=== PATIENT | female | born 1970 | race Caucasian/White ===

== ENCOUNTER 2018-04-19 16:03 | Emergency (ER) | payer BC ==
[2018-04-19 20:14] VITALS: RESP 16; TEMP 98
--- NOTE | 2018-04-19 20:52 | XR ---
EXAMINATION TYPE: XR chest 2V DATE OF EXAM: 04/19/2018 COMPARISON: None HISTORY: 48-year-old female with pain TECHNIQUE: PA and lateral views FINDINGS: The cardiomediastinal silhouette, aorta, and pulmonary vasculature are within normal limits. Lungs an d pleural spaces are clear. IMPRESSION: No acute cardiopulmonary process.
--- NOTE | 2018-04-19 21:41 | US ---
EXAMINATION TYPE: US gallbladder DATE OF EXAM: 04/19/2018 COMPARISON: NONE CLINICAL HISTORY: 48-year-old female Pain. RUQ pain . TECHNIQUE: Multiple sonographic images of the right upper quadrant are obtained. FINDINGS: Contracting Analyst notes: Patient eating chinese fries when I walked into the room. EXAM MEASUREMENTS: Liver Length: 12.3 cm Gallbladder Wall: 0.1 cm CBD: 7.1 mm Right Kidney: 9.1 x 3.7 x 4.1 cm Pancreas: Tail obscured by overlying bowel gas, visualized portions wnl Liver: Normal size but with slight parenchymal heterogeneity which may be on a technical basis. No fo cassandra lesion seen. Gallbladder: wnl Evidence for sonographic Petty's sign: No CBD: Mildly dilated. Right Kidney: No hydronephrosis. IMPRESSION: 1. Slight heterogeneity of the liver parenchyma may be on a technical basis or could represent nonspe cific hepatocellular disease. 2. No evidence for cholelithiasis or acute cholecystitis. 3. However, the bile duct is mildly dilated at 7.1 mm. Correlate with alkaline phosphatase and biliru bin levels to exclude biliary obstruction.
--- NOTE | 2018-04-19 21:42 | US ---
EXAMINATION TYPE: US venous doppler duplex LE RT DATE OF EXAM: 04/19/2018 9:26 PM COMPARISON: NONE CLINICAL HISTORY: 48-year-old female Pain. Right knee pain SIDE PERFORMED: Right TECHNIQUE: The lower extremity deep venous system is examined utilizing real time linear array sonog erika with graded compression, doppler sonography and color-flow sonography. FINDINGS: VESSELS IMAGED: External Iliac Vein (EIV) Common Femoral Vein Deep Femoral Vein Greater Saphenous Vein * Femoral Vein Popliteal Vein Small Saphenous Vein * Proximal Calf Veins (* superficial vessels) Right Leg: Negative for DVT IMPRESSION: No evidence for DVT within the right lower extremity imaged from the groin to the upper calf.
--- NOTE | 2018-04-19 21:45 | USB ---
EXAMINATION TYPE: US breast complete RT DATE OF EXAM: 04/19/2018 COMPARISON: NONE CLINICAL HISTORY: 48-year-old female Pain. Right breast pain TECHNIQUE: Whole right breast ultrasound was performed including scanning of the subareolar region an d axilla. FINDINGS: No solid or cystic lesion is seen. Very dense breast tissue noted by the shell sieve operator. No axillary lym phadenopathy. IMPRESSION: BI-RADS 1 - negative RECOMMENDATION: 1. Clinical management of right breast pain. 2. Patient should proceed with routine annual screening mammograms. Please ensure that the patient is receiving regular mammograms. 3. Patient should continue monthly self breast exam. 4. Negative imaging exam should not preclude additional follow-up of suspicious palpable abnormalitie s.
[2018-04-19] MEDS ORDERED: KETOROLAC 30 MG/ML 1 ML VIAL IVP STA (22:06)
--- NOTE | 2018-04-19 22:08 | ED ---
General Adult HPI - General Chief complaint: Recheck/Abnormal Lab/Rx Stated complaint: R swollen breast, arm numbness Time Seen by Provider: 04/19/18 20:01 Source: patient, RN notes reviewed Mode of arrival: ambulatory Limitations: no limitations - History of Present Illness Initial comments: 48-year-old female presents emergency Department with multiple complaints. Primary complaint is right breast pain, swelling, right arm pain. Patient states it feels numb and pain radiates down to her right antecubital region. Patient states his has been progressively worsening a while. She states she had a mammogram which showed high density and was concerned that she may have some underlying breast mass. She states that she supposed to have an MRI but her PCP here has not or today. She states she moved from [place] and July. Patient does have family history of breast cancer. Patient also complains that she has right upper quadrant abdominal pain, right leg pain and swelling. She states she just feels off does not feel her usual self. Patient states he takes Neurontin currently no other medications. Patient denies any vomiting diarrhea constipation. - Related Data Allergies Allergy/AdvReac Type Severity Reaction Status Date / Time Penicillins Allergy Unknown Verified 04/19/18 16:10 Review of Systems ROS Statement: Those systems with pertinent positive or pertinent negative responses have been documented in the HPI. ROS Other: All systems not noted in ROS Statement are negative. 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 laparascopy Past Psychological History: No Psychological Hx Reported Smoking Status: Never smoker Past Alcohol Use History: None Reported Past Drug Use History: None Reported General Exam Limitations: no limitations General appearance: alert, in no apparent distress Head exam: Present: atraumatic, normocephalic, normal inspection Eye exam: Present: normal appearance, PERRL, EOMI. Absent: scleral icterus, conjunctival injection, periorbital swelling Neck exam: Present: normal inspection, full ROM. Absent: tenderness, meningismus, lymphadenopathy Respiratory exam: Present: normal lung sounds bilaterally, chest wall tenderness. Absent: respiratory distress, wheezes, rales, rhonchi, stridor Cardiovascular Exam: Present: regular rate, normal rhythm, normal heart sounds. Absent: systolic murmur, diastolic murmur, rubs, gallop, clicks GI/Abdominal exam: Present: soft, tenderness (Mild right upper quadrant tenderness), normal bowel sounds. Absent: distended, guarding, rebound, rigid Extremities exam: Present: other (There is no evident swelling on the right, tenderness the right thigh, right popliteal region patient reports pain with palpation to the right axilla and the right bicep region pulses equal bilaterally of all extremities) Back exam: Absent: CVA tenderness (R), CVA tenderness (L) Neurological exam: Present: alert, oriented X3, CN II-XII intact Skin exam: Present: warm, dry, intact, normal color, other (Breast exam performed with Amanda MCNALLY multiple cystic region no nipple retraction no orange peeling no erythema). Absent: rash Course Vital Signs 04/19/18 04/19/18 04/19/18 16:06 20:12 22:07 Temperature 98.2 F 98.0 F 98.0 F Pulse Rate 84 75 73 Respiratory 20 16 16 Rate Blood Pressure 143/96 136/92 129/96 O2 Sat by Pulse 100 96 100 Oximetry Medical Decision Making - Medical Decision Making 48-year-old female presented for right breast pain, right arm pain and right leg pain. Patient had workup including labs, ultrasound chest x-ray. Patient has no acute findings other than mild hypoglycemia. She did eat emergency department no difficulty. Patient will be discharged and follow-up with Dr. Noam Gary breast surgeon for further evaluation and MRI as needed. - Lab Data Result diagrams: 04/19/18 22:00 04/19/18 22:00 Lab Results 04/19/18 04/19/18 04/19/18 Range/Units 22:00 22:00 22:00 WBC 7.5 (3.8-10.6) k/uL RBC 4.87 (3.80-5.40) m/uL Hgb 15.7 (11.4-16.0) gm/dL Hct 46.1 H (34.0-46.0) % MCV 94.7 (80.0-100.0) fL MCH 32.3 (25.0-35.0) pg MCHC 34.1 (31.0-37.0) g/dL RDW 12.3 (11.5-15.5) % Plt Count 227 (150-450) k/uL Neutrophils % 62 % Lymphocytes % 29 % Monocytes % 6 % Eosinophils % 1 % Basophils % 1 % Neutrophils # 4.6 (1.3-7.7) k/uL Lymphocytes # 2.2 (1.0-4.8) k/uL Monocytes # 0.4 (0-1.0) k/uL Eosinophils # 0.1 (0-0.7) k/uL Basophils # 0.1 (0-0.2) k/uL PT 10.4 (9.0-12.0) sec INR 1.0 (<1.2) APTT 26.6 (22.0-30.0) sec Sodium 143 (137-145) mmol/L Potassium 3.8 (3.5-5.1) mmol/L Chloride 104 (98-107) mmol/L Carbon Dioxide 31 H (22-30) mmol/L Anion Gap 8 mmol/L BUN 22 H (7-17) mg/dL Creatinine 0.71 (0.52-1.04) mg/dL Est GFR (CKD-EPI)AfAm >90 (>60 ml/min/1.73 sqM) Est GFR (CKD-EPI)NonAf >90 (>60 ml/min/1.73 sqM) Glucose 60 L (74-99) mg/dL Calcium 9.7 (8.4-10.2) mg/dL Total Bilirubin 0.4 (0.2-1.3) mg/dL AST 26 (14-36) U/L ALT 30 (9-52) U/L Alkaline Phosphatase 48 (38-126) U/L Total Protein 7.0 (6.3-8.2) g/dL Albumin 4.3 (3.5-5.0) g/dL Lipase 92 (23-300) U/L Urine Color Urine Appearance (Clear) Urine pH (5.0-8.0) Ur Specific [place] (1.001-1.035) Urine Protein (Negative) Urine Glucose (UA) (Negative) Urine Ketones (Negative) Urine Blood (Negative) Urine Nitrite (Negative) Urine Bilirubin (Negative) Urine Urobilinogen (<2.0) mg/dL Ur Leukocyte Esterase (Negative) Urine RBC (0-5) /hpf Urine WBC (0-5) /hpf Ur Squamous Epith Cells (0-4) /hpf Urine Mucus (None) /hpf 04/19/18 Range/Units 22:00 WBC (3.8-10.6) k/uL RBC (3.80-5.40) m/uL Hgb (11.4-16.0) gm/dL Hct (34.0-46.0) % MCV (80.0-100.0) fL MCH (25.0-35.0) pg MCHC (31.0-37.0) g/dL RDW (11.5-15.5) % Plt Count (150-450) k/uL Neutrophils % % Lymphocytes % % Monocytes % % Eosinophils % % Basophils % % Neutrophils # (1.3-7.7) k/uL Lymphocytes # (1.0-4.8) k/uL Monocytes # (0-1.0) k/uL Eosinophils # (0-0.7) k/uL Basophils # (0-0.2) k/uL PT (9.0-12.0) sec INR (<1.2) APTT (22.0-30.0) sec Sodium (137-145) mmol/L Potassium (3.5-5.1) mmol/L Chloride (98-107) mmol/L Carbon Dioxide (22-30) mmol/L Anion Gap mmol/L BUN (7-17) mg/dL Creatinine (0.52-1.04) mg/dL Est GFR (CKD-EPI)AfAm (>60 ml/min/1.73 sqM) Est GFR (CKD-EPI)NonAf (>60 ml/min/1.73 sqM) Glucose (74-99) mg/dL Calcium (8.4-10.2) mg/dL Total Bilirubin (0.2-1.3) mg/dL AST (14-36) U/L ALT (9-52) U/L Alkaline Phosphatase (38-126) U/L Total Protein (6.3-8.2) g/dL Albumin (3.5-5.0) g/dL Lipase (23-300) U/L Urine Color Light Yellow Urine Appearance Clear (Clear) Urine pH 6.0 (5.0-8.0) Ur Specific [place] 1.011 (1.001-1.035) Urine Protein Negative (Negative) Urine Glucose (UA) Negative (Negative) Urine Ketones Negative (Negative) Urine Blood Negative (Negative) Urine Nitrite Negative (Negative) Urine Bilirubin Negative (Negative) Urine Urobilinogen <2.0 (<2.0) mg/dL Ur Leukocyte Esterase Trace H (Negative) Urine RBC 1 (0-5) /hpf Urine WBC 2 (0-5) /hpf Ur Squamous Epith Cells 3 (0-4) /hpf Urine Mucus Rare H (None) /hpf Disposition Clinical Impression: Breast pain, right, Right arm pain Disposition: HOME SELF-CARE Condition: Stable Instructions: Breast Mass (ED) Additional Instructions: Follow-up with Dr. Noam Gary as directed.Please return to the Emergency Department if symptoms worsen or any other concerns. Is patient prescribed a controlled substance at d/c from ED?: No Referrals: Cortez Paulino DO [Primary Care Provider] - 1-2 days Valeria Abrams MD [STAFF PHYSICIAN] - 1-2 days Time of Disposition: 22:51
[2018-04-19 22:18] LABS: Basophils # (A) 0.1 k/uL (0-0.2); Basophils % (A) 1 %; Eosinophils # (A) 0.1 k/uL (0-0.7); Eosinophils % (A) 1 %; HCT 46.1 % (34.0-46.0); HGB 15.7 gm/dL (11.4-16.0); Lymphocytes # (A) 2.2 k/uL (1.0-4.8); Lymphocytes % (A) 29 %; MCH 32.3 pg (25.0-35.0); MCHC 34.1 g/dL (31.0-37.0); MCV 94.7 fL (80.0-100.0); Mean Platelet Volume 7.7; Monocytes # (A) 0.4 k/uL (0-1.0); Monocytes % (A) 6 %; Neutrophils # (A) 4.6 k/uL (1.3-7.7); Neutrophils % (A) 62 %; Platelet Count 227 k/uL (150-450); RBC 4.87 m/uL (3.80-5.40); RDW 12.3 % (11.5-15.5); WBC 7.5 k/uL (3.8-10.6)
[2018-04-19 22:31] LABS: Appearance,Urine Clear (Clear); Bilirubin,Urine Negative (Negative); Blood,Urine Negative (Negative); Color,Urine Light Yellow; Glucose,Urine (UA) Negative (Negative); Ketones,Urine Negative (Negative); Leukocyte Esterase,Urine Trace (Negative); Mucus,Urine Rare /hpf; Nitrite,Urine Negative (Negative); Protein,Urine Negative (Negative); RBC,Urine 1 /hpf (0-5); Specific Gravity,Urine 1.011 (1.001-1.035); Squamous Epithelial Cell,Urine 3 /hpf (0-4); Urobilinogen,Urine <2.0 mg/dL (<2.0); WBC,Urine 2 /hpf (0-5)
[2018-04-19 22:32] LABS: Partial Thromboplastin Time 26.6 sec (22.0-30.0); Prothrombin Time 10.4 sec (9.0-12.0)
[2018-04-19 22:34] LABS: ALT 30 U/L (9-52); AST 26 U/L (14-36); Albumin 4.3 g/dL (3.5-5.0); Alkaline Phosphatase 48 U/L (38-126); Anion Gap 8 mmol/L; Blood Urea Nitrogen 22 mg/dL (7-17); Calcium 9.7 mg/dL (8.4-10.2); Carbon Dioxide 31 mmol/L (22-30); Chloride 104 mmol/L (98-107); Glucose 60 mg/dL (74-99); Lipase 92 U/L (23-300); Potassium 3.8 mmol/L (3.5-5.1); Sodium 143 mmol/L (137-145); Total Bilirubin 0.4 mg/dL (0.2-1.3)
[2018-04-19 23:28] VITALS: BP 130/78; PULSE 71
== END 2018-04-19 23:20 | disposition home or self-care (01) ==
LOC: EC 16:03
DX: N64.4 Mastodynia (principal); M79.601 Pain in right arm; N63.10 Unspecified lump in the right breast, unspecified quadrant; M79.604 Pain in right leg; M79.89 Other specified soft tissue disorders; R10.11 Right upper quadrant pain; E16.2 Hypoglycemia, unspecified; R20.0 Anesthesia of skin; Z79.899 Other long term (current) drug therapy; Z88.0 Allergy status to penicillin; Z80.3 Family history of malignant neoplasm of breast
CPT/HCPCS: 99284; 96374; 36415; 80053; 83690; 85025; 85610; 85730; 81001; 71046; 93971; 76641; 76705; J1885

== ENCOUNTER → 2018-05-20 | Outpatient (CLI) | payer BC ==
[2018-05-20 15:30] VITALS: BP 142/82; PULSE 89; RESP 18; BMI 22.3
--- NOTE | 2018-05-20 17:41 | P.GSHP ---
History of Present Illness H&P Date: 05/20/18 Chief Complaint: breast swelling and pain Alison is a 48-year-old white female who presents with a complaint of right breast swelling and pain in the upper outer quadrant region. The pain has been present for approximately 2 months. The pain is not cyclical and is constant. The patient has very dense breast and the breast feel nodular bilaterally. She has no nipple discharge or changes. She has no skin changes. She has no history of any trauma or infection in the breast. Last bilateral mammogram 2017 and dense breast but no evidence of cancer. An ultrasound was done 6 month left bresat ultrasound recommended. This was done on 04-19-18. This was a BIRADS 1, negative. She does not smoke but is exposed to secondhand smoke. She eats chocolate twice a month. She has minimal exposure to caffeine. The area of fullness was noted when she was walking and was swinging her arm she noted a fullness in the upper outer quadrant of the right breast. Family History: maternal grandmother: breast cancer Hormonal History: menarche: 11 : 1, 1 child, age 17, breastfed: no menopause: last period May of 2017, + hotflashes BCP: none hormones: premarin cream last used about 1 year ago Past Surgical History: 1. Cardiac ablation 2. Laparoscopic evaluation for endometriosis 3. tubes in her hear 4. wisdom teeth 5. cyst in her groin Past Medical History: 1. Michael Parkinson White Syndrome Social Hsitory: smoke: none alcohol: none drugs: none - Constitutional Constitutional: Reports sweats - EENT Comment: wears reading glasses cervical disc disease Eyes: denies pain Ears: deny: decreased hearing, tinnitus - Breasts Breasts: bilateral: as per HPI - Cardiovascular Comment: Michael Parkinson White Syndrome Cardiovascular: Denies chest pain, Denies shortness of breath - Respiratory Comment: bronchitis - Gastrointestinal Comment: IBS, GERD - Genitourinary (Female) Comment: perimenopausal Genitourinary: Denies dysuria, Denies hematuria - Menstruation Comment: perimenopausal - Musculoskeletal Comment: cervical disc disease - Integumentary Integumentary: Denies pruritus, Denies rash - Neurological Neurological: Reports numbness - Psychiatric Psychiatric: Denies anxiety, Denies depression - Endocrine Endocrine: Denies fatigue, Denies weight change - Allergic/Immunologic Allergic/Immunologic: Reports seasonal allergies Past Medical History 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 laparascopy Past Psychological History: No Psychological Hx Reported Smoking Status: Never smoker Past Alcohol Use History: None Reported Past Drug Use History: None Reported Medications and Allergies Home Medications Medication Instructions Recorded Confirmed Type Ascorbic Acid [Vitamin C] 05/20/18 History Cholecalciferol [Vitamin D3] 1,000 unit PO DAILY 05/20/18 05/20/18 History Gabapentin [Neurontin] 100 mg PO TID 05/20/18 05/20/18 History Zinc 05/20/18 History Allergies Allergy/AdvReac Type Severity Reaction Status Date / Time Penicillins Allergy Unknown Verified 05/20/18 15:37 adhesive tape AdvReac Rash/Hives Unverified 05/20/18 15:36 codeine AdvReac Vomiting Unverified 05/20/18 15:36 Surgical - Exam Vital Signs Pulse Resp BP Pulse Ox 89 18 142/82 100 05/20/18 15:19 05/20/18 15:19 05/20/18 15:19 05/20/18 15:19 - General well developed, well nourished, no distress - Eyes normal ocular movement, no icteric - ENT no hearing loss, no congestion - Neck right cervical adenopathy no masses, trachea midline - Respiratory normal respiratory effort, clear to auscultation - Cardiovascular Rhythm: regular Heart Sounds: normal: S1, S2 - Abdomen Abdomen: soft, non tender, no guarding, no rigid, no rebound - Integumentary normal turgor - Neurologic no disoriented, no combative - Musculoskeletal normal gait, normal posture - Psychiatric oriented to time, oriented to person, oriented to place, speech is normal, memory intact Breast Exam: right breast: multipositional exam, very dense breast , increased tissue in UOQ , very difficult to examine, fibrocystic changes right axilla: no adenopathy of concern left breast: multipositional exam, dense fibrocystic breast tissue, smaller than the right breast. Results ultrasound report from 04-19-18 reviewed mammogram report from 05-22-17 reviewed Assessment and Plan Assessment: Impression: 1. dense fibrocystic breasst 2. mystodynia 3. asymetric breast 4. cervical disc disease 5. perimenopausal Plan: 1. bilateral mammogram 2. appt. with Dr. Butler to evaluate for hormonal fluctuations 3. Tamms oil 4. will consider breast MRI depending on results of mammogram 5. follow up here in 6 weeks Discussed causes of breast pain with the patient. She was give a book on breast pain. CC: Dr. Paulino
== END ==
LOC: WWCWWP 15:14
PROVIDERS: ATTEND Surgery
DX: Z53.9 Procedure and treatment not carried out, unspecified reason (principal)

== ENCOUNTER → 2018-05-25 | Outpatient (CLI) | payer BC ==
--- NOTE | 2018-05-26 08:34 | MR ---
EXAMINATION TYPE: MR cervical spine wo/w con DATE OF EXAM: 05/25/2018 COMPARISON: HISTORY: Neck pain, Julio César arm tingling TECHNIQUE: Multiplanar, multisequence images of the cervical spine were acquired utilizing 7 mL intravenous Gada vist gadolinium contrast. Diffusion weighted imaging was performed. C2-C3: No evidence for degenerative disc disease. No disc bulge/herniation or protrusion. No Canal stenosis. Foramina are patent bilaterally. C3-C4: Posterior extension of endplate disc complex causes anterior mass effect on the thecal sac. No significant central canal stenosis. Uncovertebral joint hypertrophy, facet arthropathy change result s in bilateral foraminal encroachment. C4-C5: Hypertrophic changes cause foraminal encroachment bilaterally. Left paracentral extension of e ndplate disc complex causes anterolateral mass effect in the fecal sac greater than right. Mild anter ior mass effect on the thecal sac. No significant central stenosis. C5-C6: Posterior extension of endplate disc complex is noted causing anterior mass effect on the thec al sac, mild to moderate central canal stenosis. Bilateral foraminal encroachment is present left gre ater than right. C6-C7: Posterior extension of endplate disc complex causes anterior mass effect on the thecal sac, mi ld central stenosis. Foraminal encroachment is present right greater than left. There is some facet a rthropathy changes causing some posterior lateral mass effect on the thecal sac. C7-T1: No evidence for degenerative disc disease. No disc bulge/herniation or protrusion. No Canal stenosis. Foramina are patent bilaterally. Cervical segments are intact. There is near anatomic alignment, minimal anterolisthesis grade 1 C3-4 , retrolisthesis grade 1 C5-6. Cervical spinal cord is of normal signal. Craniovertebral junction r elationships are within normal limits. There is multilevel spondylosis present. Multilevel loss of di sc height signal is present especially at C4-5, C5-6 and C6-7, there is endplate discogenic marrow si gnal change compatible with degenerative disc disease. No abnormal enhancement following contrast adm inistration. IMPRESSION: Degenerative disc disease, multilevel foraminal encroachment, central canal stenosis as described.
== END | disposition home or self-care (01) ==
LOC: RADMRIMAIN 20:44
PROVIDERS: ATTEND Physician Assistant Surgical
DX: M48.02 Spinal stenosis, cervical region (principal); M50.321 Other cervical disc degeneration at C4-C5 level
CPT/HCPCS: 72156; A9585

== ENCOUNTER → 2018-06-09 | Outpatient (CLI) | payer BC ==
[2018-06-09 10:30] VITALS: BP 113/81; PULSE 87; RESP 18; TEMP 98; BMI 22.3
--- NOTE | 2018-06-09 14:03 | P.HPOB ---
History of Present Illness H&P Date: 06/09/18 Chief Complaint: That hot flashes worsening over the last year. This is a 48-year-old with an LMP of 05/21/2017 who was sent by Dr. Noam Gary regarding menopausal symptoms. The patient was seen in the emergency room because of severe breast pain. She saw Dr. Noam Gary because of this pain and was felt to have significant fibrocystic changes. The patient states that she started having hot flashes after her menstrual periods stopped one year ago. In July 2017 symptoms became quite severe and briefly used Premarin vaginal cream for 2 weeks. She states the hot flashes did improve for about 4 months. She does not want to use estrogen replacement therapy because of her family history of breast cancer and because of her breast symptoms. She states her hot flashes are quite severe and occur both during the day and at night. She has had sleep problems associated with these hot flashes. Her last Pap smear was 2 years ago. Review of Systems The patient states she has gained about 5 pounds over the last year. She denies respiratory or cardiac problems. G.I.: occasional gastric reflux. Past Medical History Past Medical History: GERD/Reflux Additional Past Medical History / Comment(s): WPW syndrome improved following cardiac ablation. Cervical spine stenosis. 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 History of Any Multi-Drug Resistant Organisms: None Reported Past Surgical History: Cardiac Ablation, Ear Surgery (Tubes as a child) Additional Past Surgical History / Comment(s): exp. laparoscopy. Groin cyst removed. [place] teeth removed. Past Psychological History: Depression Additional Psychological History / Comment(s): Brief depression around 2007 treated with Prozac. Smoking Status: Never smoker Past Alcohol Use History: Rare (One per year) Past Drug Use History: None Reported Additional History: She is single and is not seeing anybody at this time. 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 - Past Family History Mother Family Medical History: COPD Additional Family Medical History / Comment(s): Maternal grandmother and her maternal great grandmother had breast cancer. Her maternal grandmother and maternal cousin had colon cancer. Father Family Medical History: Cancer Additional Family Medical History / Comment(s): Melanoma skin cancer. Medications and Allergies Home Medications Medication Instructions Recorded Confirmed Type Ascorbic Acid [Vitamin C] 1,000 mg PO DAILY 05/20/18 06/09/18 History Cholecalciferol [Vitamin D3] 1,000 unit PO DAILY 05/20/18 06/09/18 History Gabapentin [Neurontin] 100 mg PO TID 05/20/18 06/09/18 History Zinc 05/20/18 History Cyclobenzaprine [Flexeril] 10 mg PO HS PRN 06/09/18 06/09/18 History Allergies Allergy/AdvReac Type Severity Reaction Status Date / Time Penicillins Allergy Unknown Verified 06/09/18 10:17 adhesive tape AdvReac Rash/Hives Unverified 06/09/18 10:17 codeine AdvReac Vomiting Unverified 06/09/18 10:17 Exam Vital Signs Temp Pulse Resp BP Pulse Ox 06/09/18 10:25 98.0 F 87 18 113/81 99 Intake and Output 06/08/18 06/09/18 06/09/18 22:59 06:59 14:59 Other: Weight 58.967 kg Height 5'4", weight 130 pounds, BMI 22.3. This is a well-developed well-nourished white female who is alert and oriented times 3 in no acute distress. HEENT: Within normal limits. NECK: Supple without mass or thyromegaly. CHEST AND LUNGS: Clear to auscultation. HEART: Regular rate and rhythm. BREASTS: Are without mass or discharge. There is moderate bilateral breast tenderness in the upper outer quadrants of the breasts. The upper outer quadrants are somewhat firm without a discrete mass. AXILLARY EXAM: Negative for adenopathy. BACK: Negative for CVA tenderness. ABDOMEN: Soft, nontender, without palpable masses. PELVIC EXAM: Normal external genitalia with mild atrophy. Cervix and vagina appear normal with mild atrophy. There is no unusual discharge. There is no evidence of prolapse. The uterus is midposition, nongravid size and nontender. There is a palpable right pelvic mass adjacent to the uterus that measures approximately 3.5 cm and is firm and slightly irregular. This mass is mildly to moderately tender. There are no other palpable pelvic masses. RECTAL EXAM: rectovaginal exam negative for rectal mass or tenderness and is negative for occult blood. The right pelvic mass is palpable with rectovaginal exam. EXTREMITIES: Nontender. IMPRESSION: 1. 48 year old menopausal female with moderate to severe vasomotor symptoms that are bothersome both day and night. 2. Right pelvic mass which is tender. Differential diagnosis will include palpable benign right ovary, pedunculated uterine fibroid, and ovarian neoplasm. With the fairly sudden onset of bilateral breast pain, we will also consider a hormone producing ovarian neoplasm. 3. Family history of breast cancer in her maternal grandmother and great- grandmother. 4. Bilateral mastodynia. 5. Fibrocystic changes of the breast. PLAN: 1. Pap smear was performed. 2. Self breast awareness was discussed with the patient. 3. The patient is scheduled for a bilateral diagnostic mammogram today. 4. Pelvic ultrasound will be scheduled. 5. We have had long discussion regarding menopausal symptoms and vasomotor symptoms. We have discussed various options including hormone replacement therapy, nonhormonal prescription treatment such as SSRI and clonidine treatments. We also discuss other options such as herbal supplements. At this time I do not believe hormone replacement therapy would be a good option because of her family history of breast cancer and breast symptoms. She does think that an SSRI medication may be a good choice to try because she does have some emotional changes that she thinks may be related to the menopausal change. We will have a trial of paroxetine 10 mg daily. She was instructed to call if she is having problems with his medications including suicidal thoughts. She currently denies any suicidal thoughts. The electronic prescription will be sent to [facility] pharmacy on . She will return in approximately 2 months for recheck on her treatment for vasomotor symptoms. She will also return annually for her well woman exam.
--- NOTE | 2018-06-09 14:10 | MM ---
Reason for exam: additional evaluation requested from prior study. History: Family history of breast cancer in grandmother. Physical Findings: Dr. Butler did breast exam. MG 3D Diag Mammo W/Cad BERNARDO Bilateral CC and MLO view(s) were taken. Prior study comparison: April 19, 2018, right breast US breast RT. May 22, 2017, ultrasound. The breast tissue is extremely dense which could obscure a lesion on mammography. No suspicious abnormality. Breast within a breast appearance suggests central inferior middle depth hamartoma. These results were verbally communicated with the patient and result sheet given to the patient on 06/09/18. ASSESSMENT: Incomplete: need additional imaging evaluation, BI-RAD 0 RECOMMENDATION: Ultrasound of the left breast. (6 o'clock lower outer quadrant follow up from recommendation on 05/22/17)
--- NOTE | 2018-06-09 14:13 | USB ---
Reason for exam: additional evaluation requested from abnormal screening. History: Family history of breast cancer in grandmother. US Breast Limited LT Left limited breast ultrasound including focal area of concern, retroareolar and axilla demonstrates a 3 x 3 x 4mm oval, cystic lesion at 6 o'clock previously 4 x 4 x 3mm on 05/22/17. These results were verbally communicated with the patient and result sheet given to the patient on 06/09/18. ASSESSMENT: Benign, BI-RAD 2 RECOMMENDATION: Routine screening mammogram of both breasts in 1 year.
--- NOTE | 2018-06-16 10:18 | P.PN ---
Progress Note - Text Progress Note Date: 06/16/18 The patient called stating that she woke up in the middle of the night 2 days ago with various symptoms. This was after taking paroxetine daily for 3 days. She states her hot flashes did improve. She woke that night with dizziness, feeling shaky, ringing in the ears and palpitations. These symptoms lasted several hours but all resolved. She discontinued the paroxetine. We discussed various options including lowering the dose of the proximity to see if she tolerates this. She would like to try a different medication. We have discussed using a different medication in the same class such as fluoxetine and starting with a low dose that she can gradually increase to see if she has side effects. A prescription for fluoxetine 10 mg will be sent electronically to [facility] pharmacy on . She will take a half tablet every other day for 3 days, then half tablet daily for 3 days, then one tablet daily. She was instructed to discontinue the medication she has bad side effects also was instructed to call if she has any problems with this medication.
--- NOTE | 2018-06-16 10:29 | P.PN ---
Progress Note - Text Progress Note Date: 06/16/18 OUTPATIENT FOLLOW-UP NOTE TEST(S)/RESULTS: Pap smear from 06/09/2018 was negative. METHOD OF NOTIFICATION: a message was left on the patient's voicemail with this result. PATIENT COMMENTS: DIAGNOSIS: negative Pap smear DISCUSSION: PLAN: pelvic ultrasound is scheduled for 06/18/2018.
== END ==
LOC: WWCWWP 09:50
PROVIDERS: ATTEND Obstetrics & Gynecology
DX: N64.4 Mastodynia (principal)
CPT/HCPCS: 77062; 77066

== ENCOUNTER → 2018-06-18 | Outpatient (CLI) | payer BC ==
--- NOTE | 2018-06-18 17:49 | US ---
EXAMINATION TYPE: US pelvis complete transvag DATE OF EXAM: 06/18/2018 COMPARISON: NONE CLINICAL HISTORY: R19.09 Pelvic mass Right. pelvic mass on the right felt by physician TECHNIQUE: TA/TV. Date of LMP: May 2017 EXAM MEASUREMENTS: Uterus: 4.7 x 3.8 x 5.3 cm Endometrial Stripe: could not discern Right Ovary: 1.5 x 1.3 x 1.1 cm Left Ovary: 1.9 x 2.2 x 1.1 cm *tried to fill bladder for over an hour but bladder would not fully distend. Did TV to supplement 1. Uterus: Anteverted 4.7cm right sided fundal fibroid that was best seen transabdominally 2. Endometrium: unable to discern for accurate measurement 3. Right Ovary: wnl 4. Left Ovary: wnl 5. Bilateral Adnexa: wnl 6. Posterior cul-de-sac: wnl IMPRESSION: 1. Uterine fibroid
== END | disposition home or self-care (01) ==
LOC: RADUSWWP 12:57
PROVIDERS: ATTEND Obstetrics & Gynecology
DX: D25.9 Leiomyoma of uterus, unspecified (principal)
CPT/HCPCS: 76830; 76856

== ENCOUNTER 2018-10-13 00:49 | Emergency (ER) | payer BC ==
[2018-10-13 07:15] LABS: ALT 17 U/L (9-52); AST 32 U/L (14-36); African American GFR (CKD) >90 (>60 ml/min/1.73 sqM); Albumin 3.9 g/dL (3.5-5.0); Alkaline Phosphatase 50 U/L (38-126); Anion Gap 8 mmol/L; Basophils # (A) 0.1 k/uL (0-0.2); Basophils % (A) 1 %; Blood Urea Nitrogen 15 mg/dL (7-17); Calcium 9.4 mg/dL (8.4-10.2); Carbon Dioxide 26 mmol/L (22-30); Chloride 108 mmol/L (98-107); Eosinophils # (A) 0.3 k/uL (0-0.7); Eosinophils % (A) 4 %; Glucose 100 mg/dL (74-99); HCT 45.1 % (34.0-46.0); HGB 14.5 gm/dL (11.4-16.0); Lymphocytes % (A) 25 %; MCH 30.9 pg (25.0-35.0); MCHC 32.2 g/dL (31.0-37.0); MCV 95.8 fL (80.0-100.0); Mean Platelet Volume 7.9; Monocytes # (A) 0.5 k/uL (0-1.0); Monocytes % (A) 6 %; Neutrophils % (A) 62 %; Platelet Count 218 k/uL (150-450); Potassium 4.1 mmol/L (3.5-5.1); RDW 12.4 % (11.5-15.5); Sodium 142 mmol/L (137-145); Total Bilirubin 0.2 mg/dL (0.2-1.3); Total Protein 6.3 g/dL (6.3-8.2); WBC 8.1 k/uL (3.8-10.6)
--- NOTE | 2018-10-13 10:22 | CT ---
EXAM: CT Neck With Intravenous Contrast CLINICAL HISTORY: Difficulty swallowing, Rt lump on neck, Xrl065/100ml, DLP: 157.20 TECHNIQUE: Axial computed tomography images of the neck with intravenous contrast. CTDI is 7.18 mGy and DLP is 157.20 mGy-cm. This CT exam was performed using one or more of the following dose reduction techniques: automated exposure control, adjustment of the mA and/or kV according to patient size, and/or use of iterative reconstruction technique. COMPARISON: No relevant prior studies available. FINDINGS: Oropharynx: Unremarkable. No significant tonsillar enlargement. No peritonsillar abscess. Hypopharynx: Unremarkable. Larynx: Unremarkable. Normal epiglottis. Trachea: Unremarkable. Retropharyngeal space: Unremarkable. Submandibular/parotid glands: Unremarkable. Glands are normal in size. Thyroid: Unremarkable. No enlarged or calcified nodules. Bones/joints: No acute fracture. Soft tissues: Unremarkable. Vasculature: No acute findings. Lymph nodes: Unremarkable. No lymphadenopathy. Lung apices: Unremarkable as visualized. IMPRESSION: No findings to explain difficulty swallowing. No mass in the area of clinical concern. No adenopathy.
== END 2018-10-13 05:07 | disposition home or self-care (01) ==
LOC: EC 00:49
DX: R09.89 Other specified symptoms and signs involving the circulatory and respiratory systems (principal); Z96.22 Myringotomy tube(s) status; Z98.890 Other specified postprocedural states; Z87.891 Personal history of nicotine dependence; Z88.0 Allergy status to penicillin; Z88.5 Allergy status to narcotic agent; Z91.048 Other nonmedicinal substance allergy status
CPT/HCPCS: 36415; 70491; 80053; 85025; 99284

== ENCOUNTER → 2019-02-16 | Outpatient (CLI) | payer BC ==
--- NOTE | 2019-02-17 04:14 | US ---
EXAMINATION TYPE: US venous doppler duplex LE LT DATE OF EXAM: 02/16/2019 5:35 PM COMPARISON: NONE CLINICAL HISTORY: 49-year-old female with left leg pain M79.662. Intermittent left leg pain and swell ing x 3 to 4 months SIDE PERFORMED: Left TECHNIQUE: The lower extremity deep venous system is examined utilizing real time linear array sonog erika with graded compression, doppler sonography and color-flow sonography. FINDINGS: VESSELS IMAGED: External Iliac Vein (EIV) Common Femoral Vein Deep Femoral Vein Greater Saphenous Vein * Femoral Vein Popliteal Vein Small Saphenous Vein * Proximal Calf Veins (* superficial vessels) Left Leg: Appears negative for DVT IMPRESSION: No evidence for DVT within the left lower extremity imaged from the groin to the upper calf.
== END | disposition home or self-care (01) ==
LOC: RADUSMAIN 16:47
PROVIDERS: ATTEND Family Medicine
DX: M79.662 Pain in left lower leg (principal)

== ENCOUNTER → 2019-03-04 | Outpatient (CLI) | payer BC ==
--- NOTE | 2019-03-04 11:42 | FL ---
Modified barium swallow. HISTORY: Dysphagia. Modified barium swallow was performed with the department of speech pathology. The patient was prese nted with various consistencies of barium. There is no evidence for aspiration or penetration. Full report is to follow from the department of speech pathology. Impression: Normal study.
[2019-03-04 16:04] LABS: Thyroid Peroxidase Antibodies <28.0 U/mL (0.0-60.0)
== END | disposition home or self-care (01) ==
LOC: RADFLMAIN 11:01
PROVIDERS: ATTEND Otolaryngology
DX: R13.10 Dysphagia, unspecified (principal); E01.0 Iodine-deficiency related diffuse (endemic) goiter
CPT/HCPCS: 36415; 74230; 84443; 86376; 86800

== ENCOUNTER → 2019-06-21 | Outpatient (CLI) | payer BC ==
[2019-06-21 14:24] VITALS: BP 119/87; PULSE 95; RESP 18; TEMP 97.7
--- NOTE | 2019-06-21 15:22 | P.HPOB ---
History of Present Illness H&P Date: 06/21/19 Chief Complaint: The patient is here for her routine gynecologic exam. This is a 57-year-old with an LMP of May 2017. Patient states she has been having low abdominal, back and pelvic pains for about 6 months. The abdominal pain is occasionally sharp but seems more like a tenderness when she pushes on her low abdomen. Her abdomen sometimes feels swollen. She has had fairly constant nausea without emesis. She also notices a few episodes of small spotting over the past 6 months as well. She describes the pain had a 1 out of 10 at this time. She denies fever. She states she has normal bowel movements. She denies any urinary symptoms. Review of Systems She is getting about 4 pounds over the past year. She denies respiratory problems. Cardiac: Occasional slight palpitations. GI: Fairly constant nausea without emesis. Please see the HPI for additional details. Past Medical History Past Medical History: GERD/Reflux Additional Past Medical History / Comment(s): WPW syndrome improved following cardiac ablation. Cervical spine stenosis. 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 History of Any Multi-Drug Resistant Organisms: None Reported Past Surgical History: Cardiac Ablation, Ear Surgery Additional Past Surgical History / Comment(s): exp. laparoscopy. Groin cyst r emoved. [place] teeth removed. Past Psychological History: Anxiety, Depression Additional Psychological History / Comment(s): Brief depression around 2007 treated with Prozac. Smoking Status: Never smoker Past Alcohol Use History: Rare (3/Year) Past Drug Use History: None Reported Additional History: She is single and is not seeing anybody at this time. She has not been sexually active for several years. 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 - Past Family History Mother Family Medical History: COPD Additional Family Medical History / Comment(s): Maternal grandmother and her maternal great grandmother had breast cancer. Her maternal grandmother and maternal cousin had colon cancer. Father Family Medical History: Cancer Additional Family Medical History / Comment(s): Metastatic Melanoma skin cancer. Medications and Allergies Home Medications Medication Instructions Recorded Confirmed Type Ascorbic Acid [Vitamin C] 1,000 mg PO DAILY 05/20/18 06/21/19 History Cholecalciferol [Vitamin D3] 1,000 unit PO DAILY 05/20/18 06/21/19 History Gabapentin [Neurontin] 100 mg PO TID 05/20/18 06/21/19 History Zinc 1 tab PO DAILY 05/20/18 06/21/19 History Cyclobenzaprine [Flexeril] 10 mg PO HS PRN 06/09/18 06/21/19 History Sucralfate [Carafate] 1 gm PO ACHS #90 tablet 05/29/19 06/21/19 Rx Biotin 5,000 mcg PO DAILY 06/21/19 06/21/19 History Allergies Allergy/AdvReac Type Severity Reaction Status Date / Time Penicillins Allergy Unknown Verified 06/21/19 14:25 adhesive tape AdvReac Rash/Hives Verified 06/21/19 14:25 azithromycin AdvReac Nausea & Unverified 06/21/19 14:25 [From Zithromax Z-[place]] Vomiting codeine AdvReac Vomiting Verified 06/21/19 14:25 Exam Vital Signs Temp Pulse Resp BP Pulse Ox 06/21/19 14:04 97.7 F 95 18 119/87 99 Intake and Output 06/21/19 06/21/19 06/21/19 06:59 14:59 22:59 Other: Weight 60.781 kg Height 5 feet 5 inches, weight 134 pounds, BMI 22.3. This is a well-developed well-nourished white female who is alert and oriented times 3 in no acute distress. HEENT: Within normal limits. NECK: Supple without mass or thyromegaly. CHEST AND LUNGS: Clear to auscultation. HEART: Regular rate and rhythm. BREASTS: Are without mass or discharge. There is mild bilateral generalized breast tenderness. AXILLARY EXAM: Negative for adenopathy. BACK: Negative for CVA tenderness. ABDOMEN: Soft, with mild to moderate lower abdominal tenderness without rebound tenderness. The abdomen appears nondistended. There are 1+ bowel sounds. The abdomen is without palpable masses. PELVIC EXAM: Normal external genitalia with mild atrophy. Cervix and vagina appear normal with mild atrophy. There is no unusual discharge. There is no evidence of prolapse. The uterus is midposition, nongravid size and is mildly tender. There is bilateral generalized mild adnexal tenderness without palpable masses. RECTAL EXAM: Rectovaginal exam is negative for mass or tenderness and is negative for occult blood. EXTREMITIES: Nontender. IMPRESSION: 1. 49-year-old and a partial female with six-month history of low abdominal and pelvic pain and tenderness with low abdominal and pelvic tenderness on examination today. Differential diagnosis will include ovarian cysts, ruptured ovarian cyst, other ovarian neoplasm, uterine fibroid, degenerating uterine fi broid and nontender gynecologic pain such as GI discomfort. 2. Slight intermittent postmenopausal spotting over the past 6 months. The patient states this has been very infrequent. 3. History of 4.7 cm uterine fibroid by ultrasound on 06/18/2018. PLAN: 1. Pap smear was deferred since she had a normal one on 06/09/2018. 2. Self breast awareness was discussed with the patient. 3. Mammogram is scheduled for 07/08/2019 and she has an order slip from her PCP for this. 4. Osteoporosis prevention was discussed. I have stressed the importance of adequate calcium, vitamin D and regular exercise. Recommended amounts of calcium and vitamin D were also discussed. 5. She is scheduled for a colonoscopy and EGD in the near future. 6. Pelvic ultrasound will be scheduled. The order slip was given to the patient for this. If no discrete findings explaining her pain, we can discuss other options such as CT scan of the abdomen through her PCP. 7. She was advised to return in one year for her annual well woman exam and as needed.
== END ==
LOC: WWCWWP 13:59
PROVIDERS: ATTEND Obstetrics & Gynecology
DX: Z53.9 Procedure and treatment not carried out, unspecified reason (principal)

== ENCOUNTER 2019-06-27 | Emergency (ER) | payer BC | END 2019-06-27 17:31 | disposition home or self-care (01) | CPT/HCPCS: 99284; 96365; 96375 ×4; 96361; 36415; 93005; 80053; 82150; 83605; 83690; 85025; 85610; 85730; 81001; 87086; 74177; J2270; J2405; J0696; J1885; C9113; Q9967 ==

== ENCOUNTER → 2019-06-29 | Day surgery (SDC) | payer BC ==
[2019-06-27 12:43] VITALS: BMI 21.9
[~2019-06-29] MED LIST: GLUCAGON 1 MG/ML VIAL ONE; LACTATED RINGERS 1,000 ML IV SCH; LIDOCAINE 1% (10MG/ML) FOR IV START INTRADERMA PRN; LIDOCAINE 1% INJ 10MG/ML (20 ML MDV) ONE; ONDANSETRON 4 MG/2 ML VIAL IVP ONE; PROPOFOL 10 MG/ML 20 ML VIAL IV ONE
[2019-06-29 07:41] VITALS: RESP 16; TEMP 98.4
--- NOTE | 2019-06-29 08:52 | P.GSHP ---
History of Present Illness H&P Date: 06/29/19 Chief Complaint: GERD, screening colonoscopy This a 49-year-old female safer EGD and colonoscopy. Patient history of GERD. She's never had a colonoscopy before. Past Medical History Past Medical History: GERD/Reflux Additional Past Medical History / Comment(s): WPW syndrome improved following cardiac ablation. Cervical spine stenosis. 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 History of Any Multi-Drug Resistant Organisms: None Reported Past Surgical History: Cardiac Ablation, Ear Surgery Additional Past Surgical History / Comment(s): exp. laparoscopy. Groin cyst removed. [place] teeth removed. Past Anesthesia/Blood Transfusion Reactions: No Reported Reaction, Family History of Problems w/ Anesthesia Additional Past Anesthesia/Blood Transfusion Reaction / Comment(s): mom slow to wake from anesthesia Past Psychological History: Anxiety, Depression Smoking Status: Never smoker Past Alcohol Use History: None Reported Past Drug Use History: None Reported - Past Family History Mother Family Medical History: COPD Additional Family Medical History / Comment(s): Maternal grandmother and her maternal great grandmother had breast cancer. Her maternal grandmother and maternal cousin had colon cancer. Father Family Medical History: Cancer Additional Family Medical History / Comment(s): Melanoma skin cancer. Medications and Allergies Home Medications Medication Instructions Recorded Confirmed Type Ascorbic Acid [Vitamin C] 1,000 mg PO DAILY 05/20/18 06/29/19 History Cholecalciferol [Vitamin D3] 1,000 unit PO DAILY 05/20/18 06/29/19 History Gabapentin [Neurontin] 100 mg PO TID 05/20/18 06/29/19 History Cyclobenzaprine [Flexeril] 10 mg PO HS PRN 06/09/18 06/29/19 History Sucralfate [Carafate] 1 gm PO ACHS #90 tablet 05/29/19 06/29/19 Rx Biotin 5,000 mcg PO DAILY 06/21/19 06/29/19 History Aspirin 325 mg PO DAILY 06/27/19 06/29/19 History Butalb/Acetaminophen/Caffeine 1 - 2 cap PO Q4HR PRN 06/27/19 06/29/19 History [Fioricet 50-300-40 mg Capsule] Ciprofloxacin HCl [Cipro] 500 mg PO Q12HR #20 tablet 06/27/19 06/29/19 Rx Ondansetron Odt [Zofran ODT] 8 mg PO Q8HR PRN #15 tab 06/27/19 06/29/19 Rx Allergies Allergy/AdvReac Type Severity Reaction Status Date / Time azithromycin Allergy Abdominal Verified 06/27/19 14:12 [From Zithromax Z-[place]] Pain Penicillins Allergy Unknown Verified 06/27/19 14:12 adhesive tape AdvReac Rash/Hives Verified 06/27/19 14:12 codeine AdvReac Nausea & Verified 06/27/19 14:12 Vomiting Surgical - Exam Vital Signs Temp Pulse Resp BP Pulse Ox 98.4 F 96 16 130/72 99 06/29/19 07:39 06/29/19 07:39 06/29/19 07:39 06/29/19 07:39 06/29/19 07:39 - General well developed, well nourished, no distress - Eyes PERRL - ENT normal pinna - Neck no masses - Respiratory normal expansion - Cardiovascular Rhythm: regular - Abdomen Abdomen: soft, non tender Assessment and Plan Assessment: GERD. We'll perform EGD. Lost for screening colonoscopy.
--- NOTE | 2019-06-29 09:10 | P.OP ---
Date of Procedure: 06/29/19 Preoperative Diagnosis: GERD Screening colonoscopy Postoperative Diagnosis: Antral gastritis Moderate size hiatal hernia Mild esophagitis Diverticulosis Procedure(s) Performed: EGD Colonoscopy Anesthesia: MAC Surgeon: Fritz Kurtz Pathology: other (Antrum, esophagus) Condition: stable Disposition: PACU Description of Procedure: The patient's placed on the endoscopy table in the lateral position. She received IV sedation. The gastroscope placed oropharynx passed in the esophagus and stomach. Scope was then placed through the pylorus. The first and second portion of the duodenum appeared normal. Scope was then brought back the antrum this was mildly inflamed. A biopsies performed. The scope was unretroflexed and remainder stomach appeared normal. There was a moderate size hiatal hernia. The GE junction was at 38 cm. The distal esophagus appeared mildly inflamed a biopsies performed. The proximal esophagus appeared normal. Scope was withdrawn for patient. Next digital rectal exam was performed which revealed no abnormalities. Possible clot scope was then placed patient anus and passed throughout the entire colon. The ileocecal valve was visualized. The cecum, ascending and transverse colonAppeared normal. In the descending; there was mild diverticulosis. Scope was then brought back the rectum this appeared normal. Scope was withdrawn for patient.
[2019-06-29 09:32] VITALS: BP 111/79; PULSE 84
== END ==
LOC: ORWHC2ENDO 07:19
PROVIDERS: ATTEND Surgery
DX: K29.50 Unspecified chronic gastritis without bleeding (principal); Z12.11 Encounter for screening for malignant neoplasm of colon; K21.9 Gastro-esophageal reflux disease without esophagitis; K44.9 Diaphragmatic hernia without obstruction or gangrene; I45.6 Pre-excitation syndrome; F41.9 Anxiety disorder, unspecified; F32.9 Major depressive disorder, single episode, unspecified; M48.02 Spinal stenosis, cervical region; Z98.890 Other specified postprocedural states; Z79.82 Long term (current) use of aspirin; Z79.899 Other long term (current) drug therapy; Z88.1 Allergy status to other antibiotic agents; Z88.5 Allergy status to narcotic agent; Z88.0 Allergy status to penicillin; Z91.09 Other allergy status, other than to drugs and biological substances; Z82.5 Family history of asthma and other chronic lower respiratory diseases; Z80.3 Family history of malignant neoplasm of breast; Z80.0 Family history of malignant neoplasm of digestive organs; Z80.8 Family history of malignant neoplasm of other organs or systems
CPT/HCPCS: 88305; 43239; J1610; J2405; J2001; J2704; G0121

== ENCOUNTER 2019-07-03 | Emergency (ER) | payer BC | END 2019-07-03 04:52 | disposition home or self-care (01) | CPT/HCPCS: 36415; 80053; 82150; 83605; 83690; 85025; 81003; 74177; 99284; 96374; 96375 ×2; 96376; 96361 ×2; J1100; J2405; J1170; Q9967 ==

== ENCOUNTER 2019-07-05 03:14 | Emergency (ER) | payer BC ==
[2019-07-05 03:25] VITALS: RESP 18; TEMP 97.4
--- NOTE | 2019-07-05 04:02 | XR ---
EXAMINATION TYPE: XR abdomen 1V DATE OF EXAM: 07/05/2019 COMPARISON: NONE HISTORY: Weakness. Dizziness TECHNIQUE: FINDINGS: Supine and upright views were obtained. Bowel gas pattern is normal. There is no sign of in testinal obstruction or pneumoperitoneum. Fecal pattern is normal. Lung bases are clear. There are no pathologic calcifications over the kidneys. IMPRESSION: Nonacute abdomen.
--- NOTE | 2019-07-05 04:03 | ED ---
General Adult HPI - General Chief complaint: Abdominal Pain Stated complaint: Chest Pain Time Seen by Provider: 07/05/19 03:21 Source: patient, EMS Mode of arrival: EMS Limitations: no limitations - History of Present Illness Initial comments: Dictation was produced using [employer] dictation software. please excuse any grammatical, word or spelling errors. Chief Complaint: 49-year-old female presents with chest pain, anxiety and left-sided facial tingling History of Present Illness: 49-year-old female she has past medical history of W PW, GERD. She presents today with symptoms of chest pain and anxiety and left- sided facial tingling. Patient lives at home by herself. She called EMS today because her so. She was cleaning the house when she began having upper abdominal, substernal chest pressure. Patient denies any radiation to the shoulders or jaw. No diaphoresis. Patient denies any history of acute coronary syndrome or coronary artery disease. She recently had an EGD. She is told she has a hiatal hernia. Denies any nausea or vomiting. The ROS documented in this emergency department record has been reviewed and c onfirmed by me. Those systems with pertinent positive or negative responses have been documented in the HPI. All other systems are other negative and/or noncontributory. PHYSICAL EXAM: General Impression: Alert and oriented x3, not in acute distress, crying HEENT: Normocephalic atraumatic, extra-ocular movements intact, pupils equal and reactive to light bilaterally, mucous membranes moist. Cardiovascular: Heart regular rate and rhythm, S1&S2 audible, no murmurs, rubs or gallops Chest: Lungs clear to auscultation bilaterally, no rhonchi, no wheeze, no rales Abdomen: Bowel sounds present, abdomen soft, non-tender, non-distended, no organomegaly Musculoskeletal: Pulses present and equal in all extremities, no peripheral edema Motor: no focal deficits noted Neurological: CN II-XII grossly intact, no focal motor or sensory deficits noted, no facial droop, periorbital muscles intact Skin: Intact with no visualized rashes Psych: Normal affect and mood ED course: 49-year-old female is with atypical chest pain with typical features, she does have subjective sensory differences of her left lower face. Have any risk factors for cerebrovascular accident. No other neuro deficits noted. Chart review shows that patient was here 2 days ago evaluated for abdominal pain she had a computed tomography scan ordered showing no acute processes. She was told she had urinary tract infection possible pyelonephritis patient is given a prescription for ciprofloxacin.Laboratory evaluation obtai ewa. CBC, metabolic panel is unremarkable. Cardiac enzymes negative. Lipase negative. Urinalysis is negative. Chest x-ray and abdominal x-ray shows no acute processes. Discussed with patient and recommend keeping her in observation for serial troponins and cardiology consult given that she has chest pain. Patient states she would rather be discharged to home. She is told that it is recommended that serial troponins be ordered to evaluate for the possibility of acute coronary syndrome. She understands the risks that she has not had a complete workup. Patient would rather be discharge. She is pain-free at this time. She had received aspirin prior to arrival. She is strongly advised to follow-up with her primary care physician for outpatient follow-up. Return parameters discussed. She is told to seek medical attention with any recurrence of chest pain or chest pressure especially if associated with diaphoresis or fever radiates to the extremities. - Related Data Home Medications Medication Instructions Recorded Confirmed Ascorbic Acid [Vitamin C] 1,000 mg PO DAILY 05/20/18 06/29/19 Cholecalciferol [Vitamin D3] 1,000 unit PO DAILY 05/20/18 06/29/19 Gabapentin [Neurontin] 100 mg PO TID 05/20/18 06/29/19 Cyclobenzaprine [Flexeril] 10 mg PO HS PRN 06/09/18 06/29/19 Biotin 5,000 mcg PO DAILY 06/21/19 06/29/19 Aspirin 325 mg PO DAILY 06/27/19 06/29/19 Butalb/Acetaminophen/Caffeine 1 - 2 cap PO Q4HR PRN 06/27/19 06/29/19 [Fioricet 50-300-40 mg Capsule] Previous Rx's Medication Instructions Recorded Sucralfate [Carafate] 1 gm PO ACHS #90 tablet 05/29/19 Ciprofloxacin HCl [Cipro] 500 mg PO Q12HR #20 tablet 06/27/19 Ondansetron Odt [Zofran ODT] 8 mg PO Q8HR PRN #15 tab 06/27/19 Allergies Allergy/AdvReac Type Severity Reaction Status Date / Time azithromycin Allergy Abdominal Verified 07/03/19 02:10 [From Zithromax Z-[place]] Pain Penicillins Allergy Unknown Verified 07/03/19 02:10 adhesive tape AdvReac Rash/Hives Verified 07/03/19 02:10 codeine AdvReac Nausea & Verified 07/03/19 02:10 Vomiting Review of Systems ROS Statement: Those systems with pertinent positive or pertinent negative responses have been documented in the HPI. ROS Other: All systems not noted in ROS Statement are negative. Past Medical History Past Medical History: GERD/Reflux Additional Past Medical History / Comment(s): WPW syndrome improved following cardiac ablation. Cervical spine stenosis. 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 History of Any Multi-Drug Resistant Organisms: None Reported Past Surgical History: Cardiac Ablation, Ear Surgery Additional Past Surgical History / Comment(s): exp. laparoscopy. Groin cyst removed. [place] teeth removed. Past Psychological History: Anxiety, Depression Smoking Status: Never smoker Past Alcohol Use History: None Reported Past Drug Use History: None Reported - Past Family History Mother Family Medical History: COPD Additional Family Medical History / Comment(s): Maternal grandmother and her maternal great grandmother had breast cancer. Her maternal grandmother and maternal cousin had colon cancer. Father Family Medical History: Cancer Additional Family Medical History / Comment(s): Melanoma skin cancer. General Exam Limitations: no limitations Course Vital Signs 07/05/19 03:17 Temperature 97.4 F L Pulse Rate 83 Respiratory 18 Rate Blood Pressure 117/79 O2 Sat by Pulse 100 Oximetry Medical Decision Making - Lab Data Result diagrams: 07/05/19 03:57 07/05/19 03:57 Lab Results 07/05/19 07/05/19 07/05/19 Range/Units 03:57 03:57 03:57 WBC 9.1 (3.8-10.6) k/uL RBC 4.50 (3.80-5.40) m/uL Hgb 14.6 (11.4-16.0) gm/dL Hct 42.4 (34.0-46.0) % MCV 94.3 (80.0-100.0) fL MCH 32.4 (25.0-35.0) pg MCHC 34.4 (31.0-37.0) g/dL RDW 11.9 (11.5-15.5) % Plt Count 252 (150-450) k/uL Neutrophils % 46 % Lymphocytes % 43 % Monocytes % 7 % Eosinophils % 1 % Basophils % 1 % Neutrophils # 4.2 (1.3-7.7) k/uL Lymphocytes # 4.0 (1.0-4.8) k/uL Monocytes # 0.6 (0-1.0) k/uL Eosinophils # 0.1 (0-0.7) k/uL Basophils # 0.1 (0-0.2) k/uL Sodium 140 (137-145) mmol/L Potassium 3.9 (3.5-5.1) mmol/L Chloride 105 (98-107) mmol/L Carbon Dioxide 28 (22-30) mmol/L Anion Gap 7 mmol/L BUN 23 H (7-17) mg/dL Creatinine 0.82 (0.52-1.04) mg/dL Est GFR (CKD-EPI)AfAm >90 (>60 ml/min/1.73 sqM) Est GFR (CKD-EPI)NonAf 84 (>60 ml/min/1.73 sqM) Glucose 107 H (74-99) mg/dL Calcium 9.5 (8.4-10.2) mg/dL Total Bilirubin 0.2 (0.2-1.3) mg/dL AST 43 H (14-36) U/L ALT 31 (4-34) U/L Alkaline Phosphatase 67 (38-126) U/L Troponin I (0.000-0.034) ng/mL Total Protein 6.9 (6.3-8.2) g/dL Albumin 4.4 (3.5-5.0) g/dL Lipase 129 (23-300) U/L Urine Color Light Yellow Urine Appearance Clear (Clear) Urine pH 7.5 (5.0-8.0) Ur Specific [place] 1.007 (1.001-1.035) Urine Protein Negative (Negative) Urine Glucose (UA) Negative (Negative) Urine Ketones Negative (Negative) Urine Blood Negative (Negative) Urine Nitrite Negative (Negative) Urine Bilirubin Negative (Negative) Urine Urobilinogen <2.0 (<2.0) mg/dL Ur Leukocyte Esterase Negative (Negative) 07/05/19 Range/Units 03:57 WBC (3.8-10.6) k/uL RBC (3.80-5.40) m/uL Hgb (11.4-16.0) gm/dL Hct (34.0-46.0) % MCV (80.0-100.0) fL MCH (25.0-35.0) pg MCHC (31.0-37.0) g/dL RDW (11.5-15.5) % Plt Count (150-450) k/uL Neutrophils % % Lymphocytes % % Monocytes % % Eosinophils % % Basophils % % Neutrophils # (1.3-7.7) k/uL Lymphocytes # (1.0-4.8) k/uL Monocytes # (0-1.0) k/uL Eosinophils # (0-0.7) k/uL Basophils # (0-0.2) k/uL Sodium (137-145) mmol/L Potassium (3.5-5.1) mmol/L Chloride (98-107) mmol/L Carbon Dioxide (22-30) mmol/L Anion Gap mmol/L BUN (7-17) mg/dL Creatinine (0.52-1.04) mg/dL Est GFR (CKD-EPI)AfAm (>60 ml/min/1.73 sqM) Est GFR (CKD-EPI)NonAf (>60 ml/min/1.73 sqM) Glucose (74-99) mg/dL Calcium (8.4-10.2) mg/dL Total Bilirubin (0.2-1.3) mg/dL AST (14-36) U/L ALT (4-34) U/L Alkaline Phosphatase (38-126) U/L Troponin I <0.012 (0.000-0.034) ng/mL Total Protein (6.3-8.2) g/dL Albumin (3.5-5.0) g/dL Lipase (23-300) U/L Urine Color Urine Appearance (Clear) Urine pH (5.0-8.0) Ur Specific [place] (1.001-1.035) Urine Protein (Negative) Urine Glucose (UA) (Negative) Urine Ketones (Negative) Urine Blood (Negative) Urine Nitrite (Negative) Urine Bilirubin (Negative) Urine Urobilinogen (<2.0) mg/dL Ur Leukocyte Esterase (Negative) Disposition Clinical Impression: Chest pain Disposition: HOME SELF-CARE Condition: Good Instructions (If sedation given, give patient instructions): Chest Pain (ED) Is patient prescribed a controlled substance at d/c from ED?: No Referrals: Cortez Paulino DO [Primary Care Provider] - 1-2 days Time of Disposition: 05:12
--- NOTE | 2019-07-05 04:12 | XR ---
EXAMINATION TYPE: XR chest 2V DATE OF EXAM: 07/05/2019 COMPARISON: 05/29/2019 HISTORY: Chest pain TECHNIQUE: FINDINGS: Heart and mediastinum are normal. Lungs are clear. Diaphragm is normal. Bony thorax appears normal. IMPRESSION: Normal chest. No change.
[2019-07-05 04:28] LABS: Appearance,Urine Clear (Clear); Bilirubin,Urine Negative (Negative); Blood,Urine Negative (Negative); Color,Urine Light Yellow; Glucose,Urine (UA) Negative (Negative); Ketones,Urine Negative (Negative); Leukocyte Esterase,Urine Negative (Negative); Nitrite,Urine Negative (Negative); PH, Urine 7.5 (5.0-8.0); Protein,Urine Negative (Negative); Specific Gravity,Urine 1.007 (1.001-1.035); Urobilinogen,Urine <2.0 mg/dL (<2.0)
[2019-07-05 04:30] LABS: Basophils # (A) 0.1 k/uL (0-0.2); Basophils % (A) 1 %; Eosinophils # (A) 0.1 k/uL (0-0.7); Eosinophils % (A) 1 %; HCT 42.4 % (34.0-46.0); HGB 14.6 gm/dL (11.4-16.0); Lymphocytes % (A) 43 %; MCH 32.4 pg (25.0-35.0); MCHC 34.4 g/dL (31.0-37.0); MCV 94.3 fL (80.0-100.0); Mean Platelet Volume 8.5; Monocytes # (A) 0.6 k/uL (0-1.0); Monocytes % (A) 7 %; Neutrophils # (A) 4.2 k/uL (1.3-7.7); Neutrophils % (A) 46 %; Platelet Count 252 k/uL (150-450); RDW 11.9 % (11.5-15.5); WBC 9.1 k/uL (3.8-10.6)
[2019-07-05 04:41] LABS: ALT 31 U/L (4-34); AST 43 U/L (14-36); African American GFR (CKD) >90 (>60 ml/min/1.73 sqM); Albumin 4.4 g/dL (3.5-5.0); Alkaline Phosphatase 67 U/L (38-126); Anion Gap 7 mmol/L; Blood Urea Nitrogen 23 mg/dL (7-17); Calcium 9.5 mg/dL (8.4-10.2); Carbon Dioxide 28 mmol/L (22-30); Chloride 105 mmol/L (98-107); Glucose 107 mg/dL (74-99); Non-African American GFR(CKD) 84 (>60 ml/min/1.73 sqM); Potassium 3.9 mmol/L (3.5-5.1); Sodium 140 mmol/L (137-145); Total Bilirubin 0.2 mg/dL (0.2-1.3); Total Protein 6.9 g/dL (6.3-8.2)
[2019-07-05 05:31] VITALS: BP 116/76; PULSE 74
== END 2019-07-05 05:30 | disposition home or self-care (01) ==
LOC: EC 03:14
DX: R07.89 Other chest pain (principal); F41.9 Anxiety disorder, unspecified; R20.2 Paresthesia of skin; I45.6 Pre-excitation syndrome; Z88.0 Allergy status to penicillin; Z88.1 Allergy status to other antibiotic agents; Z88.5 Allergy status to narcotic agent; Z91.048 Other nonmedicinal substance allergy status; Z79.82 Long term (current) use of aspirin; Z79.899 Other long term (current) drug therapy; Z87.39 Personal history of other diseases of the musculoskeletal system and connective tissue; Z98.890 Other specified postprocedural states; Z87.440 Personal history of urinary (tract) infections
CPT/HCPCS: 36415; 71046; 74018; 80053; 81003; 83690; 84484; 85025; 99284

== ENCOUNTER 2019-07-13 11:17 | Emergency (ER) | payer BC ==
[2019-07-13 11:29] VITALS: RESP 18
[2019-07-13 11:33] VITALS: TEMP 98.2
[2019-07-13] MEDS ORDERED: SODIUM CHLORIDE 0.9% 500 ML 500 ML IV STA (11:40)
[2019-07-13] MEDS ORDERED: SODIUM CHLORIDE 0.9% 1,000 ML IV STA (11:40)
[2019-07-13] MEDS ORDERED: ONDANSETRON 4 MG/2 ML VIAL IVP STA (11:41)
--- NOTE | 2019-07-13 11:47 | ED ---
General Adult HPI - General Chief complaint: Arrhythmia/Palpitations Stated complaint: heart palpitations/dizziness Time Seen by Provider: 07/13/19 11:20 Source: patient, EMS, RN notes reviewed, old records reviewed Mode of arrival: EMS Limitations: no limitations - History of Present Illness Initial comments: This is a 49-year-old female who has a past history of WPW as a child and had 2 ablations and has had no problems since. Patient has been complaining of quite a bit of abdominal pain on and off for the last 2 months she's had a colonoscopy and followed up with GI doctor. Patient states he has not found any cause for the pain. Patient states she's been to the ER 5 previous times and has not followed up with her primary medical care doctor. Patient comes in today stating that she will not let her dogs out she became lightheaded and thought she was given a passout came in and sat on the couch toward of breath and when she stopped being lightheaded or shortness of breath also went away. Patient denied any chest pain. Patient states she thought her heart might be racing at that time she didn't take her pulse. Patient states she became very nauseated but didn't vomit she states she has no significant abdominal pain now. Patient denies any fever chills or cough per patient denies a headache patient denies numbness weakness. She states she has a history of anxiety but she doesn't believe this to be anxiety pill snf through the interview she was tearful because she was so upset. - Related Data Home Medications Medication Instructions Recorded Confirmed Ascorbic Acid [Vitamin C] 1,000 mg PO DAILY 05/20/18 07/13/19 Gabapentin [Neurontin] 100 mg PO TID PRN 05/20/18 07/13/19 Cyclobenzaprine [Flexeril] 10 mg PO HS PRN 06/09/18 07/13/19 Aspirin 325 mg PO DAILY 06/27/19 07/13/19 Mv-Mn/C/Glutamin/Lysin/[id number] 1 tab PO DAILY 07/13/19 07/13/19 [Airborne Gummies] Vitamin C/Biotin [Hair, Skin and 1 tab PO DAILY 07/13/19 07/13/19 Nails] Allergies Allergy/AdvReac Type Severity Reaction Status Date / Time azithromycin Allergy Abdominal Verified 07/13/19 12:21 [From Zithromax Z-[place]] Pain Penicillins Allergy Unknown Verified 07/13/19 12:21 adhesive tape AdvReac Rash/Hives Verified 07/13/19 12:21 codeine AdvReac Nausea & Verified 07/13/19 12:21 Vomiting Review of Systems ROS Statement: Those systems with pertinent positive or pertinent negative responses have been documented in the HPI. ROS Other: All systems not noted in ROS Statement are negative. Past Medical History Past Medical History: GERD/Reflux Additional Past Medical History / Comment(s): WPW syndrome improved following cardiac ablation. Cervical spine stenosis. 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 History of Any Multi-Drug Resistant Organisms: None Reported Past Surgical History: Cardiac Ablation, Ear Surgery Additional Past Surgical History / Comment(s): exp. laparoscopy. Groin cyst removed. [place] teeth removed. Past Psychological History: Anxiety, Depression Smoking Status: Never smoker Past Alcohol Use History: None Reported Past Drug Use History: None Reported - Past Family History Mother Family Medical History: COPD Additional Family Medical History / Comment(s): Maternal grandmother and her maternal great grandmother had breast cancer. Her maternal grandmother and maternal cousin had colon cancer. Father Family Medical History: Cancer Additional Family Medical History / Comment(s): Melanoma skin cancer. General Exam - General Exam Comments Initial Comments: GENERAL: Patient is well-developed and well-nourished. Patient is nontoxic and well- hydrated and is in no acute distress. ENT: Neck is soft and supple. No significant lymphadenopathy is noted. Oropharynx is clear. Moist mucous membranes. Neck has full range of motion without eliciting any pain. EYES: The sclera were anicteric and conjunctiva were pink and moist. Extraocular movements were intact and pupils were equal round and reactive to light. Eyelids were unremarkable. PULMONARY: Unlabored respirations. Good breath sounds bilaterally. No audible rales rhonchi or wheezing was noted. CARDIOVASCULAR: There is a regular rate and rhythm without any murmurs gallops or rubs. ABDOMEN: Soft and nontender with normal bowel sounds. SKIN: Skin is clear with no lesions or rashes and otherwise unremarkable. NEUROLOGIC: Patient is alert and oriented x3. Cranial nerves II through XII are grossly intact. Motor and sensory are also intact. Normal speech, volume and content. Symmetrical smile. MUSCULOSKELETAL: Normal extremities with adequate strength and full range of motion. LYMPHATICS: No significant lymphadenopathy is noted PSYCHIATRIC: Patient is tearful towards the end of the interview she seems very anxious though she denies feeling anxious Limitations: no limitations Course Vital Signs 07/13/19 07/13/19 07/13/19 11:20 11:29 11:33 Temperature 98.2 F Pulse Rate 81 Pulse Rate [ 91 [employer] Helper ] Respiratory 18 Rate Blood Pressure 99/71 O2 Sat by Pulse 100 Oximetry Medical Decision Making - Medical Decision Making EKG shows normal sinus rhythm at 70 bpm MS interval 214 QRS is 90 QT interval 412 QTC is 469. She is EKG shows no ST segment elevation or depression. Chest x-ray shows no acute abnormalities I will back into reexamine the patient and she was much improved. Patient has no longer anxious. Patient agreed that part of this could've been due to anxiety. Patient's orthostatics were negative and the emergency department. Patient is asymptomatic at this time she'll follow-up with her primary medical c are doctor. - Lab Data Result diagrams: 07/13/19 11:50 07/13/19 11:50 Lab Results 07/13/19 07/13/19 07/13/19 Range/Units 11:50 11:50 11:50 WBC 5.9 (3.8-10.6) k/uL RBC 4.69 (3.80-5.40) m/uL Hgb 15.2 (11.4-16.0) gm/dL Hct 44.4 (34.0-46.0) % MCV 94.8 (80.0-100.0) fL MCH 32.4 (25.0-35.0) pg MCHC 34.2 (31.0-37.0) g/dL RDW 11.9 (11.5-15.5) % Plt Count 245 (150-450) k/uL Neutrophils % 48 % Lymphocytes % 39 % Monocytes % 6 % Eosinophils % 2 % Basophils % 1 % Neutrophils # 2.8 (1.3-7.7) k/uL Lymphocytes # 2.3 (1.0-4.8) k/uL Monocytes # 0.4 (0-1.0) k/uL Eosinophils # 0.1 (0-0.7) k/uL Basophils # 0.1 (0-0.2) k/uL PT 10.6 (9.0-12.0) sec INR 1.0 (<1.2) APTT 24.3 (22.0-30.0) sec Sodium 139 (137-145) mmol/L Potassium 4.9 (3.5-5.1) mmol/L Chloride 107 (98-107) mmol/L Carbon Dioxide 28 (22-30) mmol/L Anion Gap 4 mmol/L BUN 22 H (7-17) mg/dL Creatinine 0.78 (0.52-1.04) mg/dL Est GFR (CKD-EPI)AfAm >90 (>60 ml/min/1.73 sqM) Est GFR (CKD-EPI)NonAf 89 (>60 ml/min/1.73 sqM) Glucose 117 H (74-99) mg/dL Calcium 9.4 (8.4-10.2) mg/dL Magnesium 2.0 (1.6-2.3) mg/dL Total Bilirubin 0.3 (0.2-1.3) mg/dL AST 33 (14-36) U/L ALT 22 (4-34) U/L Alkaline Phosphatase 58 (38-126) U/L Troponin I (0.000-0.034) ng/mL Total Protein 6.3 (6.3-8.2) g/dL Albumin 3.9 (3.5-5.0) g/dL 07/13/19 Range/Units 11:50 WBC (3.8-10.6) k/uL RBC (3.80-5.40) m/uL Hgb (11.4-16.0) gm/dL Hct (34.0-46.0) % MCV (80.0-100.0) fL MCH (25.0-35.0) pg MCHC (31.0-37.0) g/dL RDW (11.5-15.5) % Plt Count (150-450) k/uL Neutrophils % % Lymphocytes % % Monocytes % % Eosinophils % % Basophils % % Neutrophils # (1.3-7.7) k/uL Lymphocytes # (1.0-4.8) k/uL Monocytes # (0-1.0) k/uL Eosinophils # (0-0.7) k/uL Basophils # (0-0.2) k/uL PT (9.0-12.0) sec INR (<1.2) APTT (22.0-30.0) sec Sodium (137-145) mmol/L Potassium (3.5-5.1) mmol/L Chloride (98-107) mmol/L Carbon Dioxide (22-30) mmol/L Anion Gap mmol/L BUN (7-17) mg/dL Creatinine (0.52-1.04) mg/dL Est GFR (CKD-EPI)AfAm (>60 ml/min/1.73 sqM) Est GFR (CKD-EPI)NonAf (>60 ml/min/1.73 sqM) Glucose (74-99) mg/dL Calcium (8.4-10.2) mg/dL Magnesium (1.6-2.3) mg/dL Total Bilirubin (0.2-1.3) mg/dL AST (14-36) U/L ALT (4-34) U/L Alkaline Phosphatase (38-126) U/L Troponin I <0.012 (0.000-0.034) ng/mL Total Protein (6.3-8.2) g/dL Albumin (3.5-5.0) g/dL Disposition Clinical Impression: Lightheaded Disposition: HOME SELF-CARE Condition: Good Instructions (If sedation given, give patient instructions): Lightheadedness (ED) Is patient prescribed a controlled substance at d/c from ED?: No Referrals: Cortez Paulino DO [Primary Care Provider] - 1-2 days Time of Disposition: 13:06
[2019-07-13 12:04] LABS: Basophils # (A) 0.1 k/uL (0-0.2); Basophils % (A) 1 %; Eosinophils # (A) 0.1 k/uL (0-0.7); Eosinophils % (A) 2 %; HCT 44.4 % (34.0-46.0); HGB 15.2 gm/dL (11.4-16.0); Lymphocytes # (A) 2.3 k/uL (1.0-4.8); Lymphocytes % (A) 39 %; MCH 32.4 pg (25.0-35.0); MCHC 34.2 g/dL (31.0-37.0); MCV 94.8 fL (80.0-100.0); Mean Platelet Volume 8.3; Monocytes # (A) 0.4 k/uL (0-1.0); Monocytes % (A) 6 %; Neutrophils # (A) 2.8 k/uL (1.3-7.7); Neutrophils % (A) 48 %; Platelet Count 245 k/uL (150-450); RBC 4.69 m/uL (3.80-5.40); RDW 11.9 % (11.5-15.5); WBC 5.9 k/uL (3.8-10.6)
--- NOTE | 2019-07-13 12:08 | XR ---
EXAMINATION TYPE: XR chest 2V DATE OF EXAM: 07/13/2019 COMPARISON: 07/05/2019 HISTORY: 49-year-old female dysrhythmia TECHNIQUE: PA and lateral views FINDINGS: The cardiomediastinal silhouette, aorta, and pulmonary vasculature are within normal limits. Lungs an d pleural spaces are clear. IMPRESSION: No acute cardiopulmonary process.
[2019-07-13 12:09] LABS: ALT 22 U/L (4-34); AST 33 U/L (14-36); African American GFR (CKD) >90 (>60 ml/min/1.73 sqM); Albumin 3.9 g/dL (3.5-5.0); Alkaline Phosphatase 58 U/L (38-126); Anion Gap 4 mmol/L; Blood Urea Nitrogen 22 mg/dL (7-17); Calcium 9.4 mg/dL (8.4-10.2); Carbon Dioxide 28 mmol/L (22-30); Chloride 107 mmol/L (98-107); Glucose 117 mg/dL (74-99); Non-African American GFR(CKD) 89 (>60 ml/min/1.73 sqM); Potassium 4.9 mmol/L (3.5-5.1); Sodium 139 mmol/L (137-145); Total Bilirubin 0.3 mg/dL (0.2-1.3); Total Protein 6.3 g/dL (6.3-8.2)
[2019-07-13 12:10] LABS: Prothrombin Time 10.6 sec (9.0-12.0)
[2019-07-13 12:11] LABS: Partial Thromboplastin Time 24.3 sec (22.0-30.0)
[2019-07-13 13:09] VITALS: BP 110/78; PULSE 78
== END 2019-07-13 13:19 | disposition home or self-care (01) ==
LOC: EC 11:17
DX: R42 Dizziness and giddiness (principal); R00.2 Palpitations; Z79.82 Long term (current) use of aspirin; Z88.0 Allergy status to penicillin; Z88.1 Allergy status to other antibiotic agents; Z88.5 Allergy status to narcotic agent; Z91.048 Other nonmedicinal substance allergy status
CPT/HCPCS: 36415; 93005; 80053; 83735; 84484; 85025; 85610; 85730; 71046; 99285; 96374; 96361; J2405

== ENCOUNTER 2019-08-19 02:22 | Emergency (ER) | payer BC ==
[2019-08-19 02:35] VITALS: RESP 18; TEMP 97.6
[2019-08-19] MEDS ORDERED: SODIUM CHLORIDE 0.9% 1,000 ML IV STA (02:43)
[2019-08-19 03:27] LABS: Basophils # (A) 0.1 k/uL (0-0.2); Basophils % (A) 1 %; Eosinophils # (A) 0.1 k/uL (0-0.7); Eosinophils % (A) 2 %; HCT 45.8 % (34.0-46.0); HGB 15.3 gm/dL (11.4-16.0); Lymphocytes # (A) 2.7 k/uL (1.0-4.8); Lymphocytes % (A) 37 %; MCHC 33.4 g/dL (31.0-37.0); MCV 95.9 fL (80.0-100.0); Mean Platelet Volume 8.1; Monocytes # (A) 0.6 k/uL (0-1.0); Monocytes % (A) 8 %; Neutrophils # (A) 3.7 k/uL (1.3-7.7); Neutrophils % (A) 51 %; Platelet Count 237 k/uL (150-450); RBC 4.77 m/uL (3.80-5.40); RDW 11.7 % (11.5-15.5); WBC 7.3 k/uL (3.8-10.6)
--- NOTE | 2019-08-19 03:34 | XR ---
EXAMINATION TYPE: XR KUB DATE OF EXAM: 08/19/2019 COMPARISON: 07/05/2019 HISTORY: Abdominal pain TECHNIQUE: FINDINGS: 2 views upright were obtained and show a normal bowel gas pattern. There is no sign of inte stinal obstruction or pneumoperitoneum. Fecal pattern is normal. There are no pathologic calcificatio ns. IMPRESSION: Nonacute abdomen. No change.
[2019-08-19] MEDS ORDERED: ONDANSETRON 4 MG/2 ML VIAL IVP STA ×2 (03:46→04:37)
[2019-08-19] MEDS ORDERED: MORPHINE SULFATE 2 MG/ML SYRINGE IVP STA ×2 (03:46→04:38)
[2019-08-19 04:19] LABS: ALT 22 U/L (4-34); AST 27 U/L (14-36); African American GFR (CKD) >90 (>60 ml/min/1.73 sqM); Albumin 4.2 g/dL (3.5-5.0); Alkaline Phosphatase 65 U/L (38-126); Amylase 50 U/L (30-110); Anion Gap 6 mmol/L; Blood Urea Nitrogen 21 mg/dL (7-17); Calcium 9.6 mg/dL (8.4-10.2); Carbon Dioxide 28 mmol/L (22-30); Chloride 105 mmol/L (98-107); Glucose 85 mg/dL (74-99); Non-African American GFR(CKD) >90 (>60 ml/min/1.73 sqM); Potassium 3.8 mmol/L (3.5-5.1); Sodium 139 mmol/L (137-145); Total Bilirubin 0.2 mg/dL (0.2-1.3); Total Protein 6.6 g/dL (6.3-8.2)
[2019-08-19] MEDS ORDERED: HYDROmorphone 0.5 MG/0.5 ML SYRINGE IVP STA ×2 (04:30→04:35)
[2019-08-19 06:09] LABS: Appearance,Urine Clear (Clear); Bilirubin,Urine Negative (Negative); Blood,Urine Negative (Negative); Calcium Oxalate Crystals,Urine Few /hpf; Color,Urine Yellow; Glucose,Urine (UA) Negative (Negative); Ketones,Urine Negative (Negative); Leukocyte Esterase,Urine Small (Negative); Mucus,Urine Moderate /hpf; Nitrite,Urine Negative (Negative); PH, Urine 5.5 (5.0-8.0); Protein,Urine Negative (Negative); Squamous Epithelial Cell,Urine 1 /hpf (0-4); Urobilinogen,Urine <2.0 mg/dL (<2.0); WBC,Urine 5 /hpf (0-5)
--- NOTE | 2019-08-19 06:17 | ED ---
Abdominal Pain HPI <RigosegundoBryce - Last Filed: 08/19/19 06:22> - General Source: patient Mode of arrival: ambulatory Limitations: no limitations <Bre Mulligan - Last Filed: 08/23/19 02:02> - General Chief Complaint: Abdominal Pain Stated Complaint: abdominal pain Time Seen by Provider: 08/19/19 02:36 - History of Present Illness Initial Comments: 49-year-old female patient presented to the emergency department today for evaluation of generalized abdominal pain radiating through to her back and into her shoulders. Patient states that she has been having issues with constipation and abdominal pain since having a colonoscopy and EGD with Dr. Kurtz in June. Patient states that since having the procedure she now has to take stool softeners and laxative which is unusual for her. Patient states her last bowel movement was on Thursday. Patient denies any bloody stools. States that she does feel quite nauseated and did vomit once today. States it was bile containing but denies any hematemesis. She denies any fever or chills. States that the fullness in her abdomen is pressing up into her chest causing discomfort and shortness of breath. Patient denies any recent rash, cough, numbness, tingling, dizziness, weakness, hematuria, dysuria, urinary urgency, urinary frequency, hea dache, visual changes, or any other complaints. (Bre Mulligan) - Related Data Home Medications Medication Instructions Recorded Confirmed Ascorbic Acid [Vitamin C] 1,000 mg PO DAILY 05/20/18 07/13/19 Gabapentin [Neurontin] 100 mg PO TID PRN 05/20/18 07/13/19 Cyclobenzaprine [Flexeril] 10 mg PO HS PRN 06/09/18 07/13/19 Aspirin 325 mg PO DAILY 06/27/19 07/13/19 Mv-Mn/C/Glutamin/Lysin/Vyrw793 1 tab PO DAILY 07/13/19 07/13/19 [Airborne Gummies] Vitamin C/Biotin [Hair, Skin and 1 tab PO DAILY 07/13/19 07/13/19 Nails] Allergies Allergy/AdvReac Type Severity Reaction Status Date / Time azithromycin Allergy Abdominal Verified 08/19/19 02:35 [From Zithromax Z-[place]] Pain Penicillins Allergy Unknown Verified 08/19/19 02:35 adhesive tape AdvReac Rash/Hives Verified 08/19/19 02:35 codeine AdvReac Nausea & Verified 08/19/19 02:35 Vomiting Review of Systems ROS Other: All systems not noted in ROS Statement are negative. <Bryce Verdin - Last Filed: 08/19/19 06:22> ROS Other: All systems not noted in ROS Statement are negative. <IsaakBre Cowan - Last Filed: 08/23/19 02:02> ROS Statement: Those systems with pertinent positive or pertinent negative responses have been documented in the HPI. Past Medical History Past Medical History: GERD/Reflux Additional Past Medical History / Comment(s): WPW syndrome improved following cardiac ablation. Cervical spine stenosis. 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 hiatal hernia History of Any Multi-Drug Resistant Organisms: None Reported Past Surgical History: Cardiac Ablation, Ear Surgery Additional Past Surgical History / Comment(s): exp. laparoscopy. Groin cyst removed. Mccool teeth removed. Past Psychological History: Anxiety, Depression Smoking Status: Never smoker Past Alcohol Use History: None Reported Past Drug Use History: None Reported - Past Family History Mother Family Medical History: COPD Additional Family Medical History / Comment(s): Maternal grandmother and her maternal great grandmother had breast cancer. Her maternal grandmother and maternal cousin had colon cancer. Father Family Medical History: Cancer Additional Family Medical History / Comment(s): Melanoma skin cancer. <IsaakBre Camryn - Last Filed: 08/23/19 02:02> General Exam Limitations: no limitations General appearance: alert, in no apparent distress, other (This is a well- developed, well-nourished adult female patient in mild distress related to pain. Vital signs upon presentation are temperature 97.6F, pulse 87, respirations 18, blood pressure 129/93, pulse ox 99% on room air.) ENT exam: Present: normal exam, normal oropharynx, mucous membranes moist Respiratory exam: Present: normal lung sounds bilaterally. Absent: respiratory distress, wheezes, rales, rhonchi, stridor Cardiovascular Exam: Present: regular rate, normal rhythm, normal heart sounds. Absent: systolic murmur, diastolic murmur, rubs, gallop, clicks GI/Abdominal exam: Present: soft, tenderness (Generalized), normal bowel sounds. Absent: distended, guarding, rebound, rigid Neurological exam: Present: alert, oriented X3, CN II-XII intact Psychiatric exam: Present: normal affect, normal mood Skin exam: Present: warm, dry, intact, normal color. Absent: rash <Bre Mulligan - Last Filed: 08/23/19 02:02> Course Vital Signs 08/19/19 08/19/19 08/19/19 02:32 04:41 06:30 Temperature 97.6 F Pulse Rate 87 81 69 Respiratory 18 18 18 Rate Blood Pressure 129/93 113/76 118/69 O2 Sat by Pulse 99 96 96 Oximetry Medical Decision Making - Lab Data Result diagrams: 08/19/19 03:13 08/19/19 03:13 <Bryce Verdin - Last Filed: 08/19/19 06:22> - Lab Data Result diagrams: 08/19/19 03:13 08/19/19 03:13 - EKG Data -: EKG Interpreted by Me <Bre Mulligan - Last Filed: 08/23/19 02:02> - Medical Decision Making I saw this patient in conjunction with the physician life enrichment assistant. I performed independent history and physical exam. Agree with case management. (Bryce Verdin) Care was handed over to my attending Dr. Verdin @ 0400. (Bre Mulligan) - Lab Data Lab Results 08/19/19 08/19/19 08/19/19 Range/Units 03:13 03:13 03:13 WBC 7.3 (3.8-10.6) k/uL RBC 4.77 (3.80-5.40) m/uL Hgb 15.3 (11.4-16.0) gm/dL Hct 45.8 (34.0-46.0) % MCV 95.9 (80.0-100.0) fL MCH 32.0 (25.0-35.0) pg MCHC 33.4 (31.0-37.0) g/dL RDW 11.7 (11.5-15.5) % Plt Count 237 (150-450) k/uL Neutrophils % 51 % Lymphocytes % 37 % Monocytes % 8 % Eosinophils % 2 % Basophils % 1 % Neutrophils # 3.7 (1.3-7.7) k/uL Lymphocytes # 2.7 (1.0-4.8) k/uL Monocytes # 0.6 (0-1.0) k/uL Eosinophils # 0.1 (0-0.7) k/uL Basophils # 0.1 (0-0.2) k/uL Sodium 139 (137-145) mmol/L Potassium 3.8 (3.5-5.1) mmol/L Chloride 105 (98-107) mmol/L Carbon Dioxide 28 (22-30) mmol/L Anion Gap 6 mmol/L BUN 21 H (7-17) mg/dL Creatinine 0.65 (0.52-1.04) mg/dL Est GFR (CKD-EPI)AfAm >90 (>60 ml/min/1.73 sqM) Est GFR (CKD-EPI)NonAf >90 (>60 ml/min/1.73 sqM) Glucose 85 (74-99) mg/dL Calcium 9.6 (8.4-10.2) mg/dL Total Bilirubin 0.2 (0.2-1.3) mg/dL AST 27 (14-36) U/L ALT 22 (4-34) U/L Alkaline Phosphatase 65 (38-126) U/L Troponin I <0.012 (0.000-0.034) ng/mL Total Protein 6.6 (6.3-8.2) g/dL Albumin 4.2 (3.5-5.0) g/dL Amylase 50 (30-110) U/L Lipase 85 (23-300) U/L Urine Color Urine Appearance (Clear) Urine pH (5.0-8.0) Ur Specific Ruby (1.001-1.035) Urine Protein (Negative) Urine Glucose (UA) (Negative) Urine Ketones (Negative) Urine Blood (Negative) Urine Nitrite (Negative) Urine Bilirubin (Negative) Urine Urobilinogen (<2.0) mg/dL Ur Leukocyte Esterase (Negative) Urine WBC (0-5) /hpf Ur Squamous Epith Cells (0-4) /hpf Calcium Oxalate Crystal (None) /hpf Urine Mucus (None) /hpf 08/19/19 Range/Units 04:18 WBC (3.8-10.6) k/uL RBC (3.80-5.40) m/uL Hgb (11.4-16.0) gm/dL Hct (34.0-46.0) % MCV (80.0-100.0) fL MCH (25.0-35.0) pg MCHC (31.0-37.0) g/dL RDW (11.5-15.5) % Plt Count (150-450) k/uL Neutrophils % % Lymphocytes % % Monocytes % % Eosinophils % % Basophils % % Neutrophils # (1.3-7.7) k/uL Lymphocytes # (1.0-4.8) k/uL Monocytes # (0-1.0) k/uL Eosinophils # (0-0.7) k/uL Basophils # (0-0.2) k/uL Sodium (137-145) mmol/L Potassium (3.5-5.1) mmol/L Chloride (98-107) mmol/L Carbon Dioxide (22-30) mmol/L Anion Gap mmol/L BUN (7-17) mg/dL Creatinine (0.52-1.04) mg/dL Est GFR (CKD-EPI)AfAm (>60 ml/min/1.73 sqM) Est GFR (CKD-EPI)NonAf (>60 ml/min/1.73 sqM) Glucose (74-99) mg/dL Calcium (8.4-10.2) mg/dL Total Bilirubin (0.2-1.3) mg/dL AST (14-36) U/L ALT (4-34) U/L Alkaline Phosphatase (38-126) U/L Troponin I (0.000-0.034) ng/mL Total Protein (6.3-8.2) g/dL Albumin (3.5-5.0) g/dL Amylase (30-110) U/L Lipase (23-300) U/L Urine Color Yellow Urine Appearance Clear (Clear) Urine pH 5.5 (5.0-8.0) Ur Specific Ruby 1.020 (1.001-1.035) Urine Protein Negative (Negative) Urine Glucose (UA) Negative (Negative) Urine Ketones Negative (Negative) Urine Blood Negative (Negative) Urine Nitrite Negative (Negative) Urine Bilirubin Negative (Negative) Urine Urobilinogen <2.0 (<2.0) mg/dL Ur Leukocyte Esterase Small H (Negative) Urine WBC 5 (0-5) /hpf Ur Squamous Epith Cells 1 (0-4) /hpf Calcium Oxalate Crystal Few H (None) /hpf Urine Mucus Moderate H (None) /hpf - EKG Data EKG Comments: EKG obtained at 0302 shows normal sinus rhythm with a ventricular rate of 76, MI interval 122, QRS duration 92, QT 408, QTC 459. No evidence of ST elevation or depression. (Bre Mulligan) Disposition Is patient prescribed a controlled substance at d/c from ED?: No <Bryce Verdin - Last Filed: 08/19/19 06:22> <Bre Mulligan - Last Filed: 08/23/19 02:02> Clinical Impression: Abdominal pain Disposition: HOME SELF-CARE Condition: Good Instructions (If sedation given, give patient instructions): Abdominal Pain (ED) Referrals: Cortez Paulino DO [Primary Care Provider] - 1-2 days
[2019-08-19] MEDS ORDERED: MAGNESIUM CITRATE 296 ML BOTTLE PO ONE (06:26)
[2019-08-19 06:49] VITALS: BP 118/69; PULSE 69
== END 2019-08-19 06:46 | disposition home or self-care (01) ==
LOC: EC 02:22
DX: R10.84 Generalized abdominal pain (principal); R11.2 Nausea with vomiting, unspecified; Z79.82 Long term (current) use of aspirin; Z88.0 Allergy status to penicillin; Z88.1 Allergy status to other antibiotic agents; Z88.5 Allergy status to narcotic agent; Z91.048 Other nonmedicinal substance allergy status
CPT/HCPCS: 36415; 93005; 80053; 82150; 83690; 84484; 85025; 81001; 74018; 99284; 96374; 96375; 96361; J2405; J1170

== ENCOUNTER → 2019-08-31 | Outpatient (CLI) | payer BC ==
--- NOTE | 2019-09-02 08:08 | MM ---
Reason for exam: additional evaluation requested from prior study. Last mammogram was performed 1 year and 3 months ago. History: Patient is postmenopausal. Family history of breast cancer in maternal grandmother at age 60. Physical Findings: Nurse Summary: 1cm nodule in the left breast at 2 o'clock (nurse mj). MG 3D Diag Mammo W/Cad BERNARDO Bilateral CC and MLO view(s) were taken. Prior study comparison: June 09, 2018, bilateral MG 3d diag mammo w/cad BERNARDO. The breast tissue is heterogeneously dense. This may lower the sensitivity of mammography. Benign appearing bilateral calcifications. These results were verbally communicated with the patient and result sheet given to the patient on 08/31/19. ASSESSMENT: Incomplete: need additional imaging evaluation, BI-RAD 0 RECOMMENDATION: Ultrasound of the left breast.
--- NOTE | 2019-09-02 08:10 | USB ---
Reason for exam: additional evaluation requested from abnormal screening. History: Patient is postmenopausal. Family history of breast cancer in maternal grandmother at age 60. US Breast Limited LT Technologist: Amanda Elizabeth Left limited breast ultrasound including focal area of concern, retroareolar and axilla demonstrates a 2.0 x 1.4 x 0.8cm hyperechoic lesion at 2 o'clock. These results were verbally communicated with the patient and result sheet given to the patient on 08/31/19. ASSESSMENT: Suspicious, BI-RAD 4 RECOMMENDATION: Ultrasound core biopsy of the left breast. Called office with mammographic findings and has scheduled an appointment for the patient for 09/08/19 at 3:[address] Abrams. Biopsy scheduled for 09/13/19 at 12:20. PRELIMINARY REPORT CALLED AND FAXED TO DR. ABRAMS ON 08/31/19.
== END | disposition home or self-care (01) ==
LOC: RADMAMWWP 13:06
PROVIDERS: ATTEND Surgery
DX: N64.4 Mastodynia (principal); R92.8 Other abnormal and inconclusive findings on diagnostic imaging of breast
CPT/HCPCS: 77062; 77066

== ENCOUNTER → 2019-09-07 | Outpatient (CLI) | payer BC ==
--- NOTE | 2019-09-07 14:34 | US ---
EXAMINATION TYPE: US transvaginal DATE OF EXAM: 09/07/2019 COMPARISON: None CLINICAL HISTORY: R10, D25.9, N95.0 PMB, spotting. TECHNIQUE: Transvaginal (TV). Patient unable to fill bladder Date of LMP: EXAM MEASUREMENTS: Uterus: 6.6 x 3.7 x 04.0cm Endometrial Stripe: 0.3 cm Right Ovary: Obscured by overlying bowel gas Left Ovary: 1.4 x 1.0 x 1.1cm 1. Uterus: Hypoechoic lesion measuring 1.6 x 1.7 x 1.7cm, possible leiomyoma. 2. Endometrium: wnl 3. Right Ovary: Obscured by overlying bowel gas 4. Left Ovary: wnl 5. Bilateral Adnexa: wnl 6. Posterior cul-de-sac: wnl IMPRESSION: 1. No abnormal endometrial thickening for a postmenopausal female. Solitary probable intramural leiom yoma measuring 1.7 cm. 2. Right ovary is nonvisualized, obscured by bowel gas.
== END | disposition home or self-care (01) ==
LOC: RADUSWWP 13:42
PROVIDERS: ATTEND Obstetrics & Gynecology
DX: R10.31 Right lower quadrant pain (principal); R10.32 Left lower quadrant pain; N95.0 Postmenopausal bleeding; D25.9 Leiomyoma of uterus, unspecified
CPT/HCPCS: 76830

== ENCOUNTER → 2019-09-08 | Outpatient (CLI) | payer BC ==
[2019-09-08 15:28] VITALS: BP 128/81; PULSE 82; RESP 18; TEMP 98
--- NOTE | 2019-09-08 15:59 | P.PN ---
Subjective Progress Note Date: 09/08/19 Principal diagnosis: abnormal left breast ultrasound Alison is a 49-year-old white female was seen initially in April 2018 with a complaint of breast swelling and pain. The pain at that time had been noncyclical and had been ongoing for approximately 2 months. It was noted in both breasts. The patient states since that time the pain has been persistent. He states it is worse at this time. She only has pain with pressure. She states she is in pain everywhere, all of her muscles and joints. She was given an antibiotic and prednisone. She complains of tight muscles. This came on over a two months period, she is unable to sleep and she is also complaining of headaches. She continues to experience some fullness in the left lateral breast. She had a bilateral mammogram performed on . This was felt to be incomplete and ultrasound of the left breast was recommended. An ultrasound of the left breast she was noted to have a 2 x 1.4 cm hyperechoic lesion at 2:00. This was felt to be suspicious BIRADS 4 and ultrasound core biopsy of the left breast was recommended. She states she has a feeling of a pebble at the site, she can only feel this in certain positions. She has minimal caffeine exposure. She eats chocolate twice a month. She has minimal secondhand exposure to smoke from her parents. She does not smoke or self and does not live with a smoker. Family History: maternal grandmother: breast cancer, colon cancer paternal aunt: ovarian cancer maternal cousin: colon cancer Hormonal History: menarche: 11 : 1, 1 child, age 17, breastfed: no menopause: last period May of 2017, + hotflashes BCP: none hormones: premarin cream last used about 1 year ago Past Surgical History: 1. Cardiac ablation 2. Laparoscopic evaluation for endometriosis 3. tubes in her hear 4. wisdom teeth 5. cyst in her groin 6. colonoscopy and EGD/ hiatal hernia and reflux Past Medical History: 1. Michael Parkinson White Syndrome Social Hsitory: smoke: none alcohol: none drugs: none - Constitutional Constitutional: Reports sweats - EENT Comment: wears reading glasses cervical disc disease Eyes: denies pain Ears: deny: decreased hearing, tinnitus - Breasts Breasts: bilateral: as per HPI - Cardiovascular Comment: Michael Parkinson White Syndrome Cardiovascular: Denies chest pain, Denies shortness of breath - Respiratory Comment: bronchitis - Gastrointestinal Comment: IBS, GERD - Genitourinary (Female) Comment: perimenopausal Genitourinary: Denies dysuria, Denies hematuria - Menstruation Comment: perimenopausal - Musculoskeletal Comment: cervical disc disease, muscles aching diffusely - Integumentary Integumentary: Denies pruritus, Denies rash - Neurological Neurological: Reports numbness - Psychiatric Psychiatric: Denies anxiety, Denies depression - Endocrine Endocrine: Denies fatigue, Denies weight change - Allergic/Immunologic Allergic/Immunologic: Reports seasonal allergies Past Medical History 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 laparascopy Past Psychological History: No Psychological Hx Reported Smoking Status: Never smoker Past Alcohol Use History: None Reported Past Drug Use History: None Reported Medications and Allergies Home Medications Medication Instructions Recorded Confirmed Type Ascorbic Acid [Vitamin C] 05/20/18 History Cholecalciferol [Vitamin D3] 1,000 unit PO DAILY 05/20/18 05/20/18 History Gabapentin [Neurontin] 100 mg PO TID 05/20/18 05/20/18 History Zinc 05/20/18 History Objective - Vital Signs Vital signs: Vital Signs Temp 98.0 F 09/08/19 15:18 Pulse 82 09/08/19 15:18 Resp 18 09/08/19 15:18 BP 128/81 09/08/19 15:18 Pulse Ox 99 09/08/19 15:18 Intake & Output 09/07/19 09/08/19 09/08/19 18:59 06:59 18:59 Weight 58.967 kg - Exam BMi 22.3 - Constitutional General appearance: Present: average body habitus - EENT Eyes: Present: EOMI ENT: Present: hearing grossly normal - Neck Neck: Present: normal ROM - Respiratory Respiratory: bilateral: CTA - Cardiovascular Rhythm: regular Heart sounds: normal: S1, S2 - Gastrointestinal General gastrointestinal: Present: normal bowel sounds, soft - Psychiatric Psychiatric: Present: A&O x's 3, appropriate affect, intact judgment & insight - Additional findings Additional findings: breast exam: bra: 34 B/C inspection:grade 2 ptosis palpation: right breast: Positional exam marked fibrocystic changes with fibroglandular tissue no discrete dominant mass or nodule of concern Right axilla: No adenopathy of concern Left breast: Multi-positional exam no discrete dominant masses or nodules of concern Left axilla: No adenopathy of concern Assessment and Plan Assessment: Impression: 1. Radiographic abnormality left breast 2. Dense fibroglandular breast tissue bilaterally/fibrocystic changes 3. Mastodynia 4. Patient has attempted trial of Premarin is low without any resolution 5. Diffuse muscle aches and pains Plan: 1. Ultrasound core biopsy left breast 2. Consider inflammatory disease process to discuss with primary care physician 3. Follow-up after ultrasound core biopsy left breast Cc: Dr. Cortez Paulino encounter 20 minutes, > 50% of time in planning and counselling Time with Patient: Less than 30
== END | disposition home or self-care (01) ==
LOC: WWCWWP 14:59
PROVIDERS: ATTEND Surgery
DX: Z11.59 Encounter for screening for other viral diseases (principal)
CPT/HCPCS: 87635

== ENCOUNTER → 2019-09-13 | Day surgery (SDC) | payer BC ==
[2019-09-13 11:59] VITALS: RESP 16; TEMP 98.2
[2019-09-13 13:34] VITALS: BP 115/80; PULSE 79
--- NOTE | 2019-09-13 14:04 | USB ---
EXAMINATION TYPE: US biopsy breast VAD LT DATE OF EXAM: 09/13/2019 CLINICAL HISTORY: R92.8 Abnormal mammogram. Palpable mass 2:00 left breast TECHNIQUE: Ultrasound guided core biopsy of left breast. COMPARISON: NONE FINDINGS: The procedure of ultrasound guided core biopsy was explained to the patient. Benefits, alternatives, and risks were discussed. An informed consent was then obtained. The patient was placed in supine positioning for imaging and for the procedure. The overlying skin was prepped and draped in usual sterile fashion. Lidocaine was used as anesthetic into the skin and subcutaneous tissue up to area of concern in the left breast. Under ultrasound guidance, a 12-gauge vacuum assisted biopsy gun device was used to obtain single core sample. The patient tolerated the procedure well without any immediate complication. The patient was kept in the radiology department for short stay after the procedure and then discharged home in stable condition. IMPRESSION: Successful, uncomplicated ultrasound guided core biopsy of area of concern in the left breast, full pathology results to follow. Pathology Results: Benign LEFT BREAST LESION AT 2:00 POSITION, NEEDLE CORE BIOPSY: Predominantly fibrofatty breast parenchyma with occasional benign ductal structures. Intraductal mineralizations are not identified. Recommendation Follow up ultrasound of the left breast in 6 months. MTDD
== END ==
LOC: RADUSWWP 11:24
PROVIDERS: ATTEND Surgery
DX: N63.20 Unspecified lump in the left breast, unspecified quadrant (principal)
CPT/HCPCS: 88305; 19083; J2001

== ENCOUNTER → 2019-09-23 | Outpatient (CLI) | payer BC ==
[2019-09-23 12:09] VITALS: BP 118/79; PULSE 75; RESP 16; TEMP 97.9
--- NOTE | 2019-09-23 12:20 | P.PN ---
Subjective Progress Note Date: 09/23/19 Principal diagnosis: Fibrofatty breast tissue Alison is a 49-year-old white female who is status post ultrasound guided core biopsy of the left breast on . Pathology revealed predominantly fibrofatty breast tissue with occasional benign but ductal structures. The kathryn ent postprocedure developed swelling in the area. She has not had any fever or chills. The ultrasound was reviewed with radiology and the finding is felt to be concordant. Objective - Vital Signs Vital signs: Vital Signs Temp 97.9 F 09/23/19 12:06 Pulse 75 09/23/19 12:06 Resp 16 09/23/19 12:06 BP 118/79 09/23/19 12:06 Pulse Ox 97 09/23/19 12:06 Intake & Output 09/22/19 09/23/19 09/23/19 18:59 06:59 18:59 Weight 60.781 kg - Constitutional General appearance: Present: average body habitus - EENT Eyes: Present: EOMI ENT: Present: hearing grossly normal - Neck Neck: Present: normal ROM - Integumentary Integumentary Comment(s): echymosis UOQ left breast, hematoma UOQ 6cm by 5cm - Musculoskeletal Musculoskeletal: Present: gait normal - Psychiatric Psychiatric: Present: A&O x's 3, appropriate affect, intact judgment & insight Assessment and Plan Assessment: Impression: 1. Benign ultrasound-guided left breast core biopsy 2. Ecchymosis/hematoma at biopsy site with discomfort Plan: 1. Cold compresses to area 2. Follow up in 2 months 2. Left breast mammogram in 6 months with position exam at that time Cc: Dr. Paulino encounter 10 minutes, > 50% of time in planning and counselling
== END | disposition home or self-care (01) ==
LOC: WWCWWP 11:52
PROVIDERS: ATTEND Surgery
DX: Z53.9 Procedure and treatment not carried out, unspecified reason (principal)

== ENCOUNTER 2019-10-02 21:26 | Emergency (ER) | payer BC ==
--- NOTE | 2019-10-02 22:10 | ED ---
Extremity Problem HPI - General Chief complaint: Extremity Problem,Nontraumatic Stated complaint: Hip Pain/Swelling Time Seen by Provider: 10/02/19 21:42 Source: patient Mode of arrival: ambulatory Limitations: no limitations - History of Present Illness Initial comments: Patient is 49-year-old female presenting to emergency Department with a chief complaint of left hip pain. Patient reports the pain started slightly yesterday but when she woke up this morning it history of increasing severity. Patient reports the pain starts in the lateral aspect of the left hip and moves distally along the iliotibial band to the foot. Patient reports she is fairly active otherwise. Patient denies any cellulitic changes or ecchymosis to the region. Denies any trauma to the region as well. Denies any night sweats fevers or chills. Does report taking ibuprofen for pain with some improvement in symptoms. Reports the pain is exacerbated with ambulation. Also reports she has noted some swelling on the left ankle. Denies chest pain shortness of breath. - Related Data Home Medications Medication Instructions Recorded Confirmed Ascorbic Acid [Vitamin C] 1,000 mg PO DAILY 05/20/18 09/23/19 Gabapentin [Neurontin] 200 mg PO TID 05/20/18 09/23/19 Cyclobenzaprine [Flexeril] 10 mg PO HS PRN 06/09/18 09/23/19 Aspirin 325 mg PO DAILY 06/27/19 09/23/19 Mv-Mn/C/Glutamin/Lysin/[id number] 1 tab PO TID 07/13/19 09/23/19 [Airborne Gummies] Vitamin C/Biotin [Hair, Skin and 1 tab PO DAILY 07/13/19 09/23/19 Nails] Cholecalciferol [Vitamin D3 (25 2,000 unit PO DAILY 09/02/19 09/23/19 Mcg = 1000 Iu)] Meloxicam [Mobic] 15 mg PO DAILY 09/02/19 09/23/19 Vitamin A/Vit C/Zinc/Propolis 15 mg MUCOUS MEM DAILY 09/02/19 09/23/19 [Zinc 15 mg Lozenges] Bc Powder 1 packet PO DAILY PRN 09/08/19 09/23/19 Cefuroxime Axetil [Ceftin] 500 mg PO BID 09/23/19 09/23/19 Allergies Allergy/AdvReac Type Severity Reaction Status Date / Time Penicillins Allergy Unknown Verified 10/02/19 21:34 adhesive tape AdvReac Rash/Hives Verified 10/02/19 21:34 azithromycin AdvReac Abdominal Verified 10/02/19 21:34 [From Zithromax Z-[place]] Pain codeine AdvReac Nausea & Verified 10/02/19 21:34 Vomiting Review of Systems ROS Statement: Those systems with pertinent positive or pertinent negative responses have been documented in the HPI. ROS Other: All systems not noted in ROS Statement are negative. Past Medical History Past Medical History: GERD/Reflux Additional Past Medical History / Comment(s): WPW syndrome improved following cardiac ablation, SVT, Cervical spine stenosis. 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 laparoscopy. Groin cyst removed. [place] teeth removed. Past Anesthesia/Blood Transfusion Reactions: Family History of Problems w/ Anesthesia Additional Past Anesthesia/Blood Transfusion Reaction / Comment(s): mother has a hard time waking up from anesthesia Past Psychological History: Anxiety, Depression Smoking Status: Former smoker Past Alcohol Use History: None Reported Past Drug Use History: None Reported - Past Family History Mother Family Medical History: COPD Additional Family Medical History / Comment(s): Maternal grandmother and her maternal great grandmother had breast cancer. Her maternal grandmother and maternal cousin had colon cancer. Father Family Medical History: Cancer Additional Family Medical History / Comment(s): Melanoma skin cancer. General Exam Limitations: no limitations General appearance: alert, in no apparent distress Head exam: Present: atraumatic, normocephalic, normal inspection Eye exam: Present: normal appearance, PERRL, EOMI Pupils: Present: normal accommodation ENT exam: Present: normal exam, normal oropharynx, mucous membranes moist Neck exam: Present: normal inspection, full ROM Respiratory exam: Present: normal lung sounds bilaterally. Absent: respiratory distress, wheezes Cardiovascular Exam: Present: regular rate, normal rhythm, normal heart sounds Extremities exam: Present: normal inspection (No cellulitic skin changes noted on the left lower prescribed. No changes in temperature between extremities. No ischemic changes or hair distribution changes.), full ROM, tenderness (Tenderness along the lateral aspect of the left hip.), normal capillary refill, calf tenderness (Positive Homans left lower stomach.), other (+2 dorsalis pedis and posterior tibialis.) Course Vital Signs 10/02/19 10/02/19 21:31 23:40 Temperature 98.2 F 97.5 F L Pulse Rate 85 71 Respiratory 16 19 Rate Blood Pressure 145/83 137/90 O2 Sat by Pulse 100 97 Oximetry Medical Decision Making - Medical Decision Making Patient is a 49-year-old female presenting to the emergency department with a chief complaint of left hip pain. On exam no overlying cellulitic skin changes noted. low suspicion for limb ischemia. Patient has good pulses with no ischemic skin changes. X-ray reveals no acute processes. Doppler ultrasound of the left lower extremity is negative for DVT. Patient was given Toradol in the ED. Reevaluation patient reports improvement in symptoms. Patient appears to be exacerbated with any relation. I suspect trochanteric bursitis of the left hip. Patient advised to continue with antibiotics for the next 4-5 days. Strict return parameters were thoroughly discussed the patient was understanding and agreeable. Advised to follow with primary care. Case discussed with physician. Disposition Clinical Impression: Left hip pain Disposition: HOME SELF-CARE Condition: Stable Instructions (If sedation given, give patient instructions): Hip Bursitis (ED) Additional Instructions: Take ibuprofen for pain for next 4-5 days. Follow with her primary care. Return to emergency department if symptoms worsen. Is patient prescribed a controlled substance at d/c from ED?: No Referrals: Cortez Paulino DO [Primary Care Provider] - 1-2 days Time of Disposition: 00:20
--- NOTE | 2019-10-02 22:35 | XR ---
EXAMINATION TYPE: XR Hip Complete LT DATE OF EXAM: 10/02/2019 COMPARISON: 07/05/2019 HISTORY: Pain TECHNIQUE: 2 views FINDINGS: The left hip joint space is normal. Acetabulum is intact. Proximal femur is intact. The sac roiliac joint appears normal. There is no evidence of a fracture. IMPRESSION: Normal left hip exam. No change.
--- NOTE | 2019-10-02 22:46 | US ---
EXAMINATION TYPE: US venous doppler duplex LE LT DATE OF EXAM: 10/02/2019 10:33 PM COMPARISON: 02/16/2019 CLINICAL HISTORY: r/o dvt. Pain and edema SIDE PERFORMED: Left TECHNIQUE: The lower extremity deep venous system is examined utilizing real time linear array sonog erika with graded compression, doppler sonography and color-flow sonography. VESSELS IMAGED: External Iliac Vein (EIV) Common Femoral Vein Deep Femoral Vein Greater Saphenous Vein * Femoral Vein Popliteal Vein Small Saphenous Vein * Proximal Calf Veins (* superficial vessels) Left Leg: Negative for DVT IMPRESSION: Negative exam. No evidence of left leg deep vein thrombosis.
[2019-10-02] MEDS ORDERED: KETOROLAC 30 MG/ML 1 ML VIAL IM STA (23:35)
[2019-10-02 23:43] VITALS: BP 137/90; PULSE 71; RESP 19; TEMP 97.5
== END 2019-10-03 00:26 | disposition home or self-care (01) ==
LOC: EC 21:26
DX: M25.552 Pain in left hip (principal); M25.452 Effusion, left hip; M25.472 Effusion, left ankle; M19.90 Unspecified osteoarthritis, unspecified site; I47.1 Supraventricular tachycardia; Z98.890 Other specified postprocedural states; Z87.891 Personal history of nicotine dependence; Z79.1 Long term (current) use of non-steroidal anti-inflammatories (NSAID); Z79.82 Long term (current) use of aspirin; Z79.899 Other long term (current) drug therapy; Z88.0 Allergy status to penicillin; Z91.048 Other nonmedicinal substance allergy status; Z88.1 Allergy status to other antibiotic agents; Z88.5 Allergy status to narcotic agent; I45.6 Pre-excitation syndrome
CPT/HCPCS: 73502; 93971; 99284; 96372; J1885

== ENCOUNTER → 2019-10-24 | Outpatient (CLI) | payer BC ==
--- NOTE | 2019-10-25 13:16 | NM ---
EXAMINATION TYPE: NM hepatobiliary w CCK DATE OF EXAM: 10/24/2019 COMPARISON: NONE INDICATION: Right upper quadrant pain TECHNIQUE: After the intravenous administration of 4.5 mCi Tc 99m Mebrofenin hepatobiliary scintigrap hy is performed. Images were obtained immediately post injection. FINDINGS: There is prompt uptake and excretion of radiotracer by the liver. Extrahepatic ducts are identified at 5 minutes. The gallbladder is visualized within 15 minutes. Small bowel activity is noted within 60 minutes. At one hour CCK was administered, patient was injected with 1.2 mcg of Kinevac, and gallbladder eject ion fraction is calculated at 45 %, which is in the normal range.. (Normal >35% and <80%.). IMPRESSION: 1. Normal hepatobiliary scan.
== END | disposition home or self-care (01) ==
LOC: RADNMMAIN 15:20
PROVIDERS: ATTEND Surgery
DX: R10.11 Right upper quadrant pain (principal)
CPT/HCPCS: 78227; A9537; J2805

== ENCOUNTER 2019-11-25 23:14 | Emergency (ER) | payer BC ==
[2019-11-25] MEDS ORDERED: MORPHINE SULFATE 4 MG/ML SYRINGE IV STA (23:54)
[2019-11-25] MEDS ORDERED: SODIUM CHLORIDE 0.9% 1,000 ML IV STA (23:54)
--- NOTE | 2019-11-26 00:09 | ED ---
General Adult HPI - General Chief complaint: Abdominal Pain Stated complaint: Abdominal/Back Pain Time Seen by Provider: 11/25/19 23:33 Source: patient, RN notes reviewed, old records reviewed Mode of arrival: ambulatory Limitations: no limitations - History of Present Illness Initial comments: 49-year-old female patient presents to ED with chief complaint of 2 days of dysuria or urinary frequency bilateral flank pain. Reports that she did feel some chills, denies any fever. Patient was that she is having some pain in her back as well. Denies any other acute complaints. Denies any concern for STI. Systemic: Pt denies fatigue, fever/chills, rash. Pt denies weakness, night sweats, weight loss. Neuro: Pt denies headache, visual disturbances, syncope or pre-syncope. HEENT: Pt denies ocular discharge or irritation, otalgia, rhinorrhea, pharyngit is or notable lymphadenopathy. Cardiopulmonary: Pt denies chest pain, SOB, heart palpitations, dyspnea on exertion. Abdominal/GI: Pt denies n/v/d. : Pt denies denies new onset urinary or bowel incontinence. MSK: Pt denies myalgia, loss of strength or function in extremities. Neuro: Pt denies new onset weakness, paresthesias. - Related Data Home Medications Medication Instructions Recorded Confirmed Ascorbic Acid [Vitamin C] 1,000 mg PO DAILY 05/20/18 09/23/19 Gabapentin [Neurontin] 200 mg PO TID 05/20/18 09/23/19 Cyclobenzaprine [Flexeril] 10 mg PO HS PRN 06/09/18 09/23/19 Aspirin 325 mg PO DAILY 06/27/19 09/23/19 Mv-Mn/C/Glutamin/Lysin/[id number] 1 tab PO TID 07/13/19 09/23/19 [Airborne Gummies] Vitamin C/Biotin [Hair, Skin and 1 tab PO DAILY 07/13/19 09/23/19 Nails] Cholecalciferol [Vitamin D3 (25 2,000 unit PO DAILY 09/02/19 09/23/19 Mcg = 1000 Iu)] Meloxicam [Mobic] 15 mg PO DAILY 09/02/19 09/23/19 Vitamin A/Vit C/Zinc/Propolis 15 mg MUCOUS MEM DAILY 09/02/19 09/23/19 [Zinc 15 mg Lozenges] Bc Powder 1 packet PO DAILY PRN 09/08/19 09/23/19 Cefuroxime Axetil [Ceftin] 500 mg PO BID 09/23/19 09/23/19 Allergies Allergy/AdvReac Type Severity Reaction Status Date / Time Penicillins Allergy Unknown Verified 11/25/19 23:23 adhesive tape AdvReac Rash/Hives Verified 11/25/19 23:23 azithromycin AdvReac Abdominal Verified 11/25/19 23:23 [From Zithromax Z-[place]] Pain codeine AdvReac Nausea & Verified 11/25/19 23:23 Vomiting Review of Systems ROS Statement: Those systems with pertinent positive or pertinent negative responses have been documented in the HPI. ROS Other: All systems not noted in ROS Statement are negative. Past Medical History Past Medical History: GERD/Reflux Additional Past Medical History / Comment(s): WPW syndrome improved following cardiac ablation, SVT, Cervical spine stenosis. 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 laparoscopy. Groin cyst removed. [place] teeth removed. Past Anesthesia/Blood Transfusion Reactions: Family History of Problems w/ Anesthesia Additional Past Anesthesia/Blood Transfusion Reaction / Comment(s): mother has a hard time waking up from anesthesia Past Psychological History: Anxiety, Depression Smoking Status: Never smoker Past Alcohol Use History: None Reported Past Drug Use History: None Reported - Past Family History Mother Family Medical History: COPD Additional Family Medical History / Comment(s): Maternal grandmother and her maternal great grandmother had breast cancer. Her maternal grandmother and maternal cousin had colon cancer. Father Family Medical History: Cancer Additional Family Medical History / Comment(s): Melanoma skin cancer. General Exam - General Exam Comments Initial Comments: Constitutional: NAD, AOX3, Pt has pleasant affect. HEENT: NC/AT, trachea midline, neck supple, no lymphadenopathy. External ears appear normal, without discharge. Mucous membranes moist. Eyes PERRLA, EOM intact. There is no scleral icterus. No pallor noted. Cardiopulmonary: RRR, no murmurs, rubs or gallops, no JVD noted. Lungs CTAB in anterior and posterior mcgrath. No peripheral edema. Abdominal exam: Abdomen soft and non-distended. Abdomen mildly tender to palpation suprapubic region. Bowel sounds active in LLQ. No hepatosplenomegaly. No ecchymosis Neuro: CN II-XII grossly intact. No nuchal rigidity. No raccon eyes, no simpsno sign, no hemotympanum. No cervical spinal tenderness. MSK: Full active ROM in upper and lower extremities, 5/5 stregnth. Limitations: no limitations Course Vital Signs 11/25/19 11/26/19 11/26/19 23:20 00:10 00:30 Temperature 98 F Pulse Rate 102 H Respiratory 16 Rate Blood Pressure 121/86 114/83 O2 Sat by Pulse 100 97 Oximetry Medical Decision Making - Medical Decision Making 49-year-old female patient presents to ED for evaluation of dysuria flank pain for the last 2 days. Patient denying any concern for STI. Patient will signs are stable, afebrile. Physical exam. No superior tenderness. Laboratory investigations were obtained and are unremarkable. UA is negative. CT abdomen and pelvis was performed. Shared decision making patient is requesting that this advanced imaging studies obtained. She is concerned with etiology of this pain. CT abdomen and pelvis is negative for acute process. There is no renal stone or obstruction. Patient symptoms improved, will be discharged with urology follow-up and return precautions. Case discussed with Dr. Morris. - Lab Data Result diagrams: 11/26/19 00:18 11/26/19 00:18 Lab Results 11/26/19 11/26/19 11/26/19 Range/Units 00:18 00:18 00:18 WBC 9.0 (3.8-10.6) k/uL RBC 4.92 (3.80-5.40) m/uL Hgb 15.6 (11.4-16.0) gm/dL Hct 47.6 H (34.0-46.0) % MCV 96.9 (80.0-100.0) fL MCH 31.6 (25.0-35.0) pg MCHC 32.7 (31.0-37.0) g/dL RDW 12.3 (11.5-15.5) % Plt Count 259 (150-450) k/uL Neutrophils % 60 % Lymphocytes % 32 % Monocytes % 5 % Eosinophils % 1 % Basophils % 1 % Neutrophils # 5.4 (1.3-7.7) k/uL Lymphocytes # 2.8 (1.0-4.8) k/uL Monocytes # 0.5 (0-1.0) k/uL Eosinophils # 0.1 (0-0.7) k/uL Basophils # 0.1 (0-0.2) k/uL Sodium 141 (137-145) mmol/L Potassium 4.3 (3.5-5.1) mmol/L Chloride 107 (98-107) mmol/L Carbon Dioxide 28 (22-30) mmol/L Anion Gap 6 mmol/L BUN 25 H (7-17) mg/dL Creatinine 0.72 (0.52-1.04) mg/dL Est GFR (CKD-EPI)AfAm >90 (>60 ml/min/1.73 sqM) Est GFR (CKD-EPI)NonAf >90 (>60 ml/min/1.73 sqM) Glucose 82 (74-99) mg/dL Plasma Lactic Acid Edd (0.7-2.0) mmol/L Calcium 9.9 (8.4-10.2) mg/dL Total Bilirubin 0.3 (0.2-1.3) mg/dL AST 29 (14-36) U/L ALT 29 (4-34) U/L Alkaline Phosphatase 74 (38-126) U/L Total Protein 6.4 (6.3-8.2) g/dL Albumin 4.1 (3.5-5.0) g/dL Lipase 93 (23-300) U/L Urine Color Light Yellow Urine Appearance Clear (Clear) Urine pH 5.0 (5.0-8.0) Ur Specific Lena 1.006 (1.001-1.035) Urine Protein Negative (Negative) Urine Glucose (UA) Negative (Negative) Urine Ketones Negative (Negative) Urine Blood Negative (Negative) Urine Nitrite Negative (Negative) Urine Bilirubin Negative (Negative) Urine Urobilinogen <2.0 (<2.0) mg/dL Ur Leukocyte Esterase Negative (Negative) 11/26/19 Range/Units 00:18 WBC (3.8-10.6) k/uL RBC (3.80-5.40) m/uL Hgb (11.4-16.0) gm/dL Hct (34.0-46.0) % MCV (80.0-100.0) fL MCH (25.0-35.0) pg MCHC (31.0-37.0) g/dL RDW (11.5-15.5) % Plt Count (150-450) k/uL Neutrophils % % Lymphocytes % % Monocytes % % Eosinophils % % Basophils % % Neutrophils # (1.3-7.7) k/uL Lymphocytes # (1.0-4.8) k/uL Monocytes # (0-1.0) k/uL Eosinophils # (0-0.7) k/uL Basophils # (0-0.2) k/uL Sodium (137-145) mmol/L Potassium (3.5-5.1) mmol/L Chloride (98-107) mmol/L Carbon Dioxide (22-30) mmol/L Anion Gap mmol/L BUN (7-17) mg/dL Creatinine (0.52-1.04) mg/dL Est GFR (CKD-EPI)AfAm (>60 ml/min/1.73 sqM) Est GFR (CKD-EPI)NonAf (>60 ml/min/1.73 sqM) Glucose (74-99) mg/dL Plasma Lactic Acid Edd 1.4 (0.7-2.0) mmol/L Calcium (8.4-10.2) mg/dL Total Bilirubin (0.2-1.3) mg/dL AST (14-36) U/L ALT (4-34) U/L Alkaline Phosphatase (38-126) U/L Total Protein (6.3-8.2) g/dL Albumin (3.5-5.0) g/dL Lipase (23-300) U/L Urine Color Urine Appearance (Clear) Urine pH (5.0-8.0) Ur Specific Lena (1.001-1.035) Urine Protein (Negative) Urine Glucose (UA) (Negative) Urine Ketones (Negative) Urine Blood (Negative) Urine Nitrite (Negative) Urine Bilirubin (Negative) Urine Urobilinogen (<2.0) mg/dL Ur Leukocyte Esterase (Negative) Disposition Clinical Impression: Dysuria, Abdominal pain Disposition: HOME SELF-CARE Condition: Stable Instructions (If sedation given, give patient instructions): Abdominal Pain (ED) Additional Instructions: Follow-up with primary care provider tomorrow. Return to ER if any worsening symptoms. Follow-up with urologist tomorrow. Is patient prescribed a controlled substance at d/c from ED?: No Referrals: Cortez Paulino DO [Primary Care Provider] - 1-2 days Jaspal Le MD [STAFF PHYSICIAN] - 1-2 days
[2019-11-26] MEDS ORDERED: ONDANSETRON 4 MG/2 ML VIAL IVP STA (00:13)
[2019-11-26 00:26] LABS: Appearance,Urine Clear (Clear); Basophils # (A) 0.1 k/uL (0-0.2); Basophils % (A) 1 %; Bilirubin,Urine Negative (Negative); Blood,Urine Negative (Negative); Color,Urine Light Yellow; Eosinophils # (A) 0.1 k/uL (0-0.7); Eosinophils % (A) 1 %; Glucose,Urine (UA) Negative (Negative); HCT 47.6 % (34.0-46.0); HGB 15.6 gm/dL (11.4-16.0); Ketones,Urine Negative (Negative); Leukocyte Esterase,Urine Negative (Negative); Lymphocytes # (A) 2.8 k/uL (1.0-4.8); Lymphocytes % (A) 32 %; MCH 31.6 pg (25.0-35.0); MCHC 32.7 g/dL (31.0-37.0); MCV 96.9 fL (80.0-100.0); Mean Platelet Volume 7.8; Monocytes # (A) 0.5 k/uL (0-1.0); Monocytes % (A) 5 %; Neutrophils # (A) 5.4 k/uL (1.3-7.7); Neutrophils % (A) 60 %; Nitrite,Urine Negative (Negative); Platelet Count 259 k/uL (150-450); Protein,Urine Negative (Negative); RBC 4.92 m/uL (3.80-5.40); RDW 12.3 % (11.5-15.5); Specific Gravity,Urine 1.006 (1.001-1.035); Urobilinogen,Urine <2.0 mg/dL (<2.0)
[2019-11-26 00:39] LABS: ALT 29 U/L (4-34); AST 29 U/L (14-36); African American GFR (CKD) >90 (>60 ml/min/1.73 sqM); Albumin 4.1 g/dL (3.5-5.0); Alkaline Phosphatase 74 U/L (38-126); Anion Gap 6 mmol/L; Blood Urea Nitrogen 25 mg/dL (7-17); Calcium 9.9 mg/dL (8.4-10.2); Carbon Dioxide 28 mmol/L (22-30); Chloride 107 mmol/L (98-107); Glucose 82 mg/dL (74-99); Non-African American GFR(CKD) >90 (>60 ml/min/1.73 sqM); Potassium 4.3 mmol/L (3.5-5.1); Sodium 141 mmol/L (137-145); Total Bilirubin 0.3 mg/dL (0.2-1.3); Total Protein 6.4 g/dL (6.3-8.2)
--- NOTE | 2019-11-26 01:27 | CT ---
EXAMINATION TYPE: CT abdomen pelvis w con DATE OF EXAM: 11/26/2019 COMPARISON: 07/03/2019 HISTORY: Abdominal pain, Bilateral Flank Pain CT DLP: 700.50 mGycm Automated exposure control for dose reduction was used. CONTRAST: Performed with IV Contrast, patient injected with 100 mL of Isovue 300. Multiple axial sections were obtained from the diaphragm to the floor the pelvis with IV contrast Iso constance 100 mL. Lung bases are clear. There is no pleural effusion. Heart size is normal. There is no pericardial eff usion. Liver spleen stomach pancreas gallbladder appear normal. Bile ducts are not dilated. There is no adrenal mass. Kidneys show satisfactory contrast opacification. There is no hydronephrosi s. Ureters are not dilated. There is no inguinal hernia. Bladder distends smoothly. Uterus is anteverted. There is no free fluid in the pelvis. There is no mesenteric edema. There is no ascites or free air. There is no bowel obstruction. There a re multiple diverticula in the sigmoid colon. Delayed images show normal renal excretion. Small bowel pattern is normal. Lumbar vertebra have normal alignment. There is vacuum disc at L5-S1. There is no compression fractur e. There is no spinal stenosis. Bony pelvis is intact. Appendix is lateral and appears normal. IMPRESSION: There is sigmoid diverticulosis without diverticulitis. Unchanged. No sign of acute abdomen and pelvi s. Normal appendix. No renal stone or obstruction.
[2019-11-26 02:08] VITALS: BP 106/77; PULSE 76; RESP 17; TEMP 97.9
== END 2019-11-26 02:08 | disposition home or self-care (01) ==
LOC: EC 23:14
DX: R30.0 Dysuria (principal); R10.9 Unspecified abdominal pain; M19.90 Unspecified osteoarthritis, unspecified site; F41.9 Anxiety disorder, unspecified; Z79.899 Other long term (current) drug therapy; Z79.1 Long term (current) use of non-steroidal anti-inflammatories (NSAID); Z79.82 Long term (current) use of aspirin; Z88.1 Allergy status to other antibiotic agents; Z88.0 Allergy status to penicillin; Z91.048 Other nonmedicinal substance allergy status; Z88.5 Allergy status to narcotic agent
CPT/HCPCS: 36415; 74177; 80053; 81003; 83605; 83690; 85025; 96361; 96374; 96375; 99284

== ENCOUNTER → 2020-01-05 | Outpatient (CLI) | payer BC ==
[2020-01-05 13:38] VITALS: PULSE 72; RESP 16; TEMP 98
--- NOTE | 2020-01-05 14:29 | P.PN ---
Subjective Progress Note Date: 01/05/20 Principal diagnosis: hematoma left breast after core biopsy Alison is a 49 year old white female status post an ultrasound core biopsy of the left breast on . Pathology revealed predominantly fibrofatty breast tissue with occasional benign but ductal structures. She postprocedure developed swelling in the area, she has completely resolved. Ultrasound was reviewed with radiology and the finding was felt to be benign concordant. The patient today states that approximately 3 weeks ago she started having lower abdominal cramping associated wiht the type of pain when she would have a period. She has not had any vaginal discharge. She is postmenopausal since the age of 47. A transvaginal ultrasound was performed on . No abnormal endometrial thickening was noted. 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 Right ovary not visualized obscured by bowel gas. She had a bilateral mammogram performed on . This resulted in an ultrasound being done of the left breast this was performed on the same date which led to the ultrasound core biopsy. She is due for repeat left breast mammogram in February 2020. Family History: maternal grandmother: breast cancer, colon cancer paternal aunt: ovarian cancer paternal aunt: cervical cancer maternal cousin: colon cancer father: melanoma maternal aunt: bladder cancer Hormonal History: menarche: 11 : 1, 1 child, age 17, breastfed: no menopause: last period May of 2017, + hotflashes BCP: none hormones: premarin cream last used about 1 year ago Past Surgical History: 1. Cardiac ablation 2. Laparoscopic evaluation for endometriosis 3. tubes in her hear 4. wisdom teeth 5. cyst in her groin Past Medical History: 1. Michael Parkinson White Syndrome Social Hsitory: smoke: none alcohol: none drugs: none - Constitutional Constitutional: Reports sweats - EENT Comment: wears reading glasses cervical disc disease Eyes: denies pain Ears: deny: decreased hearing, tinnitus - Breasts Breasts: bilateral: as per HPI - Cardiovascular Comment: Michael Parkinson White Syndrome Cardiovascular: Denies chest pain, Denies shortness of breath - Respiratory Comment: bronchitis - Gastrointestinal Comment: IBS, GERD - Genitourinary (Female) Comment: perimenopausal Genitourinary: Denies dysuria, Denies hematuria - Menstruation Comment: perimenopausal - Musculoskeletal Comment: cervical disc disease - Integumentary Integumentary: Denies pruritus, Denies rash - Neurological Neurological: Reports numbness - Psychiatric Psychiatric: Denies anxiety, Denies depression - Endocrine Endocrine: Denies fatigue, Denies weight change - Allergic/Immunologic Allergic/Immunologic: Reports seasonal allergies Objective - Vital Signs Vital signs: Vital Signs Temp 98.0 F 01/05/20 13:32 Pulse 72 01/05/20 13:32 Resp 16 01/05/20 13:32 BP Pulse Ox 97 01/05/20 13:32 Intake & Output 01/04/20 01/05/20 01/05/20 18:59 06:59 18:59 Weight 58.513 kg - Exam BMI 21.8 - Constitutional General appearance: Present: average body habitus - EENT Eyes: Present: EOMI ENT: Present: hearing grossly normal - Neck Neck: Present: normal ROM - Respiratory Respiratory: bilateral: CTA - Cardiovascular Rhythm: regular Heart sounds: normal: S1, S2 - Gastrointestinal Gastrointestinal Comment(s): Tender to palpation lower mid abdomen and right lower quadrant, no guarding or rebound General gastrointestinal: Present: normal bowel sounds, soft - Integumentary Integumentary: Present: normal turgor - Musculoskeletal Musculoskeletal: Present: gait normal - Psychiatric Psychiatric: Present: A&O x's 3, appropriate affect, intact judgment & insight - Additional findings Additional findings: breast exam: BRA: 34B inspection: bilateral grade 2 ptosis palpation: Right breast: dense breast tissue no dominant masses or nodules of concern fibrocystic changes Right axilla: No adenopathy of concern Left breast: Dense breast tissue, no evidence of hematoma, no dominant masses or nodules of concern, fibrocystic changes Left axilla: No adenopathy of concern Assessment and Plan Assessment: Impression: 1. Liplg-Byhvknshv-Tdcmz syndrome 2. Fibrocystic breast changes 3. Dense breast tissue 4. Abdominal pain 5. Family history of ovarian cancer Plan: 1. Repeat left breast mammogram in February 2020 with physician exam at that time 2. Follow-up with Dr. Cecilia Paulino regarding abdominal pain/probable HYPERBARIC TECH consult 3. Dermatology follow-up/father of melanoma Cc: Dr. Paulino encounter 30 minutes, > 50% of time in planning and counselling
== END | disposition home or self-care (01) ==
LOC: WWCWWP 13:18
PROVIDERS: ATTEND Surgery
DX: Z53.9 Procedure and treatment not carried out, unspecified reason (principal)

== ENCOUNTER 2020-01-09 18:57 | Emergency (ER) | payer BC ==
[2020-01-09 19:01] VITALS: PULSE 95; RESP 18
[2020-01-09] MEDS ORDERED: HYDROmorphone 0.5 MG/0.5 ML SYRINGE IVP STA (19:43)
[2020-01-09] MEDS ORDERED: SODIUM CHLORIDE 0.9% 1,000 ML IV STA (19:43)
[2020-01-09 20:03] LABS: Basophils # (A) 0.1 k/uL (0-0.2); Basophils % (A) 1 %; Eosinophils # (A) 0.1 k/uL (0-0.7); Eosinophils % (A) 1 %; HCT 48.7 % (34.0-46.0); HGB 16.2 gm/dL (11.4-16.0); Lymphocytes # (A) 2.8 k/uL (1.0-4.8); Lymphocytes % (A) 31 %; MCH 31.8 pg (25.0-35.0); MCHC 33.3 g/dL (31.0-37.0); MCV 95.4 fL (80.0-100.0); Mean Platelet Volume 8.2; Monocytes # (A) 0.6 k/uL (0-1.0); Monocytes % (A) 6 %; Neutrophils # (A) 5.4 k/uL (1.3-7.7); Neutrophils % (A) 60 %; Platelet Count 232 k/uL (150-450); RDW 12.5 % (11.5-15.5); WBC 9.1 k/uL (3.8-10.6)
[2020-01-09 20:16] LABS: Albumin 4.5 g/dL (3.5-5.0); Calcium 10.2 mg/dL (8.4-10.2); Potassium 3.7 mmol/L (3.5-5.1); Total Bilirubin 0.5 mg/dL (0.2-1.3); Total Protein 6.9 g/dL (6.3-8.2)
[2020-01-09 20:21] LABS: Appearance,Urine Clear (Clear); Bilirubin,Urine Negative (Negative); Blood,Urine Negative (Negative); Color,Urine Light Yellow; Glucose,Urine (UA) Negative (Negative); Ketones,Urine Negative (Negative); Leukocyte Esterase,Urine Negative (Negative); Nitrite,Urine Negative (Negative); PH, Urine 7.5 (5.0-8.0); Protein,Urine Negative (Negative); Specific Gravity,Urine 1.008 (1.001-1.035); Urobilinogen,Urine <2.0 mg/dL (<2.0)
--- NOTE | 2020-01-09 20:26 | XR ---
EXAMINATION TYPE: XR abdomen 2V DATE OF EXAM: 01/09/2020 COMPARISON: 08/19/2019 HISTORY: Abdominal pain TECHNIQUE: Supine and upright views FINDINGS: There is some barium in the ascending colon and transverse colon. There is no sign of intes tinal obstruction or pneumoperitoneum. Fecal pattern is normal. Lung bases are clear. There are no pa thologic calcifications. IMPRESSION: Nonacute abdomen.
[2020-01-09] MEDS ORDERED: HYDROmorphone 1 MG/ML 1 ML SYRINGE IVP STA (21:06)
[2020-01-09] MEDS ORDERED: ONDANSETRON 4 MG/2 ML VIAL IVP STA (21:19)
--- NOTE | 2020-01-09 22:16 | US ---
EXAMINATION TYPE: US abdomen APPY DATE OF EXAM: 01/09/2020 COMPARISON: CT CLINICAL HISTORY: RLQ pain . RLQ pain x 3 hours. APPENDIX Appendix not seen at this time by ultrasound. Is the appendix seen in its entirety from the proximal cecum to distal end: No Is there inflammatory changes or free fluid present: Hypoechoic area with hyperechoic center and missy e vascularity seen within the RLQ measurin.9 x 0.9 x 0.5 cm. IMPRESSION: Appendix not seen. No sign of appendicitis. No free fluid.
--- NOTE | 2020-01-09 22:22 | US ---
EXAMINATION TYPE: US transvaginal DATE OF EXAM: 01/09/2020 COMPARISON: US, CT CLINICAL HISTORY: RLQ pain . RLQ pain x 3 hours. Hx ectopic in fallopian tube. Hx ovarian c yst. . TECHNIQUE: Transvaginal (TV). Date of LMP: 2 years ago. EXAM MEASUREMENTS: Uterus: 6.8 x 4.0 x 3.6 cm Endometrial Stripe: 0.48 cm Right Ovary: 2.7 x 1.4 x 0.9 cm Left Ovary: Obscured 1. Uterus: Anteverted. Appears heterogeneous. Hypoechoic area seen fundally/anteriorly measurin. 9 x 0.7 x 0.9 cm. Multiple hypoechoic and anechoic areas seen in the cervix. Largest hypoechoic area measures: 1.3 x 1. 0 x 1.0 cm. Largest anechoic area measures: 0.8 x 1.0 x 0.6 cm. 2. Endometrium: Limited visibility, measured at 0.48 cm. 3. Right Ovary: No abnormalities seen at this time. 4. Left Ovary: Obscured. Spectral, color and waveform doppler imaging shows arterial and venous flow within the right ovary. Left ovary was not visualized at this time. 5. Bilateral Adnexa: Appear wnl 6. Posterior cul-de-sac: Appears wnl IMPRESSION: No adnexal mass. Multiple cervical cysts. No evidence of endometrial mass. No evidence of ovarian tor saige.
[2020-01-09] MEDS ORDERED: METOCLOPRAMIDE 5 MG/ML 2 ML VIAL IVP STA (22:40)
[2020-01-09] MEDS ORDERED: diphenhydrAMINE 50 MG/ML 1 ML VIAL IVP STA (23:17)
--- NOTE | 2020-01-10 00:21 | ED ---
General Adult HPI - General Chief complaint: Abdominal Pain Stated complaint: rt sided pain Time Seen by Provider: 01/09/20 19:18 Source: patient, RN notes reviewed, old records reviewed Mode of arrival: ambulatory Limitations: no limitations - History of Present Illness Initial comments: 50-year-old female patient presents to ED for evaluation of abdominal pain. Patient reports about having abdominal pain for a few months however it was mild however she developed a sharp stabbing right lower quadrant abdominal pain about an hour and a half before coming to hospital. Reports nausea and vomiting. Patient did have an upper and lower GI barium study earlier today to rule out a small bowel obstruction which did do so she's been following up with surgeon . Denies any chest pain shortness breath or any other acute complaints. Systemic: Pt denies fatigue, fever/chills, rash. Pt denies weakness, night sweats, weight loss. Neuro: Pt denies headache, visual disturbances, syncope or pre-syncope. HEENT: Pt denies ocular discharge or irritation, otalgia, rhinorrhea, pharyngitis or notable lymphadenopathy. Cardiopulmonary: Pt denies chest pain, SOB, heart palpitations, dyspnea on exertion. Abdominal/GI: Pt denies diarrhea. : Pt denies dysuria, burning w/ urination, frequency/urgency. Denies new onset urinary or bowel incontinence. MSK: Pt denies myalgia, loss of strength or function in extremities. Neuro: Pt denies new onset weakness, paresthesias. - Related Data Home Medications Medication Instructions Recorded Confirmed Ascorbic Acid [Vitamin C] 1,000 mg PO QAM 05/20/18 01/05/20 Gabapentin [Neurontin] 100 mg PO TID 05/20/18 01/05/20 Cyclobenzaprine [Flexeril] 10 mg PO HS PRN 06/09/18 01/05/20 Aspirin 325 mg PO HS 06/27/19 01/05/20 Mv-Mn/C/Glutamin/Lysin/Etfu562 1 tab PO TID 07/13/19 01/05/20 [Airborne Gummies] Vitamin C/Biotin [Hair, Skin and 1 tab PO QAM 07/13/19 01/05/20 Nails] Cholecalciferol [Vitamin D3 (25 2,000 unit PO QAM 09/02/19 01/05/20 Mcg = 1000 Iu)] Vitamin A/Vit C/Zinc/Propolis 15 mg MUCOUS MEM DAILY 09/02/19 01/05/20 [Zinc 15 mg Lozenges] Bc Powder 1 packet PO DAILY PRN 09/08/19 01/05/20 DULoxetine HCL [Cymbalta] 30 mg PO DAILY 01/05/20 01/05/20 hydrOXYzine HCL 25 mg PO HS PRN 01/05/20 01/05/20 Allergies Allergy/AdvReac Type Severity Reaction Status Date / Time Penicillins Allergy Unknown Verified 01/09/20 19:01 adhesive tape AdvReac Rash/Hives Verified 01/09/20 19:01 azithromycin AdvReac Abdominal Verified 01/09/20 19:01 [From Zithromax Z-Salinas] Pain codeine AdvReac Nausea & Verified 01/09/20 19:01 Vomiting Review of Systems ROS Statement: Those systems with pertinent positive or pertinent negative responses have been documented in the HPI. ROS Other: All systems not noted in ROS Statement are negative. Past Medical History Past Medical History: GERD/Reflux Additional Past Medical History / Comment(s): WPW syndrome improved following cardiac ablation, SVT, Cervical spine stenosis. 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 hiatal hernia, arthritis, palpitations; History of Any Multi-Drug Resistant Organisms: None Reported Past Surgical History: Cardiac Ablation, Ear Surgery Additional Past Surgical History / Comment(s): exp. laparoscopy; groin cyst removed, wisdom teeth removed; Past Anesthesia/Blood Transfusion Reactions: Family History of Problems w/ Anesthesia Additional Past Anesthesia/Blood Transfusion Reaction / Comment(s): mother has a hard time waking up from anesthesia Past Psychological History: Anxiety, Depression Smoking Status: Former smoker Past Alcohol Use History: None Reported Past Drug Use History: None Reported - Past Family History Mother Family Medical History: COPD Additional Family Medical History / Comment(s): Maternal grandmother and her maternal great grandmother had breast cancer. Her maternal grandmother and maternal cousin had colon cancer. Father Family Medical History: Cancer Additional Family Medical History / Comment(s): Melanoma skin cancer. General Exam - General Exam Comments Initial Comments: Constitutional: NAD, AOX3, Pt has pleasant affect. HEENT: NC/AT, trachea midline, neck supple, no lymphadenopathy. Posterior phary nx non erythematous, without exudates. External ears appear normal, without discharge. Mucous membranes moist. Eyes PERRLA, EOM intact. There is no scleral icterus. No pallor noted. Cardiopulmonary: RRR, no murmurs, rubs or gallops, no JVD noted. Lungs CTAB in anterior and posterior mcgrath. No peripheral edema. Abdominal exam: Abdomen soft and non-distended. Abdomen tender to palpation in RLQ region. Bowel sounds active in LLQ. No hepatosplenomegaly. No ecchymosis Neuro: CN II-XII grossly intact. No nuchal rigidity. No raccon eyes, no simpson sign, no hemotympanum. No cervical spinal tenderness. MSK: No posterior calf tenderness bilaterally, homans sign negative bilaterally. Posterior tibialis and radial pulse +2 bilaterally. Sensation intact in upper and lower extremities. Full active ROM in upper and lower extremities, 5/5 stregnth. Limitations: no limitations Course Vital Signs 01/09/20 01/09/20 01/10/20 18:58 21:00 00:00 Temperature 97.7 F Pulse Rate 95 Respiratory 18 18 18 Rate Blood Pressure 138/86 118/83 112/65 O2 Sat by Pulse 100 Oximetry Medical Decision Making - Medical Decision Making 50-year-old female patient is to ED for evaluation of severe right lower quadrant abdominal pain. Reports that the pain is very severe and she is crying in room. Physical exam displayed right lower quadrant tenderness. Significant workup was obtained. I first evaluated the prior imaging study throughout the day there is no evidence of small bowel obstruction. I proceeded with a KUB which displayed a nonacute abdomen with no free air. SOUNDS were then proceeded which displayed multiple cervical cysts however no significant acute process was identified. Patient's pain was still not well controlled despite multiple doses of narcotic pain medications. This time I discussed with patient a CT of the abdomen and pelvis. Risks and benefits were discussed including radiation and she verbalizes understanding and wishes to have this study obtained. CT abdomen and pelvis was negative for any acute process. This time I recommended patient be admitted to hospital and seen by surgery due to this persistent pain which she is having patient is refusing this. Patient states that she'll go home and follow up with her surgeon outpatient basis. I discussed return precautions the patient verbalized understanding. Case discussed with Dr. Everett. - Lab Data Result diagrams: 01/09/20 19:46 01/09/20 19:46 Lab Results 01/09/20 01/09/20 01/09/20 Range/Units 19:46 19:46 19:46 WBC 9.1 (3.8-10.6) k/uL RBC 5.10 (3.80-5.40) m/uL Hgb 16.2 H (11.4-16.0) gm/dL Hct 48.7 H (34.0-46.0) % MCV 95.4 (80.0-100.0) fL MCH 31.8 (25.0-35.0) pg MCHC 33.3 (31.0-37.0) g/dL RDW 12.5 (11.5-15.5) % Plt Count 232 (150-450) k/uL Neutrophils % 60 % Lymphocytes % 31 % Monocytes % 6 % Eosinophils % 1 % Basophils % 1 % Neutrophils # 5.4 (1.3-7.7) k/uL Lymphocytes # 2.8 (1.0-4.8) k/uL Monocytes # 0.6 (0-1.0) k/uL Eosinophils # 0.1 (0-0.7) k/uL Basophils # 0.1 (0-0.2) k/uL Sodium 141 (137-145) mmol/L Potassium 3.7 (3.5-5.1) mmol/L Chloride 103 (98-107) mmol/L Carbon Dioxide 32 H (22-30) mmol/L Anion Gap 6 mmol/L BUN 20 H (7-17) mg/dL Creatinine 0.92 (0.52-1.04) mg/dL Est GFR (CKD-EPI)AfAm 84 (>60 ml/min/1.73 sqM) Est GFR (CKD-EPI)NonAf 73 (>60 ml/min/1.73 sqM) Glucose 95 (74-99) mg/dL Plasma Lactic Acid Edd (0.7-2.0) mmol/L Calcium 10.2 (8.4-10.2) mg/dL Total Bilirubin 0.5 (0.2-1.3) mg/dL AST 28 (14-36) U/L ALT 25 (4-34) U/L Alkaline Phosphatase 69 (38-126) U/L Total Protein 6.9 (6.3-8.2) g/dL Albumin 4.5 (3.5-5.0) g/dL Lipase 92 (23-300) U/L Urine Color Light Yellow Urine Appearance Clear (Clear) Urine pH 7.5 (5.0-8.0) Ur Specific [place] 1.008 (1.001-1.035) Urine Protein Negative (Negative) Urine Glucose (UA) Negative (Negative) Urine Ketones Negative (Negative) Urine Blood Negative (Negative) Urine Nitrite Negative (Negative) Urine Bilirubin Negative (Negative) Urine Urobilinogen <2.0 (<2.0) mg/dL Ur Leukocyte Esterase Negative (Negative) 01/09/20 Range/Units 19:46 WBC (3.8-10.6) k/uL RBC (3.80-5.40) m/uL Hgb (11.4-16.0) gm/dL Hct (34.0-46.0) % MCV (80.0-100.0) fL MCH (25.0-35.0) pg MCHC (31.0-37.0) g/dL RDW (11.5-15.5) % Plt Count (150-450) k/uL Neutrophils % % Lymphocytes % % Monocytes % % Eosinophils % % Basophils % % Neutrophils # (1.3-7.7) k/uL Lymphocytes # (1.0-4.8) k/uL Monocytes # (0-1.0) k/uL Eosinophils # (0-0.7) k/uL Basophils # (0-0.2) k/uL Sodium (137-145) mmol/L Potassium (3.5-5.1) mmol/L Chloride (98-107) mmol/L Carbon Dioxide (22-30) mmol/L Anion Gap mmol/L BUN (7-17) mg/dL Creatinine (0.52-1.04) mg/dL Est GFR (CKD-EPI)AfAm (>60 ml/min/1.73 sqM) Est GFR (CKD-EPI)NonAf (>60 ml/min/1.73 sqM) Glucose (74-99) mg/dL Plasma Lactic Acid Edd 1.4 (0.7-2.0) mmol/L Calcium (8.4-10.2) mg/dL Total Bilirubin (0.2-1.3) mg/dL AST (14-36) U/L ALT (4-34) U/L Alkaline Phosphatase (38-126) U/L Total Protein (6.3-8.2) g/dL Albumin (3.5-5.0) g/dL Lipase (23-300) U/L Urine Color Urine Appearance (Clear) Urine pH (5.0-8.0) Ur Specific [place] (1.001-1.035) Urine Protein (Negative) Urine Glucose (UA) (Negative) Urine Ketones (Negative) Urine Blood (Negative) Urine Nitrite (Negative) Urine Bilirubin (Negative) Urine Urobilinogen (<2.0) mg/dL Ur Leukocyte Esterase (Negative) - EKG Data -: EKG Interpreted by Me (and Dr. Everett ) EKG Comments: Ventricular rate, when necessary for 108, QRS 86, QT/QTC 370/452. Sinus rhythm with short MO. Otherwise normal EKG. No concern for acute ischemia at this time. Disposition Clinical Impression: Abdominal pain Disposition: HOME SELF-CARE Condition: Stable Instructions (If sedation given, give patient instructions): Abdominal Pain (ED) Additional Instructions: Follow up with PCP tomorrow. Follow up with surgeon tomorrow. Return to ED with any worsening symptoms. Is patient prescribed a controlled substance at d/c from ED?: No Referrals: Cortez Paulino DO [Primary Care Provider] - 1-2 days Fritz Kurtz MD [STAFF PHYSICIAN] - 1-2 days
--- NOTE | 2020-01-10 00:33 | CT ---
EXAMINATION TYPE: CT abdomen pelvis w con DATE OF EXAM: 01/09/2020 COMPARISON: 11/26/2019 HISTORY: RLQ /flank pain with N&V CT DLP: 1216.3 mGycm Automated exposure control for dose reduction was used. CONTRAST: Performed with IV Contrast, patient injected with 100 mL of Isovue 300. Images were obtained from the diaphragm to the floor the pelvis with IV contrast. There is barium con trast in the large bowel which produces significant artifact. Lung bases are clear. There is no pleural effusion. Heart size is normal. Liver spleen stomach pancreas gallbladder appear normal. Bile ducts are not dilated. There is no adrenal mass. Kidneys show satisfactory contrast opacification. There is no hydronephrosi s. Gallbladder has normal size and contour. There is no retroperitoneal adenopathy. Bladder distends smoothly. Uterus is anteverted. There is no evidence of a pelvic mass. There is no free fluid in the pelvis. There is no inguinal hernia. Lumbar vertebra have normal spacing and alignment. Posterior melo ments are intact. There is no compression fracture. Bony pelvis appears intact. Hip joints are intact . Appendix is not seen. Appendix region is obscured by artifact. I see no evidence of a bowel obstruc tion. There is no sign of mesenteric edema. There is no ascites. There is no sign of free air. IMPRESSION: Negative CT scan abdomen and pelvis. Limited exam. No adverse change compared to old exam.
[2020-01-10 01:16] VITALS: BP 113/74; TEMP 97
== END 2020-01-10 01:15 | disposition home or self-care (01) ==
LOC: EC 18:57
DX: R10.31 Right lower quadrant pain (principal); R10.813 Right lower quadrant abdominal tenderness; N88.8 Other specified noninflammatory disorders of cervix uteri; F41.9 Anxiety disorder, unspecified; M19.90 Unspecified osteoarthritis, unspecified site; F32.9 Major depressive disorder, single episode, unspecified; Z79.82 Long term (current) use of aspirin; Z79.899 Other long term (current) drug therapy; Z88.0 Allergy status to penicillin; Z91.048 Other nonmedicinal substance allergy status; Z88.1 Allergy status to other antibiotic agents; Z88.5 Allergy status to narcotic agent; Z87.891 Personal history of nicotine dependence
CPT/HCPCS: 36415; 93005; 80053; 83605; 83690; 85025; 81003; 74019; 93976; 76705; 76830; 74177; 99285; 96374; 96375 ×3; 96376; 96361; J1200; J2765; J2405; J1170 ×2; Q9967; 74240; 74248

== ENCOUNTER → 2020-01-09 | Outpatient (CLI) | payer BC ==
--- NOTE | 2020-01-09 11:03 | FL ---
EXAMINATION TYPE: FL UGI air w small bowel DATE OF EXAM: 01/09/2020 COMPARISON: CT 11/26/2019 HISTORY: Pain TECHNIQUE: A double contrast UGI study is performed with small bowel follow through. FINDINGS: [employer] image of the abdomen shows no gross abnormality. The esophagus shows normal motility and emptying into the stomach. No evidence of stricture noted. S ome minimal tertiary esophageal contractions were noted. Small sliding hiatal hernia is present. The stomach shows normal distensibility, peristalsis, and mucosal folds. No evidence of any mass or ulcer disease. No significant esophageal reflux was seen during real time performance of this study. The duodenal bulb and sweep are unremarkable. The small bowel study shows normal transit to the colon in less than 60 minutes. There is normal muc osal fold pattern throughout the small bowel. There is no evidence of any stricture or filling defec t noted. The terminal ileum is obscured. 3 minutes 8 seconds fluoroscopy time, 23 intraoperative images document the procedure IMPRESSION: No evident bowel obstruction. Small sliding hiatal hernia..
== END | disposition home or self-care (01) ==
LOC: RADFLMAIN 08:57
PROVIDERS: ATTEND Surgery
DX: K44.9 Diaphragmatic hernia without obstruction or gangrene (principal); Z88.0 Allergy status to penicillin
CPT/HCPCS: 74240; 74248

== ENCOUNTER → 2020-01-24 | Outpatient (CLI) | payer BC ==
[2020-01-24 16:17] VITALS: BP 135/82; PULSE 88; RESP 12; TEMP 98.1
--- NOTE | 2020-01-24 18:13 | P.HPOB ---
History of Present Illness H&P Date: 01/24/20 Chief Complaint: Low abdominal and pelvic pain for 6 months This is a 50-year-old with an LMP of 2018. The patient has been having low abdominal and pelvic pains since she was seen by me in June 2019. At that time she had been experiencing pains for several months as well. Pelvic ultrasound was ordered at that time but there was no discrete findings on that explained her pain. She does have a history of a fundal uterine fibroid which measured 4.7 cm in 2019. She states the pain had not improved and had gotten much worse about 2 weeks ago when she went to the emergency room. At that time she was experiencing lower abdominal pain greatest on the right side which was also associated with nausea and vomiting. She had a transvaginal ultrasound on 01/09/2020 which did not show any discrete findings that would explain her pain. She also underwent a CT scan of the abdomen and pelvis on that day which was negative. She continues to have back pain, bloating, nausea, low abdominal and pelvic pain. It is no longer greater on one side but seems to be throughout the lower abdomen and pelvis. She rates the pain at a 2 out of 10 at this time and describes it as a crampy type pain with tenderness. She denies fever or urinary symptoms. She states she has not been sexually active for many years. Review of Systems She has lost about 5 pounds over the past 6 months. She denies respiratory, cardiac, or GI problems. : She denies dysuria or urinary frequency. Past Medical History Past Medical History: GERD/Reflux Additional Past Medical History / Comment(s): WPW syndrome improved following cardiac ablation, SVT, hiatal hernia, palpitations; Cervical spinal stenosis. 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 History of Any Multi-Drug Resistant Organisms: None Reported Past Surgical History: Cardiac Ablation, Ear Surgery Additional Past Surgical History / Comment(s): exp. laparoscopy; groin cyst removed, wisdom teeth removed; colonoscopy June 2019. Past Anesthesia/Blood Transfusion Reactions: Family History of Problems w/ Anesthesia Additional Past Anesthesia/Blood Transfusion Reaction / Comment(s): mother has a hard time waking up from anesthesia Past Psychological History: Anxiety, Depression Additional Psychological History / Comment(s): Brief depression around 2007 treated with Prozac. Smoking Status: Former smoker Past Alcohol Use History: None Reported Additional Past Alcohol Use History / Comment(s): started smoking around the age of 17 on and off until the age of 45 Past Drug Use History: None Reported Additional History: She is single and is not seeing anybody at this time and has not been sexually active for several years. 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 - Past Family History Mother Family Medical History: COPD Additional Family Medical History / Comment(s): Maternal grandmother and her maternal great grandmother had breast cancer. Her maternal grandmother and maternal cousin had colon cancer. Father Family Medical History: Cancer Additional Family Medical History / Comment(s): Melanoma skin cancer. Aunts Family Medical History: Cancer Additional Family Medical History / Comment(s): A paternal aunt had ovarian cancer, a maternal aunt had uterine cancer and another maternal aunt had bladder cancer. Medications and Allergies Home Medications Medication Instructions Recorded Confirmed Type Ascorbic Acid [Vitamin C] 1,000 mg PO QAM 05/20/18 01/24/20 History Gabapentin [Neurontin] 100 mg PO TID 05/20/18 01/24/20 History Cyclobenzaprine [Flexeril] 10 mg PO HS PRN 06/09/18 01/24/20 History Aspirin 325 mg PO HS 06/27/19 01/24/20 History Mv-Mn/C/Glutamin/Lysin/[id number] 1 tab PO TID 07/13/19 01/24/20 History [Airborne Gummies] Vitamin C/Biotin [Hair, Skin and 1 tab PO QAM 07/13/19 01/05/20 History Nails] Cholecalciferol [Vitamin D3 (25 2,000 unit PO QAM 09/02/19 01/24/20 History Mcg = 1000 Iu)] Vitamin A/Vit C/Zinc/Propolis 15 mg MUCOUS MEM DAILY 09/02/19 01/24/20 History [Zinc 15 mg Lozenges] Bc Powder 1 packet PO DAILY PRN 09/08/19 01/05/20 History hydrOXYzine HCL 25 mg PO HS PRN 01/05/20 01/24/20 History Allergies Allergy/AdvReac Type Severity Reaction Status Date / Time Penicillins Allergy Unknown Verified 01/24/20 16:18 adhesive tape AdvReac Rash/Hives Verified 01/24/20 16:18 azithromycin AdvReac Abdominal Verified 01/24/20 16:18 [From Zithromax Z-[place]] Pain codeine AdvReac Nausea & Verified 01/24/20 16:18 Vomiting Exam Vital Signs Temp Pulse Resp BP 01/24/20 16:11 98.1 F 88 12 135/82 Intake and Output 01/24/20 01/24/20 01/24/20 06:59 14:59 22:59 Other: Weight 58.513 kg Height 5 feet 4 inches, weight 129 pounds, BMI 22.1. This is a well-developed well-nourished white female who is alert and oriented times 3 in no acute distress. CHEST AND LUNGS: Clear to auscultation. HEART: Regular rate and rhythm. BACK: Negative for CVA tenderness. ABDOMEN: Soft, mild low abdominal tenderness without rebound tenderness and without palpable masses. The abdomen is nondistended. PELVIC EXAM: Normal external genitalia with mild atrophy. Cervix and vagina appear normal with minimal atrophy. There is no unusual discharge. There is mild cervical motion tenderness. There is no evidence of prolapse. The uterus is midposition, nongravid size and is mildly tender.. There are no palpable adnexal masses and there is generalized bilateral mild adnexal tenderness. EXTREMITIES: Nontender. IMPRESSION: 1. 50-year-old menopausal female with a greater than six-month history of low abdominal and pelvic discomfort with generalized pelvic tenderness without palpable mass. 2. History of a 4.7 cm fundal fibroid which is not palpable at this time. 3. Differential diagnosis for her low abdominal and pelvic pain include pelvic adhesions, uterine fibroid pain, urinary tract infection, and non-gynecologic pain. I doubt pelvic inflammatory disease, ovarian mass, endometriosis or ruptured ovarian cyst. PLAN: 1. Clean-catch urine was obtained for UA and C&S. 2. We have had a long discussion regarding the findings as well as her multiple pelvic and abdominal imaging studies. At this time it is not obvious with the etiology for her pain is. I will refer the patient for possible laparoscopy for further evaluation and second opinion. She has also expressed that she wishes she would have had a hysterectomy years ago when it was recommended for her abnormal menstrual bleeding. She also seems to have concern regarding her family history for ovarian, uterine and bladder cancer. She can discuss possible options with the periodontist to whom she is referred. Total time spent with the patient 30 minutes.
[2020-01-24 19:08] LABS: Appearance,Urine Clear (Clear); Bilirubin,Urine Negative (Negative); Blood,Urine Negative (Negative); Color,Urine Yellow; Glucose,Urine (UA) Negative (Negative); Ketones,Urine Negative (Negative); Leukocyte Esterase,Urine Negative (Negative); Nitrite,Urine Negative (Negative); PH, Urine 5.5 (5.0-8.0); Protein,Urine Negative (Negative); Specific Gravity,Urine 1.027 (1.001-1.035); Urobilinogen,Urine <2.0 mg/dL (<2.0)
== END | disposition home or self-care (01) ==
LOC: WWCWWP 15:51
PROVIDERS: ATTEND Obstetrics & Gynecology
DX: R10.2 Pelvic and perineal pain (principal)
CPT/HCPCS: 81003; 87086

== ENCOUNTER → 2020-03-14 | Outpatient (CLI) | payer BC ==
--- NOTE | 2020-03-14 13:49 | MM ---
Reason for exam: follow-up at short interval from prior study. Last mammogram was performed 6 months ago. History: Patient is postmenopausal. Family history of breast cancer in maternal grandmother at age 60. Benign US biopsy breast VAD LT of the left breast, September 13, 2019. Physical Findings: Nurse did not find any significant physical abnormalities on exam. MG 3D Diag Mammo W/Cad LT CC and MLO view(s) were taken of the left breast. Prior study comparison: August 31, 2019, bilateral MG 3d diag mammo w/cad BERNARDO. June 09, 2018, bilateral MG 3d diag mammo w/cad BERNARDO. The breast tissue is heterogeneously dense. This may lower the sensitivity of mammography. There is chronic nodularity in the right breast. There is no dominant lesion. These results were verbally communicated with the patient and result sheet given to the patient on 03/14/20. ASSESSMENT: Benign, BI-RAD 2 RECOMMENDATION: Routine screening mammogram of both breasts in 6 months. Back on schedule.
== END | disposition home or self-care (01) ==
LOC: RADMAMWWP 13:04
PROVIDERS: ATTEND Surgery
DX: R92.8 Other abnormal and inconclusive findings on diagnostic imaging of breast (principal)
CPT/HCPCS: 77061; 77065

== ENCOUNTER → 2020-03-27 | Outpatient (CLI) | payer BC ==
--- NOTE | 2020-03-27 21:17 | CT ---
EXAMINATION TYPE: CT abdomen pelvis w con DATE OF EXAM: 03/27/2020 COMPARISON: 01/09/2020. HISTORY: abdominal pain, flank pain, nausea CT DLP: 415.1 mGycm Automated exposure control for dose reduction was used. TECHNIQUE: Helical acquisition of images was performed from the lung bases through the pelvis. CONTRAST: Performed with Oral Contrast and with IV Contrast, patient injected with 100 mL of Isovue 300. FINDINGS: LUNG BASES: No significant abnormality is appreciated. LIVER/GB: No significant abnormality is appreciated. PANCREAS: No significant abnormality is seen. SPLEEN: No significant abnormality is seen. ADRENALS: No significant abnormality is seen. KIDNEYS: No significant abnormality is seen. FREE AIR: No free air is visualized. RETROPERITONEAL ADENOPATHY: None visualized REPRODUCTIVE ORGANS: No significant abnormality is seen URINARY BLADDER: No significant abnormality is seen. PELVIC ADENOPATHY: Incidental increased uterine vascularity. OSSEOUS STRUCTURES: No acute abnormality is seen. Moderate L5-S1 spondylosis. BOWEL: No significant abnormality is seen. OTHER: None. IMPRESSION: NO ACUTE ABNORMALITY OF THE ABDOMEN/PELVIS. Incidental increased uterine vascularity. Findings are nonspecific, however can be seen with pelvic c ongestion syndrome in the appropriate clinical setting. Recommend clinical correlation.
== END | disposition home or self-care (01) ==
LOC: RADCTMAIN 15:02
PROVIDERS: ATTEND Surgery
DX: R10.84 Generalized abdominal pain (principal); Z88.0 Allergy status to penicillin
CPT/HCPCS: 74177; Q9967

== ENCOUNTER 2020-04-19 01:17 | Emergency (ER) | payer BC ==
[2020-04-19 01:26] VITALS: TEMP 98
[2020-04-19] MEDS ORDERED: SODIUM CHLORIDE 0.9% 1,000 ML IV STA (01:43)
[2020-04-19] MEDS ORDERED: HYDROmorphone 1 MG/ML 1 ML SYRINGE IVP STA (01:47)
--- NOTE | 2020-04-19 01:48 | ED ---
Recheck HPI - General Chief Complaint: Abdominal Pain Stated Complaint: Abd/back pain Time Seen by Provider: 04/19/20 01:28 Source: patient, RN notes reviewed, old records reviewed Mode of arrival: ambulatory Limitations: no limitations - History of Present Illness Initial Comments: This is a 50-year-old female she presents today for evaluation of left-sided rib pain left-sided abdominal pain right around her abdomen into her back. Patient has no specific abdominal pain here in the ER. Is complaining of some left- sided rib pain no shortness of breath. No age trees no fevers no cough or congestion. MD Complaint: other (History of abdominal pain for one year left-sided rib pain for 1 year pain is similar) -: year(s) Returns Today for: persistent/worsening pain related to initial visit Symptoms Since Prior Visit: worsening pain Context: ran out of medication Associated Symptoms: none Treatments Prior to Arrival: Given Pain Meds on - Related Data Home Medications Medication Instructions Recorded Confirmed Ascorbic Acid [Vitamin C] 1,000 mg PO QAM 05/20/18 04/03/20 Gabapentin [Neurontin] 100 mg PO TID 05/20/18 04/03/20 Cyclobenzaprine [Flexeril] 10 mg PO HS PRN 06/09/18 04/03/20 Aspirin 325 mg PO HS 06/27/19 04/03/20 Mv-Mn/C/Glutamin/Lysin/[id number] 1 tab PO TID 07/13/19 04/03/20 [Airborne Gummies] Vitamin C/Biotin [Hair, Skin and 1 tab PO QAM 07/13/19 04/03/20 Nails] Cholecalciferol [Vitamin D3 (25 2,000 unit PO QAM 09/02/19 04/03/20 Mcg = 1000 Iu)] Vitamin A/Vit C/Zinc/Propolis 15 mg MUCOUS MEM DAILY 09/02/19 04/03/20 [Zinc 15 mg Lozenges] Bc Powder 1 packet PO DAILY PRN 09/08/19 04/03/20 hydrOXYzine HCL 25 mg PO HS PRN 01/05/20 04/03/20 Omeprazole [PriLOSEC] 40 mg PO DAILY PRN 04/03/20 04/03/20 Turmeric Root Extract [Turmeric] 500 mg PO DAILY 04/03/20 04/03/20 Allergies Allergy/AdvReac Type Severity Reaction Status Date / Time Penicillins Allergy Unknown Verified 04/19/20 01:26 adhesive tape AdvReac Rash/Hives Verified 04/19/20 01:26 azithromycin AdvReac Abdominal Verified 04/19/20 01:26 [From Zithromax Z-Salinas] Pain codeine AdvReac Nausea & Verified 04/19/20 01:26 Vomiting Review of Systems ROS Statement: Those systems with pertinent positive or pertinent negative responses have been documented in the HPI. ROS Other: All systems not noted in ROS Statement are negative. Past Medical History Past Medical History: GERD/Reflux, Musculoskeletal Disorder, Supraventricular Tachycardia (SVT) Additional Past Medical History / Comment(s): WPW syndrome improved following cardiac ablation, SVT, hiatal hernia, palpitations; Cervical spinal stenosis. left sided upper abd. pain along rib cage thru to back, tender to the touch, sciatic nerve pain down left leg History of Any Multi-Drug Resistant Organisms: None Reported Past Surgical History: Cardiac Ablation, Ear Surgery Additional Past Surgical History / Comment(s): exp. laparoscopy; groin cyst removed, wisdom teeth removed; colonoscopy June 2019, myringotomy & tubes, pain procedures Past Anesthesia/Blood Transfusion Reactions: Family History of Problems w/ Anesthesia Additional Past Anesthesia/Blood Transfusion Reaction / Comment(s): mother has a hard time waking up from anesthesia Past Psychological History: Anxiety, Depression Smoking Status: Former smoker Past Alcohol Use History: None Reported Past Drug Use History: None Reported - Past Family History Mother Family Medical History: COPD Additional Family Medical History / Comment(s): Maternal grandmother and her maternal great grandmother had breast cancer. Her maternal grandmother and maternal cousin had colon cancer. Father Family Medical History: Cancer Additional Family Medical History / Comment(s): Melanoma skin cancer. Aunts Family Medical History: Cancer Additional Family Medical History / Comment(s): A paternal aunt had ovarian c ancer, a maternal aunt had uterine cancer and another maternal aunt had bladder cancer. General Exam Limitations: no limitations General appearance: alert, in no apparent distress Head exam: Present: atraumatic, normocephalic, normal inspection Eye exam: Present: normal appearance, PERRL, EOMI. Absent: scleral icterus, conjunctival injection, periorbital swelling ENT exam: Present: normal exam, mucous membranes moist Neck exam: Present: normal inspection. Absent: tenderness, meningismus, lymphadenopathy Respiratory exam: Present: normal lung sounds bilaterally. Absent: respiratory distress, wheezes, rales, rhonchi, stridor Cardiovascular Exam: Present: regular rate, normal rhythm, normal heart sounds. Absent: systolic murmur, diastolic murmur, rubs, gallop, clicks GI/Abdominal exam: Present: soft, normal bowel sounds. Absent: distended, tenderness, guarding, rebound, rigid Extremities exam: Present: normal inspection, full ROM, normal capillary refill. Absent: tenderness, pedal edema, joint swelling, calf tenderness Back exam: Present: normal inspection Neurological exam: Present: alert, oriented X3, CN II-XII intact Psychiatric exam: Present: normal affect, normal mood Skin exam: Present: warm, dry, intact, normal color. Absent: rash Course Vital Signs 04/19/20 01:22 Temperature 98 F Pulse Rate 83 Respiratory 20 Rate Blood Pressure 155/84 O2 Sat by Pulse 100 Oximetry - Reevaluation(s) Reevaluation #1: 04/19/20 03:03 Medical record is reviewed Reevaluation #2: 04/19/20 03:03 Multiple different evaluations for pain, no cause found Reevaluation #3: 04/19/20 03:03 Patient has adequate pain control Reevaluation #4: 04/19/20 03:03 Patient is informed results here in the ER and questions have been answered Medical Decision Making - Medical Decision Making 50 female DF for evaluation of left-sided rib pain radiating around left flank. No triadic injury noted. Patient is no acute pain here in the ER at that is resolved. X-rays labwork is normal patient can be discharged home - Lab Data Result diagrams: 04/19/20 02:05 04/19/20 02:05 Lab Results 04/19/20 04/19/20 04/19/20 Range/Units 02:05 02:05 02:05 WBC 6.5 (3.8-10.6) k/uL RBC 4.88 (3.80-5.40) m/uL Hgb 15.8 (11.4-16.0) gm/dL Hct 46.5 H (34.0-46.0) % MCV 95.3 (80.0-100.0) fL MCH 32.4 (25.0-35.0) pg MCHC 34.0 (31.0-37.0) g/dL RDW 11.9 (11.5-15.5) % Plt Count 237 (150-450) k/uL MPV 7.5 Neutrophils % 44 % Lymphocytes % 41 % Monocytes % 6 % Eosinophils % 3 % Basophils % 3 % Neutrophils # 2.8 (1.3-7.7) k/uL Lymphocytes # 2.7 (1.0-4.8) k/uL Monocytes # 0.4 (0-1.0) k/uL Eosinophils # 0.2 (0-0.7) k/uL Basophils # 0.2 (0-0.2) k/uL Sodium 140 (137-145) mmol/L Potassium 4.1 (3.5-5.1) mmol/L Chloride 107 (98-107) mmol/L Carbon Dioxide 30 (22-30) mmol/L Anion Gap 3 mmol/L BUN 20 H (7-17) mg/dL Creatinine 0.90 (0.52-1.04) mg/dL Est GFR (CKD-EPI)AfAm 86 (>60 ml/min/1.73 sqM) Est GFR (CKD-EPI)NonAf 75 (>60 ml/min/1.73 sqM) Glucose 82 (74-99) mg/dL Plasma Lactic Acid Edd (0.7-2.0) mmol/L Calcium 9.6 (8.4-10.2) mg/dL Total Bilirubin 0.3 (0.2-1.3) mg/dL AST 25 (14-36) U/L ALT 23 (4-34) U/L Alkaline Phosphatase 75 (38-126) U/L Creatine Kinase 51 (30-135) U/L Total Protein 6.9 (6.3-8.2) g/dL Albumin 4.2 (3.5-5.0) g/dL Amylase 66 (30-110) U/L Lipase 123 (23-300) U/L Urine Color Light Yellow Urine Appearance Clear (Clear) Urine pH 6.5 (5.0-8.0) Ur Specific [place] 1.018 (1.001-1.035) Urine Protein Negative (Negative) Urine Glucose (UA) Negative (Negative) Urine Ketones Negative (Negative) Urine Blood Negative (Negative) Urine Nitrite Negative (Negative) Urine Bilirubin Negative (Negative) Urine Urobilinogen <2.0 (<2.0) mg/dL Ur Leukocyte Esterase Negative (Negative) 04/19/20 Range/Units 02:05 WBC (3.8-10.6) k/uL RBC (3.80-5.40) m/uL Hgb (11.4-16.0) gm/dL Hct (34.0-46.0) % MCV (80.0-100.0) fL MCH (25.0-35.0) pg MCHC (31.0-37.0) g/dL RDW (11.5-15.5) % Plt Count (150-450) k/uL MPV Neutrophils % % Lymphocytes % % Monocytes % % Eosinophils % % Basophils % % Neutrophils # (1.3-7.7) k/uL Lymphocytes # (1.0-4.8) k/uL Monocytes # (0-1.0) k/uL Eosinophils # (0-0.7) k/uL Basophils # (0-0.2) k/uL Sodium (137-145) mmol/L Potassium (3.5-5.1) mmol/L Chloride (98-107) mmol/L Carbon Dioxide (22-30) mmol/L Anion Gap mmol/L BUN (7-17) mg/dL Creatinine (0.52-1.04) mg/dL Est GFR (CKD-EPI)AfAm (>60 ml/min/1.73 sqM) Est GFR (CKD-EPI)NonAf (>60 ml/min/1.73 sqM) Glucose (74-99) mg/dL Plasma Lactic Acid Edd 1.0 (0.7-2.0) mmol/L Calcium (8.4-10.2) mg/dL Total Bilirubin (0.2-1.3) mg/dL AST (14-36) U/L ALT (4-34) U/L Alkaline Phosphatase (38-126) U/L Creatine Kinase (30-135) U/L Total Protein (6.3-8.2) g/dL Albumin (3.5-5.0) g/dL Amylase (30-110) U/L Lipase (23-300) U/L Urine Color Urine Appearance (Clear) Urine pH (5.0-8.0) Ur Specific [place] (1.001-1.035) Urine Protein (Negative) Urine Glucose (UA) (Negative) Urine Ketones (Negative) Urine Blood (Negative) Urine Nitrite (Negative) Urine Bilirubin (Negative) Urine Urobilinogen (<2.0) mg/dL Ur Leukocyte Esterase (Negative) - Radiology Data Radiology results: report reviewed (X-ray abdominal series with chest is negative for acute disease), image reviewed Disposition Clinical Impression: Rib pain on left side, Chronic pain Disposition: HOME SELF-CARE Condition: Good Instructions (If sedation given, give patient instructions): Costochondritis (ED) Is patient prescribed a controlled substance at d/c from ED?: No Referrals: Cortez Paulino DO [Primary Care Provider] - 1-2 days
[2020-04-19] MEDS ORDERED: MORPHINE SULFATE 4 MG/ML SYRINGE IVP STA (02:05)
[2020-04-19] MEDS ORDERED: ONDANSETRON 4 MG/2 ML VIAL IVP STA (02:05)
[2020-04-19] MEDS ORDERED: KETOROLAC 15 MG/ML 1 ML VIAL IVP STA (02:05)
[2020-04-19 02:12] LABS: Appearance,Urine Clear (Clear); Basophils # (A) 0.2 k/uL (0-0.2); Basophils % (A) 3 %; Bilirubin,Urine Negative (Negative); Blood,Urine Negative (Negative); Color,Urine Light Yellow; Eosinophils # (A) 0.2 k/uL (0-0.7); Eosinophils % (A) 3 %; Glucose,Urine (UA) Negative (Negative); HCT 46.5 % (34.0-46.0); HGB 15.8 gm/dL (11.4-16.0); Ketones,Urine Negative (Negative); Leukocyte Esterase,Urine Negative (Negative); Lymphocytes # (A) 2.7 k/uL (1.0-4.8); Lymphocytes % (A) 41 %; MCH 32.4 pg (25.0-35.0); MCV 95.3 fL (80.0-100.0); Mean Platelet Volume 7.5; Monocytes # (A) 0.4 k/uL (0-1.0); Monocytes % (A) 6 %; Neutrophils # (A) 2.8 k/uL (1.3-7.7); Neutrophils % (A) 44 %; Nitrite,Urine Negative (Negative); PH, Urine 6.5 (5.0-8.0); Platelet Count 237 k/uL (150-450); Protein,Urine Negative (Negative); RBC 4.88 m/uL (3.80-5.40); RDW 11.9 % (11.5-15.5); Specific Gravity,Urine 1.018 (1.001-1.035); Urobilinogen,Urine <2.0 mg/dL (<2.0); WBC 6.5 k/uL (3.8-10.6)
[2020-04-19 02:23] LABS: Albumin 4.2 g/dL (3.5-5.0); Calcium 9.6 mg/dL (8.4-10.2); Potassium 4.1 mmol/L (3.5-5.1); Total Bilirubin 0.3 mg/dL (0.2-1.3); Total Protein 6.9 g/dL (6.3-8.2)
--- NOTE | 2020-04-19 02:25 | XR ---
EXAM: XR Abdomen, 2 Views and XR Chest, 1 View CLINICAL HISTORY: ITS.REASON XR Reason: pain TECHNIQUE: Frontal view of the chest, frontal view of the abdomen/pelvis and upright or decubitus view of the abdomen. COMPARISON: 01/09/2020 FINDINGS: Lungs: Unremarkable. No consolidation. Pleural space: Unremarkable. No pneumothorax. Heart: Unremarkable. No cardiomegaly. Mediastinum: Unremarkable. Intraperitoneal space: No free air. Gastrointestinal tract: Moderate amount of stool seen throughout the colon. No bowel obstruction. Bones/joints: Unremarkable. IMPRESSION: No acute findings in the chest, abdomen or pelvis.
[2020-04-19 03:23] VITALS: BP 138/87; PULSE 71; RESP 18
== END 2020-04-19 03:26 | disposition home or self-care (01) ==
LOC: EC 01:17
DX: G89.29 Other chronic pain (principal); R07.81 Pleurodynia; R10.9 Unspecified abdominal pain; K21.9 Gastro-esophageal reflux disease without esophagitis; F41.9 Anxiety disorder, unspecified; Z79.82 Long term (current) use of aspirin; Z79.899 Other long term (current) drug therapy; Z88.0 Allergy status to penicillin; Z88.1 Allergy status to other antibiotic agents; Z88.5 Allergy status to narcotic agent; Z91.048 Other nonmedicinal substance allergy status; Z86.79 Personal history of other diseases of the circulatory system; Z98.890 Other specified postprocedural states; Z87.891 Personal history of nicotine dependence
CPT/HCPCS: 36415; 80053; 82150; 82550; 83605; 83690; 85025; 81003; 74022; 99284; 96374; 96375 ×2; 96361; J2270; J2405; J1885

== ENCOUNTER 2020-05-31 09:53 | Day surgery (SDC) | payer BC ==
[2020-05-29 12:06] VITALS: BMI 22.1
[~2020-05-31 09:53] MED LIST changes: -GLUCAGON 1 MG/ML VIAL ONE; -LIDOCAINE 1% INJ 10MG/ML (20 ML MDV) ONE; -ONDANSETRON 4 MG/2 ML VIAL IVP ONE; -PROPOFOL 10 MG/ML 20 ML VIAL IV ONE
[2020-05-31 10:33] VITALS: RESP 16; TEMP 98
[2020-05-31] MEDS ORDERED: ONDANSETRON 4 MG/2 ML VIAL IVP ONE (10:44)
[2020-05-31 10:51] LABS: Glucose,Whole Blood 94 mg/dL (75-99)
[2020-05-31] MEDS ORDERED: ONDANSETRON 4 MG/2 ML VIAL ONE (10:52)
[2020-05-31] MEDS ORDERED: PROPOFOL 10 MG/ML 20 ML VIAL IV ONE (11:06)
[2020-05-31] MEDS ORDERED: LIDOCAINE 1% INJ 10MG/ML (20 ML MDV) ONE (11:06)
--- NOTE | 2020-05-31 11:09 | P.GSHP ---
History of Present Illness H&P Date: 05/31/20 Chief Complaint: Gastritis This 50-year-old female who's had complaints of some epigastric pain. Patient presents today for EGD. Past Medical History Past Medical History: GERD/Reflux, Musculoskeletal Disorder, Supraventricular Tachycardia (SVT) Additional Past Medical History / Comment(s): swelling above "belly button",WPW syndrome improved following cardiac ablation, SVT, hiatal hernia, palpitations; Cervical spinal stenosis. left sided upper abd. pain along rib cage thru to back, tender to the touch, sciatic nerve pain down left leg History of Any Multi-Drug Resistant Organisms: None Reported Past Surgical History: Cardiac Ablation, Ear Surgery Additional Past Surgical History / Comment(s): exp. laparoscopy; groin cyst r emoved, wisdom teeth removed; colonoscopy June 2019, myringotomy & tubes, pain procedures Past Anesthesia/Blood Transfusion Reactions: Family History of Problems w/ Anesthesia Additional Past Anesthesia/Blood Transfusion Reaction / Comment(s): mother has a hard time waking up from anesthesia,no hx blood transfusion Smoking Status: Former smoker - Past Family History Mother Family Medical History: COPD Additional Family Medical History / Comment(s): Maternal grandmother and her maternal great grandmother had breast cancer. Her maternal grandmother and maternal cousin had colon cancer. Father Family Medical History: Cancer Additional Family Medical History / Comment(s): Melanoma skin cancer. Aunts Family Medical History: Cancer Additional Family Medical History / Comment(s): A paternal aunt had ovarian cancer, a maternal aunt had uterine cancer and another maternal aunt had bladder cancer. Medications and Allergies Home Medications Medication Instructions Recorded Confirmed Type Ascorbic Acid [Vitamin C] 1,000 mg PO QAM 05/20/18 05/31/20 History Gabapentin [Neurontin] 100 mg PO TID 05/20/18 05/31/20 History Cyclobenzaprine [Flexeril] 10 mg PO HS PRN 06/09/18 05/31/20 History Aspirin 325 mg PO HS 06/27/19 05/31/20 History Mv-Mn/C/Glutamin/Lysin/[id number] 1 tab PO TID 07/13/19 05/31/20 History [Airborne Gummies] Vitamin C/Biotin [Hair, Skin and 1 tab PO QAM 07/13/19 05/31/20 History Nails] Cholecalciferol [Vitamin D3 (25 2,000 unit PO QAM 09/02/19 05/31/20 History Mcg = 1000 Iu)] Vitamin A/Vit C/Zinc/Propolis 15 mg MUCOUS MEM DAILY 09/02/19 05/31/20 History [Zinc 15 mg Lozenges] Bc Powder 1 packet PO DAILY PRN 09/08/19 05/31/20 History hydrOXYzine HCL 25 mg PO HS PRN 01/05/20 05/31/20 History Omeprazole [PriLOSEC] 40 mg PO DAILY PRN 04/03/20 05/31/20 History Turmeric Root Extract [Turmeric] 500 mg PO DAILY 04/03/20 05/31/20 History Ondansetron [Zofran ODT] 4 mg PO Q8HR PRN 05/31/20 05/31/20 History Allergies Allergy/AdvReac Type Severity Reaction Status Date / Time Penicillins Allergy Unknown Verified 05/31/20 10:15 adhesive tape AdvReac Rash/Hives Verified 05/31/20 10:15 azithromycin AdvReac Abdominal Verified 05/31/20 10:15 [From Zithromax Z-Salinas] Pain codeine AdvReac Nausea & Verified 05/31/20 10:15 Vomiting Surgical - Exam Vital Signs Temp Pulse Resp BP Pulse Ox 98.0 F 87 16 119/77 98 05/31/20 10:12 05/31/20 10:12 05/31/20 10:12 05/31/20 10:12 05/31/20 10:12 - General well developed, well nourished, no distress - Eyes PERRL - ENT normal pinna - Neck no masses - Respiratory normal expansion - Cardiovascular Rhythm: regular - Abdomen Abdomen: soft, non tender Assessment and Plan Assessment: Gastritis. We'll perform EGD.
--- NOTE | 2020-05-31 11:17 | P.OP ---
Date of Procedure: 05/31/20 Preoperative Diagnosis: Gastritis Postoperative Diagnosis: Mild antral gastritis Small sliding hiatal hernia Mild esophagitis Procedure(s) Performed: EGD Anesthesia: MAC Surgeon: Fritz Kurtz Pathology: other (Antrum, esophagus) Condition: stable Disposition: PACU Description of Procedure: The patient's placed on the endoscopy table in the lateral position. She received IV sedation. The gastroscope placed oropharynx passed in the esophagus and stomach. Scope was placed through the pylorus. The first and second portion of the duodenum appeared normal. The scope was then brought back the antrum this appeared inflamed. A biopsies performed. The scope was unretroflexed and remainder of the stomach appeared normal. The GE junction was at 39 7 is. There was a small sliding hiatal hernia. The distal esophagus was minimal inflamed a biopsies performed. The proximal esophagus appeared normal. The scope was withdrawn for patient.
[2020-05-31 11:48] VITALS: BP 125/71; PULSE 82
== END 2020-05-31 12:01 | disposition home or self-care (01) ==
LOC: ORWHC2ENDO 09:53
PROVIDERS: ATTEND Surgery
DX: K29.50 Unspecified chronic gastritis without bleeding (principal); K44.9 Diaphragmatic hernia without obstruction or gangrene; I47.1 Supraventricular tachycardia; I45.6 Pre-excitation syndrome; R00.2 Palpitations; M48.02 Spinal stenosis, cervical region; M54.30 Sciatica, unspecified side; Z98.890 Other specified postprocedural states; Z96.22 Myringotomy tube(s) status; Z87.891 Personal history of nicotine dependence; Z82.5 Family history of asthma and other chronic lower respiratory diseases; Z80.3 Family history of malignant neoplasm of breast; Z80.0 Family history of malignant neoplasm of digestive organs; Z80.8 Family history of malignant neoplasm of other organs or systems; Z80.41 Family history of malignant neoplasm of ovary; Z80.49 Family history of malignant neoplasm of other genital organs; Z80.52 Family history of malignant neoplasm of bladder; Z79.82 Long term (current) use of aspirin; Z79.899 Other long term (current) drug therapy; Z88.0 Allergy status to penicillin; Z88.1 Allergy status to other antibiotic agents; Z88.5 Allergy status to narcotic agent; Z91.09 Other allergy status, other than to drugs and biological substances
CPT/HCPCS: 88305; 43239; J2405; J2001; J2704

== ENCOUNTER → 2020-06-22 | Outpatient (CLI) | payer BC ==
--- NOTE | 2020-06-22 16:43 | NM ---
EXAMINATION TYPE: NM hepatobiliary w CCK DATE OF EXAM: 06/22/2020 COMPARISON: CT 03/27/2020 HISTORY: Right upper quadrant pain TECHNIQUE: After the intravenous administration of 4.2 mCi Tc 99m Mebrofenin hepatobiliary scintigrap hy is performed. Immediate images post injection. FINDINGS: There is satisfactory initial accumulation of tracer by the liver. The gallbladder is visualized wit hin 6 minutes. The small bowel activity is noted within 32 minutes. At one hour CCK was administere d, patient was injected with 1.2 mcg of Kinevac, and gallbladder ejection fraction is calculated at 8 0 %, in the normal range. Therefore there is no scintigraphic evidence of cystic or common bile duct obstruction to suggest acute cholecystitis or gallbladder dyskinesia. IMPRESSION: Exam is within normal limits.
== END ==
LOC: RADNMMAIN 12:59
PROVIDERS: ATTEND Surgery
DX: R10.11 Right upper quadrant pain (principal)
CPT/HCPCS: 78227; A9537; J2805

== ENCOUNTER → 2020-07-03 | Outpatient (CLI) | payer BC ==
[2020-07-03 16:19] VITALS: BP 105/73; PULSE 86; RESP 18; TEMP 97.3
--- NOTE | 2020-07-03 17:38 | P.HPOB ---
History of Present Illness H&P Date: 07/03/20 Chief Complaint: The patient is here for her routine gynecologic exam. This is a 50-year-old with an LMP of 2018. The patient continues to have pelvic cramping which has been going on since 2019. The cramping is fairly constant but can get worse at various times. The cramping resembles menstrual- like cramps. She denies any postmenopausal bleeding. She was seen by Dr. Lainez last fall who decided to follow this conservatively and treated her with some antibiotics which did not help. She was seen for abdominal and pelvic pains in March 2020. CT scan was performed on 03/27/2020 which showed no acute abnormality, but did show some evidence of pelvic and uterine congestion. She did have a pelvic ultrasound done in 2018 which showed a 4.7 cm uterine fibroid which was less prominent on later pelvic ultrasounds. Over the past 2 days she has been experiencing urinary symptoms including urinary urgency and dysuria and feels like she has to void even after emptying her bladder. She states she has not had urinary tract infections in the past. She has also been experiencing some periumbilical pains which feel sharp and achy. She has not been sexually active for several years. Review of Systems Weight has been stable. She denies respiratory or cardiac problems. GI: Occasional gastric reflux. She has also felt slightly constipated since her colonoscopy 1 year ago. She does have bowel movements about every 1-2 days but they tend to be small and hard. : See the HPI. Past Medical History Past Medical History: GERD/Reflux, Musculoskeletal Disorder, Supraventricular Tachycardia (SVT) Additional Past Medical History / Comment(s): WPW syndrome improved following cardiac ablation, SVT, hiatal hernia, gastritis, palpitations; Cervical spinal stenosis. Thyroid nodule. 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 History of Any Multi-Drug Resistant Organisms: None Reported Past Surgical History: Cardiac Ablation, Ear Surgery Additional Past Surgical History / Comment(s): exp. laparoscopy; groin cyst removed, wisdom teeth removed; colonoscopy June 2019, myringotomy & tubes, pain procedures. Upper GI endoscopy 2019. Past Anesthesia/Blood Transfusion Reactions: Family History of Problems w/ Anesthesia Additional Past Anesthesia/Blood Transfusion Reaction / Comment(s): mother has a hard time waking up from anesthesia Past Psychological History: Anxiety, Depression Additional Psychological History / Comment(s): Brief depression around 2007 treated with Prozac. Smoking Status: Never smoker Past Alcohol Use History: None Reported Additional Past Alcohol Use History / Comment(s): started smoking around the age of 17 on and off until the age of 45 Past Drug Use History: None Reported Additional History: She is single and is not seeing anybody at this time. She has not been sexually active for several years. 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 - Past Family History Mother Family Medical History: COPD Additional Family Medical History / Comment(s): Maternal grandmother and her maternal great grandmother had breast cancer. Her maternal grandmother and maternal cousin had colon cancer. Father Family Medical History: Cancer Additional Family Medical History / Comment(s): Melanoma skin cancer. Aunts Family Medical History: Cancer Additional Family Medical History / Comment(s): A paternal aunt had ovarian cancer, a maternal aunt had uterine cancer and another maternal aunt had bladder cancer. Medications and Allergies Home Medications Medication Instructions Recorded Confirmed Type Ascorbic Acid [Vitamin C] 1,000 mg PO QAM 05/20/18 07/03/20 History Gabapentin [Neurontin] 100 mg PO TID 05/20/18 07/03/20 History Cyclobenzaprine [Flexeril] 10 mg PO HS PRN 06/09/18 07/03/20 History Aspirin 325 mg PO HS 06/27/19 07/03/20 History Mv-Mn/C/Glutamin/Lysin/Cydu904 1 tab PO TID 07/13/19 07/03/20 History [Airborne Gummies] Vitamin C/Biotin [Hair, Skin and 1 tab PO QAM 07/13/19 07/03/20 History Nails] Cholecalciferol [Vitamin D3 (25 2,000 unit PO QAM 09/02/19 07/03/20 History Mcg = 1000 Iu)] Vitamin A/Vit C/Zinc/Propolis 15 mg MUCOUS MEM DAILY 09/02/19 07/03/20 History [Zinc 15 mg Lozenges] Bc Powder 1 packet PO DAILY PRN 09/08/19 07/03/20 History hydrOXYzine HCL 25 mg PO HS PRN 01/05/20 07/03/20 History Omeprazole [PriLOSEC] 40 mg PO DAILY PRN 04/03/20 07/03/20 History Turmeric Root Extract [Turmeric] 500 mg PO DAILY 04/03/20 07/03/20 History Ondansetron [Zofran ODT] 4 mg PO Q8HR PRN 05/31/20 07/03/20 History Doxycycline [Vibramycin] 100 mg PO BID 07/03/20 07/03/20 History Allergies Allergy/AdvReac Type Severity Reaction Status Date / Time Penicillins Allergy Unknown Verified 07/03/20 16:09 adhesive tape AdvReac Rash/Hives Verified 07/03/20 16:09 azithromycin AdvReac Abdominal Verified 07/03/20 16:09 [From Zithromax Z-[place]] Pain codeine AdvReac Nausea & Verified 07/03/20 16:09 Vomiting Exam Vital Signs Temp Pulse Resp BP Pulse Ox 07/03/20 16:13 97.3 F L 86 18 105/73 100 Intake and Output 07/03/20 07/03/20 07/03/20 06:59 14:59 22:59 Other: Weight 59.874 kg Height 5 feet 4 inches, weight 132 pounds, BMI 22.7. This is a well-developed well-nourished white female who is alert and oriented times 3 in no acute distress. HEENT: Within normal limits. NECK: Supple without mass or thyromegaly. CHEST AND LUNGS: Clear to auscultation. HEART: Regular rate and rhythm. BREASTS: Are without mass or discharge. AXILLARY EXAM: Negative for adenopathy. BACK: Negative for CVA tenderness. ABDOMEN: Soft, 1+ bowel sounds, mild periumbilical tenderness which she states makes her feel slightly nauseous when pressed. There are no palpable masses. There is no lower abdominal tenderness. PELVIC EXAM: Normal external genitalia with mild atrophy. Cervix and vagina appear normal with mild atrophy. There is no cervical motion tenderness, however the patient seems slightly uncomfortable when doing the Pap smear. There is no unusual discharge. There is no evidence of prolapse. The uterus is midposition, nongravid size and nontender with minimal generalized uterine tenderness. There are no palpable adnexal masses there is generalized minimal tenderness. RECTAL EXAM:rectovaginal exam is negative for mass or tenderness and is negative for occult blood. EXTREMITIES: Nontender. IMPRESSION: 1. 50-year-old menopausal female with chronic pelvic cramping and minimal generalized pelvic tenderness on exam today. Differential diagnosis will include pelvic congestion syndrome, symptomatic small uterine fibroid, non- gynecologic cramping such as GI discomfort. 2. Urinary urgency and dysuria 2 days. Probable acute cystitis UTI. PLAN: 1. Pap smear cotest was performed. 2. Self breast awareness was discussed with the patient. 3. Bilateral screening mammogram will be due in August 2020. The order slip was given to the patient for this. 4. Urine has been sent for urinalysis and urine culture. She will be treated empirically with Macrobid 1 by mouth twice a day 7 days. The electronic prescription will be sent to [facility] pharmacy on and . 5. The patient will be referred back to Dr. Lainez for further evaluation of her chronic pelvic cramping and I will send him the CT scan findings from 03/27/2020 which is suggestive of pelvic congestion syndrome. She can discuss possible options with him including laparoscopy and hysterectomy. 6.Osteoporosis prevention was discussed. I have stressed the importance of adequate calcium, vitamin D and regular exercise. Recommended amounts of calcium and vitamin D were also discussed. 7. She was advised to return in one year for her annual well woman exam and as needed.
[2020-07-03 17:49] LABS: Appearance,Urine Cloudy (Clear); Bilirubin,Urine Negative (Negative); Blood,Urine Trace (Negative); Calcium Oxalate Crystals,Urine Many /hpf; Color,Urine Yellow; Glucose,Urine (UA) Negative (Negative); Hyaline Casts,Urine 1 /lpf (0-2); Ketones,Urine Negative (Negative); Leukocyte Esterase,Urine Negative (Negative); Mucus,Urine Moderate /hpf; Nitrite,Urine Negative (Negative); PH, Urine 5.5 (5.0-8.0); Protein,Urine Trace (Negative); RBC,Urine 5 /hpf (0-5); Squamous Epithelial Cell,Urine 2 /hpf (0-4); Urobilinogen,Urine <2.0 mg/dL (<2.0); WBC,Urine 4 /hpf (0-5)
--- NOTE | 2020-07-04 13:29 | P.PN ---
Progress Note - Text Progress Note Date: 07/04/20 OUTPATIENT FOLLOW-UP NOTE TEST(S)/RESULTS: Urinalysis from 07/03/2020 shows trace blood and moderate calcium crystals with cloudy appearance. It was negative for leukocyte esterase and negative for nitrite METHOD OF NOTIFICATION: Patient was notified by phone. PATIENT COMMENTS: She states she has not picked up her prescription for the Macrodantin yet. DIAGNOSIS: Urinary urgency and dysuria. Suspected cystitis UTI. Differential diagnosis will also include possible kidney stone DISCUSSION: The patient was instructed to start the Macrobid as directed. She'll also drink lots of water. PLAN: As above. Await urine culture.
== END ==
LOC: WWCWWP 16:00
PROVIDERS: ATTEND Obstetrics & Gynecology
DX: R10.2 Pelvic and perineal pain (principal); R39.15 Urgency of urination; R30.0 Dysuria; K21.9 Gastro-esophageal reflux disease without esophagitis
CPT/HCPCS: 81001; 87086

== ENCOUNTER → 2020-07-04 | Outpatient (CLI) | payer BC ==
--- NOTE | 2020-07-05 07:56 | US ---
EXAMINATION TYPE: US thyroid st tissue head/neck DATE OF EXAM: 07/04/2020 COMPARISON: NONE CLINICAL HISTORY: R22.0 Swelling and mass. Patient states MRI from outside facility showed thyroid no dule. GLAND SIZE: Right Lobe: 4.8 x 1.4 x 1.3 cm Overall Parenchyma: homogenous Left Lobe: 4.1 x 1.5 x 1.1 cm Overall Parenchyma: homogeneous Isthmus Thickness: 0.2 cm NODULES RIGHT: # of nodules measured on right: 1 1. 0.7 X 0.6 x 0.5 cm, mid , solid or almost completely solid, hyperechoic nodule, which is wider t murdock tall, with smooth margins, with echogenic foci. Prior size: No prior LEFT: # of nodules measured on left: 2 1. 0.6 X 0.5 x 0.3 cm, mid medial, solid or almost completely solid, hypoechoic nodule, which is wi jonah than tall, with smooth margins, without echogenic foci. Prior size: No prior 2. 0.8 X 0.6 x 0.3 cm, upper medial, solid or almost completely solid, isoechoic nodule, which is wider than tall, with ill-defined margins, without echogenic foci. Prior size: No prior ISTHMUS: # of nodules measured in the isthmus: 0 Bilateral neck scanned, no evidence of lymphadenopathy. IMPRESSION: Bilateral subcentimeter nodules, follow-up ultrasound in one year. 2017 ACR TI-RADS LEVEL: TR-RADS 4 - Moderately Suspicious: Follow if > 1 cm, FNA if > 1.5 cm *Highest TI-RADS level nodule reported
== END ==
LOC: RADUSWWP 16:54
PROVIDERS: ATTEND Family Medicine
DX: E04.2 Nontoxic multinodular goiter (principal)
CPT/HCPCS: 76536

== ENCOUNTER 2020-07-26 22:13 | Emergency (ER) | payer BC ==
[2020-07-26 22:26] VITALS: RESP 18; TEMP 98.1
--- NOTE | 2020-07-26 23:04 | XR ---
EXAMINATION TYPE: XR KUB DATE OF EXAM: 07/26/2020 COMPARISON: NONE HISTORY: Abdominal pain TECHNIQUE: 2 views upright FINDINGS: There is no sign of intestinal obstruction or pneumoperitoneum. Fecal pattern is normal. Chayito ng bases are clear. There are no pathologic calcifications. There is no evidence of a mass. IMPRESSION: Nonacute abdomen. No change.
[2020-07-26 23:21] LABS: Basophils # (A) 0.1 k/uL (0-0.2); Basophils % (A) 1 %; Eosinophils # (A) 0.2 k/uL (0-0.7); Eosinophils % (A) 3 %; HCT 44.7 % (34.0-46.0); HGB 15.2 gm/dL (11.4-16.0); Lymphocytes # (A) 2.9 k/uL (1.0-4.8); Lymphocytes % (A) 35 %; MCH 32.1 pg (25.0-35.0); MCV 94.5 fL (80.0-100.0); Mean Platelet Volume 7.5; Monocytes # (A) 0.5 k/uL (0-1.0); Monocytes % (A) 6 %; Neutrophils # (A) 4.5 k/uL (1.3-7.7); Neutrophils % (A) 54 %; Platelet Count 234 k/uL (150-450); RBC 4.73 m/uL (3.80-5.40); RDW 12.2 % (11.5-15.5); WBC 8.3 k/uL (3.8-10.6)
[2020-07-26 23:28] LABS: Albumin 4.3 g/dL (3.5-5.0); Calcium 9.7 mg/dL (8.4-10.2); Potassium 4.2 mmol/L (3.5-5.1); Total Bilirubin 0.3 mg/dL (0.2-1.3); Total Protein 6.9 g/dL (6.3-8.2)
[2020-07-27] MEDS ORDERED: KETOROLAC 15 MG/ML 1 ML VIAL IVP STA (01:01)
[2020-07-27] MEDS ORDERED: SODIUM CHLORIDE 0.9% 1,000 ML IV ONE (01:01)
[2020-07-27] MEDS ORDERED: ONDANSETRON 4 MG/2 ML VIAL IVP STA (01:01)
[2020-07-27] MEDS ORDERED: HYDROmorphone 0.5 MG/0.5 ML SYRINGE IVP STA (01:01)
--- NOTE | 2020-07-27 02:43 | CT ---
EXAM: CT Abdomen and Pelvis Without Intravenous Contrast CLINICAL HISTORY: Left flank pain. TECHNIQUE: Axial computed tomography images of the abdomen and pelvis without intravenous contrast. CTDI is 8.37 mGy and DLP is 405.8 mGy-cm. This CT exam was performed using one or more of the following dose reduction techniques: automated exposure control, adjustment of the mA and/or kV according to patient size, and/or use of iterative reconstruction technique. COMPARISON: No relevant prior studies available. FINDINGS: Lung bases: Unremarkable. No mass. No consolidation. ABDOMEN: Liver: Unremarkable. Gallbladder and bile ducts: Unremarkable. No calcified stones. No ductal dilation. Pancreas: Unremarkable. No ductal dilation. Spleen: Unremarkable. No splenomegaly. Adrenals: Unremarkable. No mass. Kidneys and ureters: Unremarkable. No obstructing stones. No hydronephrosis. Stomach and bowel: Scattered diverticula in the colon without evidence of diverticulitis. No obstruction. PELVIS: Appendix: No findings to suggest acute appendicitis. Bladder: Unremarkable. No stones. Reproductive: Unremarkable as visualized. ABDOMEN and PELVIS: Intraperitoneal space: Unremarkable. No free air. No significant fluid collection. Bones/joints: No acute fracture. No dislocation. Soft tissues: Unremarkable. Vasculature: Unremarkable. No abdominal aortic aneurysm. Lymph nodes: Unremarkable. No enlarged lymph nodes. IMPRESSION: No acute findings in the abdomen or pelvis.
--- NOTE | 2020-07-27 03:10 | ED ---
Abdominal Pain HPI - General Chief Complaint: Abdominal Pain Stated Complaint: Shoulder pain,Abdominal pain Time Seen by Provider: 07/26/20 23:56 Source: patient Mode of arrival: ambulatory Limitations: no limitations - History of Present Illness Initial Comments: 50 year-old female patient comes in reporting left flank and left sided abdominal pain. Patient states symptoms started this morning. She reports nausea and vomiting with this. States she started have pain in her left upper back this evening. She denies any shortness of breath. Denies any constipation or diarrhea. Denies fever or chills. States she is generally healthy. 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 Has family history of coronary artery disease. Denies any hematuria, dysuria, urinary frequency, urinary urgency. States she has been diagnosed with kidney stones in the past but denies ever having a computed tomography scan for this. Patient denies any recent rash, cough, chest pain, numbness, tingling, dizziness, weakness, hematuria, dysuria, urinary urgency, urinary frequency, headache, visual changes, or any other complaints. - Related Data Home Medications Medication Instructions Recorded Confirmed Ascorbic Acid [Vitamin C] 1,000 mg PO QAM 05/20/18 07/03/20 Gabapentin [Neurontin] 100 mg PO TID 05/20/18 07/03/20 Cyclobenzaprine [Flexeril] 10 mg PO HS PRN 06/09/18 07/03/20 Aspirin 325 mg PO HS 06/27/19 07/03/20 Mv-Mn/C/Glutamin/Lysin/[id number] 1 tab PO TID 07/13/19 07/03/20 [Airborne Gummies] Vitamin C/Biotin [Hair, Skin and 1 tab PO QAM 07/13/19 07/03/20 Nails] Cholecalciferol [Vitamin D3 (25 2,000 unit PO QAM 09/02/19 07/03/20 Mcg = 1000 Iu)] Vitamin A/Vit C/Zinc/Propolis 15 mg MUCOUS MEM DAILY 09/02/19 07/03/20 [Zinc 15 mg Lozenges] Bc Powder 1 packet PO DAILY PRN 09/08/19 07/03/20 hydrOXYzine HCL 25 mg PO HS PRN 01/05/20 07/03/20 Omeprazole [PriLOSEC] 40 mg PO DAILY PRN 04/03/20 07/03/20 Turmeric Root Extract [Turmeric] 500 mg PO DAILY 04/03/20 07/03/20 Ondansetron [Zofran ODT] 4 mg PO Q8HR PRN 05/31/20 07/03/20 Doxycycline [Vibramycin] 100 mg PO BID 07/03/20 07/03/20 Previous Rx's Medication Instructions Recorded Nitrofurantoin Monohyd/M-Cryst 100 mg PO Q12HR 7 Days #14 cap 07/03/20 [Macrobid] Allergies Allergy/AdvReac Type Severity Reaction Status Date / Time Penicillins Allergy Unknown Verified 07/26/20 22:24 adhesive tape AdvReac Rash/Hives Verified 07/26/20 22:24 azithromycin AdvReac Abdominal Verified 07/26/20 22:24 [From Zithromax Z-[place]] Pain codeine AdvReac Nausea & Verified 07/26/20 22:24 Vomiting Review of Systems ROS Statement: Those systems with pertinent positive or pertinent negative responses have been documented in the HPI. ROS Other: All systems not noted in ROS Statement are negative. Past Medical History Past Medical History: GERD/Reflux, Musculoskeletal Disorder, Supraventricular Tachycardia (SVT) Additional Past Medical History / Comment(s): WPW syndrome improved following cardiac ablation, SVT, hiatal hernia, gastritis, palpitations; Cervical spinal stenosis. Thyroid nodule. History of Any Multi-Drug Resistant Organisms: None Reported Past Surgical History: Cardiac Ablation, Ear Surgery Additional Past Surgical History / Comment(s): exp. laparoscopy; groin cyst removed, wisdom teeth removed; colonoscopy June 2019, myringotomy & tubes, pain procedures. Upper GI endoscopy 2019. Past Anesthesia/Blood Transfusion Reactions: Family History of Problems w/ Anesthesia Additional Past Anesthesia/Blood Transfusion Reaction / Comment(s): mother has a hard time waking up from anesthesia Past Psychological History: Anxiety, Depression Smoking Status: Never smoker Past Alcohol Use History: None Reported Past Drug Use History: None Reported - Past Family History Mother Family Medical History: COPD Additional Family Medical History / Comment(s): Maternal grandmother and her maternal great grandmother had breast cancer. Her maternal grandmother and maternal cousin had colon cancer. Father Family Medical History: Cancer Additional Family Medical History / Comment(s): Melanoma skin cancer. Aunts Family Medical History: Cancer Additional Family Medical History / Comment(s): A paternal aunt had ovarian cancer, a maternal aunt had uterine cancer and another maternal aunt had bladder cancer. General Exam Limitations: no limitations General appearance: alert, in no apparent distress, other Eye exam: Present: normal appearance, PERRL, EOMI. Absent: scleral icterus, conjunctival injection, periorbital swelling ENT exam: Present: normal exam, normal oropharynx, mucous membranes moist Respiratory exam: Present: normal lung sounds bilaterally. Absent: respiratory distress, wheezes, rales, rhonchi, stridor Cardiovascular Exam: Present: regular rate, normal rhythm, normal heart sounds. Absent: systolic murmur, diastolic murmur, rubs, gallop, clicks GI/Abdominal exam: Present: soft, tenderness (left mid abdominal tenderness), normal bowel sounds. Absent: distended, guarding, rebound, rigid Neurological exam: Present: alert, oriented X3, CN II-XII intact Psychiatric exam: Present: normal affect, normal mood Skin exam: Present: warm, dry, intact, normal color. Absent: rash Course Vital Signs 07/26/20 07/27/20 22:23 03:53 Temperature 98.1 F Pulse Rate 88 87 Respiratory 18 18 Rate Blood Pressure 128/90 110/74 O2 Sat by Pulse 99 98 Oximetry Medical Decision Making - Medical Decision Making 50-year-old female patient presents to the emergency department today for evaluation of left-sided abdominal pain and flank pain. Also reported left shoulder pain. Physical examination did reveal left mid abdominal tenderness. No CVA tenderness. Labs reviewed and are unremarkable. Troponin is negative. Urinalysis is negative. CT abdomen and pelvis without contrast was negative. Upon reevaluation she is resting comfortably in bed. Does feel control being discharged home. She is instructed to follow-up with her primary care physician for recheck in 1-2 days. Return parameters were discussed in detail. She verbalizes understanding and agrees with this plan. Case discussed with my attending Dr. Verdin. - Lab Data Result diagrams: 07/26/20 23:01 07/26/20 23:01 Lab Results 07/26/20 07/26/20 07/26/20 Range/Units 02:14 23:01 23:01 WBC 8.3 (3.8-10.6) k/uL RBC 4.73 (3.80-5.40) m/uL Hgb 15.2 (11.4-16.0) gm/dL Hct 44.7 (34.0-46.0) % MCV 94.5 (80.0-100.0) fL MCH 32.1 (25.0-35.0) pg MCHC 34.0 (31.0-37.0) g/dL RDW 12.2 (11.5-15.5) % Plt Count 234 (150-450) k/uL MPV 7.5 Neutrophils % 54 % Lymphocytes % 35 % Monocytes % 6 % Eosinophils % 3 % Basophils % 1 % Neutrophils # 4.5 (1.3-7.7) k/uL Lymphocytes # 2.9 (1.0-4.8) k/uL Monocytes # 0.5 (0-1.0) k/uL Eosinophils # 0.2 (0-0.7) k/uL Basophils # 0.1 (0-0.2) k/uL Sodium 142 (137-145) mmol/L Potassium 4.2 (3.5-5.1) mmol/L Chloride 105 (98-107) mmol/L Carbon Dioxide 28 (22-30) mmol/L Anion Gap 9 mmol/L BUN 18 H (7-17) mg/dL Creatinine 0.94 (0.52-1.04) mg/dL Est GFR (CKD-EPI)AfAm 81 (>60 ml/min/1.73 sqM) Est GFR (CKD-EPI)NonAf 71 (>60 ml/min/1.73 sqM) Glucose 78 (74-99) mg/dL Calcium 9.7 (8.4-10.2) mg/dL Total Bilirubin 0.3 (0.2-1.3) mg/dL AST 33 (14-36) U/L ALT 21 (4-34) U/L Alkaline Phosphatase 78 (38-126) U/L Troponin I (0.000-0.034) ng/mL Total Protein 6.9 (6.3-8.2) g/dL Albumin 4.3 (3.5-5.0) g/dL Amylase 73 (30-110) U/L Lipase 115 (23-300) U/L Urine Color Light Yellow Urine Appearance Clear (Clear) Urine pH 5.5 (5.0-8.0) Ur Specific [place] 1.009 (1.001-1.035) Urine Protein Negative (Negative) Urine Glucose (UA) Negative (Negative) Urine Ketones Negative (Negative) Urine Blood Negative (Negative) Urine Nitrite Negative (Negative) Urine Bilirubin Negative (Negative) Urine Urobilinogen <2.0 (<2.0) mg/dL Ur Leukocyte Esterase Small H (Negative) Urine RBC 1 (0-5) /hpf Urine WBC 3 (0-5) /hpf Ur Squamous Epith Cells 1 (0-4) /hpf Calcium Oxalate Crystal Few H (None) /hpf Urine Mucus Rare H (None) /hpf 07/27/20 Range/Units 02:14 WBC (3.8-10.6) k/uL RBC (3.80-5.40) m/uL Hgb (11.4-16.0) gm/dL Hct (34.0-46.0) % MCV (80.0-100.0) fL MCH (25.0-35.0) pg MCHC (31.0-37.0) g/dL RDW (11.5-15.5) % Plt Count (150-450) k/uL MPV Neutrophils % % Lymphocytes % % Monocytes % % Eosinophils % % Basophils % % Neutrophils # (1.3-7.7) k/uL Lymphocytes # (1.0-4.8) k/uL Monocytes # (0-1.0) k/uL Eosinophils # (0-0.7) k/uL Basophils # (0-0.2) k/uL Sodium (137-145) mmol/L Potassium (3.5-5.1) mmol/L Chloride (98-107) mmol/L Carbon Dioxide (22-30) mmol/L Anion Gap mmol/L BUN (7-17) mg/dL Creatinine (0.52-1.04) mg/dL Est GFR (CKD-EPI)AfAm (>60 ml/min/1.73 sqM) Est GFR (CKD-EPI)NonAf (>60 ml/min/1.73 sqM) Glucose (74-99) mg/dL Calcium (8.4-10.2) mg/dL Total Bilirubin (0.2-1.3) mg/dL AST (14-36) U/L ALT (4-34) U/L Alkaline Phosphatase (38-126) U/L Troponin I <0.012 (0.000-0.034) ng/mL Total Protein (6.3-8.2) g/dL Albumin (3.5-5.0) g/dL Amylase (30-110) U/L Lipase (23-300) U/L Urine Color Urine Appearance (Clear) Urine pH (5.0-8.0) Ur Specific [place] (1.001-1.035) Urine Protein (Negative) Urine Glucose (UA) (Negative) Urine Ketones (Negative) Urine Blood (Negative) Urine Nitrite (Negative) Urine Bilirubin (Negative) Urine Urobilinogen (<2.0) mg/dL Ur Leukocyte Esterase (Negative) Urine RBC (0-5) /hpf Urine WBC (0-5) /hpf Ur Squamous Epith Cells (0-4) /hpf Calcium Oxalate Crystal (None) /hpf Urine Mucus (None) /hpf - EKG Data -: EKG Interpreted by Hi EKG Comments: EKG obtained at oh to 12 shows normal sinus rhythm with a ventricular rate of 75, MA interval 122, QRS duration 92, QT 418, QTC 466. No evidence of ST elevation or depression. - Radiology Data Radiology results: report reviewed, image reviewed KUB x-rays obtained. Report was reviewed in its entirety. Impression by Dr. Lara shows nonacute abdomen. No change. CT abdomen and pelvis without contrast was obtained. Report is reviewed in its entirety. Impression by Dr. Enriquez shows no acute findings in the abdomen or pelvis. Disposition Clinical Impression: Abdominal pain Disposition: HOME SELF-CARE Condition: Good Instructions (If sedation given, give patient instructions): Abdominal Pain (ED) Additional Instructions: Follow-up with your primary care physician for recheck in 1-2 days. Take medications as directed. Return to the emergency department for any new, worsening, or concerning symptoms. Is patient prescribed a controlled substance at d/c from ED?: No Referrals: Cortez Paulino DO [Primary Care Provider] - 1-2 days Time of Disposition: 03:30
[2020-07-27] MEDS ORDERED: ACET/COD 300 MG/30 MG STARTER PACK 6 TAB BTL PO STA (03:31)
[2020-07-27] MEDS ORDERED: ONDANSETRON 4 MG ODT STARTER PACK 2 TAB BTL PO STA (03:31)
[2020-07-27] MEDS ORDERED: traMADol 50 MG STARTER PACK 3 TAB BTL PO STA (03:32)
[2020-07-27 03:34] LABS: Appearance,Urine Clear (Clear); Bilirubin,Urine Negative (Negative); Blood,Urine Negative (Negative); Calcium Oxalate Crystals,Urine Few /hpf; Color,Urine Light Yellow; Glucose,Urine (UA) Negative (Negative); Ketones,Urine Negative (Negative); Leukocyte Esterase,Urine Small (Negative); Mucus,Urine Rare /hpf; Nitrite,Urine Negative (Negative); PH, Urine 5.5 (5.0-8.0); Protein,Urine Negative (Negative); RBC,Urine 1 /hpf (0-5); Specific Gravity,Urine 1.009 (1.001-1.035); Squamous Epithelial Cell,Urine 1 /hpf (0-4); Urobilinogen,Urine <2.0 mg/dL (<2.0); WBC,Urine 3 /hpf (0-5)
[2020-07-27 03:54] VITALS: BP 110/74; PULSE 87
== END 2020-07-27 03:53 | disposition home or self-care (01) ==
LOC: EC 22:13
DX: R10.9 Unspecified abdominal pain (principal); R11.2 Nausea with vomiting, unspecified; M54.9 Dorsalgia, unspecified; K21.9 Gastro-esophageal reflux disease without esophagitis; Z79.82 Long term (current) use of aspirin; Z79.899 Other long term (current) drug therapy; Z88.0 Allergy status to penicillin; Z88.1 Allergy status to other antibiotic agents; Z88.5 Allergy status to narcotic agent; Z91.048 Other nonmedicinal substance allergy status
CPT/HCPCS: 36415 ×2; 93005; 80053; 82150; 83690; 84484; 85025; 81001; 74018; 74176; 99285; 96374; 96375 ×2; 96361 ×2; J2405; J1885; S0119; J1170

== ENCOUNTER → 2020-08-20 | Outpatient (CLI) | payer BC ==
--- NOTE | 2020-08-21 08:54 | US ---
EXAMINATION TYPE: US carotid duplex BILAT DATE OF EXAM: 08/20/2020 COMPARISON: NONE CLINICAL HISTORY: R00.2 Palpitations R42 Dizziness. EXAM MEASUREMENTS: RIGHT: Peak Systolic Velocity (PSV) cm/sec ----- Right CCA: 93.8 ----- Right ICA: 110.0 ----- Right ECA: 64.1 ICA/CCA ratio: 1.18 RIGHT: End Diastole cm/sec ----- Right CCA: 37.4 ----- Right ICA: 41.4 ----- Right ECA: 24.2 LEFT: Peak Systolic Velocity (PSV) cm/sec ----- Left CCA: 106.0 ----- Left ICA: 108.0 ----- Left ECA: 97.2 ICA/CCA ratio: 1.01 LEFT: End Diastole cm/sec ----- Left CCA: 38.4 ----- Left ICA: 45.6 ----- Left ECA: 22.8 VERTEBRALS (direction of flow): Right Vertebral: Antegrade Left Vertebral: Antegrade Rhythm: Normal No evidence of atherosclerotic changes, no elevated velocities. IMPRESSION: 1. No significant flow limiting stenosis. Criteria for Assigning % of Stenosis / Diameter reduction (Estimation based on the indirect measurements of the internal carotid artery velocities (ICA PSV). 1. Normal (no stenosis)=ICA PSV < 125 cm/s: ratio < 2.0: ICA EDV<40 cm/s. 2. Less than 50% stenosis=ICA PSV < 125 cm/s: ratio < 2.0: ICA EDV<40 cm/s. 3. 50 to 69% stenosis=ICA PSV of 125 to 230 cm/s: ration 2.0 ? 4.0: ICA EDV 40-100 cm/s. 4. Greater than 70% stenosis to near occlusion= ICA PSV > 230 cm/s: ratio > 4.0: ICA EDV > 100 cm/s. 5. Near occlusion= ICA PSV velocities may be low or undetectable: variable ratio and ICA EDV. 6. Total occlusion=unable to detect flow.
== END | disposition home or self-care (01) ==
LOC: RADUSWWP 16:13
PROVIDERS: ATTEND Family Medicine
DX: R42 Dizziness and giddiness (principal)
CPT/HCPCS: 93880

== ENCOUNTER → 2020-08-23 | Outpatient (CLI) | payer BC ==
--- NOTE | 2020-08-28 11:25 | P.HOLTER ---
This is a report on the 24 hour Holter monitor. Pacing EKG showed sinus rhythm with normal NV, QRS duration. The average heart rate is 80 with a minimum of 53 and maximum 137. Occasional APCs noted with a couple of runs of nonsustained SVT consisting of 9 beats. Rare PVC noted. Patient's complaints of chest pain and palpitations did not correlate with any significant cardiac events. Final impression #1. Sinus rhythm with sinus arrhythmia #2 occasional APCs with brief episodes of SVT consisting of 9 beats #3. Rare PVC. #4. Patient's symptoms of chest pain and palpitation did not correlate with any cardiac events
--- NOTE | 2020-08-29 08:12 | HM ---
This is a report on the 24 hour Holter monitor. Pacing EKG showed sinus rhythm with normal IL, QRS duration. The average heart rate is 80 with a minimum of 53 and maximum 137. Occasional APCs noted with a couple of runs of nonsustained SVT consisting of 9 beats. Rare PVC noted. Patient's complaints of chest pain and palpitations did not correlate with any significant cardiac events. Final impression #1. Sinus rhythm with sinus arrhythmia #2 occasional APCs with brief episodes of SVT consisting of 9 beats #3. Rare PVC. #4. Patient's symptoms of chest pain and palpitation did not correlate with any cardiac events MTDD
== END | disposition home or self-care (01) ==
LOC: RADECHMAIN 12:30
PROVIDERS: ATTEND Family Medicine
DX: I49.1 Atrial premature depolarization (principal); I49.8 Other specified cardiac arrhythmias; I49.3 Ventricular premature depolarization
CPT/HCPCS: 93225; 93226

== ENCOUNTER → 2020-09-10 | Outpatient (CLI) | payer BC ==
--- NOTE | 2020-09-12 14:06 | MM ---
Reason for exam: screening (asymptomatic). Last mammogram was performed 6 months ago. History: Patient is postmenopausal. Family history of breast cancer in maternal grandmother at age 60. Benign US biopsy breast VAD LT of the left breast, September 13, 2019. Physical Findings: A clinical breast exam by your physician is recommended on an annual basis and results should be correlated with mammographic findings. MG 3D Screening Mammo W/Cad Bilateral CC and MLO view(s) were taken. Prior study comparison: March 14, 2020, left breast MG 3d diag mammo w/cad LT. August 31, 2019, bilateral MG 3d diag mammo w/cad BERNARDO. The breast tissue is heterogeneously dense. This may lower the sensitivity of mammography. ASSESSMENT: Benign, BI-RAD 2 RECOMMENDATION: Routine screening mammogram of both breasts in 1 year.
== END | disposition home or self-care (01) ==
LOC: RADMAMWWP 09-07 12:58
PROVIDERS: ATTEND Obstetrics & Gynecology
DX: Z12.31 Encounter for screening mammogram for malignant neoplasm of breast (principal); Z78.0 Asymptomatic menopausal state; Z80.3 Family history of malignant neoplasm of breast
CPT/HCPCS: 77063; 77067

== ENCOUNTER → 2020-10-08 | Outpatient (CLI) | payer BC ==
--- NOTE | 2020-10-08 13:56 | US ---
EXAMINATION TYPE: US thyroid st tissue head/neck DATE OF EXAM: 10/08/2020 COMPARISON: CLINICAL HISTORY: E04.1 thyroid nodule. follow up nodules GLAND SIZE: Right Lobe: 4.5 x 1.4 x 1.3 cm Overall Parenchyma: homogenous Left Lobe: 4.3 x 1.5 x 1.1 cm Overall Parenchyma: homogeneous Isthmus Thickness: 0.2 cm NODULES RIGHT: # of nodules measured on right: 1 1. 0.6 X 0.5 x 0.5 cm, mid , solid or almost completely solid, hyperechoic nodule, likely coarse ca lcification, which is wide as tall, with smooth margins, with echogenic foci. Prior size: 0.7 x 0.6 x 0.5 cm LEFT: # of nodules measured on left: 2 1. 0.6 X 0.4 x 0.3 cm, mid medial, solid or almost completely solid, hypoechoic nodule, which is wi jonah than tall, with smooth margins, without echogenic foci. Prior size: 0.6 x 0.5 x 0.3 cm 2. 0.8 X 0.5 x 0.4 cm, upper , solid or almost completely solid, hypoechoic nodule, which is wider than tall, with smooth margins, without echogenic foci. Prior size: 0.8 x 0.6 x 0.3 cm ISTHMUS: # of nodules measured in the isthmus: 0 Bilateral neck scanned, no evidence of lymphadenopathy. IMPRESSION: Bilateral thyroid nodules appear similar to the prior exam. 2017 ACR TI-RADS LEVEL: TR-RADS 4 - Moderately Suspicious: Follow if > 1 cm, FNA if > 1.5 cm *Highest TI-RADS level nodule reported
== END | disposition home or self-care (01) ==
LOC: RADUSWWP 12:57
PROVIDERS: ATTEND Otolaryngology
DX: E04.2 Nontoxic multinodular goiter (principal)
CPT/HCPCS: 76536

== ENCOUNTER 2020-11-13 13:16 | Emergency (ER) | payer BC ==
[2020-11-13 13:27] VITALS: TEMP 98
[2020-11-13] MEDS ORDERED: SODIUM CHLORIDE 0.9% 1,000 ML IV STA (13:38)
[2020-11-13] MEDS ORDERED: PANTOPRAZOLE 40 MG/10 ML VIAL IVP STA (13:38)
[2020-11-13] MEDS ORDERED: MORPHINE SULFATE 2 MG/ML SYRINGE IVP STA (13:50)
--- NOTE | 2020-11-13 14:11 | ED ---
General Adult HPI - General Chief complaint: GI Bleed Stated complaint: blood in stool Time Seen by Provider: 11/13/20 13:32 Source: patient, RN notes reviewed, old records reviewed Mode of arrival: ambulatory Limitations: no limitations - History of Present Illness Initial comments: Patient is a 50-year-old female with past medical history remarkable for GERD, acid reflux, SVT who presents emergency Department complaining of melena. Patient states that she had 2 episodes of melanotic stool stools this morning of maroon-colored stool with what appeared to be blood clots. She states she has also been having generalized abdominal cramping around her entire abdomen and lower back. She endorse intermittent nausea but denies any episodes of emesis. She is not currently nauseous. She denies any chest pain, shortness of breath. She denies any lightheadedness or blurry vision. She denies any headache. She denies any fatigue. She is concerned that she may be having a GI bleed and wanted to be evaluated. She is not on blood thinners. She states this has not occurred previously. She does have a history of constipation but denies any his tory of GI bleed previously. Denies any history of hemorrhoids. Patient states she has not had recurrent episodes of melanotic stool since this morning. She otherwise has no acute complaints at this time. - Related Data Home Medications Medication Instructions Recorded Confirmed Gabapentin [Neurontin] 200 mg PO TID 05/20/18 11/13/20 Cyclobenzaprine [Flexeril] 10 mg PO HS PRN 06/09/18 11/13/20 Aspirin 325 mg PO DAILY 06/27/19 11/13/20 Cholecalciferol [Vitamin D3 (25 2,000 unit PO DAILY 09/02/19 11/13/20 Mcg = 1000 Iu)] hydrOXYzine HCL 25 mg PO HS PRN 01/05/20 11/13/20 Omeprazole [PriLOSEC] 40 mg PO DAILY PRN 04/03/20 11/13/20 Turmeric Root Extract [Turmeric] 500 mg PO DAILY 04/03/20 11/13/20 Ondansetron [Zofran ODT] 4 mg PO Q4H PRN 05/31/20 11/13/20 Cider Vinegar [Apple Cider Vinegar] 300 mg PO DAILY 11/13/20 11/13/20 Cyanocobalamin (Vitamin B-12) 1,000 mcg PO DAILY 11/13/20 11/13/20 [Vitamin B-12] Dicyclomine [Bentyl] 10 mg PO TID PRN 11/13/20 11/13/20 Lactulose [Constulose] 10 gm PO DAILY 11/13/20 11/13/20 Allergies Allergy/AdvReac Type Severity Reaction Status Date / Time flecainide Allergy Unknown Verified 11/13/20 15:03 Penicillins Allergy Unknown Verified 11/13/20 15:03 adhesive tape AdvReac Rash/Hives Verified 11/13/20 15:03 azithromycin AdvReac Abdominal Verified 11/13/20 15:03 [From Zithromax Z-[place]] Pain codeine AdvReac Nausea & Verified 11/13/20 15:03 Vomiting Review of Systems ROS Statement: Those systems with pertinent positive or pertinent negative responses have been documented in the HPI. Review of Systems: CONST: Denies fever EYES: Denies blurry vision ENT: Denies nasal congestion C/V: Denies Chest pain RESP: Denies shortness of breath GI: Endorses abdominal pain, melanotic stool : Denies dysuria SKIN: Denies rash. MSK: Denies joint pain. NEURO: Denies headache ROS Other: All systems not noted in ROS Statement are negative. Past Medical History Past Medical History: GERD/Reflux, Musculoskeletal Disorder, Supraventricular Tachycardia (SVT) Additional Past Medical History / Comment(s): WPW syndrome improved following cardiac ablation, SVT, hiatal hernia, gastritis, palpitations; Cervical spinal stenosis. Thyroid nodule. History of Any Multi-Drug Resistant Organisms: None Reported Past Surgical History: Cardiac Ablation, Ear Surgery Additional Past Surgical History / Comment(s): exp. laparoscopy; groin cyst removed, wisdom teeth removed; colonoscopy June 2019, myringotomy & tubes, pain procedures. Upper GI endoscopy 2019. Past Anesthesia/Blood Transfusion Reactions: Family History of Problems w/ Anesthesia Additional Past Anesthesia/Blood Transfusion Reaction / Comment(s): mother has a hard time waking up from anesthesia Past Psychological History: Anxiety, Depression Smoking Status: Never smoker Past Alcohol Use History: None Reported Past Drug Use History: None Reported - Past Family History Mother Family Medical History: COPD Additional Family Medical History / Comment(s): Maternal grandmother and her maternal great grandmother had breast cancer. Her maternal grandmother and maternal cousin had colon cancer. Father Family Medical History: Cancer Additional Family Medical History / Comment(s): Melanoma skin cancer. Aunts Family Medical History: Cancer Additional Family Medical History / Comment(s): A paternal aunt had ovarian cancer, a maternal aunt had uterine cancer and another maternal aunt had bladder cancer. General Exam - General Exam Comments Initial Comments: General: Appears in no acute distress. HEAD: Normal with no signs of head trauma. EYES: PERRLA, EOMI, conjunctiva normal, no discharge. No conjunctival pallor. ENT: Hearing grossly intact, normal oropharynx. RESPIRATORY: Clear breath sounds bilaterally. No wheezes, rales, or rhonchi. C/V: 41 tachycardia with a regular rhythm. S1 and S2 auscultated. No periph eral edema. Peripheral pulses are 2+ and intact throughout. ABD: Abdomen soft, nondistended. Patient is tender to palpation generally, the bilateral upper quadrants and lower quadrants. She also has lower back generalized tenderness without any midline tenderness to palpation. There is no guarding. There is no peritoneal signs. EXT: Normal range of motion, no obvious deformity SKIN: No rashes or lesions observed on exposed skin. NEURO: Alert and oriented 4. RECTAL: Performed in the presence of a female staff member. No gross blood. Nonbleeding external hemorrhoids. Occult blood obtained and sent. Good rectal tone. Limitations: no limitations Course Vital Signs 11/13/20 11/13/20 11/13/20 13:24 14:15 15:00 Temperature 98.0 F Pulse Rate 103 H 79 73 Respiratory 20 18 18 Rate Blood Pressure 127/79 114/79 115/86 O2 Sat by Pulse 99 97 97 Oximetry 11/13/20 11/13/20 11/13/20 16:00 17:00 17:01 Temperature 98.0 F Pulse Rate 73 73 73 Respiratory 18 18 18 Rate Blood Pressure 117/80 117/80 O2 Sat by Pulse 97 97 97 Oximetry Medical Decision Making - Medical Decision Making Based on the patient's presentation and physical exam, I'm concerned for possible GI bleeding the patient initially appeared to have 2 isolated episodes of melanotic stools at home with generalized abdominal pain. We will obtain abd ominal laboratory studies including lactic acid and urine. Due to the nonspecific epigastric abdominal discomfort, we will obtain a troponin as well as EKG screening for ACS and an atypical setting in a 49-year-old female. She will be connected to continuous cardiac monitoring and administered IV Protonix, morphine, as well as 1 L fluid bolus for symptomatic treatment. We will obtain CT imaging to rule out the possibility of significant GI bleed. This is due to her nonspecific abdominal discomfort. She was in agreement with this plan. FOBT was positive. Hemoglobin is stable at 15.9. The ON is mildly elevated at 23, possibly suggestive of an upper GI bleed. Troponin is negative. Urinalysis is negative. Patient's CT imaging revealed diverticulosis without acute diverticulitis. There is no acute process within the abdomen or pelvis. No suspicious etiology identified for rectal bleeding. On Reevaluation, patient is feeling improved. She states that the crampy abdom inal pain has improved as well. She denies any lightheadedness. She is able to ambulate without difficulty. I did discuss with her the results of her laboratory studies and imaging. I did advise that she needs to be seen by GI, however this could be done on either an inpatient or outpatient basis. She requested that this be done on an outpatient basis and does not want to be admitted to the hospital. As the patient is currently asymptomatic without any persistent bleeding, relatively normal laboratory studies including hgb within normal limits, and stable vital signs, I do believe this is reasonable. Patiently given contact information for outpatient gastroenterology. I instructed the patient to follow up with their PCP in the next 3 days. I provided contact information for follow up with gastroenterology, Мария. I explained that the patient should return to the emergency department if they experience any worsening symptoms. Strict return precautions were discussed with the patient. The patient expressed understanding of these instructions. I answered all questions that the patient had. The patient was discharged home in fair condition with their prescriptions and follow up information. - Lab Data Result diagrams: 11/13/20 14:15 11/13/20 14:15 Lab Results 11/13/20 11/13/20 11/13/20 Range/Units 13:55 14:15 14:15 WBC 6.3 (3.8-10.6) k/uL RBC 4.90 (3.80-5.40) m/uL Hgb 15.9 (11.4-16.0) gm/dL Hct 46.7 H (34.0-46.0) % MCV 95.2 (80.0-100.0) fL MCH 32.4 (25.0-35.0) pg MCHC 34.1 (31.0-37.0) g/dL RDW 11.9 (11.5-15.5) % Plt Count 221 (150-450) k/uL MPV 9.0 Neutrophils % 65 % Lymphocytes % 25 % Monocytes % 7 % Eosinophils % 1 % Basophils % 1 % Neutrophils # 4.1 (1.3-7.7) k/uL Lymphocytes # 1.6 (1.0-4.8) k/uL Monocytes # 0.4 (0-1.0) k/uL Eosinophils # 0.1 (0-0.7) k/uL Basophils # 0.1 (0-0.2) k/uL PT 11.1 (9.0-12.0) sec INR 1.0 (<1.2) APTT 25.7 (22.0-30.0) sec Sodium (137-145) mmol/L Potassium (3.5-5.1) mmol/L Chloride (98-107) mmol/L Carbon Dioxide (22-30) mmol/L Anion Gap mmol/L BUN (7-17) mg/dL Creatinine (0.52-1.04) mg/dL Est GFR (CKD-EPI)AfAm (>60 ml/min/1.73 sqM) Est GFR (CKD-EPI)NonAf (>60 ml/min/1.73 sqM) Glucose (74-99) mg/dL Plasma Lactic Acid Edd (0.7-2.0) mmol/L Calcium (8.4-10.2) mg/dL Magnesium (1.6-2.3) mg/dL Total Bilirubin (0.2-1.3) mg/dL AST (14-36) U/L ALT (4-34) U/L Alkaline Phosphatase (38-126) U/L Troponin I (0.000-0.034) ng/mL Total Protein (6.3-8.2) g/dL Albumin (3.5-5.0) g/dL Lipase (23-300) U/L Urine Color Urine Appearance (Clear) Urine pH (5.0-8.0) Ur Specific [place] (1.001-1.035) Urine Protein (Negative) Urine Glucose (UA) (Negative) Urine Ketones (Negative) Urine Blood (Negative) Urine Nitrite (Negative) Urine Bilirubin (Negative) Urine Urobilinogen (<2.0) mg/dL Ur Leukocyte Esterase (Negative) Stool Occult Blood (Negative) Blood Type Blood Type Confirm A Positive Blood Type Recheck Bld Type Recheck Status Antibody Screen Spec Expiration Date 11/13/20 11/13/20 11/13/20 Range/Units 14:15 14:15 14:15 WBC (3.8-10.6) k/uL RBC (3.80-5.40) m/uL Hgb (11.4-16.0) gm/dL Hct (34.0-46.0) % MCV (80.0-100.0) fL MCH (25.0-35.0) pg MCHC (31.0-37.0) g/dL RDW (11.5-15.5) % Plt Count (150-450) k/uL MPV Neutrophils % % Lymphocytes % % Monocytes % % Eosinophils % % Basophils % % Neutrophils # (1.3-7.7) k/uL Lymphocytes # (1.0-4.8) k/uL Monocytes # (0-1.0) k/uL Eosinophils # (0-0.7) k/uL Basophils # (0-0.2) k/uL PT (9.0-12.0) sec INR (<1.2) APTT (22.0-30.0) sec Sodium 140 (137-145) mmol/L Potassium 5.1 (3.5-5.1) mmol/L Chloride 107 (98-107) mmol/L Carbon Dioxide 24 (22-30) mmol/L Anion Gap 9 mmol/L BUN 23 H (7-17) mg/dL Creatinine 0.61 (0.52-1.04) mg/dL Est GFR (CKD-EPI)AfAm >90 (>60 ml/min/1.73 sqM) Est GFR (CKD-EPI)NonAf >90 (>60 ml/min/1.73 sqM) Glucose 96 (74-99) mg/dL Plasma Lactic Acid Edd (0.7-2.0) mmol/L Calcium 9.8 (8.4-10.2) mg/dL Magnesium 2.1 (1.6-2.3) mg/dL Total Bilirubin 0.8 (0.2-1.3) mg/dL AST 44 H (14-36) U/L ALT 27 (4-34) U/L Alkaline Phosphatase 70 (38-126) U/L Troponin I (0.000-0.034) ng/mL Total Protein 7.1 (6.3-8.2) g/dL Albumin 4.5 (3.5-5.0) g/dL Lipase 53 (23-300) U/L Urine Color Urine Appearance (Clear) Urine pH (5.0-8.0) Ur Specific [place] (1.001-1.035) Urine Protein (Negative) Urine Glucose (UA) (Negative) Urine Ketones (Negative) Urine Blood (Negative) Urine Nitrite (Negative) Urine Bilirubin (Negative) Urine Urobilinogen (<2.0) mg/dL Ur Leukocyte Esterase (Negative) Stool Occult Blood Positive H (Negative) Blood Type A Positive Blood Type Confirm Blood Type Recheck No Previous Record Bld Type Recheck Status CABO Indicated Antibody Screen NEGATIVE Spec Expiration Date 11/16/2020 - 231411/13/20 11/13/20 11/13/20 Range/Units 14:15 14:22 15:32 WBC (3.8-10.6) k/uL RBC (3.80-5.40) m/uL Hgb (11.4-16.0) gm/dL Hct (34.0-46.0) % MCV (80.0-100.0) fL MCH (25.0-35.0) pg MCHC (31.0-37.0) g/dL RDW (11.5-15.5) % Plt Count (150-450) k/uL MPV Neutrophils % % Lymphocytes % % Monocytes % % Eosinophils % % Basophils % % Neutrophils # (1.3-7.7) k/uL Lymphocytes # (1.0-4.8) k/uL Monocytes # (0-1.0) k/uL Eosinophils # (0-0.7) k/uL Basophils # (0-0.2) k/uL PT (9.0-12.0) sec INR (<1.2) APTT (22.0-30.0) sec Sodium (137-145) mmol/L Potassium (3.5-5.1) mmol/L Chloride (98-107) mmol/L Carbon Dioxide (22-30) mmol/L Anion Gap mmol/L BUN (7-17) mg/dL Creatinine (0.52-1.04) mg/dL Est GFR (CKD-EPI)AfAm (>60 ml/min/1.73 sqM) Est GFR (CKD-EPI)NonAf (>60 ml/min/1.73 sqM) Glucose (74-99) mg/dL Plasma Lactic Acid Edd 1.9 (0.7-2.0) mmol/L Calcium (8.4-10.2) mg/dL Magnesium (1.6-2.3) mg/dL Total Bilirubin (0.2-1.3) mg/dL AST (14-36) U/L ALT (4-34) U/L Alkaline Phosphatase (38-126) U/L Troponin I <0.012 (0.000-0.034) ng/mL Total Protein (6.3-8.2) g/dL Albumin (3.5-5.0) g/dL Lipase (23-300) U/L Urine Color Light Yellow Urine Appearance Clear (Clear) Urine pH 7.0 (5.0-8.0) Ur Specific [place] >1.050 H (1.001-1.035) Urine Protein Negative (Negative) Urine Glucose (UA) Negative (Negative) Urine Ketones Negative (Negative) Urine Blood Negative (Negative) Urine Nitrite Negative (Negative) Urine Bilirubin Negative (Negative) Urine Urobilinogen <2.0 (<2.0) mg/dL Ur Leukocyte Esterase Negative (Negative) Stool Occult Blood (Negative) Blood Type Blood Type Confirm Blood Type Recheck Bld Type Recheck Status Antibody Screen Spec Expiration Date - EKG Data -: EKG Interpreted by Me EKG Comments: 12-lead Electrocardiogram Interpretation Note EKG was reviewed and interpreted by myself. 12-lead ECG performed at 1407 is interpreted by me as revealing normal sinus rhythm at a rate of 77 beats per minute. [place] is normal. MI interval 112 ms, QRS duration is 86 seconds, QTC is 443 ms.. There were no ST or T wave abnormalities to suggest myocardial isch emia or injury. R wave progression across the precordium was satisfactory. By my interpretation this EKG is non-diagnostic for acute ischemia. Disposition Clinical Impression: Abdominal pain of unknown etiology, Fecal occult blood test positive Disposition: HOME SELF-CARE Condition: Fair Instructions (If sedation given, give patient instructions): Gastrointestinal Bleeding (ED) Is patient prescribed a controlled substance at d/c from ED?: No Referrals: Cortez Paulino DO [Primary Care Provider] - 1-2 days Rut Hsieh MD [STAFF PHYSICIAN] - 1-2 days
[2020-11-13 14:16] VITALS: RESP 18
[2020-11-13 14:31] LABS: Basophils # (A) 0.1 k/uL (0-0.2); Basophils % (A) 1 %; Eosinophils # (A) 0.1 k/uL (0-0.7); Eosinophils % (A) 1 %; HCT 46.7 % (34.0-46.0); HGB 15.9 gm/dL (11.4-16.0); Lymphocytes # (A) 1.6 k/uL (1.0-4.8); Lymphocytes % (A) 25 %; MCH 32.4 pg (25.0-35.0); MCHC 34.1 g/dL (31.0-37.0); MCV 95.2 fL (80.0-100.0); Monocytes # (A) 0.4 k/uL (0-1.0); Monocytes % (A) 7 %; Neutrophils # (A) 4.1 k/uL (1.3-7.7); Neutrophils % (A) 65 %; Platelet Count 221 k/uL (150-450); RDW 11.9 % (11.5-15.5); WBC 6.3 k/uL (3.8-10.6)
[2020-11-13 14:45] LABS: ALT 27 U/L (4-34); AST 44 U/L (14-36); African American GFR (CKD) >90 (>60 ml/min/1.73 sqM); Albumin 4.5 g/dL (3.5-5.0); Alkaline Phosphatase 70 U/L (38-126); Anion Gap 9 mmol/L; Blood Urea Nitrogen 23 mg/dL (7-17); Calcium 9.8 mg/dL (8.4-10.2); Carbon Dioxide 24 mmol/L (22-30); Chloride 107 mmol/L (98-107); Glucose 96 mg/dL (74-99); Lipase 53 U/L (23-300); Magnesium 2.1 mg/dL (1.6-2.3); Non-African American GFR(CKD) >90 (>60 ml/min/1.73 sqM); Partial Thromboplastin Time 25.7 sec (22.0-30.0); Prothrombin Time 11.1 sec (9.0-12.0); Sodium 140 mmol/L (137-145); Total Bilirubin 0.8 mg/dL (0.2-1.3); Total Protein 7.1 g/dL (6.3-8.2)
[2020-11-13 14:48] LABS: Potassium 5.1 mmol/L (3.5-5.1)
--- NOTE | 2020-11-13 15:07 | CT ---
EXAMINATION TYPE: CT abdomen pelvis w con DATE OF EXAM: 11/13/2020 COMPARISON: 04/28/2020 INDICATION: Rectal bleeding DLP: 624.7 mGycm, Automated exposure control for dose reduction was used. CONTRAST: 100 mL of Isovue 300. Study performed without Oral Contrast TECHNIQUE: Axial images were obtained from above the diaphragm to the pubic rami in the axial plane a t 5 mm thick sections. Reconstructed images are reviewed on the computer in the coronal plane. FINDINGS: Limited CT sections are obtained the lung bases. The lung bases are clear. CT ABDOMEN: Liver: Normal Spleen: Normal Pancreas: Normal Adrenal glands: The adrenal glands are normal. Gallbladder: Normal Kidneys: No masses are evident. No hydronephrosis is present. No cysts are present. Delayed images were obtained through the kidneys, which remain unremarkable. Aorta: Vascular calcification is within the aorta. Inferior vena cava: Normal. CT PELVIS: Loops of bowel within the abdomen and pelvis are normal. This study is performed without oral con trast limiting bowel evaluation. Few scattered diverticuli within the sigmoid colon. Appendix: Normal as visualized. Urinary bladder: Normal. Genitourinary structures: Uterus is normal. Adnexal regions are clear. Osseous structures: No suspicious lytic or sclerotic lesions. IMPRESSIONS: 1. Diverticulosis without acute diverticulitis. 2. No acute process radiographically evident within the abdomen or pelvis. 3. No suspicious etiology identified for rectal bleeding
[2020-11-13 15:32] VITALS: PULSE 73
[2020-11-13 16:45] LABS: Appearance,Urine Clear (Clear); Bilirubin,Urine Negative (Negative); Blood,Urine Negative (Negative); Color,Urine Light Yellow; Glucose,Urine (UA) Negative (Negative); Ketones,Urine Negative (Negative); Leukocyte Esterase,Urine Negative (Negative); Nitrite,Urine Negative (Negative); Protein,Urine Negative (Negative); Urobilinogen,Urine <2.0 mg/dL (<2.0)
[2020-11-13 16:51] LABS: Specific Gravity,Urine >1.050 (1.001-1.035)
[2020-11-13 17:21] VITALS: BP 117/80
== END 2020-11-13 17:05 | disposition home or self-care (01) ==
LOC: EC 13:16
DX: R19.5 Other fecal abnormalities (principal); R10.84 Generalized abdominal pain; K21.9 Gastro-esophageal reflux disease without esophagitis; F32.9 Major depressive disorder, single episode, unspecified; F41.9 Anxiety disorder, unspecified; Z79.82 Long term (current) use of aspirin; Z79.899 Other long term (current) drug therapy; Z80.3 Family history of malignant neoplasm of breast; Z87.19 Personal history of other diseases of the digestive system; Z88.0 Allergy status to penicillin; Z88.1 Allergy status to other antibiotic agents; Z88.5 Allergy status to narcotic agent
CPT/HCPCS: 36415; 93005; 86900; 86901; 80053; 83605; 83690; 83735; 84484; 85025; 85610; 85730; 86850; 82272; 81003; 74177; 96374; 96375; 96361; 99285; J2270; C9113; Q9967

== ENCOUNTER 2020-11-16 12:48 | Day surgery (SDC) | payer BC ==
[2020-11-15 11:03] VITALS: BMI 22.1
[~2020-11-16 12:48] MED LIST changes: -LIDOCAINE 1% (10MG/ML) FOR IV START INTRADERMA PRN
[2020-11-16 13:22] VITALS: TEMP 98.6
[2020-11-16] MEDS ORDERED: ONDANSETRON 4 MG/2 ML VIAL ONE (13:25)
[2020-11-16] MEDS ORDERED: ONDANSETRON 4 MG/2 ML VIAL IVP ONE (13:30)
[2020-11-16] MEDS ORDERED: PROPOFOL 10 MG/ML 20 ML VIAL IV ONE (13:32)
--- NOTE | 2020-11-16 13:48 | P.PCN ---
Date of Procedure: 11/16/20 Procedure(s) Performed: BRIEF HISTORY: Patient is a 50-year-old pleasant white female scheduled for an elective colonoscopy as a part of evaluation of intermittent rectal pain for the last few weeks duration. PROCEDURE PERFORMED: Colonoscopy. PREOPERATIVE DIAGNOSIS: Intermittent rectal bleeding. IV sedation per Anesthesia. PROCEDURE: After informed consent was obtained, the patient, was brought into the endoscopy unit. IV sedation was administered by Anesthesia under continuous monitoring. Digital rectal examination was normal. Initially the Olympus CF-160 flexible video colonoscope was then inserted in the rectum, gradually advanced into the cecum without any difficulty. Careful examination was performed as the scope was gradually being withdrawn. Ileocecal valve and the appendiceal orifice were visualized and appeared normal. Prep was excellent. Mucosa of the cecum, ascending colon, transverse colon, descending colon, sigmoid colon, and rectum appeared normal. Scattered sigmoid diverticulosis seen. Retroflexion was performed in the rectum and small internal hemorrhoids were seen. The patient tolerated the procedure well. IMPRESSION: Normal-appearing colon from rectum to cecum with no evidence of colorectal neoplasia Scattered sigmoid diverticulosis Small internal hemorrhoids . RECOMMENDATIONS: Findings of this examination were discussed with the patient as well as a family. She was advised to be on a high-fiber diet and take fiber supplements a regular basis. She can have a repeat colonoscopy in 10 years.
[2020-11-16 14:05] VITALS: BP 99/63; PULSE 73; RESP 16
== END 2020-11-16 14:30 ==
LOC: ORWHC2ENDO 12:48
PROVIDERS: ATTEND Internal Medicine Gastroenterology
DX: K57.30 Diverticulosis of large intestine without perforation or abscess without bleeding (principal); K64.8 Other hemorrhoids; I47.1 Supraventricular tachycardia; F41.8 Other specified anxiety disorders
CPT/HCPCS: 45378; J2405; J2704

== ENCOUNTER 2020-11-23 16:34 | Emergency (ER) | payer BC ==
[2020-11-23 16:43] VITALS: RESP 18
[2020-11-23] MEDS ORDERED: MORPHINE SULFATE 4 MG/ML SYRINGE IV STA (17:26)
[2020-11-23] MEDS ORDERED: ASPIRIN 81 MG PO STA (17:26)
[2020-11-23 17:53] LABS: Basophils # (A) 0.1 k/uL (0-0.2); Basophils % (A) 3 %; Eosinophils % (A) 1 %; HCT 43.6 % (34.0-46.0); Lymphocytes # (A) 0.9 k/uL (1.0-4.8); Lymphocytes % (A) 32 %; MCH 32.9 pg (25.0-35.0); MCHC 34.5 g/dL (31.0-37.0); MCV 95.2 fL (80.0-100.0); Mean Platelet Volume 8.9; Monocytes # (A) 0.4 k/uL (0-1.0); Monocytes % (A) 13 %; Neutrophils # (A) 1.4 k/uL (1.3-7.7); Neutrophils % (A) 50 %; Platelet Count 153 k/uL (150-450); RBC 4.58 m/uL (3.80-5.40); RDW 11.9 % (11.5-15.5); WBC 2.9 k/uL (3.8-10.6)
[2020-11-23 18:06] LABS: ALT 18 U/L (4-34); AST 32 U/L (14-36); African American GFR (CKD) >90 (>60 ml/min/1.73 sqM); Albumin 4.1 g/dL (3.5-5.0); Alkaline Phosphatase 72 U/L (38-126); Anion Gap 9 mmol/L; Blood Urea Nitrogen 14 mg/dL (7-17); Calcium 9.3 mg/dL (8.4-10.2); Carbon Dioxide 26 mmol/L (22-30); Chloride 105 mmol/L (98-107); Glucose 79 mg/dL (74-99); Magnesium 2.1 mg/dL (1.6-2.3); Non-African American GFR(CKD) >90 (>60 ml/min/1.73 sqM); Sodium 140 mmol/L (137-145); Total Bilirubin 0.1 mg/dL (0.2-1.3); Total Protein 6.4 g/dL (6.3-8.2)
[2020-11-23 18:08] LABS: Partial Thromboplastin Time 28.5 sec (22.0-30.0); Prothrombin Time 10.7 sec (9.0-12.0)
--- NOTE | 2020-11-23 18:21 | XR ---
EXAMINATION TYPE: XR chest 1V portable DATE OF EXAM: 11/23/2020 COMPARISON: 04/19/2020 HISTORY: Pain TECHNIQUE: 4 views FINDINGS: Heart and mediastinum are normal. Lungs are clear. Diaphragm is normal. Bony thorax is inta ct. IMPRESSION: Normal chest. No change.
[2020-11-23] MEDS ORDERED: CASIRIVIMAB (REGN10933) (EUA) 600 MG, IMDEVIMAB (REGN10987) (EUA) 600 MG in SODIUM CHLO... IVPB ONE (19:00)
[2020-11-23] MEDS ORDERED: SODIUM CHLORIDE 0.9% 50 ML IVPB ONE (19:00)
--- NOTE | 2020-11-23 21:02 | ED ---
General Adult HPI - General Chief complaint: Chest Pain Stated complaint: possible blood clot in lung, sent by Time Seen by Provider: 11/23/20 17:09 Source: patient Mode of arrival: ambulatory Limitations: no limitations - History of Present Illness Initial comments: Patient is a 50-year-old female with past medical history remarkable for chronic neck pain on gabapentin presents emergency Department complaining of lung pain as well as a cough. She states she presented to an outpatient urgent care who instructed her to present to the emergency department for evaluation. She tested positive for COVID-19 at the outpatient urgent care but does not consider was negative as per and she is requesting retesting. She also noticed that she is having streaks of blood in some of her sputum that she is coughing up but is otherwise white. She endorses bilateral thoracic pain in the midaxillary line as well as posterior axillary line that is worse with coughing. She denies any anterior wall chest pain. Denies any mid back pain. Denies abdominal pain, nausea, vomiting. There are unknown sick contacts. She states she does not believe she has been exposed to anyone COVID-19. She has no history of blood clots in herself or family members. She is not on blood thinners. She is not vaccinated for COVID-19 currently. She denies any shortness breath at this time. She otherwise has no acute complaints at this time. - Related Data Home Medications Medication Instructions Recorded Confirmed Gabapentin [Neurontin] 200 mg PO TID 05/20/18 11/16/20 Cyclobenzaprine [Flexeril] 10 mg PO HS PRN 06/09/18 11/16/20 Aspirin 325 mg PO DAILY 06/27/19 11/16/20 Cholecalciferol [Vitamin D3 (25 2,000 unit PO DAILY 09/02/19 11/16/20 Mcg = 1000 Iu)] hydrOXYzine HCL 25 mg PO HS PRN 01/05/20 11/16/20 Turmeric Root Extract [Turmeric] 500 mg PO DAILY 04/03/20 11/16/20 Ondansetron [Zofran ODT] 4 mg PO Q4H PRN 05/31/20 11/16/20 Cider Vinegar [Apple Cider Vinegar] 300 mg PO DAILY 11/13/20 11/16/20 Cyanocobalamin (Vitamin B-12) 1,000 mcg PO DAILY 11/13/20 11/16/20 [Vitamin B-12] Dicyclomine [Bentyl] 10 mg PO TID PRN 11/13/20 11/16/20 Lactulose [Constulose] 10 gm PO DAILY 11/13/20 11/16/20 Allergies Allergy/AdvReac Type Severity Reaction Status Date / Time flecainide Allergy SEVERE Verified 11/23/20 16:43 HEADACHE Penicillins Allergy Anaphylaxis Verified 11/23/20 16:43 adhesive tape AdvReac Rash/Hives Verified 11/23/20 16:43 azithromycin AdvReac Abdominal Verified 11/23/20 16:43 [From Zithromax Z-[place]] Pain codeine AdvReac Nausea & Verified 11/23/20 16:43 Vomiting Review of Systems ROS Statement: Those systems with pertinent positive or pertinent negative responses have been documented in the HPI. Review of Systems: CONST: Denies fever EYES: Denies blurry vision ENT: Denies nasal congestion C/V: Endorses thoracic pain. RESP: Denies shortness of breath GI: Denies abdominal pain : Denies dysuria SKIN: Denies rash. MSK: Denies joint pain. NEURO: Denies headache ROS Other: All systems not noted in ROS Statement are negative. Past Medical History Past Medical History: GERD/Reflux, Osteoarthritis (OA), Supraventricular Tachycardia (SVT) Additional Past Medical History / Comment(s): WPW syndrome improved following cardiac ablation, SVT, hiatal hernia, gastritis, palpitations; Cervical spinal stenosis. Thyroid nodule. MIGRAINE HEACHES, CHRONIC BACK PAIN History of Any Multi-Drug Resistant Organisms: None Reported Past Surgical History: Breast Surgery, Cardiac Ablation, Ear Surgery Additional Past Surgical History / Comment(s): exp. laparoscopy; groin cyst removed, wisdom teeth removed; colonoscopy March , myringotomy & tubes, pain procedures. Upper GI endoscopy,LEFT BREAST BIOPSY Past Anesthesia/Blood Transfusion Reactions: Family History of Problems w/ Anesthesia Additional Past Anesthesia/Blood Transfusion Reaction / Comment(s): mother has a hard time waking up from anesthesia Past Psychological History: Anxiety, Depression Smoking Status: Former smoker Past Alcohol Use History: None Reported Past Drug Use History: None Reported - Past Family History Mother Family Medical History: COPD Father Family Medical History: Cancer Additional Family Medical History / Comment(s): Melanoma skin cancer. Aunts Family Medical History: Cancer Additional Family Medical History / Comment(s): A paternal aunt had ovarian cancer, a maternal aunt had uterine cancer and another maternal aunt had bladder cancer. General Exam - General Exam Comments Initial Comments: General: Appears in no acute distress. HEAD: Normal with no signs of head trauma. EYES: PERRLA, EOMI, conjunctiva normal, no discharge. ENT: Hearing grossly intact, normal oropharynx. RESPIRATORY: Clear breath sounds bilaterally. No wheezes, rales, or rhonchi. C/V: Regular rate and rhythm. S1 and S2 auscultated, no edema, peripheral pulses 2+ and intact throughout ABD: Abd is soft, nontender, nondistended EXT: Normal range of motion, no obvious deformity SKIN: No rashes or lesions observed on exposed skin. NEURO: Alert and oriented 4. Limitations: no limitations Course Vital Signs 11/23/20 11/23/20 16:39 21:25 Temperature 98.0 F 98.4 F Pulse Rate 91 72 Respiratory 18 18 Rate Blood Pressure 120/87 105/74 O2 Sat by Pulse 98 99 Oximetry Medical Decision Making - Medical Decision Making Based on the patient's presentation and physical exam, I do suspect a COVID-19 infection. However patient does not PERC out. Well's score for PE is low, patient is stable vital signs. Therefore we will obtain a screening d-dimer for PE at this time in addition to a cardiac workup including troponin, EKG, chest x-ray, basic laboratory studies, as well as a COVID-19 swab. She'll be placed in isolation precaution at this time. Patient will be administered IV morphine, as well as aspirin. She was in agreement this plan. She is not hypoxic. She will be Tediously monitor during cardiac monitoring. Patient is currently 19 positive. Patient's laboratory studies are remarkable for mild leukpenia 2.9 which is likely related to her COVID-19 infection. Remainder of her labs are unremarkable including a negative d-dimer and a negative troponin. EKG showed no signs of acute ischemia. Chest x-ray revealed no acute cardiopulmonary process. I discussed with the patient that she has an active COVID-19 infection, felt symptoms for less than 48 hours. I do recommend that she received the medical antibody treatment but does not require any other therapy at this time as she is not hypoxic and is otherwise in no acute distress. I did review with her results of the remainder of her laboratory studies as well. She expressed understanding was in agreement this plan. Patient did state that she felt nauseous following the morphine and she was administered Zofran for the nausea. I answered multiple questions that she had regarding COVID-19. I did fill out the medical antibody order sheet and this was ordered for the patient. Patient completed the monoclonal antibodies was observed afterwards for reactions. She no reactions. I do believe it is safe for the patient be discharged home at this time and she was in agreement the plan. I instructed the patient to follow up with their PCP in the next 3 days . I explained that the patient should return to the emergency department if they experience any worsening symptoms. Strict return precautions were discussed with the patient. The patient expressed understanding of these instructions. I answered all questions that the patient had. The patient was discharged home in fair condition with their prescriptions and follow up information. - Lab Data Result diagrams: 11/23/20 17:48 11/23/20 17:48 Lab Results 11/23/20 11/23/20 11/23/20 Range/Units 17:48 17:48 17:48 WBC 2.9 L (3.8-10.6) k/uL RBC 4.58 (3.80-5.40) m/uL Hgb 15.0 (11.4-16.0) gm/dL Hct 43.6 (34.0-46.0) % MCV 95.2 (80.0-100.0) fL MCH 32.9 (25.0-35.0) pg MCHC 34.5 (31.0-37.0) g/dL RDW 11.9 (11.5-15.5) % Plt Count 153 (150-450) k/uL MPV 8.9 Neutrophils % 50 % Lymphocytes % 32 % Monocytes % 13 % Eosinophils % 1 % Basophils % 3 % Neutrophils # 1.4 (1.3-7.7) k/uL Lymphocytes # 0.9 L (1.0-4.8) k/uL Monocytes # 0.4 (0-1.0) k/uL Eosinophils # 0.0 (0-0.7) k/uL Basophils # 0.1 (0-0.2) k/uL PT 10.7 (9.0-12.0) sec INR 1.0 (<1.2) APTT 28.5 (22.0-30.0) sec D-Dimer 0.18 (<0.60) mg/L FEU Sodium 140 (137-145) mmol/L Potassium 4.0 (3.5-5.1) mmol/L Chloride 105 (98-107) mmol/L Carbon Dioxide 26 (22-30) mmol/L Anion Gap 9 mmol/L BUN 14 (7-17) mg/dL Creatinine 0.68 (0.52-1.04) mg/dL Est GFR (CKD-EPI)AfAm >90 (>60 ml/min/1.73 sqM) Est GFR (CKD-EPI)NonAf >90 (>60 ml/min/1.73 sqM) Glucose 79 (74-99) mg/dL Calcium 9.3 (8.4-10.2) mg/dL Magnesium 2.1 (1.6-2.3) mg/dL Total Bilirubin 0.1 L (0.2-1.3) mg/dL AST 32 (14-36) U/L ALT 18 (4-34) U/L Alkaline Phosphatase 72 (38-126) U/L Troponin I (0.000-0.034) ng/mL Total Protein 6.4 (6.3-8.2) g/dL Albumin 4.1 (3.5-5.0) g/dL Coronavirus (PCR) (Not Detectd) 11/23/20 11/23/20 Range/Units 17:48 17:48 WBC (3.8-10.6) k/uL RBC (3.80-5.40) m/uL Hgb (11.4-16.0) gm/dL Hct (34.0-46.0) % MCV (80.0-100.0) fL MCH (25.0-35.0) pg MCHC (31.0-37.0) g/dL RDW (11.5-15.5) % Plt Count (150-450) k/uL MPV Neutrophils % % Lymphocytes % % Monocytes % % Eosinophils % % Basophils % % Neutrophils # (1.3-7.7) k/uL Lymphocytes # (1.0-4.8) k/uL Monocytes # (0-1.0) k/uL Eosinophils # (0-0.7) k/uL Basophils # (0-0.2) k/uL PT (9.0-12.0) sec INR (<1.2) APTT (22.0-30.0) sec D-Dimer (<0.60) mg/L FEU Sodium (137-145) mmol/L Potassium (3.5-5.1) mmol/L Chloride (98-107) mmol/L Carbon Dioxide (22-30) mmol/L Anion Gap mmol/L BUN (7-17) mg/dL Creatinine (0.52-1.04) mg/dL Est GFR (CKD-EPI)AfAm (>60 ml/min/1.73 sqM) Est GFR (CKD-EPI)NonAf (>60 ml/min/1.73 sqM) Glucose (74-99) mg/dL Calcium (8.4-10.2) mg/dL Magnesium (1.6-2.3) mg/dL Total Bilirubin (0.2-1.3) mg/dL AST (14-36) U/L ALT (4-34) U/L Alkaline Phosphatase (38-126) U/L Troponin I <0.012 (0.000-0.034) ng/mL Total Protein (6.3-8.2) g/dL Albumin (3.5-5.0) g/dL Coronavirus (PCR) Detected A (Not Detectd) - EKG Data -: EKG Interpreted by Me EKG Comments: 12-lead Electrocardiogram Interpretation Note EKG was reviewed and interpreted by myself. 12-lead ECG performed at 1656 is interpreted by me as revealing normal sinus rhythm at a rate of 86 beats per minute. [place] is normal. [place] interval is 108 ms, QRS duration is 86 seconds, QTC is 447 ms.. There were no ST or T wave abnormalities to suggest myocardial ischemia or injury. R wave progression across the precordium was satisfactory. By my interpretation this EKG is non-diagnostic for acute ischemia. Disposition Clinical Impression: COVID-19, Muscle ache Disposition: HOME SELF-CARE Condition: Fair Instructions (If sedation given, give patient instructions): Coronavirus Disease 2019 (COVID-19) Is patient prescribed a controlled substance at d/c from ED?: No Referrals: Cortez Paulino DO [Primary Care Provider] - 1-2 days
[2020-11-23] MEDS ORDERED: ONDANSETRON 4 MG/2 ML VIAL IVP STA (21:16)
[2020-11-23 21:26] VITALS: BP 105/74; PULSE 72; TEMP 98.4
== END 2020-11-23 21:29 | disposition home or self-care (01) ==
LOC: EC 16:34
DX: U07.1 COVID-19 (principal); K21.9 Gastro-esophageal reflux disease without esophagitis; M19.90 Unspecified osteoarthritis, unspecified site; F32.9 Major depressive disorder, single episode, unspecified; F41.9 Anxiety disorder, unspecified; Z79.82 Long term (current) use of aspirin; Z79.899 Other long term (current) drug therapy; Z87.891 Personal history of nicotine dependence; Z88.0 Allergy status to penicillin; Z88.1 Allergy status to other antibiotic agents; Z88.5 Allergy status to narcotic agent; Z87.19 Personal history of other diseases of the digestive system
CPT/HCPCS: 36415; 93005; 85379; 80053; 83735; 84484; 85025; 85610; 85730; 87635; 71045; 96374; 96375 ×2; 99285; J2270; J2405

== ENCOUNTER 2020-12-01 02:17 | Emergency (ER) | payer BC ==
[2020-12-01 02:32] VITALS: RESP 18; TEMP 97.8
[2020-12-01] MEDS ORDERED: SODIUM CHLORIDE 0.9% 1,000 ML IV STA (02:41)
--- NOTE | 2020-12-01 02:43 | ED ---
Chest Pain HPI - General Chief Complaint: Chest Pain Stated Complaint: Chest pain, COVID+ Time Seen by Provider: 12/01/20 02:24 Source: patient, EMS, RN notes reviewed, old records reviewed Mode of arrival: EMS Limitations: no limitations - History of Present Illness Initial Comments: This is a 50-year-old female to the ER for evaluation. Patient presents today for evaluation regards to chest pain. Recent diagnosis of coronavirus. Increased cough and congestion. No fevers no travel history no known sick contacts. Patient did receive antibody infusion for coronavirus patient's chest pain started 2 hours prior to arrival and goes to her jaw. Patient has no history of heart disease MD Complaint: chest pain -: hour(s) (2) Onset: during rest Pain Location: left chest Pain Radiation: jaw/teeth Severity: moderate Severity scale (1-10): 4 Quality: aching, heaviness Consistency: constant Improves With: nothing Worsens With: nothing Context: recent illness (Coronavirus) Anginal Symptoms: dyspnea Other Symptoms: palpitations Treatments Prior to Arrival: none - Related Data Home Medications Medication Instructions Recorded Confirmed Gabapentin [Neurontin] 200 mg PO TID 05/20/18 11/16/20 Cyclobenzaprine [Flexeril] 10 mg PO HS PRN 06/09/18 11/16/20 Aspirin 325 mg PO DAILY 06/27/19 11/16/20 Cholecalciferol [Vitamin D3 (25 2,000 unit PO DAILY 09/02/19 11/16/20 Mcg = 1000 Iu)] hydrOXYzine HCL 25 mg PO HS PRN 01/05/20 11/16/20 Turmeric Root Extract [Turmeric] 500 mg PO DAILY 04/03/20 11/16/20 Ondansetron [Zofran ODT] 4 mg PO Q4H PRN 05/31/20 11/16/20 Cider Vinegar [Apple Cider Vinegar] 300 mg PO DAILY 11/13/20 11/16/20 Cyanocobalamin (Vitamin B-12) 1,000 mcg PO DAILY 11/13/20 11/16/20 [Vitamin B-12] Dicyclomine [Bentyl] 10 mg PO TID PRN 11/13/20 11/16/20 Lactulose [Constulose] 10 gm PO DAILY 11/13/20 11/16/20 Previous Rx's Medication Instructions Recorded Albuterol Sulfate [Proair Hfa] 1 - 2 puff INHALATION Q4H PRN #1 12/01/20 inhaler Allergies Allergy/AdvReac Type Severity Reaction Status Date / Time flecainide Allergy SEVERE Verified 12/01/20 02:32 HEADACHE Penicillins Allergy Anaphylaxis Verified 12/01/20 02:32 adhesive tape AdvReac Rash/Hives Verified 12/01/20 02:32 azithromycin AdvReac Abdominal Verified 12/01/20 02:32 [From Zithromax Z-[place]] Pain codeine AdvReac Nausea & Verified 12/01/20 02:32 Vomiting Review of Systems ROS Statement: Those systems with pertinent positive or pertinent negative responses have been documented in the HPI. ROS Other: All systems not noted in ROS Statement are negative. EKG Findings - EKG Comments: EKG Findings:: EKG shows sinus rhythm 65 MO 124 QRS 88 QTc 443 Past Medical History Past Medical History: GERD/Reflux, Osteoarthritis (OA), Supraventricular Tachycardia (SVT) Additional Past Medical History / Comment(s): WPW syndrome improved following cardiac ablation, SVT, hiatal hernia, gastritis, palpitations; Cervical spinal stenosis. Thyroid nodule. MIGRAINE HEACHES, CHRONIC BACK PAIN History of Any Multi-Drug Resistant Organisms: None Reported Past Surgical History: Breast Surgery, Cardiac Ablation, Ear Surgery Additional Past Surgical History / Comment(s): exp. laparoscopy; groin cyst removed, wisdom teeth removed; colonoscopy June , myringotomy & tubes, pain procedures. Upper GI endoscopy,LEFT BREAST BIOPSY Past Anesthesia/Blood Transfusion Reactions: Family History of Problems w/ Anesthesia Additional Past Anesthesia/Blood Transfusion Reaction / Comment(s): mother has a hard time waking up from anesthesia Past Psychological History: Anxiety, Depression Smoking Status: Former smoker Past Alcohol Use History: None Reported Past Drug Use History: None Reported - Past Family History Mother Family Medical History: COPD Father Family Medical History: Cancer Additional Family Medical History / Comment(s): Melanoma skin cancer. Aunts Family Medical History: Cancer Additional Family Medical History / Comment(s): A paternal aunt had ovarian cancer, a maternal aunt had uterine cancer and another maternal aunt had bladder cancer. General Exam Limitations: no limitations General appearance: alert, in no apparent distress Head exam: Present: atraumatic, normocephalic, normal inspection Eye exam: Present: normal appearance, PERRL, EOMI. Absent: scleral icterus, conjunctival injection, periorbital swelling ENT exam: Present: normal exam, mucous membranes moist Neck exam: Present: normal inspection. Absent: tenderness, meningismus, lymphadenopathy Respiratory exam: Present: normal lung sounds bilaterally. Absent: respiratory distress, wheezes, rales, rhonchi, stridor Cardiovascular Exam: Present: regular rate, normal rhythm, normal heart sounds. Absent: systolic murmur, diastolic murmur, rubs, gallop, clicks GI/Abdominal exam: Present: soft, normal bowel sounds. Absent: distended, tenderness, guarding, rebound, rigid Extremities exam: Present: normal inspection, full ROM, normal capillary refill. Absent: tenderness, pedal edema, joint swelling, calf tenderness Back exam: Present: normal inspection Neurological exam: Present: alert, oriented X3, CN II-XII intact Psychiatric exam: Present: normal affect, normal mood Skin exam: Present: warm, dry, intact, normal color. Absent: rash Course Vital Signs 12/01/20 12/01/20 02:29 03:32 Temperature 97.8 F Pulse Rate 76 78 Respiratory 18 18 Rate Blood Pressure 136/87 128/94 O2 Sat by Pulse 99 95 Oximetry - Reevaluation(s) Reevaluation #1: Medical record is reviewed Patient symptoms are improved here in the emergency department Patient informed of results and questions answered Patient is in no acute distress Chest Pain MDM - MDM 50 female to the ER for evaluation patient has recent diagnosis of coronavirus and chest pain today. Patient is no acute cause of chest pain other than current coronavirus infection can be discharged home Disposition Clinical Impression: Chest pain, Atypical chest pain, COVID-19 Disposition: HOME SELF-CARE Condition: Good Instructions (If sedation given, give patient instructions): Chest Pain (ED) Prescriptions: Albuterol Sulfate [Proair Hfa] 1 - 2 puff INHALATION Q4H PRN #1 inhaler PRN Reason: Shortness Of Breath Is patient prescribed a controlled substance at d/c from ED?: No Referrals: Cortez Paulino DO [Primary Care Provider] - 1-2 days
[2020-12-01 02:59] LABS: Basophils % (A) 1 %; Eosinophils # (A) 0.1 k/uL (0-0.7); Eosinophils % (A) 1 %; HCT 44.4 % (34.0-46.0); Lymphocytes # (A) 3.4 k/uL (1.0-4.8); Lymphocytes % (A) 48 %; MCH 32.4 pg (25.0-35.0); MCHC 33.7 g/dL (31.0-37.0); MCV 96.1 fL (80.0-100.0); Mean Platelet Volume 8.7; Monocytes # (A) 0.4 k/uL (0-1.0); Monocytes % (A) 6 %; Neutrophils # (A) 2.9 k/uL (1.3-7.7); Neutrophils % (A) 42 %; Platelet Count 227 k/uL (150-450); RBC 4.62 m/uL (3.80-5.40); RDW 12.6 % (11.5-15.5)
[2020-12-01 03:09] LABS: ALT 24 U/L (4-34); AST 29 U/L (14-36); African American GFR (CKD) >90 (>60 ml/min/1.73 sqM); Albumin 4.2 g/dL (3.5-5.0); Alkaline Phosphatase 67 U/L (38-126); Anion Gap 6 mmol/L; Blood Urea Nitrogen 27 mg/dL (7-17); Calcium 9.6 mg/dL (8.4-10.2); Carbon Dioxide 27 mmol/L (22-30); Chloride 106 mmol/L (98-107); Creatine Kinase 45 U/L (30-135); Glucose 100 mg/dL (74-99); Lipase 201 U/L (23-300); Magnesium 2.2 mg/dL (1.6-2.3); Non-African American GFR(CKD) >90 (>60 ml/min/1.73 sqM); Sodium 139 mmol/L (137-145); Total Bilirubin 0.2 mg/dL (0.2-1.3); Total Protein 6.6 g/dL (6.3-8.2)
[2020-12-01 03:12] LABS: Partial Thromboplastin Time 24.3 sec (22.0-30.0)
--- NOTE | 2020-12-01 03:17 | CT ---
EXAMINATION TYPE: CT angio chest DATE OF EXAM: 12/01/2020 COMPARISON: None HISTORY: cough CT DLP: 223.4 mGycm Automated exposure control for dose reduction was used. CONTRAST: Performed with IV Contrast, patient injected with 70 mL of Isovue 370. There are 3-D post processed images. The lungs are clear of infiltrate. There is no evidence of a pulmonary mass. There is no pleural effu sagie. There is some mild atelectasis in the lingula left upper lobe. There is no pleural effusion. Th ere is no pericardial effusion. Thoracic aorta is intact. There is no aneurysm or dissection. There is no mediastinal adenopathy. The re are no hilar masses. There is normal contrast opacification of the pulmonary arteries. There are no filling defects. The t horacic spine is intact. There is no compression fracture. Sternum is intact. The ribs appear intact. IMPRESSION: No evidence of pulmonary embolism. There is some lingula scarring and atelectasis without change comp ared to 11/13/2020. Also no change compared to 11/26/2019.
[2020-12-01 03:20] LABS: Potassium 4.1 mmol/L (3.5-5.1)
[2020-12-01] MEDS ORDERED: DEXAMETHASONE SOD PHOSPHATE 10 MG/ML 1 ML VIAL IV STA (03:24)
[2020-12-01] MEDS ORDERED: KETOROLAC 15 MG/ML 1 ML VIAL IVP STA (03:24)
[2020-12-01 03:38] VITALS: BP 128/94; PULSE 78
[2020-12-01 03:50] LABS: Creatine Kinase MB 0.4 ng/mL (0.0-2.4); Troponin I <0.012 ng/mL (0.000-0.034)
== END 2020-12-01 04:45 | disposition home or self-care (01) ==
LOC: EC 02:17
DX: U07.1 COVID-19 (principal); K21.9 Gastro-esophageal reflux disease without esophagitis; M19.90 Unspecified osteoarthritis, unspecified site; F32.9 Major depressive disorder, single episode, unspecified; F41.9 Anxiety disorder, unspecified; Z79.82 Long term (current) use of aspirin; Z79.899 Other long term (current) drug therapy; Z87.891 Personal history of nicotine dependence; Z88.0 Allergy status to penicillin; Z88.1 Allergy status to other antibiotic agents; Z88.5 Allergy status to narcotic agent
CPT/HCPCS: 36415; 93005; 85379; 83880; 80053; 82550; 82553; 83690; 83735; 84484; 85025; 85610; 85730; 71275; 99285; 96374; 96375; 96361; J1100; J1885; Q9967

== ENCOUNTER → 2020-12-04 | Outpatient (CLI) | payer BC ==
--- NOTE | 2020-12-05 07:02 | CT ---
EXAMINATION TYPE: CT soft tissue neck w con DATE OF EXAM: 12/04/2020 HISTORY: Dysphagia. Sore throat and hoarseness with lump-like feeling for 1 year per patient. COMPARISON: CT neck October 13, 2018 CT DLP: 279.9 mGycm. Automated Exposure Control for Dose Reduction was Utilized. TECHNIQUE: CT scan of the neck is performed with IV Contrast, patient injected with 100ml mL of Isov ue 300, axial images are obtained, coronal and sagittal reformatted images are reviewed. FINDINGS: Airway: Patent nasopharyngeal and oropharyngeal airway. Region of epiglottis and vallecula appears wi thin normal limits. Level of piriform sinus unremarkable. Hypopharyngeal airway patent. Thyroid gland remains within normal limits in size. Stable 8 mm calcified nodule right thyroid lobe axial image 38 . Lung apices are clear. Parotid/submandibular glands: No gross abnormality seen. Carotid/Vascular Structures: No significant focal plaque or stenosis at carotid bulb level. Patent do minant left vertebral artery to basilar junction redemonstrated. Osseous Structures: Persistent straightening of cervical spine with mild to moderate spurring and dis c space narrowing C4-C5 through C6-C7 levels . Other: No abnormal greater than 1 cm neck adenopathy. Parapharyngeal fat spaces are maintained. IMPRESSION: No suspicious new mass or adenopathy. Airway remains patent. No significant change from prior neck CT October 13, 2018.
== END | disposition home or self-care (01) ==
LOC: RADCTMAIN 17:05
PROVIDERS: ATTEND Otolaryngology
DX: R13.10 Dysphagia, unspecified (principal); J02.9 Acute pharyngitis, unspecified
CPT/HCPCS: 70491; Q9967

== ENCOUNTER → 2021-01-29 | Outpatient (CLI) | payer BC ==
[2021-01-29 16:30] VITALS: BP 113/80; PULSE 74; RESP 12; TEMP 98.3
--- NOTE | 2021-01-29 17:59 | P.HPOB ---
History of Present Illness H&P Date: 01/29/21 Chief Complaint: Worsening low abdominal and pelvic pains 2 weeks ago. This is a 51-year-old with an LMP of 2018. The patient has had issues with low abdominal and pelvic pains since 2019. She has had pains that are described as crampy and a deep achy discomfort which have been constant and rated at a 3 out of 10. This constant pain seems to be not on one particular side but throughout the lower abdomen and pelvis. She also has low back pain. 2 weeks ago, she was walking slowly and noticed a severe sharp shooting pain which seem to go toward her cervix. This sharp pain was rated a 10 out of 10. This made her double over. This sharp pain did stop and went back to her constant deep achy pain. She says she has not been sexually active for several years. She denies fever or vaginal discharge. She has had several studies done to evaluate her low abdominal and pelvic pains. On 06/18/2018 she had a pelvic ultrasound which showed a 4.7 cm right fundal fibroid with normal adnexa. Pelvic ultrasound done on 01/09/2020 was unremarkable. She had a CT scan of the abdomen and pelvis on 01/09/2020 which was unremarkable. She saw Dr. Lainez for evaluation to treated her empirically with doxycycline which did not help. Most recently, she had a CT s can of the abdomen and pelvis on 11/13/2020 which was done for rectal bleeding. This showed some diverticulosis. The uterus was unremarkable and the adnexa were clear. She had a colonoscopy done on 11/16/2020 which showed internal hemorrhoids. Review of Systems She has lost about 6 pounds over the past 7 months. GI: She states her appetite has been decreased and seems to have fairly constant nausea. She denies emesis. She has regular bowel movements every 1-2 days. Her stools are fairly short, but she denies diarrhea or constipation. : See the HPI. She denies vaginal discharge. :urinary symptoms such as dysuria or urinary urgency. She denies respiratory or cardiac problems. Past Medical History Past Medical History: GERD/Reflux, Osteoarthritis (OA), Supraventricular Tachycardia (SVT) Additional Past Medical History / Comment(s): WPW syndrome improved following cardiac ablation, SVT, hiatal hernia, gastritis, palpitations; Cervical spinal stenosis. Thyroid nodule. MIGRAINE HEACHES, CHRONIC BACK PAIN. 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 History of Any Multi-Drug Resistant Organisms: None Reported Past Surgical History: Breast Surgery, Cardiac Ablation, Ear Surgery Additional Past Surgical History / Comment(s): exp. laparoscopy; groin cyst removed, wisdom teeth removed; colonoscopy 10/2020, myringotomy & tubes, pain procedures. Upper GI endoscopy 2020,LEFT BREAST BIOPSY. Past Anesthesia/Blood Transfusion Reactions: Family History of Problems w/ Anesthesia Additional Past Anesthesia/Blood Transfusion Reaction / Comment(s): mother has a hard time waking up from anesthesia Past Psychological History: Anxiety, Depression Additional Psychological History / Comment(s): Brief depression around 2007 treated with Prozac. Smoking Status: Former smoker Past Alcohol Use History: None Reported Additional Past Alcohol Use History / Comment(s): started smoking around the age of 17 on and off until the age of 45 SMOKED 8 CIG A DAY Past Drug Use History: None Reported Additional History: She is single and is not sexually active at this time. 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 - Past Family History Mother Family Medical History: COPD Father Family Medical History: Cancer Additional Family Medical History / Comment(s): Melanoma skin cancer. Aunts Family Medical History: Cancer Additional Family Medical History / Comment(s): A paternal aunt had ovarian cancer, a maternal aunt had uterine cancer and another maternal aunt had bladder cancer. Medications and Allergies Home Medications Medication Instructions Recorded Confirmed Type Gabapentin [Neurontin] 200 mg PO TID 05/20/18 01/29/21 History Cyclobenzaprine [Flexeril] 10 mg PO HS PRN 06/09/18 01/29/21 History Aspirin 325 mg PO DAILY 06/27/19 01/29/21 History Cholecalciferol [Vitamin D3 (25 2,000 unit PO DAILY 09/02/19 01/29/21 History Mcg = 1000 Iu)] hydrOXYzine HCL 25 mg PO HS PRN 01/05/20 01/29/21 History Turmeric Root Extract [Turmeric] 500 mg PO DAILY 04/03/20 01/29/21 History Ondansetron [Zofran ODT] 4 mg PO Q4H PRN 05/31/20 01/29/21 History Cider Vinegar [Apple Cider Vinegar] 300 mg PO DAILY 11/13/20 01/29/21 History Cyanocobalamin (Vitamin B-12) 1,000 mcg PO DAILY 11/13/20 01/29/21 History [Vitamin B-12] Dicyclomine [Bentyl] 10 mg PO TID PRN 11/13/20 01/29/21 History Lactulose [Constulose] 10 gm PO DAILY 11/13/20 01/29/21 History Albuterol Sulfate [Proair Hfa] 1 - 2 puff INHALATION Q4H PRN #1 12/01/20 01/29/21 Rx inhaler Allergies Allergy/AdvReac Type Severity Reaction Status Date / Time flecainide Allergy SEVERE Verified 01/29/21 16:09 HEADACHE Penicillins Allergy Anaphylaxis Verified 01/29/21 16:09 adhesive tape AdvReac Rash/Hives Verified 01/29/21 16:09 azithromycin AdvReac Abdominal Verified 01/29/21 16:09 [From Zithromax Z-Salinas] Pain codeine AdvReac Nausea & Verified 01/29/21 16:09 Vomiting Exam Vital Signs Temp Pulse Resp BP Pulse Ox 01/29/21 16:14 98.3 F 74 12 113/80 99 Intake and Output 01/29/21 01/29/21 01/29/21 06:59 14:59 22:59 Other: Weight 58.513 kg Height 5 feet 4 inches, weight 126 pounds, BMI 22.1. This is a well-developed well-nourished white female who is alert and oriented times 3 in no acute distress. HEENT: Within normal limits. CHEST AND LUNGS: Clear to auscultation. HEART: Regular rate and rhythm. BACK: Negative for CVA tenderness. ABDOMEN: Soft, mild low abdominal tenderness without rebound tenderness. There is no upper abdominal tenderness. There are no palpable masses. The abdomen is nondistended. There are 2+ bowel sounds. PELVIC EXAM: Normal external genitalia with minimal atrophy. Cervix and vagina appear normal minimal atrophy. There is no unusual discharge. There is mild cervical motion tenderness. Is mild to moderate uterine tenderness and mild to moderate bilateral adnexal tenderness. There is no evidence of prolapse. The uterus is midposition, nongravid size. There are no palpable adnexal masses. RECTAL EXAM: Rectovaginal exam is negative for mass or tenderness and is negative for occult blood. EXTREMITIES: Nontender. IMPRESSION: 1. 51-year-old menopausal female with 2 year history of chronic low abdominal and pelvic pain with generalized pelvic and lower abdominal tenderness without palpable mass. She did have a pelvic ultrasound which showed a 4.7 cm right fundal fibroid in 2019, however more recent studies including pelvic ultrasounds and CT scans did not show any significant uterine fibroid or adnexal masses. Differential diagnosis will include pelvic adhesions, inguinal hernia, chronic pelvic inflammatory processes, GI pain, and psychogenic pain PLAN: 1. GC and chlamydia testing from the cervix has been obtained. 2. She will be referred back to Dr. Lainez who saw her about one year ago for similar pains to see if he would be willing to perform a laparoscopic examination to help to narrow down the possible causes for her pains. Other options would be to be evaluated at the chronic pain center. 3. The patient understands that I do not perform surgery and this limits my ability to evaluate her problem. Total time spent with the patient 35 minutes.
== END ==
LOC: WWCWWP 16:03
PROVIDERS: ATTEND Obstetrics & Gynecology
DX: R10.30 Lower abdominal pain, unspecified (principal); R10.2 Pelvic and perineal pain; G89.29 Other chronic pain; M19.90 Unspecified osteoarthritis, unspecified site; F41.9 Anxiety disorder, unspecified; F32.9 Major depressive disorder, single episode, unspecified; Z87.891 Personal history of nicotine dependence; Z88.0 Allergy status to penicillin; Z88.1 Allergy status to other antibiotic agents; Z88.5 Allergy status to narcotic agent; Z91.048 Other nonmedicinal substance allergy status
CPT/HCPCS: 87491; 87591

== ENCOUNTER 2021-03-21 23:55 | Emergency (ER) | payer BC ==
[2021-03-22 00:10] VITALS: BP 113/78; PULSE 79; RESP 22; TEMP 97.8
--- NOTE | 2021-03-22 00:48 | XR ---
EXAMINATION TYPE: XR chest 1V portable DATE OF EXAM: 03/22/2021 COMPARISON: 11/23/2020 HISTORY: Chest pain TECHNIQUE: FINDINGS: Heart and mediastinum are normal. Lungs are clear. Diaphragm is normal. Bony thorax is inta ct. IMPRESSION: Normal chest. Normal heart. No change.
[2021-03-22] MEDS ORDERED: predniSONE 20 MG TAB PO STA (03:38)
--- NOTE | 2021-03-22 03:39 | ED ---
General Adult HPI - General Chief complaint: Arrhythmia/Palpitations Stated complaint: Chest pain, back pain Time Seen by Provider: 03/22/21 01:59 Source: patient Mode of arrival: ambulatory Limitations: no limitations - Related Data Home Medications Medication Instructions Recorded Confirmed Gabapentin [Neurontin] 200 mg PO TID 05/20/18 01/29/21 Cyclobenzaprine [Flexeril] 10 mg PO HS PRN 06/09/18 01/29/21 Aspirin 325 mg PO DAILY 06/27/19 01/29/21 Cholecalciferol [Vitamin D3 (25 2,000 unit PO DAILY 09/02/19 01/29/21 Mcg = 1000 Iu)] hydrOXYzine HCL 25 mg PO HS PRN 01/05/20 01/29/21 Turmeric Root Extract [Turmeric] 500 mg PO DAILY 04/03/20 01/29/21 Ondansetron [Zofran ODT] 4 mg PO Q4H PRN 05/31/20 01/29/21 Cider Vinegar [Apple Cider Vinegar] 300 mg PO DAILY 11/13/20 01/29/21 Cyanocobalamin (Vitamin B-12) 1,000 mcg PO DAILY 11/13/20 01/29/21 [Vitamin B-12] Dicyclomine [Bentyl] 10 mg PO TID PRN 11/13/20 01/29/21 Lactulose [Constulose] 10 gm PO DAILY 11/13/20 01/29/21 Previous Rx's Medication Instructions Recorded Albuterol Sulfate [Proair Hfa] 1 - 2 puff INHALATION Q4H PRN #1 12/01/20 inhaler predniSONE [Deltasone] 20 mg PO BID #8 tab 03/22/21 Allergies Allergy/AdvReac Type Severity Reaction Status Date / Time flecainide Allergy SEVERE Verified 03/22/21 00:10 HEADACHE Penicillins Allergy Anaphylaxis Verified 03/22/21 00:10 adhesive tape AdvReac Rash/Hives Verified 03/22/21 00:10 azithromycin AdvReac Abdominal Verified 03/22/21 00:10 [From Zithromax Z-Salinas] Pain codeine AdvReac Nausea & Verified 03/22/21 00:10 Vomiting Review of Systems ROS Statement: Those systems with pertinent positive or pertinent negative responses have been documented in the HPI. ROS Other: All systems not noted in ROS Statement are negative. Past Medical History Past Medical History: GERD/Reflux, Osteoarthritis (OA), Supraventricular Tachycardia (SVT) Additional Past Medical History / Comment(s): WPW syndrome improved following cardiac ablation, SVT, hiatal hernia, gastritis, palpitations; Cervical spinal stenosis. Thyroid nodule. MIGRAINE HEACHES, CHRONIC BACK PAIN. 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 History of Any Multi-Drug Resistant Organisms: None Reported Past Surgical History: Breast Surgery, Cardiac Ablation, Ear Surgery Additional Past Surgical History / Comment(s): exp. laparoscopy; groin cyst removed, wisdom teeth removed; colonoscopy 10/2020, myringotomy & tubes, pain procedures. Upper GI endoscopy 2020,LEFT BREAST BIOPSY. Past Anesthesia/Blood Transfusion Reactions: Family History of Problems w/ Anesthesia Additional Past Anesthesia/Blood Transfusion Reaction / Comment(s): mother has a hard time waking up from anesthesia Past Psychological History: Anxiety, Depression Smoking Status: Former smoker Past Alcohol Use History: None Reported Past Drug Use History: None Reported - Past Family History Mother Family Medical History: COPD Father Family Medical History: Cancer Additional Family Medical History / Comment(s): Melanoma skin cancer. Aunts Family Medical History: Cancer Additional Family Medical History / Comment(s): A paternal aunt had ovarian ca ncer, a maternal aunt had uterine cancer and another maternal aunt had bladder cancer. General Exam Limitations: no limitations Course Vital Signs 03/22/21 00:05 Temperature 97.8 F Pulse Rate 79 Respiratory 22 Rate Blood Pressure 113/78 O2 Sat by Pulse 100 Oximetry Medical Decision Making - Lab Data Lab Results 03/22/21 03/22/21 Range/Units 00:11 03:00 Coronavirus (PCR) Not Detected (Not Detectd) Influenza Type A RNA Not Detected (Not Detectd) Influenza Type B (PCR) Not Detected (Not Detectd) Disposition Clinical Impression: Bronchitis Disposition: HOME SELF-CARE Condition: Good Instructions (If sedation given, give patient instructions): Acute Bronchitis (ED) Prescriptions: predniSONE [Deltasone] 20 mg PO BID #8 tab Is patient prescribed a controlled substance at d/c from ED?: No Referrals: Cortez Paulino DO [Primary Care Provider] - 1-2 days
== END 2021-03-22 03:41 | disposition home or self-care (01) ==
LOC: EC 23:55
DX: J40 Bronchitis, not specified as acute or chronic (principal); M19.90 Unspecified osteoarthritis, unspecified site; G43.909 Migraine, unspecified, not intractable, without status migrainosus; F41.9 Anxiety disorder, unspecified; F32.A Depression, unspecified; Z87.891 Personal history of nicotine dependence; Z79.82 Long term (current) use of aspirin
CPT/HCPCS: 71045; 87502; 87635; 93005

== ENCOUNTER → 2021-06-28 | Outpatient (CLI) | payer BC ==
--- NOTE | 2021-06-28 14:58 | XR ---
EXAMINATION TYPE: XR thoracic spine 2V DATE OF EXAM: 06/28/2021 CLINICAL HISTORY: pain TECHNIQUE: Frontal, lateral, and swimmer's view of thoracic spine are obtained. COMPARISON: None. FINDINGS: Thoracic spine show satisfactory alignment without evidence of acute fracture or dislocatio n. Vertebral body heights are preserved. Multilevel degenerative disc space narrowing mild in degree . Visualized ribs are unremarkable. IMPRESSION: No acute fracture or dislocation is seen in the thoracic spine. ICD 10 NO FRACTURE, INIT IAL EVALUATION
== END | disposition home or self-care (01) ==
LOC: RADXRMAIN 14:21
PROVIDERS: ATTEND Nurse Practitioner Family
DX: M54.14 Radiculopathy, thoracic region (principal)
CPT/HCPCS: 72070

== ENCOUNTER 2021-07-21 20:03 | Emergency (ER) | payer BC ==
--- NOTE | 2021-07-21 21:29 | XR ---
EXAMINATION TYPE: XR chest 2V DATE OF EXAM: 07/21/2021 9:23 PM COMPARISON:Chest radiographs from 03/22/2021. TECHNIQUE: XR chest 2V Frontal and lateral views of the chest. CLINICAL INDICATION:Female, 51 years old with history of Chest Pain; FINDINGS: Lungs/Pleura: There is no evidence of pleural effusion, focal consolidation, or pneumothorax. Pulmonary vascularity: Unremarkable. Heart/mediastinum: Cardiomediastinal silhouette is unremarkable. Musculoskeletal: No acute osseous pathology. IMPRESSION: No acute cardiopulmonary disease/process.
[2021-07-21] MEDS ORDERED: ONDANSETRON 4 MG/2 ML VIAL IVP STA (21:31)
[2021-07-21] MEDS ORDERED: MORPHINE SULFATE 4 MG/ML SYRINGE IVP STA (21:33)
[2021-07-21 21:41] LABS: Basophils # (A) 0.1 k/uL (0-0.2); Basophils % (A) 1 %; Eosinophils # (A) 0.1 k/uL (0-0.7); Eosinophils % (A) 2 %; HCT 46.4 % (34.0-46.0); HGB 15.4 gm/dL (11.4-16.0); Lymphocytes # (A) 2.9 k/uL (1.0-4.8); Lymphocytes % (A) 39 %; MCH 32.8 pg (25.0-35.0); MCHC 33.2 g/dL (31.0-37.0); MCV 98.9 fL (80.0-100.0); Monocytes # (A) 0.4 k/uL (0-1.0); Monocytes % (A) 5 %; Neutrophils # (A) 3.9 k/uL (1.3-7.7); Neutrophils % (A) 52 %; Platelet Count 235 k/uL (150-450); RDW 11.6 % (11.5-15.5); WBC 7.6 k/uL (3.8-10.6)
[2021-07-21 21:50] VITALS: RESP 18
[2021-07-21 21:54] LABS: Partial Thromboplastin Time 26.6 sec (22.0-30.0); Prothrombin Time 10.8 sec (9.0-12.0)
[2021-07-21 22:12] LABS: ALT 30 U/L (4-34); AST 31 U/L (14-36); African American GFR (CKD) >90 (>60 ml/min/1.73 sqM); Albumin 4.4 g/dL (3.5-5.0); Alkaline Phosphatase 64 U/L (38-126); Anion Gap 6 mmol/L; Blood Urea Nitrogen 23 mg/dL (7-17); Calcium 9.5 mg/dL (8.4-10.2); Carbon Dioxide 25 mmol/L (22-30); Chloride 106 mmol/L (98-107); Glucose 82 mg/dL (74-99); Lipase 93 U/L (23-300); Magnesium 2.2 mg/dL (1.6-2.3); Non-African American GFR(CKD) >90 (>60 ml/min/1.73 sqM); Potassium 3.8 mmol/L (3.5-5.1); Sodium 137 mmol/L (137-145); Total Bilirubin 0.5 mg/dL (0.2-1.3)
--- NOTE | 2021-07-21 22:30 | ED ---
General Adult HPI - General Chief complaint: Back Pain/Injury Stated complaint: Back Pain,N/V,In Quicker Appt Time Seen by Provider: 07/21/21 21:04 Source: patient Mode of arrival: wheelchair - History of Present Illness Initial comments: This 51-year-old female with a past medical history of GERD, osteoarthritis and Sanht-Uksgxmjho-Jzxng syndrome presents emergency Department with right upper back pain radiating to right shoulder that began around 1:00 PM. Patient states she noticed a dull aching pain in the right side of her upper back around 1:00 PM which is slowly increased in pain throughout the day. She denies any heavy lifting, twisting or bending that could have caused this pain began. Patient states she does have some pain with deep inspiration to her right side of mid upper back. Patient states she did try to apply heating pad along with taking Tylenol which minimally relieved the pain. Patient states that back pain is worse with palpation, moving right arm laterally or anteriorly, and lying flat. Patient describes the pain as sharp in nature. Patient states she does often feel the area spasm. Patient states she does also has some nausea but denies any vomiting or fever. Patient denies any chest pain, shortness of breath, abdominal pain, headache, lightheadedness, dizziness, change in vision, change in bowel or bladder, low back pain, saddle anesthesia, bowel or bladder retention/incontinence - Related Data Home Medications Medication Instructions Recorded Confirmed Gabapentin [Neurontin] 200 mg PO TID 05/20/18 01/29/21 Cyclobenzaprine [Flexeril] 10 mg PO HS PRN 06/09/18 01/29/21 Aspirin 325 mg PO DAILY 06/27/19 01/29/21 Cholecalciferol [Vitamin D3 (25 2,000 unit PO DAILY 09/02/19 01/29/21 Mcg = 1000 Iu)] hydrOXYzine HCL 25 mg PO HS PRN 01/05/20 01/29/21 Turmeric Root Extract [Turmeric] 500 mg PO DAILY 04/03/20 01/29/21 Ondansetron [Zofran ODT] 4 mg PO Q4H PRN 05/31/20 01/29/21 Cider Vinegar [Apple Cider Vinegar] 300 mg PO DAILY 11/13/20 01/29/21 Cyanocobalamin (Vitamin B-12) 1,000 mcg PO DAILY 11/13/20 01/29/21 [Vitamin B-12] Dicyclomine [Bentyl] 10 mg PO TID PRN 11/13/20 01/29/21 Lactulose [Constulose] 10 gm PO DAILY 11/13/20 01/29/21 Previous Rx's Medication Instructions Recorded Albuterol Sulfate [Proair Hfa] 1 - 2 puff INHALATION Q4H PRN #1 12/01/20 inhaler predniSONE [Deltasone] 20 mg PO BID #8 tab 03/22/21 Cyclobenzaprine [Flexeril] 10 mg PO BID #14 tab 07/21/21 Ketorolac [Toradol] 10 mg PO TID #15 tab 07/21/21 Allergies Allergy/AdvReac Type Severity Reaction Status Date / Time flecainide Allergy SEVERE Verified 07/21/21 20:23 HEADACHE Penicillins Allergy Anaphylaxis Verified 07/21/21 20:23 adhesive tape AdvReac Rash/Hives Verified 07/21/21 20:23 azithromycin AdvReac Abdominal Verified 07/21/21 20:23 [From Zithromax Z-Salinas] Pain codeine AdvReac Nausea & Verified 07/21/21 20:23 Vomiting Review of Systems ROS Statement: Those systems with pertinent positive or pertinent negative responses have been documented in the HPI. ROS Other: All systems not noted in ROS Statement are negative. Past Medical History Past Medical History: GERD/Reflux, Osteoarthritis (OA), Supraventricular Tachycardia (SVT) Additional Past Medical History / Comment(s): WPW syndrome improved following cardiac ablation, SVT, hiatal hernia, gastritis, palpitations; Cervical spinal stenosis. Thyroid nodule. MIGRAINE HEACHES, CHRONIC BACK PAIN. 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 History of Any Multi-Drug Resistant Organisms: None Reported Past Surgical History: Breast Surgery, Cardiac Ablation, Ear Surgery Additional Past Surgical History / Comment(s): exp. laparoscopy; groin cyst removed, wisdom teeth removed; colonoscopy 10/2020, myringotomy & tubes, pain procedures. Upper GI endoscopy 2020,LEFT BREAST BIOPSY. Past Anesthesia/Blood Transfusion Reactions: Family History of Problems w/ Anesthesia Additional Past Anesthesia/Blood Transfusion Reaction / Comment(s): mother has a hard time waking up from anesthesia Past Psychological History: Anxiety, Depression Smoking Status: Former smoker Past Alcohol Use History: None Reported Past Drug Use History: None Reported - Past Family History Mother Family Medical History: COPD Father Family Medical History: Cancer Additional Family Medical History / Comment(s): Melanoma skin cancer. Aunts Family Medical History: Cancer Additional Family Medical History / Comment(s): A paternal aunt had ovarian cancer, a maternal aunt had uterine cancer and another maternal aunt had bladder cancer. General Exam General appearance: alert, in no apparent distress Head exam: Present: atraumatic, normocephalic, normal inspection Eye exam: Present: normal appearance, PERRL, EOMI. Absent: scleral icterus, conjunctival injection, periorbital swelling ENT exam: Present: normal exam, mucous membranes moist Respiratory exam: Present: normal lung sounds bilaterally. Absent: respiratory distress, wheezes, rales, rhonchi, stridor, chest wall tenderness Cardiovascular Exam: Present: regular rate, normal rhythm, normal heart sounds. Absent: systolic murmur, diastolic murmur, rubs, gallop, clicks GI/Abdominal exam: Present: soft, normal bowel sounds. Absent: distended, tenderness, guarding, rebound, rigid Extremities exam: Present: normal inspection, full ROM, normal capillary refill. Absent: tenderness, pedal edema, joint swelling, calf tenderness Back exam: Present: normal inspection, full ROM, paraspinal tenderness (Patient with right proximal thoracic paraspinal tenderness to palpation over right scapula. No swelling, erythema or warmth over right shoulder. No vertebral tenderness to cervical, thoracic or lumbar vertebrae.). Absent: CVA tenderness (R), CVA tenderness (L), vertebral tenderness Neurological exam: Present: alert, oriented X3, CN II-XII intact Psychiatric exam: Present: normal affect, normal mood Skin exam: Present: warm, dry, intact, normal color. Absent: rash Course Vital Signs 07/21/21 07/21/21 07/21/21 20:20 21:49 23:17 Temperature 98.3 F Pulse Rate 100 87 72 Respiratory 14 18 18 Rate Blood Pressure 147/83 100/64 111/68 O2 Sat by Pulse 100 97 97 Oximetry EKG Findings - EKG Comments: EKG Findings:: EKG impression: Ventricular rate 77 bpm. [place] interval 113. Dressed duration 89. QT/QTC 376/408. Interpreted by my attending, Medical Decision Making - Medical Decision Making This 51-year-old female presents emergency Department with proximal paraspinal thoracic right-sided tenderness to palpation over right trapezius muscle with sporadic muscle spasms. Labs unremarkable. CT chest in prison for PE impression no evidence of pulmonary embolism. Minimal chronic lingula infiltrate without change compared to old exam consistent with scarring. Normal heart. No pericardial effusion. No pleural effusion. There is no aneurysm or dissection. Chest x-ray impression: No acute cardiopulmonary disease/process. After receiving fluids and morphine, patient states her pain has significantly decreased from 10/10 to 5/10. Patient was given Toradol, Flexeril and lidocaine patch was applied. Patient's pain decreased further to 3/10 prior to discharge. Toradol and Flexeril prescription given to patient. Patient was instructed not to use Motrin, Aleve, naproxen or any NSAIDs while using Toradol. Patient instructed to remove lidocaine patch in 12 hours. Strict return precautions were discussed. Patient instructed to follow up with her primary care provider next 24-48 hours. Patient verbally agree to plan. Patient sent home in stable condition. Case discussed in with detail my attending, . - Lab Data Result diagrams: 07/21/21 21:20 07/21/21 21:20 Lab Results 07/21/21 07/21/21 07/21/21 Range/Units 21:20 21:20 21:20 WBC 7.6 (3.8-10.6) k/uL RBC 4.70 (3.80-5.40) m/uL Hgb 15.4 (11.4-16.0) gm/dL Hct 46.4 H (34.0-46.0) % MCV 98.9 (80.0-100.0) fL MCH 32.8 (25.0-35.0) pg MCHC 33.2 (31.0-37.0) g/dL RDW 11.6 (11.5-15.5) % Plt Count 235 (150-450) k/uL MPV 8.0 Neutrophils % 52 % Lymphocytes % 39 % Monocytes % 5 % Eosinophils % 2 % Basophils % 1 % Neutrophils # 3.9 (1.3-7.7) k/uL Lymphocytes # 2.9 (1.0-4.8) k/uL Monocytes # 0.4 (0-1.0) k/uL Eosinophils # 0.1 (0-0.7) k/uL Basophils # 0.1 (0-0.2) k/uL PT 10.8 (9.0-12.0) sec INR 1.0 (<1.2) APTT 26.6 (22.0-30.0) sec D-Dimer <0.17 (<0.60) mg/L FEU Sodium 137 (137-145) mmol/L Potassium 3.8 (3.5-5.1) mmol/L Chloride 106 (98-107) mmol/L Carbon Dioxide 25 (22-30) mmol/L Anion Gap 6 mmol/L BUN 23 H (7-17) mg/dL Creatinine 0.68 (0.52-1.04) mg/dL Est GFR (CKD-EPI)AfAm >90 (>60 ml/min/1.73 sqM) Est GFR (CKD-EPI)NonAf >90 (>60 ml/min/1.73 sqM) Glucose 82 (74-99) mg/dL Calcium 9.5 (8.4-10.2) mg/dL Magnesium 2.2 (1.6-2.3) mg/dL Total Bilirubin 0.5 (0.2-1.3) mg/dL AST 31 (14-36) U/L ALT 30 (4-34) U/L Alkaline Phosphatase 64 (38-126) U/L Troponin I (0.000-0.034) ng/mL Total Protein 7.0 (6.3-8.2) g/dL Albumin 4.4 (3.5-5.0) g/dL Lipase 93 (23-300) U/L 07/21/21 Range/Units 21:20 WBC (3.8-10.6) k/uL RBC (3.80-5.40) m/uL Hgb (11.4-16.0) gm/dL Hct (34.0-46.0) % MCV (80.0-100.0) fL MCH (25.0-35.0) pg MCHC (31.0-37.0) g/dL RDW (11.5-15.5) % Plt Count (150-450) k/uL MPV Neutrophils % % Lymphocytes % % Monocytes % % Eosinophils % % Basophils % % Neutrophils # (1.3-7.7) k/uL Lymphocytes # (1.0-4.8) k/uL Monocytes # (0-1.0) k/uL Eosinophils # (0-0.7) k/uL Basophils # (0-0.2) k/uL PT (9.0-12.0) sec INR (<1.2) APTT (22.0-30.0) sec D-Dimer (<0.60) mg/L FEU Sodium (137-145) mmol/L Potassium (3.5-5.1) mmol/L Chloride (98-107) mmol/L Carbon Dioxide (22-30) mmol/L Anion Gap mmol/L BUN (7-17) mg/dL Creatinine (0.52-1.04) mg/dL Est GFR (CKD-EPI)AfAm (>60 ml/min/1.73 sqM) Est GFR (CKD-EPI)NonAf (>60 ml/min/1.73 sqM) Glucose (74-99) mg/dL Calcium (8.4-10.2) mg/dL Magnesium (1.6-2.3) mg/dL Total Bilirubin (0.2-1.3) mg/dL AST (14-36) U/L ALT (4-34) U/L Alkaline Phosphatase (38-126) U/L Troponin I <0.012 (0.000-0.034) ng/mL Total Protein (6.3-8.2) g/dL Albumin (3.5-5.0) g/dL Lipase (23-300) U/L Disposition Clinical Impression: Muscle strain of right upper back, Spasm of thoracic back muscle Disposition: HOME SELF-CARE Condition: Stable Instructions (If sedation given, give patient instructions): Muscle Strain (ED), Musculoskeletal Pain (ED), Muscle Spasm (ED) Additional Instructions: Follow-up with your primary care provider next 1-2 days. Return to the emergency department with any new, worsening or concerning symptoms. The Toradol and baclofen as directed. Do not take Motrin, Aleve or any NSAID medication while taking Toradol. Remove lidocaine patch in 12 hours. Prescriptions: Cyclobenzaprine [Flexeril] 10 mg PO BID #14 tab Ketorolac [Toradol] 10 mg PO TID #15 tab Is patient prescribed a controlled substance at d/c from ED?: No Referrals: Cortez Paulino DO [Primary Care Provider] - 1-2 days Time of Disposition: 23:34
--- NOTE | 2021-07-21 22:37 | CT ---
EXAMINATION TYPE: CT chest angio for PE DATE OF EXAM: 07/21/2021 COMPARISON: 12/01/2020 HISTORY: Chest and back pain. CT DLP: 245.8 mGycm Automated exposure control for dose reduction was used. CONTRAST: Performed with IV Contrast, patient injected with 60ml mL of Isovue 370. There are Three-D postprocessed images. There is a mild infiltrate in the lingula left upper lobe. Heart size is normal. There is no pericard ial effusion. There is no pleural effusion. There are no hilar masses. There is no mediastinal adenopathy. Thoracic aorta is intact. There is no aneurysm or dissection. There is normal contrast opacification of the pulmonary arteries. No filling defect. The thoracic spi ne is intact. Sternum is intact. IMPRESSION: No evidence of pulmonary embolism. There is some minimal chronic lingula infiltrate without change compared to old exam and consistent w ith scarring. Normal heart
[2021-07-21] MEDS ORDERED: CYCLOBENZAPRINE 5 MG TAB PO STA (22:59)
[2021-07-21] MEDS ORDERED: LIDOCAINE 5% PATCH TOPICAL SCH (23:00)
[2021-07-21] MEDS ORDERED: KETOROLAC 15 MG/ML 1 ML VIAL IVP STA (23:15)
[2021-07-22 00:19] VITALS: BP 112/78; PULSE 76; TEMP 98.2
== END 2021-07-22 00:18 | disposition home or self-care (01) ==
LOC: EC 20:03
DX: S29.012A Strain of muscle and tendon of back wall of thorax, initial encounter (principal); M62.830 Muscle spasm of back; K21.9 Gastro-esophageal reflux disease without esophagitis; M19.90 Unspecified osteoarthritis, unspecified site; F32.A Depression, unspecified; F41.9 Anxiety disorder, unspecified; Z87.891 Personal history of nicotine dependence; Z79.51 Long term (current) use of inhaled steroids; Z79.52 Long term (current) use of systemic steroids; Z79.82 Long term (current) use of aspirin; Z79.899 Other long term (current) drug therapy; X58.XXXA Exposure to other specified factors, initial encounter
CPT/HCPCS: 36415; 93005; 85379; 80053; 83690; 83735; 84484; 85025; 85610; 85730; 71046; 71275; 99284; 96374; 96375 ×2; J2270; J2405; J1885; Q9967

== ENCOUNTER → 2021-08-23 | Outpatient (CLI) | payer BC ==
--- NOTE | 2021-08-23 14:12 | US ---
EXAMINATION TYPE: US thyroid st tissue head/neck DATE OF EXAM: 08/23/2021 COMPARISON: NONE CLINICAL HISTORY: E04.1 THYROID NODULE. f/u exam GLAND SIZE: Right Lobe: 4.5 x 1.4 x 1.3 cm Overall Parenchyma: heterogenous Left Lobe: 4.3 x 1.5 x 1.1 cm Overall Parenchyma: heterogeneous Isthmus Thickness: 0.2 cm NODULES RIGHT: # of nodules measured on right: 1 1. 0.7 X 0.5 x 0.7 cm, mid , solid or almost completely solid, hyperechoic nodule, which is taller than wide, with smooth margins, with echogenic foci. Prior size: 0.6 x 0.5 x 0.6 cm LEFT: # of nodules measured on left: 2 1. 0.7 X 0.8 x 0.4 cm, mid, solid or almost completely solid, hypoechoic nodule, which is wider bonnie n tall, with smooth margins, without echogenic foci. Prior size: 0.6 x 0.3 x 0.4 cm 2. 0.6 X 0.5 x 0.5 cm, upper , solid or almost completely solid, hypoechoic nodule, which is wider than tall, with smooth margins, without echogenic foci. Prior size: 0.8 x 0.5 x 0.4 cm ISTHMUS: # of nodules measured in the isthmus: 0 Bilateral neck scanned, no evidence of lymphadenopathy. IMPRESSION: Nonspecific subcentimeter nodularity is stable.
== END | disposition home or self-care (01) ==
LOC: RADUSWWP 13:06
PROVIDERS: ATTEND Otolaryngology
DX: E04.2 Nontoxic multinodular goiter (principal)
CPT/HCPCS: 76536

== ENCOUNTER → 2021-08-27 | Outpatient (CLI) | payer BC ==
[2021-08-27 14:59] VITALS: BP 137/77; PULSE 92; RESP 17; TEMP 97.6
--- NOTE | 2021-08-27 16:10 | P.HPOB ---
History of Present Illness H&P Date: 08/27/21 Chief Complaint: The patient is here for her routine gynecologic exam. This is a 51-year-old with an LMP of 2018. The patient has noticed a nodular area in the right breast in the outer aspect. She is uncertain if there is a mass or if this is a normal breast tissue. At times she can feel a corn kernel size hard area, but does not always feel it. She does have frequent mild breast tenderness on both sides. She is otherwise without complaints. She has had a significant improvement in hot flashes and hot flashes are now rare. She was previously seen for chronic pelvic pains which she states has significantly improved. She has also noticed an improvement in her GI symptoms. This is followed changes in her diet and increase is in her fiber intake. Last year I had referred her to [facility] for evaluation of her chronic pelvic pain, but was later told by their office that they did not have openings for her. Since her symptoms have improved, she is no longer looking for a referral for this. Review of Systems The patient's weight has been stable over the last year. She denies respiratory, cardiac, or G.I. problems. Past Medical History Past Medical History: GERD/Reflux, Osteoarthritis (OA), Supraventricular Tachycardia (SVT) Additional Past Medical History / Comment(s): WPW syndrome improved following cardiac ablation, SVT, hiatal hernia, gastritis, palpitations; Cervical spinal stenosis. Thyroid nodule. MIGRAINE HEACHES, CHRONIC BACK PAIN. 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 Right Uterine fundal fibroid measuring 4.7 cm (2019 U/S). History of Any Multi-Drug Resistant Organisms: None Reported Past Surgical History: Breast Surgery, Cardiac Ablation, Ear Surgery Additional Past Surgical History / Comment(s): exp. laparoscopy; groin cyst removed, wisdom teeth removed; colonoscopy 10/2020, myringotomy & tubes, pain procedures. Upper GI endoscopy 2020,LEFT BREAST BIOPSY. Past Anesthesia/Blood Transfusion Reactions: Family History of Problems w/ Anesthesia Additional Past Anesthesia/Blood Transfusion Reaction / Comment(s): mother has a hard time waking up from anesthesia Past Psychological History: Anxiety, Depression Additional Psychological History / Comment(s): Brief depression around 2007 treated with Prozac. Smoking Status: Former smoker Past Alcohol Use History: None Reported Additional Past Alcohol Use History / Comment(s): started smoking around the age of 17 on and off until the age of 45 SMOKED 8 CIG A DAY Past Drug Use History: None Reported Additional History: She is single and is not sexually active at this time. 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 She is considering moving to [place] in the near future. - Past Family History Mother Family Medical History: AFIB, COPD Father Family Medical History: Cancer Additional Family Medical History / Comment(s): Melanoma skin cancer. Aunts Family Medical History: Cancer Additional Family Medical History / Comment(s): A paternal aunt had ovarian cancer, a maternal aunt had uterine cancer and another maternal aunt had bladder cancer. Medications and Allergies Home Medications Medication Instructions Recorded Confirmed Type Gabapentin [Neurontin] 200 mg PO TID 05/20/18 08/27/21 History Cyclobenzaprine [Flexeril] 10 mg PO HS PRN 06/09/18 08/27/21 History Aspirin 325 mg PO DAILY 06/27/19 08/27/21 History Cholecalciferol [Vitamin D3 (25 2,000 unit PO DAILY 09/02/19 08/27/21 History Mcg = 1000 Iu)] hydrOXYzine HCL 25 mg PO HS PRN 01/05/20 08/27/21 History Turmeric Root Extract [Turmeric] 500 mg PO DAILY 04/03/20 08/27/21 History Ondansetron [Zofran ODT] 4 mg PO Q4H PRN 05/31/20 08/27/21 History Cider Vinegar [Apple Cider Vinegar] 300 mg PO DAILY 11/13/20 08/27/21 History Cyanocobalamin (Vitamin B-12) 1,000 mcg PO DAILY 11/13/20 08/27/21 History [Vitamin B-12] Cyclobenzaprine [Flexeril] 10 mg PO BID #14 tab 07/21/21 Rx Ketorolac [Toradol] 10 mg PO TID #15 tab 07/21/21 08/27/21 Rx Allergies Allergy/AdvReac Type Severity Reaction Status Date / Time flecainide Allergy SEVERE Verified 08/27/21 14:53 HEADACHE Penicillins Allergy Anaphylaxis Verified 08/27/21 14:53 adhesive tape AdvReac Rash/Hives Verified 08/27/21 14:53 azithromycin AdvReac Abdominal Verified 08/27/21 14:53 [From Zithromax Z-Salinas] Pain codeine AdvReac Nausea & Verified 08/27/21 14:53 Vomiting Exam Vital Signs Temp Pulse Resp BP Pulse Ox 08/27/21 14:57 97.6 F 92 17 137/77 98 Intake and Output 08/27/21 08/27/21 08/27/21 06:59 14:59 22:59 Other: Weight 58.06 kg Height 5 feet 4 inches, weight 128 pounds, BMI 22.0. This is a well-developed well-nourished white female who is alert and oriented times 3 in no acute distress. HEENT: Within normal limits. NECK: Supple without mass or thyromegaly. CHEST AND LUNGS: Clear to auscultation. HEART: Regular rate and rhythm. BREASTS: Are without mass or discharge. There is mild bilateral breast t enderness. The patient states she has had some breast tenderness for many years. AXILLARY EXAM: Negative for adenopathy. BACK: Negative for CVA tenderness. ABDOMEN: Soft, nontender, without palpable masses. PELVIC EXAM: Normal external genitalia with mild atrophy. Cervix and vagina appear normal with mild atrophy. There is no unusual discharge. There is no evidence of prolapse. The uterus is midposition, multiparous nongravid size. There is a generalized minimal pelvic tenderness. This is less than her exam from last year. There are no palpable adnexal masses. RECTAL EXAM: Rectovaginal exam is negative for mass or tenderness and is negative for occult blood. EXTREMITIES: Nontender. IMPRESSION: 1. 51-year-old menopausal female with history of chronic pelvic pain which has significantly improved. Cause for this pelvic pain is still undetermined. This may be related to her uterine fibroid which was seen on 12/07/2018 ultrasound, but her pain has improved with time with no specific treatment. 2. Mild bilateral breast tenderness with no palpable mass on exam today. PLAN: 1. Pap smear was deferred since she had a negative Pap smear cotest on 07/03/2020. 2. Self breast awareness was discussed with the patient. We have also discussed symptoms associated with inflammatory breast cancer. 3. Screening mammogram will be due later this month. The order slip was given to the patient for this. 4. Osteoporosis prevention was discussed. I have stressed the importance of adequate calcium, vitamin D and regular exercise. Recommended amounts of calcium and vitamin D were also discussed. We will consider doing bone density testing at age 54 because of her mother's history of osteoporosis. 5. She has not had a Covid vaccination but did have Covid in 2020. She underst ands the CDC recommendations vaccination. She will consider this. 6. She was advised to return in one year for her annual well woman exam and as needed.
== END ==
LOC: WWCWWP 14:42
PROVIDERS: ATTEND Obstetrics & Gynecology
DX: Z01.419 Encounter for gynecological examination (general) (routine) without abnormal findings (principal); N64.4 Mastodynia; Z78.0 Asymptomatic menopausal state; M19.90 Unspecified osteoarthritis, unspecified site; G43.909 Migraine, unspecified, not intractable, without status migrainosus; F41.9 Anxiety disorder, unspecified; F32.A Depression, unspecified; Z87.891 Personal history of nicotine dependence; Z88.0 Allergy status to penicillin; Z88.5 Allergy status to narcotic agent; Z88.1 Allergy status to other antibiotic agents

== ENCOUNTER → 2021-09-17 | Outpatient (CLI) | payer BC ==
--- NOTE | 2021-09-18 19:00 | MM ---
Reason for Exam: Screening (asymptomatic). Last screening mammogram was performed 12 month(s) ago. Patient History: Menarche at age 11. First Full-Term at age 17. Postmenopausal. 09/13/2019, Benign Core Biopsy on the left side. Maternal grandmother had breast cancer, age 60. Risk Values: Ayana 5 year model risk: 0.9%. NCI Lifetime model risk: 7.4%. Prior Study Comparison: 08/31/2019 Bilateral Diagnostic Mammogram, [facility]. 03/14/2020 Left Diagnostic Mammogram, [facility]. 09/10/2020 Bilateral Screening Mammogram, [facility]. Tissue Density: The breast tissue is heterogeneously dense. This may lower the sensitivity of mammography. Findings: Analyzed By CAD. There is no suspicious group of microcalcifications or new suspicious mass in either breast. Overall Assessment: Benign, BI-RAD 2 Management: Screening Mammogram of both breasts in 1 year. A clinical breast exam by your physician is recommended on an annual basis and results should be correlated with mammographic findings. Electronically signed and approved by: Tim Love D.O. Radiologis
== END | disposition home or self-care (01) ==
LOC: RADMAMWWP 15:20
PROVIDERS: ATTEND Obstetrics & Gynecology
DX: Z12.31 Encounter for screening mammogram for malignant neoplasm of breast (principal); Z78.0 Asymptomatic menopausal state; Z80.3 Family history of malignant neoplasm of breast
CPT/HCPCS: 77063; 77067

== ENCOUNTER 2021-11-23 23:04 | Emergency (ER) | payer BC ==
[2021-11-23 23:20] VITALS: BP 138/82; PULSE 83; RESP 20; TEMP 97.8
[2021-11-23] MEDS ORDERED: KETOROLAC 15 MG/ML 1 ML VIAL IVP STA (23:43)
[2021-11-23] MEDS ORDERED: SODIUM CHLORIDE 0.9% 1,000 ML IV STA (23:43)
[2021-11-23] MEDS ORDERED: MORPHINE SULFATE 4 MG/ML SYRINGE IV STA (23:43)
[2021-11-23] MEDS ORDERED: ONDANSETRON ODT 8 MG TAB.RAPDIS PO STA (23:43)
[2021-11-23] MEDS ORDERED: PHENAZOPYRIDINE 100 MG TAB PO ONE (23:44)
--- NOTE | 2021-11-24 | ED ---
Female Urogenital HPI - General Chief complaint: Urogenital Stated complaint: lower abdominal pain Time Seen by Provider: 11/23/21 23:27 Source: patient, RN notes reviewed Mode of arrival: ambulatory Limitations: no limitations - History of Present Illness Initial comments: This is a pleasant 51-year-old female presents to the emergency department complaining of left flank pain, shaking chills, nausea, and dysuria. No definitive fever. No headache, no fever or chills, no changes in vision or hearing, no sore throat or difficulty with speech, no neck pain, no chest pain or shortness of breath, POSITIVE left flank pain, no abdominal pain, , no changes in urination or bowel movements, no numbness or tingling, no extremity pain, no skin rashes or lesions. Past medical, surgical, social, and family history reviewed. MD Complaint: dysuria Onset/Timin -: days(s) - Related Data Home Medications Medication Instructions Recorded Confirmed Gabapentin [Neurontin] 200 mg PO TID 05/20/18 08/27/21 Cyclobenzaprine [Flexeril] 10 mg PO HS PRN 06/09/18 08/27/21 Aspirin 325 mg PO DAILY 06/27/19 08/27/21 Cholecalciferol [Vitamin D3 (25 2,000 unit PO DAILY 09/02/19 08/27/21 Mcg = 1000 Iu)] hydrOXYzine HCL 25 mg PO HS PRN 01/05/20 08/27/21 Turmeric Root Extract [Turmeric] 500 mg PO DAILY 04/03/20 08/27/21 Ondansetron [Zofran ODT] 4 mg PO Q4H PRN 05/31/20 08/27/21 Cider Vinegar [Apple Cider Vinegar] 300 mg PO DAILY 11/13/20 08/27/21 Cyanocobalamin (Vitamin B-12) 1,000 mcg PO DAILY 11/13/20 08/27/21 [Vitamin B-12] Previous Rx's Medication Instructions Recorded Cyclobenzaprine [Flexeril] 10 mg PO BID #14 tab 07/21/21 Ketorolac [Toradol] 10 mg PO TID #15 tab 07/21/21 Phenazopyridine HCl [Pyridium] 100 mg PO TID PRN #6 tab 11/24/21 Allergies Allergy/AdvReac Type Severity Reaction Status Date / Time flecainide Allergy SEVERE Verified 11/23/21 23:20 HEADACHE Penicillins Allergy Anaphylaxis Verified 11/23/21 23:20 adhesive tape AdvReac Rash/Hives Verified 11/23/21 23:20 azithromycin AdvReac Abdominal Verified 11/23/21 23:20 [From Zithromax Z-Salinas] Pain codeine AdvReac Nausea & Verified 11/23/21 23:20 Vomiting Review of Systems ROS Statement: Those systems with pertinent positive or pertinent negative responses have been documented in the HPI. ROS Other: All systems not noted in ROS Statement are negative. Past Medical History Past Medical History: GERD/Reflux, Osteoarthritis (OA), Supraventricular Tachycardia (SVT) Additional Past Medical History / Comment(s): WPW syndrome improved following cardiac ablation, SVT, hiatal hernia, gastritis, palpitations; Cervical spinal stenosis. Thyroid nodule. MIGRAINE HEACHES, CHRONIC BACK PAIN. 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 Right Uterine fundal fibroid measuring 4.7 cm (2019 U/S). History of Any Multi-Drug Resistant Organisms: None Reported Past Surgical History: Breast Surgery, Cardiac Ablation, Ear Surgery Additional Past Surgical History / Comment(s): exp. laparoscopy; groin cyst removed, wisdom teeth removed; colonoscopy 10/2020, myringotomy & tubes, pain procedures. Upper GI endoscopy 2020,LEFT BREAST BIOPSY. Past Anesthesia/Blood Transfusion Reactions: Family History of Problems w/ Anesthesia Additional Past Anesthesia/Blood Transfusion Reaction / Comment(s): mother has a hard time waking up from anesthesia Past Psychological History: Anxiety, Depression Smoking Status: Former smoker Past Alcohol Use History: None Reported Past Drug Use History: None Reported - Past Family History Mother Family Medical History: AFIB, COPD Father Family Medical History: Cancer Additional Family Medical History / Comment(s): Melanoma skin cancer. Aunts Family Medical History: Cancer Additional Family Medical History / Comment(s): A paternal aunt had ovarian cancer, a maternal aunt had uterine cancer and another maternal aunt had bladder cancer. General Exam - General Exam Comments Initial Comments: Patient in distress secondary to left flank pain and nausea. However vital signs are stable, patient is afebrile. Patient appears to be adequately hydrated. Normal capillary refill. No mottling. Cranial nerves II through XII grossly intact Limitations: no limitations General appearance: in distress Head exam: Present: atraumatic, normocephalic, normal inspection Eye exam: Present: normal appearance, PERRL, EOMI. Absent: scleral icterus, conjunctival injection, periorbital swelling ENT exam: Present: normal exam, mucous membranes moist Neck exam: Present: normal inspection, full ROM. Absent: tenderness, meningismus, lymphadenopathy Respiratory exam: Present: normal lung sounds bilaterally. Absent: respiratory distress, wheezes, rales, rhonchi, stridor, chest wall tenderness, accessory muscle use Cardiovascular Exam: Present: regular rate, normal rhythm, normal heart sounds. Absent: systolic murmur, diastolic murmur, rubs, gallop, clicks GI/Abdominal exam: Present: soft, normal bowel sounds. Absent: distended, tenderness, guarding, rebound, rigid Extremities exam: Present: normal inspection, full ROM, normal capillary refill. Absent: tenderness, pedal edema, joint swelling, calf tenderness Back exam: Present: normal inspection, CVA tenderness (L). Absent: CVA tenderness (R) Neurological exam: Present: alert, oriented X3, CN II-XII intact Psychiatric exam: Present: normal affect, normal mood Skin exam: Present: warm, dry, intact, normal color. Absent: rash, cyanosis, diaphoretic, erythema, urticaria Course Vital Signs 11/23/21 23:17 Temperature 97.8 F Pulse Rate 83 Respiratory 20 Rate Blood Pressure 138/82 O2 Sat by Pulse 98 Oximetry - Reevaluation(s) Reevaluation #1: 11/24/21 01:29 Medical record is reviewed Symptoms are improved here in the emergency department Patient is informed of results and questions answered Patient in no distress Medical Decision Making - Medical Decision Making She presented with back pain, some left flank pain, some chills but no fever. Patient did have dysuria. Patient was worked up for possible urinary tract pathology. the patient is not sexually active. Has no vaginal discharge. Patient's workup shows intrarenal stone but no evidence of ureteral stone. No evidence of infectious process. We'll treat the patient with Pyridium, hydration, other conservative therapies such cranberry juice. Patient was given follow-up with urology as well as her regular physician. Patient released in stable and improved condition. The case was discussed in detail with ED attending physician. Presentation, findings, treatment plan discussed in detail. Patient was told to return to the ER for any signs or symptoms worsen. Told to return immediately if any other problems arise. All questions answered. Treatment plan discussed. Patient in agreement Every effort has been made to ensure accuracy of this dictation. However, due to the limitations of electronic medical records and dictation devices, errors in charting still occur. 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 - Lab Data Result diagrams: 11/24/21 00:17 11/24/21 00:17 Lab Results 11/24/21 11/24/21 11/24/21 Range/Units 00:12 00:17 00:17 WBC 8.0 (3.8-10.6) k/uL RBC 4.50 (3.80-5.40) m/uL Hgb 14.4 (11.4-16.0) gm/dL Hct 43.6 (34.0-46.0) % MCV 97.0 (80.0-100.0) fL MCH 32.1 (25.0-35.0) pg MCHC 33.1 (31.0-37.0) g/dL RDW 11.7 (11.5-15.5) % Plt Count 231 (150-450) k/uL MPV 8.6 Neutrophils % 49 % Lymphocytes % 41 % Monocytes % 6 % Eosinophils % 2 % Basophils % 1 % Neutrophils # 3.9 (1.3-7.7) k/uL Lymphocytes # 3.3 (1.0-4.8) k/uL Monocytes # 0.5 (0-1.0) k/uL Eosinophils # 0.2 (0-0.7) k/uL Basophils # 0.1 (0-0.2) k/uL Sodium 139 (137-145) mmol/L Potassium 4.4 (3.5-5.1) mmol/L Chloride 108 H (98-107) mmol/L Carbon Dioxide 25 (22-30) mmol/L Anion Gap 6 mmol/L BUN 20 H (7-17) mg/dL Creatinine 0.58 (0.52-1.04) mg/dL Est GFR (CKD-EPI)AfAm >90 (>60 ml/min/1.73 sqM) Est GFR (CKD-EPI)NonAf >90 (>60 ml/min/1.73 sqM) Glucose 123 H (74-99) mg/dL Calcium 9.2 (8.4-10.2) mg/dL Total Bilirubin 0.7 (0.2-1.3) mg/dL AST 42 H (14-36) U/L ALT 27 (4-34) U/L Alkaline Phosphatase 58 (38-126) U/L Total Protein 6.3 (6.3-8.2) g/dL Albumin 4.0 (3.5-5.0) g/dL Amylase 63 (30-110) U/L Lipase 107 (23-300) U/L Urine Color Yellow Urine Appearance Cloudy H (Clear) Urine pH 6.0 (5.0-8.0) Ur Specific [place] 1.035 (1.001-1.035) Urine Protein Trace H (Negative) Urine Glucose (UA) Negative (Negative) Urine Ketones Negative (Negative) Urine Blood Negative (Negative) Urine Nitrite Negative (Negative) Urine Bilirubin Negative (Negative) Urine Urobilinogen 2.0 (<2.0) mg/dL Ur Leukocyte Esterase Trace H (Negative) Urine RBC 3 (0-5) /hpf Urine WBC 5 (0-5) /hpf Ur Squamous Epith Cells 4 (0-4) /hpf Calcium Oxalate Crystal Moderate H (None) /hpf Urine Mucus Many H (None) /hpf - Radiology Data Radiology results: report reviewed, image reviewed Report reviewed. Patient does have intrarenal stone. No evidence of ureteral stone. No evidence of perinephric stranding, no evidence of hydronephrosis or hydroureter Disposition Clinical Impression: Acute left flank pain, Bladder spasm, Dysuria Disposition: HOME SELF-CARE Condition: Good Instructions (If sedation given, give patient instructions): Dysuria (ED), Flank Pain (ED) Additional Instructions: Follow-up with your regular physician as directed. Return to the ER immediately if any symptoms worsen, new symptoms arise, or any other problems develop. Make a follow-up with the urologist as discussed. Prescriptions: Phenazopyridine HCl [Pyridium] 100 mg PO TID PRN #6 tab PRN Reason: Pain Is patient prescribed a controlled substance at d/c from ED?: No Referrals: Cortez Paulino DO [Primary Care Provider] - 11/26/21 Ulises Dukes MD [STAFF PHYSICIAN] - 11/28/21 Time of Disposition: 01:28
[2021-11-24 00:28] LABS: Basophils # (A) 0.1 k/uL (0-0.2); Basophils % (A) 1 %; Eosinophils # (A) 0.2 k/uL (0-0.7); Eosinophils % (A) 2 %; HCT 43.6 % (34.0-46.0); HGB 14.4 gm/dL (11.4-16.0); Lymphocytes # (A) 3.3 k/uL (1.0-4.8); Lymphocytes % (A) 41 %; MCH 32.1 pg (25.0-35.0); MCHC 33.1 g/dL (31.0-37.0); Mean Platelet Volume 8.6; Monocytes # (A) 0.5 k/uL (0-1.0); Monocytes % (A) 6 %; Neutrophils # (A) 3.9 k/uL (1.3-7.7); Neutrophils % (A) 49 %; Platelet Count 231 k/uL (150-450); RDW 11.7 % (11.5-15.5)
[2021-11-24] MEDS ORDERED: ONDANSETRON 4 MG/2 ML VIAL IVP STA (00:30)
[2021-11-24 00:34] LABS: Appearance,Urine Cloudy (Clear); Bilirubin,Urine Negative (Negative); Blood,Urine Negative (Negative); Calcium Oxalate Crystals,Urine Moderate /hpf; Color,Urine Yellow; Glucose,Urine (UA) Negative (Negative); Ketones,Urine Negative (Negative); Leukocyte Esterase,Urine Trace (Negative); Mucus,Urine Many /hpf; Nitrite,Urine Negative (Negative); Protein,Urine Trace (Negative); RBC,Urine 3 /hpf (0-5); Specific Gravity,Urine 1.035 (1.001-1.035); Squamous Epithelial Cell,Urine 4 /hpf (0-4); WBC,Urine 5 /hpf (0-5)
[2021-11-24 00:40] LABS: ALT 27 U/L (4-34); AST 42 U/L (14-36); African American GFR (CKD) >90 (>60 ml/min/1.73 sqM); Alkaline Phosphatase 58 U/L (38-126); Amylase 63 U/L (30-110); Anion Gap 6 mmol/L; Blood Urea Nitrogen 20 mg/dL (7-17); Calcium 9.2 mg/dL (8.4-10.2); Carbon Dioxide 25 mmol/L (22-30); Chloride 108 mmol/L (98-107); Glucose 123 mg/dL (74-99); Lipase 107 U/L (23-300); Non-African American GFR(CKD) >90 (>60 ml/min/1.73 sqM); Sodium 139 mmol/L (137-145); Total Bilirubin 0.7 mg/dL (0.2-1.3); Total Protein 6.3 g/dL (6.3-8.2)
[2021-11-24 00:51] LABS: Potassium 4.4 mmol/L (3.5-5.1)
--- NOTE | 2021-11-24 01:16 | CT ---
EXAMINATION TYPE: CT abdomen pelvis wo con DATE OF EXAM: 11/24/2021 COMPARISON: 11/13/2020 HISTORY: LT FLANK/BACK PAIN, R/O RENAL STONE CT DLP: 354.2 mGycm Automated exposure control for dose reduction was used. Images obtained from the diaphragm to the floor the pelvis with no contrast. The lung bases are clear. No pleural effusion. Heart size is normal. No pericardial effusion. Liver s pleen and stomach pancreas gallbladder appear intact. The bile ducts are not dilated. There is no adrenal mass. Kidneys have normal size and contour. No hydronephrosis. Ureters are not di lated. There is 2 mm calculus interpolar lateral right kidney. There is no retroperitoneal adenopathy . The bladder distends smoothly. No inguinal hernia. No free fluid in the pelvis. Uterus is anteverte d. No pelvic mass. Appendix is posterior and appears normal. There is no mesenteric edema. No ascites or free air. No bowel obstruction. There are a few sigmoid d iverticula. No diverticulitis. The lumbar spine is intact. No compression fracture. There is vacuum d isc at L5-S1. The bony pelvis is intact. The hip joints are intact. IMPRESSION: Nonobstructing right renal calculus. Normal appendix. No acute abnormality of the abdomen and pelvis.
== END 2021-11-24 01:44 | disposition home or self-care (01) ==
LOC: EC 23:04
DX: N32.89 Other specified disorders of bladder (principal); R10.32 Left lower quadrant pain; R30.0 Dysuria; K21.9 Gastro-esophageal reflux disease without esophagitis; M19.90 Unspecified osteoarthritis, unspecified site; F41.9 Anxiety disorder, unspecified; F32.A Depression, unspecified; Z87.891 Personal history of nicotine dependence; Z88.0 Allergy status to penicillin; Z88.8 Allergy status to other drugs, medicaments and biological substances; Z88.5 Allergy status to narcotic agent; Z79.82 Long term (current) use of aspirin; Z79.899 Other long term (current) drug therapy
CPT/HCPCS: 36415; 80053; 82150; 83690; 85025; 81001; 74176; 99284; 96374; 96375 ×2; J2270; J2405; J1885

== ENCOUNTER 2021-11-27 21:24 | Emergency (ER) | payer BC ==
[2021-11-27 21:48] VITALS: TEMP 98.1
[2021-11-27 22:13] LABS: Appearance,Urine Clear (Clear); Bilirubin,Urine 1+ (Negative); Blood,Urine Negative (Negative); Color,Urine Dark Brown; Glucose,Urine (UA) Negative (Negative); Ketones,Urine Negative (Negative); Leukocyte Esterase,Urine Negative (Negative); Mucus,Urine Moderate /hpf; Nitrite,Urine Positive (Negative); PH, Urine 5.5 (5.0-8.0); Protein,Urine Trace (Negative); RBC,Urine 4 /hpf (0-5); Specific Gravity,Urine 1.029 (1.001-1.035); Squamous Epithelial Cell,Urine 1 /hpf (0-4); WBC,Urine 1 /hpf (0-5)
[2021-11-27] MEDS ORDERED: SODIUM CHLORIDE 0.9% 1,000 ML IV STA (23:15)
[2021-11-27] MEDS ORDERED: MORPHINE SULFATE 4 MG/ML SYRINGE IV STA (23:27)
[2021-11-27] MEDS ORDERED: KETOROLAC 15 MG/ML 1 ML VIAL IVP STA (23:27)
[2021-11-27] MEDS ORDERED: ONDANSETRON 4 MG/2 ML VIAL IVP STA (23:27)
--- NOTE | 2021-11-28 00:03 | ED ---
Abdominal Pain HPI - General Chief Complaint: Abdominal Pain Stated Complaint: Kidney Stone Time Seen by Provider: 11/27/21 23:13 Source: patient, RN notes reviewed Mode of arrival: ambulatory Limitations: no limitations - History of Present Illness Initial Comments: This is a pleasant 51-year-old female that I saw here on November 23 for similar symptoms. Patient now complaining of right flank pain and pain in her urethra. On that day patient had a computed tomography scan and urinalysis which were essentially negative. I treated the patient with Pyridium as she showed no evidence of infectious process. Patient states the pain is now worse. Patient was noted have calcium oxalate crystals in the urine on that day. Patient states the pain is in the right flank and the urethra. Cannot 10 intensity. Waxes and wanes in intensity. Sharp. Constant. No alleviating or exacerbating factors. Patient denies hematuria or fever. No headache, no fever or chills, no changes in vision or hearing, no sore throat or difficulty with speech, no neck pain, no chest pain or shortness of breath, no abdominal pain, no nausea or vomiting, no changes in urination or bowel movements, no numbness or tingling, no extremity pain, no skin rashes or lesions. Past medical, surgical, social, and family history reviewed. MD Complaint: flank pain - Related Data Home Medications Medication Instructions Recorded Confirmed Gabapentin [Neurontin] 200 mg PO TID 05/20/18 08/27/21 Cyclobenzaprine [Flexeril] 10 mg PO HS PRN 06/09/18 08/27/21 Aspirin 325 mg PO DAILY 06/27/19 08/27/21 Cholecalciferol [Vitamin D3 (25 2,000 unit PO DAILY 09/02/19 08/27/21 Mcg = 1000 Iu)] hydrOXYzine HCL 25 mg PO HS PRN 01/05/20 08/27/21 Turmeric Root Extract [Turmeric] 500 mg PO DAILY 04/03/20 08/27/21 Ondansetron [Zofran ODT] 4 mg PO Q4H PRN 05/31/20 08/27/21 Cider Vinegar [Apple Cider Vinegar] 300 mg PO DAILY 11/13/20 08/27/21 Cyanocobalamin (Vitamin B-12) 1,000 mcg PO DAILY 11/13/20 08/27/21 [Vitamin B-12] Previous Rx's Medication Instructions Recorded Cyclobenzaprine [Flexeril] 10 mg PO BID #14 tab 07/21/21 Ketorolac [Toradol] 10 mg PO TID #15 tab 07/21/21 Phenazopyridine HCl [Pyridium] 100 mg PO TID PRN #6 tab 11/24/21 Cefdinir 300 mg PO Q12HR #14 cap 11/28/21 Naproxen [Naprosyn] 375 mg PO Q12HR PRN #20 tablet 11/28/21 Allergies Allergy/AdvReac Type Severity Reaction Status Date / Time flecainide Allergy SEVERE Verified 11/27/21 21:47 HEADACHE Penicillins Allergy Anaphylaxis Verified 11/27/21 21:47 adhesive tape AdvReac Rash/Hives Verified 11/27/21 21:47 azithromycin AdvReac Abdominal Verified 11/27/21 21:47 [From Zithromax Z-[place]] Pain codeine AdvReac Nausea & Verified 11/27/21 21:47 Vomiting Review of Systems ROS Statement: Those systems with pertinent positive or pertinent negative responses have been documented in the HPI. ROS Other: All systems not noted in ROS Statement are negative. Past Medical History Past Medical History: GERD/Reflux, Osteoarthritis (OA), Supraventricular Tachycardia (SVT) Additional Past Medical History / Comment(s): WPW syndrome improved following cardiac ablation, SVT, hiatal hernia, gastritis, palpitations; Cervical spinal stenosis. Thyroid nodule. MIGRAINE HEACHES, CHRONIC BACK PAIN. 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 Right Uterine fundal fibroid measuring 4.7 cm (2019 U/S). History of Any Multi-Drug Resistant Organisms: None Reported Past Surgical History: Breast Surgery, Cardiac Ablation, Ear Surgery Additional Past Surgical History / Comment(s): exp. laparoscopy; groin cyst removed, wisdom teeth removed; colonoscopy 10/2020, myringotomy & tubes, pain procedures. Upper GI endoscopy 2020,LEFT BREAST BIOPSY. Past Anesthesia/Blood Transfusion Reactions: Family History of Problems w/ Anesthesia Additional Past Anesthesia/Blood Transfusion Reaction / Comment(s): mother has a hard time waking up from anesthesia Past Psychological History: Anxiety, Depression Smoking Status: Former smoker Past Alcohol Use History: None Reported Past Drug Use History: None Reported - Past Family History Mother Family Medical History: AFIB, COPD Father Family Medical History: Cancer Additional Family Medical History / Comment(s): Melanoma skin cancer. Aunts Family Medical History: Cancer Additional Family Medical History / Comment(s): A paternal aunt had ovarian cancer, a maternal aunt had uterine cancer and another maternal aunt had bladder cancer. General Exam - General Exam Comments Initial Comments: Patient noted to be in distress secondary to pain. Does not appear to be systemically ill or toxic. Noted to be tachycardic. No mottling. Normal capillary refill. Limitations: no limitations General appearance: in distress Head exam: Present: atraumatic, normocephalic, normal inspection Eye exam: Present: normal appearance, PERRL, EOMI. Absent: scleral icterus, conjunctival injection, periorbital swelling ENT exam: Present: normal exam, normal oropharynx, mucous membranes moist, normal external ear exam Neck exam: Present: normal inspection, full ROM. Absent: tenderness, meningismus, lymphadenopathy Respiratory exam: Present: normal lung sounds bilaterally. Absent: respiratory distress, wheezes, rales, rhonchi, stridor, chest wall tenderness, accessory muscle use Cardiovascular Exam: Present: normal rhythm, normal heart sounds. Absent: systolic murmur, diastolic murmur, rubs, gallop, clicks GI/Abdominal exam: Present: soft, normal bowel sounds. Absent: distended, tenderness, guarding, rebound, rigid External exam: Present: normal external exam. Absent: erythema, swelling, lesions, lacerations, ecchymosis Speculum exam: Present: normal speculum exam, other (Patient has tenderness over the urethra. No visual evidence of inflammation. No discharge.). Absent: erythema, vaginal discharge, cervical discharge, vaginal bleeding, foreign body, tissue, laceration By manual exam: Present: normal by manual exam, uterine tenderness (Patient has tenderness of the uterine area or suprapubic area on bimanual examination), other (Chaperoned by female RN). Absent: cervical motion tenderness, adnexal tenderness, adnexal mass, uterine enlargement Extremities exam: Present: normal inspection, full ROM, normal capillary refill. Absent: tenderness, pedal edema, joint swelling, calf tenderness Back exam: Present: normal inspection, CVA tenderness (R) Neurological exam: Present: alert, oriented X3, CN II-XII intact Psychiatric exam: Present: normal affect, normal mood Skin exam: Present: warm, dry, intact, normal color. Absent: rash Course Vital Signs 11/27/21 11/28/21 21:44 02:27 Temperature 98.1 F Pulse Rate 125 H 74 Respiratory 22 15 Rate Blood Pressure 164/96 104/65 O2 Sat by Pulse 97 99 Oximetry - Reevaluation(s) Reevaluation #1: 11/28/21 03:06 Medical record is reviewed Symptoms are improved here in the emergency department Patient is informed of results and questions answered Patient in no distress Medical Decision Making - Medical Decision Making Patient presents with flank pain again. Most consistent with renal colic. Patient was noted to have calcium oxalate crystals on previous visit. However the computed tomography scan did not show any acute pathology. There is no obstructing stone. Given the patient's right flank pain, pain in the urethral area. I'm going to repeat the computed tomography scan. I suspect the patient does have renal colic, possible small stone or non-radiopaque stone. Computed tomography scan to say shows no evidence of acute pathology that would explain the patient's pain. CBC was normal. Positive nitrate. Certainly the patient could have an undertreated urinary tract infection with doxycycline being on board as the patient has been taking this for another ailment. Going to treat the patient with antibiotics, send urine culture. Was given Rocephin here in the emergency department. His pain is resolved, vital signs have normalized. Patient has a positive nitrate. I'm going to treat the patient for possible partially treated UTI with urethritis. We'll have the patient stop the doxycycline and take the replacement antibiotic, cefdinir. Patient was told to return to the ER for any signs or symptoms worsen. Told to return immediately if any other problems arise. All questions answered. Treatment plan discussed. Patient in agreement Every effort has been made to ensure accuracy of this dictation. However, due to the limitations of electronic medical records and dictation devices, errors in charting still occur. Datap[employer] Developer Dr. Kam - Lab Data Result diagrams: 11/27/21 23:52 11/28/21 01:48 Lab Results 11/27/21 11/27/21 11/27/21 Range/Units 21:47 23:52 23:52 WBC 9.2 (3.8-10.6) k/uL RBC 4.67 (3.80-5.40) m/uL Hgb 14.9 (11.4-16.0) gm/dL Hct 45.5 (34.0-46.0) % MCV 97.5 (80.0-100.0) fL MCH 31.9 (25.0-35.0) pg MCHC 32.7 (31.0-37.0) g/dL RDW 11.8 (11.5-15.5) % Plt Count 220 (150-450) k/uL MPV 8.7 Neutrophils % 57 % Lymphocytes % 33 % Monocytes % 8 % Eosinophils % 1 % Basophils % 1 % Neutrophils # 5.2 (1.3-7.7) k/uL Lymphocytes # 3.0 (1.0-4.8) k/uL Monocytes # 0.7 (0-1.0) k/uL Eosinophils # 0.1 (0-0.7) k/uL Basophils # 0.1 (0-0.2) k/uL Sodium (137-145) mmol/L Potassium (3.5-5.1) mmol/L Chloride (98-107) mmol/L Carbon Dioxide (22-30) mmol/L Anion Gap mmol/L BUN (7-17) mg/dL Creatinine (0.52-1.04) mg/dL Est GFR (CKD-EPI)AfAm (>60 ml/min/1.73 sqM) Est GFR (CKD-EPI)NonAf (>60 ml/min/1.73 sqM) Glucose (74-99) mg/dL Plasma Lactic Acid Edd (0.7-2.0) mmol/L Calcium (8.4-10.2) mg/dL Total Bilirubin (0.2-1.3) mg/dL AST (14-36) U/L ALT (4-34) U/L Alkaline Phosphatase (38-126) U/L C-Reactive Protein (<1.0) mg/dL Total Protein (6.3-8.2) g/dL Albumin (3.5-5.0) g/dL Amylase (30-110) U/L Lipase (23-300) U/L Urine Color Dark Brown Urine Appearance Clear (Clear) Urine pH 5.5 (5.0-8.0) Ur Specific [place] 1.029 (1.001-1.035) Urine Protein Trace H (Negative) Urine Glucose (UA) Negative (Negative) Urine Ketones Negative (Negative) Urine Blood Negative (Negative) Urine Nitrite Positive H (Negative) Urine Bilirubin 1+ H (Negative) Urine Urobilinogen 4.0 (<2.0) mg/dL Ur Leukocyte Esterase Negative (Negative) Urine RBC 4 (0-5) /hpf Urine WBC 1 (0-5) /hpf Ur Squamous Epith Cells 1 (0-4) /hpf Urine Mucus Moderate H (None) /hpf 11/27/21 11/28/21 Range/Units 23:52 01:48 WBC (3.8-10.6) k/uL RBC (3.80-5.40) m/uL Hgb (11.4-16.0) gm/dL Hct (34.0-46.0) % MCV (80.0-100.0) fL MCH (25.0-35.0) pg MCHC (31.0-37.0) g/dL RDW (11.5-15.5) % Plt Count (150-450) k/uL MPV Neutrophils % % Lymphocytes % % Monocytes % % Eosinophils % % Basophils % % Neutrophils # (1.3-7.7) k/uL Lymphocytes # (1.0-4.8) k/uL Monocytes # (0-1.0) k/uL Eosinophils # (0-0.7) k/uL Basophils # (0-0.2) k/uL Sodium 141 (137-145) mmol/L Potassium 4.0 (3.5-5.1) mmol/L Chloride 107 (98-107) mmol/L Carbon Dioxide 24 (22-30) mmol/L Anion Gap 10 mmol/L BUN 21 H (7-17) mg/dL Creatinine 0.67 (0.52-1.04) mg/dL Est GFR (CKD-EPI)AfAm >90 (>60 ml/min/1.73 sqM) Est GFR (CKD-EPI)NonAf >90 (>60 ml/min/1.73 sqM) Glucose 78 (74-99) mg/dL Plasma Lactic Acid Edd 0.9 (0.7-2.0) mmol/L Calcium 8.6 (8.4-10.2) mg/dL Total Bilirubin 0.2 (0.2-1.3) mg/dL AST 20 (14-36) U/L ALT 16 (4-34) U/L Alkaline Phosphatase 73 (38-126) U/L C-Reactive Protein 0.8 (<1.0) mg/dL Total Protein 5.6 L (6.3-8.2) g/dL Albumin 3.5 (3.5-5.0) g/dL Amylase 54 (30-110) U/L Lipase 53 (23-300) U/L Urine Color Urine Appearance (Clear) Urine pH (5.0-8.0) Ur Specific [place] (1.001-1.035) Urine Protein (Negative) Urine Glucose (UA) (Negative) Urine Ketones (Negative) Urine Blood (Negative) Urine Nitrite (Negative) Urine Bilirubin (Negative) Urine Urobilinogen (<2.0) mg/dL Ur Leukocyte Esterase (Negative) Urine RBC (0-5) /hpf Urine WBC (0-5) /hpf Ur Squamous Epith Cells (0-4) /hpf Urine Mucus (None) /hpf - Radiology Data Radiology results: report reviewed, image reviewed Disposition Clinical Impression: Acute right flank pain, Urethritis, Urinary tract infection Disposition: HOME SELF-CARE Condition: Good Instructions (If sedation given, give patient instructions): Flank Pain (ED), U rinary Tract Infection in Women (ED) Additional Instructions: Stop the doxycycline. Take the replacement antibiotic for 7 days as directed. Call Thursday to set up a follow-up with urology. Call and set up an appointment with your regular doctor. Drink plenty of fluids. Follow-up with your regular physician as directed. Return to the ER immediately if any symptoms worsen, new symptoms arise, or any other problems develop. Prescriptions: Cefdinir 300 mg PO Q12HR #14 cap Naproxen [Naprosyn] 375 mg PO Q12HR PRN #20 tablet PRN Reason: Pain Is patient prescribed a controlled substance at d/c from ED?: No Referrals: Cortez Paulino DO [Primary Care Provider] - 1-2 days Matthew German MD [STAFF PHYSICIAN] - 12/02/21 Time of Disposition: 03:07
[2021-11-28 00:16] LABS: Basophils # (A) 0.1 k/uL (0-0.2); Basophils % (A) 1 %; Eosinophils # (A) 0.1 k/uL (0-0.7); Eosinophils % (A) 1 %; HCT 45.5 % (34.0-46.0); HGB 14.9 gm/dL (11.4-16.0); Lymphocytes % (A) 33 %; MCH 31.9 pg (25.0-35.0); MCHC 32.7 g/dL (31.0-37.0); MCV 97.5 fL (80.0-100.0); Mean Platelet Volume 8.7; Monocytes # (A) 0.7 k/uL (0-1.0); Monocytes % (A) 8 %; Neutrophils # (A) 5.2 k/uL (1.3-7.7); Neutrophils % (A) 57 %; Platelet Count 220 k/uL (150-450); RBC 4.67 m/uL (3.80-5.40); RDW 11.8 % (11.5-15.5); WBC 9.2 k/uL (3.8-10.6)
--- NOTE | 2021-11-28 01:31 | CT ---
EXAMINATION TYPE: CT abdomen pelvis w con DATE OF EXAM: 11/28/2021 COMPARISON: 11/24/2021 HISTORY: Lower abd pain CT DLP: 570 mGycm Automated exposure control for dose reduction was used. CONTRAST: Performed with IV Contrast, patient injected with 100 mL of Isovue 300. Images obtained from the diaphragm to the floor of the pelvis with the IV contrast. The lung bases are clear. No pleural effusion. Heart size is normal. No pericardial effusion. Liver s pleen and stomach pancreas gallbladder appear intact. The bile ducts are not dilated. There is no adrenal mass. Kidneys have normal size and contour. Delayed images show normal renal excr etion. No retroperitoneal adenopathy. The bladder distends smoothly there is no mesenteric edema. No ascites or free air. No sign of a bowel obstruction. Uterus is anteverted. No pelvic mass. Lumbar earlene tebra appear intact. No compression fracture. There are some prominent adnexal vessels. There are missy e sigmoid diverticula. No diverticulitis. Appendix appears to be visualized and appears normal . Bony pelvis is intact. Hip joints are intact. Sacroiliac joints appear normal. 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 No acute abnormality in the abdomen and pelvis. Mild colonic dive rticulosis. No evidence of appendicitis.
[2021-11-28 02:12] LABS: ALT 16 U/L (4-34); AST 20 U/L (14-36); African American GFR (CKD) >90 (>60 ml/min/1.73 sqM); Albumin 3.5 g/dL (3.5-5.0); Alkaline Phosphatase 73 U/L (38-126); Amylase 54 U/L (30-110); Anion Gap 10 mmol/L; Blood Urea Nitrogen 21 mg/dL (7-17); C Reactive Protein 0.8 mg/dL (<1.0); Calcium 8.6 mg/dL (8.4-10.2); Carbon Dioxide 24 mmol/L (22-30); Chloride 107 mmol/L (98-107); Glucose 78 mg/dL (74-99); Lipase 53 U/L (23-300); Non-African American GFR(CKD) >90 (>60 ml/min/1.73 sqM); Sodium 141 mmol/L (137-145); Total Bilirubin 0.2 mg/dL (0.2-1.3); Total Protein 5.6 g/dL (6.3-8.2)
[2021-11-28 03:57] VITALS: BP 119/73; PULSE 63; RESP 16
[2021-11-29 13:11] LABS: C. trachomatis,PCR Negative (Neg,Equiv); Chlamydia trachomatis Source Cervix; N. gonorrhoeae,PCR Negative (Neg,Equiv); Neisseria Source Cervix
== END 2021-11-28 04:02 | disposition home or self-care (01) ==
LOC: EC 21:24
DX: N39.0 Urinary tract infection, site not specified (principal); K21.9 Gastro-esophageal reflux disease without esophagitis; M19.90 Unspecified osteoarthritis, unspecified site; Z87.891 Personal history of nicotine dependence; Z88.8 Allergy status to other drugs, medicaments and biological substances; Z88.0 Allergy status to penicillin; Z91.09 Other allergy status, other than to drugs and biological substances; Z88.1 Allergy status to other antibiotic agents; Z88.5 Allergy status to narcotic agent; Z79.899 Other long term (current) drug therapy; Z79.82 Long term (current) use of aspirin
CPT/HCPCS: 36415 ×2; 80053 ×2; 82150 ×2; 83605; 83690 ×2; 85025; 86140 ×2; 81001; 87040; 87491; 87591; 87070; 87086; 74177; 99284; 96374; 96375; 96361 ×2; J2270; J2405; J0696; J1885; Q9967

== ENCOUNTER → 2022-01-15 | Outpatient (CLI) | payer BC ==
--- NOTE | 2022-01-15 15:25 | XR ---
EXAMINATION TYPE: XR chest 2V DATE OF EXAM: 01/15/2022 COMPARISON: Chest x-ray and CTA chest July 21, 2021 HISTORY: Shortness of breath TECHNIQUE: Frontal and lateral views of the chest are obtained. FINDINGS: There is no focal air space opacity, pleural effusion, or pneumothorax seen. The cardiac silhouette size is within normal limits. The osseous structures are intact. IMPRESSION: No acute cardiopulmonary process. No significant change from prior studies.
== END ==
LOC: RADXRMAIN 15:11
PROVIDERS: ATTEND Nurse Practitioner Family
DX: R06.9 Unspecified abnormalities of breathing (principal); R04.2 Hemoptysis
CPT/HCPCS: 71046

== ENCOUNTER 2022-03-22 15:38 | Emergency (ER) | payer BC ==
[2022-03-22 15:46] VITALS: TEMP 97.8
[2022-03-22 18:30] LABS: Appearance,Urine Cloudy (Clear); Bilirubin,Urine Negative (Negative); Blood,Urine Moderate (Negative); Calcium Oxalate Crystals,Urine Few /hpf; Color,Urine Yellow; Glucose,Urine (UA) Negative (Negative); Ketones,Urine Negative (Negative); Leukocyte Esterase,Urine Large (Negative); Mucus,Urine Moderate /hpf; Nitrite,Urine Negative (Negative); PH, Urine 5.5 (5.0-8.0); Protein,Urine 1+ (Negative); RBC,Urine 132 /hpf (0-5); Specific Gravity,Urine 1.036 (1.001-1.035); Squamous Epithelial Cell,Urine 1 /hpf (0-4); WBC,Urine 168 /hpf (0-5)
[2022-03-22] MEDS ORDERED: SODIUM CHLORIDE 0.9% 500 ML 500 ML IV ONE (19:10)
[2022-03-22] MEDS ORDERED: ONDANSETRON 4 MG/2 ML VIAL IVP STA (19:10)
[2022-03-22] MEDS ORDERED: KETOROLAC 15 MG/ML 1 ML VIAL IVP STA (19:10)
--- NOTE | 2022-03-22 19:15 | ED ---
General Adult HPI - General Chief complaint: Abdominal Pain Stated complaint: Kidney Stone Time Seen by Provider: 03/22/22 18:20 Source: patient, RN notes reviewed, old records reviewed Mode of arrival: ambulatory Limitations: no limitations - History of Present Illness Initial comments: This is a nontoxic-appearing 52-year-old female that presents to the emergency room with complaints of bilateral flank pain and groin pain that came on gradually yesterday and progressively getting worse. States that she feels a sharp pain when she urinates. Denies any fevers. Does have nausea but no vomiting. History of kidney stones, with most recent diagnosed here on November 24. Did see Dr. Dukes this week but had no issues at the time. -: days(s) (2) Location: back (Bilateral flank) Severity scale (1-10): 7 Quality: sharp, constant Consistency: constant Improves with: none Worsens with: none Associated Symptoms: other (Groin pain) - Related Data Home Medications Medication Instructions Recorded Confirmed Gabapentin [Neurontin] 200 mg PO TID 05/20/18 08/27/21 Cyclobenzaprine [Flexeril] 10 mg PO HS PRN 06/09/18 08/27/21 Aspirin 325 mg PO DAILY 06/27/19 08/27/21 Cholecalciferol [Vitamin D3 (25 2,000 unit PO DAILY 09/02/19 08/27/21 Mcg = 1000 Iu)] hydrOXYzine HCL 25 mg PO HS PRN 01/05/20 08/27/21 Turmeric Root Extract [Turmeric] 500 mg PO DAILY 04/03/20 08/27/21 Ondansetron [Zofran ODT] 4 mg PO Q4H PRN 05/31/20 08/27/21 Cider Vinegar [Apple Cider Vinegar] 300 mg PO DAILY 11/13/20 08/27/21 Cyanocobalamin (Vitamin B-12) 1,000 mcg PO DAILY 11/13/20 08/27/21 [Vitamin B-12] Previous Rx's Medication Instructions Recorded Cyclobenzaprine [Flexeril] 10 mg PO BID #14 tab 07/21/21 Ketorolac [Toradol] 10 mg PO TID #15 tab 07/21/21 Phenazopyridine HCl [Pyridium] 100 mg PO TID PRN #6 tab 11/24/21 Cefdinir 300 mg PO Q12HR #14 cap 11/28/21 Naproxen [Naprosyn] 375 mg PO Q12HR PRN #20 tablet 11/28/21 Phenazopyridine [Pyridium] 200 mg PO TID #6 tablet 03/22/22 Sulfamethox-Tmp 800-160Mg [Bactrim 1 each PO Q12HR 5 Days #10 tab 03/22/22 Ds] Allergies Allergy/AdvReac Type Severity Reaction Status Date / Time flecainide Allergy SEVERE Verified 03/22/22 15:46 HEADACHE Penicillins Allergy Anaphylaxis Verified 03/22/22 15:46 adhesive tape AdvReac Rash/Hives Verified 03/22/22 15:46 azithromycin AdvReac Abdominal Verified 03/22/22 15:46 [From Zithromax Z-[place]] Pain codeine AdvReac Nausea & Verified 03/22/22 15:46 Vomiting Review of Systems ROS Statement: Those systems with pertinent positive or pertinent negative responses have been documented in the HPI. ROS Other: All systems not noted in ROS Statement are negative. Past Medical History Past Medical History: GERD/Reflux, Osteoarthritis (OA), Supraventricular Tachycardia (SVT) Additional Past Medical History / Comment(s): WPW syndrome improved following cardiac ablation, SVT, hiatal hernia, gastritis, palpitations; Cervical spinal stenosis. Thyroid nodule. MIGRAINE HEACHES, CHRONIC BACK PAIN. 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 Right Uterine fundal fibroid measuring 4.7 cm (2019 U/S). History of Any Multi-Drug Resistant Organisms: None Reported Past Surgical History: Breast Surgery, Cardiac Ablation, Ear Surgery Additional Past Surgical History / Comment(s): exp. laparoscopy; groin cyst r emoved, wisdom teeth removed; colonoscopy 10/2020, myringotomy & tubes, pain procedures. Upper GI endoscopy 2020,LEFT BREAST BIOPSY. Past Anesthesia/Blood Transfusion Reactions: Family History of Problems w/ Anesthesia Additional Past Anesthesia/Blood Transfusion Reaction / Comment(s): mother has a hard time waking up from anesthesia Past Psychological History: Anxiety, Depression Smoking Status: Former smoker Past Alcohol Use History: None Reported Past Drug Use History: None Reported - Past Family History Mother Family Medical History: AFIB, COPD Father Family Medical History: Cancer Additional Family Medical History / Comment(s): Melanoma skin cancer. Aunts Family Medical History: Cancer Additional Family Medical History / Comment(s): A paternal aunt had ovarian cancer, a maternal aunt had uterine cancer and another maternal aunt had bladder cancer. General Exam Limitations: no limitations General appearance: alert, in no apparent distress Head exam: Present: atraumatic, normocephalic, normal inspection Eye exam: Present: normal appearance. Absent: scleral icterus, conjunctival injection, periorbital swelling, periorbital tenderness Neck exam: Present: full ROM. Absent: tenderness, meningismus Respiratory exam: Present: normal lung sounds bilaterally. Absent: respiratory distress, wheezes, rales, rhonchi, stridor, chest wall tenderness, accessory muscle use Cardiovascular Exam: Present: regular rate GI/Abdominal exam: Present: soft. Absent: distended, tenderness, guarding, rebound, rigid Extremities exam: Present: full ROM, normal capillary refill. Absent: tenderness, pedal edema Back exam: Present: normal inspection, full ROM, CVA tenderness (R), CVA tenderness (L). Absent: tenderness, rash noted Neurological exam: Present: alert, oriented X3 Psychiatric exam: Present: normal affect, normal mood Skin exam: Present: warm, dry, normal color. Absent: cyanosis, diaphoretic, petechiae, pallor Course Vital Signs 03/22/22 03/22/22 15:44 21:45 Temperature 97.8 F Pulse Rate 86 78 Respiratory 22 15 Rate Blood Pressure 123/82 133/78 O2 Sat by Pulse 99 100 Oximetry Medical Decision Making - Medical Decision Making Patient presents with bilateral flank pain and bilateral groin pain, history of kidney stones. KUB x-ray interpreted by me shows no evidence of abnormal calcifications. Radiologist interpretation no acute abdomen noted first change. No pathologic calcifications over the kidneys. Ultrasound interpreted by me shows no abnormal calcifications. Radiologist interpretation no evidence of renal mass or obstruction. Normal urinary bladder. No hydronephrosis. Urinalysis shows cloudy urine with moderate blood, negative nitrites and no bacteria. Calcium oxalate crystals noted. White cell count 168. BUN 28 Creatinine 0.61. Patient was given IV fluids, Zofran and Toradol for pain. She continues to state she has burning in her urethra. She was given fentanyl and Pyridium. Vital signs are stable and patient is afebrile. Patient's pain was likely related to passing of a kidney stone. Patient will be prescribed Bactrim and Pyridium. Directed to follow up with Dr. Dukes next week. Return to the emergency room with any new or concerning symptoms including increased pain or fevers. She is agreeable to this plan of care. Case discussed with Dr. Johns. - Lab Data Result diagrams: 03/22/22 20:10 03/22/22 20:10 Lab Results 03/22/22 03/22/22 03/22/22 Range/Units 18:20 20:10 20:10 WBC 12.4 H (3.8-10.6) k/uL RBC 4.67 (3.80-5.40) m/uL Hgb 15.6 (11.4-16.0) gm/dL Hct 46.6 H (34.0-46.0) % MCV 99.8 (80.0-100.0) fL MCH 33.5 (25.0-35.0) pg MCHC 33.5 (31.0-37.0) g/dL RDW 12.5 (11.5-15.5) % Plt Count 213 (150-450) k/uL MPV 8.7 Neutrophils % 74 % Lymphocytes % 18 % Monocytes % 5 % Eosinophils % 0 % Basophils % 0 % Neutrophils # 9.2 H (1.3-7.7) k/uL Lymphocytes # 2.2 (1.0-4.8) k/uL Monocytes # 0.7 (0-1.0) k/uL Eosinophils # 0.1 (0-0.7) k/uL Basophils # 0.1 (0-0.2) k/uL Sodium 140 (137-145) mmol/L Potassium 4.1 (3.5-5.1) mmol/L Chloride 107 (98-107) mmol/L Carbon Dioxide 29 (22-30) mmol/L Anion Gap 4 mmol/L BUN 28 H (7-17) mg/dL Creatinine 0.61 (0.52-1.04) mg/dL Est GFR (CKD-EPI)AfAm >90 (>60 ml/min/1.73 sqM) Est GFR (CKD-EPI)NonAf >90 (>60 ml/min/1.73 sqM) Glucose 89 (74-99) mg/dL Calcium 9.2 (8.4-10.2) mg/dL Total Bilirubin 0.4 (0.2-1.3) mg/dL AST 23 (14-36) U/L ALT 26 (4-34) U/L Alkaline Phosphatase 66 (38-126) U/L Total Protein 6.5 (6.3-8.2) g/dL Albumin 4.3 (3.5-5.0) g/dL Urine Color Yellow Urine Appearance Cloudy H (Clear) Urine pH 5.5 (5.0-8.0) Ur Specific [place] 1.036 H (1.001-1.035) Urine Protein 1+ H (Negative) Urine Glucose (UA) Negative (Negative) Urine Ketones Negative (Negative) Urine Blood Moderate H (Negative) Urine Nitrite Negative (Negative) Urine Bilirubin Negative (Negative) Urine Urobilinogen 2.0 (<2.0) mg/dL Ur Leukocyte Esterase Large H (Negative) Urine RBC 132 H (0-5) /hpf Urine WBC 168 H (0-5) /hpf Ur Squamous Epith Cells 1 (0-4) /hpf Calcium Oxalate Crystal Few H (None) /hpf Urine Mucus Moderate H (None) /hpf Disposition Clinical Impression: Hematuria Disposition: HOME SELF-CARE Condition: Good Instructions (If sedation given, give patient instructions): Hematuria (ED) Additional Instructions: Increase your fluid intake. Take Pyridium to anesthetize your bladder, this will make your urine orange in color. Take the Keflex as prescribed for urinary tract infection. Follow-up with Dr. Dukes on Thursday. Return to the emergency room with any new or concerning symptoms including fever or persistent nausea and vomiting. Prescriptions: Sulfamethox-Tmp 800-160Mg [Bactrim Ds] 1 each PO Q12HR 5 Days #10 tab Phenazopyridine [Pyridium] 200 mg PO TID #6 tablet Is patient prescribed a controlled substance at d/c from ED?: No Referrals: Cortez Paulino DO [Primary Care Provider] - 1-2 days Ulises Dukes MD [STAFF PHYSICIAN] - 1-2 days Time of Disposition: 21:27
--- NOTE | 2022-03-22 19:38 | XR ---
EXAMINATION TYPE: XR KUB DATE OF EXAM: 03/22/2022 COMPARISON: 07/26/2020 HISTORY: Flank pain TECHNIQUE: Single view FINDINGS: There is no sign of intestinal obstruction or pneumoperitoneum. Fecal pattern is normal. No evidence of a mass. There are no pathologic calcifications over the kidneys. Lung bases are clear. B beryl structures are intact. IMPRESSION: Nonacute abdomen. No adverse change.
--- NOTE | 2022-03-22 20:27 | US ---
EXAMINATION TYPE: US renals and bladder DATE OF EXAM: 03/22/2022 COMPARISON: NONE CLINICAL HISTORY: uti, back pain, hx of kidney stones. pain hematuria hx of stones. EXAM MEASUREMENTS: Right Kidney: 9.5 x 3.5 x 4.0 cm Left Kidney: 9.0 x 4.8 x 3.7 cm Right Kidney: No hydronephrosis or masses seen Left Kidney: No hydronephrosis or masses seen Bladder: anechoic Bilateral Jets seen: no . IMPRESSION: No evidence of renal mass or obstruction. Normal urinary bladder
[2022-03-22 20:41] LABS: Basophils # (A) 0.1 k/uL (0-0.2); Basophils % (A) 0 %; Eosinophils # (A) 0.1 k/uL (0-0.7); Eosinophils % (A) 0 %; HCT 46.6 % (34.0-46.0); HGB 15.6 gm/dL (11.4-16.0); Lymphocytes # (A) 2.2 k/uL (1.0-4.8); Lymphocytes % (A) 18 %; MCH 33.5 pg (25.0-35.0); MCHC 33.5 g/dL (31.0-37.0); MCV 99.8 fL (80.0-100.0); Mean Platelet Volume 8.7; Monocytes # (A) 0.7 k/uL (0-1.0); Monocytes % (A) 5 %; Neutrophils # (A) 9.2 k/uL (1.3-7.7); Neutrophils % (A) 74 %; Platelet Count 213 k/uL (150-450); RBC 4.67 m/uL (3.80-5.40); RDW 12.5 % (11.5-15.5); WBC 12.4 k/uL (3.8-10.6)
[2022-03-22 20:51] LABS: ALT 26 U/L (4-34); AST 23 U/L (14-36); African American GFR (CKD) >90 (>60 ml/min/1.73 sqM); Albumin 4.3 g/dL (3.5-5.0); Alkaline Phosphatase 66 U/L (38-126); Anion Gap 4 mmol/L; Blood Urea Nitrogen 28 mg/dL (7-17); Calcium 9.2 mg/dL (8.4-10.2); Carbon Dioxide 29 mmol/L (22-30); Chloride 107 mmol/L (98-107); Glucose 89 mg/dL (74-99); Non-African American GFR(CKD) >90 (>60 ml/min/1.73 sqM); Potassium 4.1 mmol/L (3.5-5.1); Sodium 140 mmol/L (137-145); Total Bilirubin 0.4 mg/dL (0.2-1.3); Total Protein 6.5 g/dL (6.3-8.2)
[2022-03-22] MEDS ORDERED: fentaNYL (PF) 50 MCG/ML 2 ML AMP IVP STA (20:53)
[2022-03-22] MEDS ORDERED: PHENAZOPYRIDINE 200 MG TAB PO STA (21:21)
[2022-03-22 21:46] VITALS: BP 133/78; PULSE 78; RESP 15
== END 2022-03-22 21:50 | disposition home or self-care (01) ==
LOC: EC 15:38
DX: R31.9 Hematuria, unspecified (principal); M19.90 Unspecified osteoarthritis, unspecified site; F41.9 Anxiety disorder, unspecified; F32.A Depression, unspecified; Z88.0 Allergy status to penicillin; Z88.1 Allergy status to other antibiotic agents; Z88.5 Allergy status to narcotic agent; Z88.8 Allergy status to other drugs, medicaments and biological substances; Z79.899 Other long term (current) drug therapy; Z87.891 Personal history of nicotine dependence
CPT/HCPCS: 36415; 80053; 85025; 81001; 87086; 74018; 76770; 99285; 96374; 96375; J2405; J1885

== ENCOUNTER → 2022-04-02 | Outpatient (CLI) | payer BC | END | disposition home or self-care (01) | LOC: LABWHC1 15:03 | PROVIDERS: ATTEND Psychiatry & Neurology Neurology | DX: I49.9 Cardiac arrhythmia, unspecified (principal); R94.31 Abnormal electrocardiogram [ECG] [EKG] | CPT/HCPCS: 36415; 93005 ==

== ENCOUNTER → 2022-07-14 | Outpatient (CLI) | payer BC ==
--- NOTE | 2022-07-15 04:20 | MR ---
EXAMINATION TYPE: MR pancreas wo/w con DATE OF EXAM: 07/14/2022 COMPARISON: None HISTORY: PAIN IN BACK, WEIGHT LOSS, NAUSEA, PAIN IN UPPER ABD CONTRAST: Standard multiplanar, multisequence MRI departmental protocol images were obtained without contrast a nd with 5.5 mL intravenous Gadavist gadolinium contrast. Multiplanar multiecho imaging of the abdomen performed without and with the IV contrast. Liver has normal size and contour. The bile ducts are nondilated. Gallbladder is contracted. Pancreas appears normal. The pancreatic duct appears normal. Spleen appears normal. The stomach is intact. No sign of pleural effusion. No sign of pericardial effusion. There is no adrenal mass. Kidneys have normal size and contour. No hydronephrosis. No sign of retrope ritoneal adenopathy. No evidence of filling defect in the common bile duct. Contrast images show no pathologic enhancement The lumbar spine is intact. Sacroiliac joints are intact. There is no ascites. No sign of a bowel obs truction. No evidence of mesenteric edema. There is normal enhancement of the portal venous system. IMPRESSION: Negative MR scan of the abdomen. Normal pancreas.
== END | disposition home or self-care (01) ==
LOC: RADMRIMAIN 21:15
PROVIDERS: ATTEND Internal Medicine Gastroenterology
DX: R10.13 Epigastric pain (principal)
CPT/HCPCS: 74183; A9585

== ENCOUNTER 2022-07-17 11:15 | Day surgery (SDC) | payer BC ==
[2022-07-14 15:16] VITALS: BMI 19.9
[~2022-07-17 11:15] MED LIST changes: +LIDOCAINE 1% (10MG/ML) FOR IV START INTRADERMA PRN
[2022-07-17] MEDS ORDERED: ONDANSETRON 4 MG/2 ML VIAL ONE (11:51)
[2022-07-17 12:00] VITALS: TEMP 98.8
[2022-07-17] MEDS ORDERED: ONDANSETRON 4 MG/2 ML VIAL IVP ONE (12:01)
[2022-07-17 12:02] LABS: Glucose,Whole Blood 93 mg/dL (70-110)
[2022-07-17] MEDS ORDERED: PROPOFOL 10 MG/ML 20 ML VIAL IV ONE (12:03)
[2022-07-17] MEDS ORDERED: MIDAZOLAM 2 MG/2 ML VIAL ONE (12:03)
[2022-07-17] MEDS ORDERED: fentaNYL (PF) 50 MCG/ML 2 ML AMP ONE (12:03)
[2022-07-17] MEDS ORDERED: GLYCOPYRROLATE 0.2 MG/ML 2 ML VIAL ONE (12:03)
[2022-07-17] MEDS ORDERED: KETAMINE 10 MG/ML 20 ML VIAL ONE (12:03)
[2022-07-17] MEDS ORDERED: LIDOCAINE 2% INJ 20 MG/ML (2 ML VIAL) ONE (12:03)
[2022-07-17] MEDS ORDERED: LIDOCAINE 2% INJ 20 MG/ML INTRATRACH ONE (12:15)
--- NOTE | 2022-07-17 12:25 | P.PCN ---
Date of Procedure: 07/17/22 Preoperative Diagnosis: Bronchiectasis, lingular infiltrates, rule out atypical mycobacterial infection Postoperative Diagnosis: Same Procedure(s) Performed: Flexible bronchoscopy, bronchioloalveolar lavage of the lingula Anesthesia: MAC Surgeon: Adri Smalls Pathology: other Condition: stable Disposition: same day Operative Findings: This is a flexible bronchoscopy that was done in the endoscopy suite under conscious sedation. Anesthetic agents was given by DESULFURIZER OPERATOR. The patient was given propofol and and ketamine and Versed. After achieving adequate sedation, the flexible bronchoscope was easily passed through the left nostril and was advanced into the upper airway. Examination of the posterior pharynx, larynx, arytenoids, epiglottis, true and false vocal cords was all within normal limits. There was no evidence of any blood within the upper airway. The vocal cord function mobility was within normal limits. A total of 2 mL of 1% lidocaine was applied to the vocal cord and following that the bronchoscope was advanced into the upper trachea. Examination of the airway was done using the flexible bronchoscope. The visualized airways included the trachea, bilateral mainstem bronchi, right upper lobe bronchus, bronchus intermedius, right middle lobe bronchus and right lower lobe bronchus and the various 10 segments on the right. Examination of the left side included the left mainstem bronchus, left upper lobe bronchus, left lower lobe bronchus and the various 8 segments on the left. There was some loose cystoscopy secretions that were suctioned out. No endobronchial lesions. No endobronchial tumors. No polyps. No foreign bodies. No lesions. The bronchoscope was wedged into the superior segment of the lingula. A total of 100 mL of fluid was infused and 30cc was suctioned back without any major difficulties. Aspirate was nonbloody. Therapeutic airway suctioning was done. Rest or secretions were all suctioned out. Procedure was terminated. The bronchoscope was removed and the patient was transferred to recovery in stable condition. No complications. The lavage will be sent for microbial analysis including atypical mycobacterial cultures.
[2022-07-17 12:41] VITALS: RESP 16
[2022-07-17 13:10] VITALS: BP 119/83; PULSE 68
== END 2022-07-17 13:52 | disposition home or self-care (01) ==
LOC: ORWHC2ENDO 11:15
PROVIDERS: ATTEND Internal Medicine Critical Care Medicine
DX: J47.9 Bronchiectasis, uncomplicated (principal); J98.4 Other disorders of lung; J40 Bronchitis, not specified as acute or chronic; Z86.16 Personal history of COVID-19; M19.90 Unspecified osteoarthritis, unspecified site; K21.9 Gastro-esophageal reflux disease without esophagitis; Z88.5 Allergy status to narcotic agent; Z88.0 Allergy status to penicillin; Z88.8 Allergy status to other drugs, medicaments and biological substances; Z91.048 Other nonmedicinal substance allergy status; Z79.82 Long term (current) use of aspirin; Z79.899 Other long term (current) drug therapy
CPT/HCPCS: 31624; 88108; 88305; J2001 ×2; J2250; J2405; J3010; J2704

== ENCOUNTER 2022-07-19 15:51 | Emergency (ER) | payer BC ==
[2022-07-19] MEDS ORDERED: SODIUM CHLORIDE 0.9% 1,000 ML IV STA (16:21)
[2022-07-19] MEDS ORDERED: ACETAMINOPHEN IV (For NPO) 1,000 MG in EMPTY BAG 1 BAG IVPB STA (16:22)
[2022-07-19] MEDS ORDERED: ONDANSETRON 4 MG/2 ML VIAL IVP STA (16:36)
[2022-07-19] MEDS ORDERED: MORPHINE SULFATE 4 MG/ML SYRINGE IVP STA ×2 (16:36→18:37)
--- NOTE | 2022-07-19 16:41 | ED ---
Recheck HPI - General Chief Complaint: Chest Pain Stated Complaint: chest pain, post op neck pain Time Seen by Provider: 07/19/22 16:13 Source: patient, RN notes reviewed, old records reviewed Mode of arrival: ambulatory Limitations: no limitations - History of Present Illness Initial Comments: This is a 52-year-old female DF for evaluation today. She presents with right- sided jaw pain neck pain and ear pain severe anterior tear posterior aspect infe rior and fever today. Fever at home was almost 102, patient has had no dramatic improvement despite pain control at home just Motrin and Tylenol. Patient states he had a bronchoscopy 2 days ago which did not appear to show anything but symptoms did begin shortly after. Denying any, no significant nausea vomiting or chest pain no shortness of breath pain appears to be dull right sided right-sided of her neck and comment of constant around her right ear. No recent illness or infection, no runny nose cough or congestion again. No specific medical history takes no medications. Patient is able to open and close her mouth without difficulty eating drink without difficulty. MD Complaint: other (Patient for recheck after upper bronchoscopy) -: days(s) Returns Today for: persistent/worsening pain related to initial visit, other (69 worsening pain to right throat) Associated Symptoms: none Treatments Prior to Arrival: other (0) - Related Data Home Medications Medication Instructions Recorded Confirmed Gabapentin [Neurontin] 100 mg PO QID 05/20/18 07/17/22 Aspirin 325 mg PO DAILY 06/27/19 07/17/22 Cholecalciferol [Vitamin D3 (25 2,000 unit PO DAILY 09/02/19 07/17/22 Mcg = 1000 Iu)] hydrOXYzine HCL 25 mg PO HS PRN 01/05/20 07/17/22 Turmeric Root Extract [Turmeric] 500 mg PO DAILY 04/03/20 07/17/22 Ondansetron [Zofran ODT] 4 mg PO Q4H PRN 05/31/20 07/17/22 Cider Vinegar [Apple Cider Vinegar] 300 mg PO DAILY 11/13/20 07/17/22 Cyanocobalamin (Vitamin B-12) 1,000 mcg PO DAILY 11/13/20 07/17/22 [Vitamin B-12] Biotin 5 mg PO DAILY 07/14/22 07/17/22 Cyclobenzaprine [Flexeril] 10 mg PO BID PRN 07/14/22 07/17/22 Vitamin C And Zinc Gummie 1 dose PO DAILY 07/14/22 07/17/22 Allergies Allergy/AdvReac Type Severity Reaction Status Date / Time flecainide Allergy SEVERE Verified 07/17/22 11:47 HEADACHE Penicillins Allergy Anaphylaxis Verified 07/17/22 11:47 adhesive tape AdvReac Rash/Hives Verified 07/17/22 11:47 azithromycin AdvReac Abdominal Verified 07/17/22 11:47 [From Zithromax Z-Salinas] Pain codeine AdvReac Nausea & Verified 07/17/22 11:47 Vomiting Review of Systems ROS Statement: Those systems with pertinent positive or pertinent negative responses have been documented in the HPI. ROS Other: All systems not noted in ROS Statement are negative. Past Medical History Past Medical History: GERD/Reflux, Osteoarthritis (OA), Supraventricular Tachycardia (SVT) Additional Past Medical History / Comment(s): lung nodules, approx 16lb wt loss in 6 mos,Covid infection Nov 2020-since has had mult episodes of bronchitis and that is when pt experienced bloody sputum,hx WPW syndrome improved following cardiac ablation, SVT, hiatal hernia, gastritis, palpitations; Cervical spinal stenosis. Thyroid nodule. MIGRAINE HEACHES, CHRONIC BACK PAIN. 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 Right Uterine fundal fibroid measuring 4.7 cm (2018 U/S). History of Any Multi-Drug Resistant Organisms: None Reported Past Surgical History: Breast Surgery, Cardiac Ablation, Ear Surgery Additional Past Surgical History / Comment(s): exp. laparoscopy; groin cyst removed, wisdom teeth removed; colonoscopy 10/2020, myringotomy & tubes, pain procedures. Upper GI endoscopy 2020,LEFT BREAST BIOPSY,I&D cyst removed from inguinal area. Past Anesthesia/Blood Transfusion Reactions: Family History of Problems w/ Anesthesia, Postoperative Nausea & Vomiting (PONV) Additional Past Anesthesia/Blood Transfusion Reaction / Comment(s): mother has a hard time waking up from anesthesia. no hx blood transfusion Past Psychological History: Anxiety, Depression Smoking Status: Former smoker - Past Family History Mother Family Medical History: AFIB, COPD Father Family Medical History: Cancer Additional Family Medical History / Comment(s): Melanoma skin cancer. Aunts Family Medical History: Cancer Additional Family Medical History / Comment(s): A paternal aunt had ovarian cancer, a maternal aunt had uterine cancer and another maternal aunt had bladder cancer. General Exam Limitations: no limitations General appearance: alert, in no apparent distress Head exam: Present: atraumatic, normocephalic, normal inspection Eye exam: Present: normal appearance, PERRL, EOMI. Absent: scleral icterus, conjunctival injection, periorbital swelling ENT exam: Present: normal exam, mucous membranes dry Neck exam: Present: normal inspection. Absent: tenderness, meningismus, lymphadenopathy Respiratory exam: Present: normal lung sounds bilaterally. Absent: respiratory distress, wheezes, rales, rhonchi, stridor Cardiovascular Exam: Present: regular rate, normal rhythm, tachycardia, normal heart sounds. Absent: systolic murmur, diastolic murmur, rubs, gallop, clicks GI/Abdominal exam: Present: soft, normal bowel sounds. Absent: distended, tenderness, guarding, rebound, rigid Extremities exam: Present: normal inspection, full ROM, normal capillary refill. Absent: tenderness, pedal edema, joint swelling, calf tenderness Back exam: Present: normal inspection Neurological exam: Present: alert, oriented X3, CN II-XII intact Psychiatric exam: Present: normal affect, normal mood Skin exam: Present: warm, dry, intact, normal color. Absent: rash Course Vital Signs 07/19/22 15:54 Temperature 98.7 F Pulse Rate 110 H Respiratory 20 Rate Blood Pressure 134/94 O2 Sat by Pulse 99 Oximetry - Reevaluation(s) Reevaluation #1: 07/19/22 16:41 Medical record is reviewed Reevaluation #2: 07/19/22 19:17 Patient has improved pain control after second pain medication Reevaluation #3: 07/19/22 20:04 Does have adequate control continued pain control after second dose of medication, patient will follow-up with primary care, watch first further signs and symptoms of possibly early herpes zoster rash Reevaluation #4: 07/19/22 16:41 Was pt. sent in by a medical professional or institution? @ -no patient does present by EMS Did you speak to anyone other than the patient for history? @ -EMS and paitents daughter at beside Did you review nursing and triage notes? @ -agree Were old charts reviewed? @ -prior admissions and ER evaluaions are reviewed Differential Diagnosis? @ -weakness, falls EKG interpreted by me (3pts min.)? @ -no X-rays interpreted by me (1pt min.)? @ -no CT interpreted by me (1pt min.)? @ -no U/S interpreted by me (1pt. min.)? @ -no What testing was considered but not performed? (CT, X-rays, U/S, labs)? Why? @ -ni What meds were considered but not given? Why? @ -no patient with no current complaints Did you discuss the management of the patient with other professionals? @ -no Did you reconcile home meds? @ -no Was smoking cessation discussed for >3mins.? @ -no Was critical care preformed (if so, how long)? @ -no Were there social determinants of health that impacted care today? How? (Homelessness, low income, unemployed, alcoholism, drug addiction, transportation, low edu. Level, literacy, decrease access to med. care, intermediate, rehab)? @ -no Was there de-escalation of care discussed even if they declined? (Discuss DNR or withdrawal of care, Hospice)? @ -no What co-morbidities impacted this encounter? (DM, HTN, Smoking, COPD, CAD, Cancer, CVA, Hep., AIDS, mental health diagnosis, sleep apnea, morbid obesity)? @ -none Was patient admitted / discharged? @ -DC Undiagnosed new problem with uncertain prognosis? @ -multiple falls history of, R elbow abrasion Drug Therapy requiring intensive monitoring for toxicity (Heparin, Nitro, Insulin, Cardizem)? @ -no Were any procedures done? @ -no Diagnosis/symptom? @ -fall, arm abrasion Acute, or Chronic, or Acute on Chronic? @ -acute Uncomplicated (without systemic symptoms) or Complicated (systemic symptoms)? @ -uncompicated Side effects of treatment? @ -none Exacerbation, Progression, or Severe Exacerbation] @ -no Poses a threat to life or bodily function? @ -no - Consultations Consultation #1: I did state with Dr. Smalls regarding this patient and his bronchoscopy, he had no complications and severe unilateral or one-sided that her pain would not be related to anything that he may have introduced during this procedure Medical Decision Making - Medical Decision Making 52 female with right ear pain otalgia pain to the right side of the face right anterior right posterior. Did do a CT no mastoiditis, spoke with Dr. Smalls regarding possible complication patient's recent bronchoscopy he denies this is a possibility will see patient has a follow-up, patient has pain control here and can be discharged home - Lab Data Result diagrams: 07/19/22 16:25 07/19/22 16:25 Lab Results 07/19/22 07/19/22 07/19/22 Range/Units 16:25 16:25 16:25 WBC 8.0 (3.8-10.6) k/uL RBC 4.71 (3.80-5.40) m/uL Hgb 15.4 (11.4-16.0) gm/dL Hct 45.1 (34.0-46.0) % MCV 95.8 (80.0-100.0) fL MCH 32.6 (25.0-35.0) pg MCHC 34.0 (31.0-37.0) g/dL RDW 11.6 (11.5-15.5) % Plt Count 216 (150-450) k/uL MPV 8.3 Neutrophils % 72 % Lymphocytes % 20 % Monocytes % 5 % Eosinophils % 1 % Basophils % 1 % Neutrophils # 5.8 (1.3-7.7) k/uL Lymphocytes # 1.6 (1.0-4.8) k/uL Monocytes # 0.4 (0-1.0) k/uL Eosinophils # 0.1 (0-0.7) k/uL Basophils # 0.0 (0-0.2) k/uL PT 10.9 (9.0-12.0) sec INR 1.0 (<1.2) APTT 25.8 (22.0-30.0) sec Sodium 140 (137-145) mmol/L Potassium 4.3 (3.5-5.1) mmol/L Chloride 104 (98-107) mmol/L Carbon Dioxide 27 (22-30) mmol/L Anion Gap 9 mmol/L BUN 17 (7-17) mg/dL Creatinine 0.65 (0.52-1.04) mg/dL Est GFR (CKD-EPI)AfAm >90 (>60 ml/min/1.73 sqM) Est GFR (CKD-EPI)NonAf >90 (>60 ml/min/1.73 sqM) Glucose 117 H (74-99) mg/dL Calcium 9.2 (8.4-10.2) mg/dL Magnesium 2.0 (1.6-2.3) mg/dL Total Bilirubin 0.6 (0.2-1.3) mg/dL AST 27 (14-36) U/L ALT 23 (4-34) U/L Alkaline Phosphatase 73 (38-126) U/L Troponin I (0.000-0.034) ng/mL C-Reactive Protein <0.5 (<1.0) mg/dL NT-Pro-B Natriuret Pep pg/mL Total Protein 6.7 (6.3-8.2) g/dL Albumin 4.3 (3.5-5.0) g/dL Lipase 49 (23-300) U/L 07/19/22 07/19/22 Range/Units 16:25 16:25 WBC (3.8-10.6) k/uL RBC (3.80-5.40) m/uL Hgb (11.4-16.0) gm/dL Hct (34.0-46.0) % MCV (80.0-100.0) fL MCH (25.0-35.0) pg MCHC (31.0-37.0) g/dL RDW (11.5-15.5) % Plt Count (150-450) k/uL MPV Neutrophils % % Lymphocytes % % Monocytes % % Eosinophils % % Basophils % % Neutrophils # (1.3-7.7) k/uL Lymphocytes # (1.0-4.8) k/uL Monocytes # (0-1.0) k/uL Eosinophils # (0-0.7) k/uL Basophils # (0-0.2) k/uL PT (9.0-12.0) sec INR (<1.2) APTT (22.0-30.0) sec Sodium (137-145) mmol/L Potassium (3.5-5.1) mmol/L Chloride (98-107) mmol/L Carbon Dioxide (22-30) mmol/L Anion Gap mmol/L BUN (7-17) mg/dL Creatinine (0.52-1.04) mg/dL Est GFR (CKD-EPI)AfAm (>60 ml/min/1.73 sqM) Est GFR (CKD-EPI)NonAf (>60 ml/min/1.73 sqM) Glucose (74-99) mg/dL Calcium (8.4-10.2) mg/dL Magnesium (1.6-2.3) mg/dL Total Bilirubin (0.2-1.3) mg/dL AST (14-36) U/L ALT (4-34) U/L Alkaline Phosphatase (38-126) U/L Troponin I <0.012 (0.000-0.034) ng/mL C-Reactive Protein (<1.0) mg/dL NT-Pro-B Natriuret Pep 104 pg/mL Total Protein (6.3-8.2) g/dL Albumin (3.5-5.0) g/dL Lipase (23-300) U/L - EKG Data -: EKG Interpreted by Me (EKG is sinus 87. 96 QRS 84 QTc 421) - Radiology Data Radiology results: report reviewed (Chest x-rays negative for acute disease CT IAC of right ear is negative), image reviewed Disposition Clinical Impression: Atypical chest pain, Right ear pain Disposition: HOME SELF-CARE Condition: Good Instructions (If sedation given, give patient instructions): Earache (ED) Is patient prescribed a controlled substance at d/c from ED?: No Referrals: Cortez Paulino DO [Primary Care Provider] - 1-2 days Time of Disposition: 20:05
[2022-07-19 16:48] LABS: Basophils % (A) 1 %; Eosinophils # (A) 0.1 k/uL (0-0.7); Eosinophils % (A) 1 %; HCT 45.1 % (34.0-46.0); HGB 15.4 gm/dL (11.4-16.0); Lymphocytes # (A) 1.6 k/uL (1.0-4.8); Lymphocytes % (A) 20 %; MCH 32.6 pg (25.0-35.0); MCV 95.8 fL (80.0-100.0); Mean Platelet Volume 8.3; Monocytes # (A) 0.4 k/uL (0-1.0); Monocytes % (A) 5 %; Neutrophils # (A) 5.8 k/uL (1.3-7.7); Neutrophils % (A) 72 %; Platelet Count 216 k/uL (150-450); RBC 4.71 m/uL (3.80-5.40); RDW 11.6 % (11.5-15.5)
[2022-07-19 16:57] LABS: Partial Thromboplastin Time 25.8 sec (22.0-30.0); Prothrombin Time 10.9 sec (9.0-12.0)
--- NOTE | 2022-07-19 17:03 | XR ---
EXAMINATION TYPE: XR chest 1V portable DATE OF EXAM: 07/19/2022 COMPARISON: 01/07/2022 HISTORY: Chest pain TECHNIQUE: Single frontal view of the chest is obtained. FINDINGS: There is no focal air space opacity, pleural effusion, or pneumothorax seen. The cardiac silhouette size is within normal limits. The osseous structures are intact. IMPRESSION: No acute process.
[2022-07-19 17:05] LABS: ALT 23 U/L (4-34); AST 27 U/L (14-36); African American GFR (CKD) >90 (>60 ml/min/1.73 sqM); Albumin 4.3 g/dL (3.5-5.0); Alkaline Phosphatase 73 U/L (38-126); Anion Gap 9 mmol/L; Blood Urea Nitrogen 17 mg/dL (7-17); C Reactive Protein <0.5 mg/dL (<1.0); Calcium 9.2 mg/dL (8.4-10.2); Carbon Dioxide 27 mmol/L (22-30); Chloride 104 mmol/L (98-107); Glucose 117 mg/dL (74-99); Lipase 49 U/L (23-300); Non-African American GFR(CKD) >90 (>60 ml/min/1.73 sqM); Potassium 4.3 mmol/L (3.5-5.1); Sodium 140 mmol/L (137-145); Total Bilirubin 0.6 mg/dL (0.2-1.3); Total Protein 6.7 g/dL (6.3-8.2)
--- NOTE | 2022-07-19 19:27 | CT ---
EXAMINATION TYPE: CT iac wo con CT DLP: 247.2 mGycm, Automated exposure control for dose reduction was used. DATE OF EXAM: 07/19/2022 7:19 PM INDICATION: Patient age:Female; 52 years old; Reason for study: R mastoiditis; COMPARISON: None. TECHNIQUE: Multiple thin axial images were obtained through the temporal bones and internal auditory canals. Additional coronal reformatted images were obtained. No IV contrast was utilized. CT Contrast: Contrast used: none. FINDINGS: Right Temporal Bone: External Ear: The external auditory canal is unremarkable, The tympanic membrane is present and unrem arkable. Middle Ear: The ossicles demonstrate a normal appearance. Prussak's space is clear and the scutum i s intact. There is no evidence of osseous erosion and the tegmen tympani is intact. Inner Ear: Cochlea, vestibule and semi circular canals are unremarkable. No evidence of carotid mohan l dehiscence. Two and a half turns of the cochlea are identified. The vestibular aqueduct is not enl arged. Mastoid Air Cells: The mastoid air cells are clear. The tegmen mastoideum is intact. The aditus ad an trum is clear. Internal Auditory Canal: The internal auditory canal is unremarkable. Left Temporal Bone: External Ear: The external auditory canal is unremarkable, The tympanic membrane is present and unrem arkable. Middle Ear: The ossicles demonstrate a normal appearance. Prussak's space is clear and the scutum i s intact. There is no evidence of osseous erosion and the tegmen tympani is intact. Inner Ear: Cochlea, vestibule and semi circular canals are unremarkable. No evidence of carotid mohan l dehiscence. Two and a half turns of the cochlea are identified. The vestibular aqueduct is not enl arged. Mastoid Air Cells: The mastoid air cells are clear. The tegmen mastoideum is intact. The aditus ad an trum is clear. Asymmetrically decreased pneumatized left temporal bone. Internal Auditory Canal: The internal auditory canal is unremarkable. IMPRESSION: No evidence of right mastoid air cell effusion, no right middle ear effusion, no acute process involv ing the right temporal bone.
[2022-07-19] MEDS ORDERED: traMADol 50 MG STARTER PACK 3 TAB BTL PO STA (20:03)
[2022-07-19] MEDS ORDERED: traMADol 50 MG TAB PO STA (20:03)
[2022-07-19] MEDS ORDERED: CEPHALEXIN 500 MG CAP PO STA (20:03)
[2022-07-19] MEDS ORDERED: CEPHALEXIN 500MG STARTER PACK 4 CAP BTL PO STA (20:03)
[2022-07-19 20:41] VITALS: BP 128/86; PULSE 66; RESP 18; TEMP 98.6
== END 2022-07-19 20:41 | disposition home or self-care (01) ==
LOC: EC 15:51
DX: R07.89 Other chest pain (principal); H92.01 Otalgia, right ear; M19.90 Unspecified osteoarthritis, unspecified site; F41.9 Anxiety disorder, unspecified; F32.A Depression, unspecified; Z87.891 Personal history of nicotine dependence; Z88.0 Allergy status to penicillin; Z88.5 Allergy status to narcotic agent; Z88.1 Allergy status to other antibiotic agents; Z91.048 Other nonmedicinal substance allergy status; Z88.8 Allergy status to other drugs, medicaments and biological substances; Z79.82 Long term (current) use of aspirin; Z86.16 Personal history of COVID-19; Z79.899 Other long term (current) drug therapy
CPT/HCPCS: 36415; 93005; 83880; 80053; 83690; 83735; 84484; 85025; 85610; 85730; 86140; 71045; 70480; 99285; 96365; 96366 ×2; 96375 ×2; 96376; 96361; J2270; J2405; J0131

== ENCOUNTER → 2022-08-12 | Outpatient (CLI) | payer BC ==
--- NOTE | 2022-08-12 14:17 | US ---
EXAMINATION TYPE: US thyroid st tissue head/neck DATE OF EXAM: 08/12/2022 COMPARISON: US CLINICAL INDICATION: Female, 52 years old with history of E04.1NONTOXIC SINGLE THYROID NODULE; GLAND SIZE: Right Lobe: 4.8 x 1.6 cm Overall Parenchyma: Homogeneous Left Lobe: 5.0 x 1.2 cm Overall Parenchyma: homogeneous Isthmus Thickness: 0.2 cm NODULES RIGHT: # of nodules measured on right: 1 1. 0.7 X 0.5 x 0.5 cm, mid, solid or almost completely solid, calcified nodule, which is wider than tall, with smooth margins Prior size: 0.7 x 0.5 x 0.7 cm LEFT: # of nodules measured on left: 2 1. 0.7 X 0.6 x 0.3 cm, lower, solid or almost completely solid, hypoechoic nodule, which is wider t murdock tall, with smooth margins, without echogenic foci. Prior size: 0.7 x 0.8 x 0.4 cm 2. 0.8 X 0.4 x 0.6 cm, upper, solid or almost completely solid, hypoechoic nodule, which is wider than tall, with smooth margins, without echogenic foci. Prior size: 0.6 x 0.5 x 0.5 cm ISTHMUS: # of nodules measured in the isthmus: 0 Bilateral neck scanned, no evidence of lymphadenopathy. Sub-centimeter nodules bilaterally. IMPRESSION: Stable nonspecific nodularity.
== END | disposition home or self-care (01) ==
LOC: RADUSWWP 13:46
PROVIDERS: ATTEND Otolaryngology
DX: E04.1 Nontoxic single thyroid nodule (principal)
CPT/HCPCS: 76536

== ENCOUNTER → 2022-09-23 | Outpatient (CLI) | payer BC ==
[2022-09-23 14:21] VITALS: BP 119/84; PULSE 84; RESP 17; TEMP 97.9
--- NOTE | 2022-09-23 16:30 | P.HPOB ---
History of Present Illness H&P Date: 09/23/22 Chief Complaint: The patient is here for her routine gynecologic exam and ma mmogram. This is a 52-year-old with an LMP of 2018. The patient has a history of chronic abdominal pain, but states it is doing better than previous years and now only has intermittent pains. She did have a CT scan of the abdomen and pelvis on 05/18/2022 which showed a moderate stool burdened throughout the colon, and did not show any gynecologic abnormality. She is without gynecologic complaints and denies any post menopausal bleeding. Review of Systems She has lost about 14 pounds over the past year. She denies respiratory, cardiac, or GI problems. She states she moves her bowels regularly and has been eating normally. Past Medical History Past Medical History: GERD/Reflux, Osteoarthritis (OA), Supraventricular Tachycardia (SVT), Thyroid Disorder Additional Past Medical History / Comment(s): lung nodules, approx 16lb wt loss in 6 mos,Covid infection Nov 2020-since has had mult episodes of bronchitis and that is when pt experienced bloody sputum-not currently happening,hx WPW syndrome improved following cardiac ablation, SVT, hiatal hernia, gastritis, palpitations; Cervical spinal stenosis. Thyroid nodule. MIGRAINE HEADACHES, CHRONIC BACK PAIN. PAST [employer] HISTORY: She has no history of STDs. Right Uterine fundal fibroid measuring 4.7 cm (2019 U/S). History of Any Multi-Drug Resistant Organisms: None Reported Past Surgical History: Breast Surgery, Cardiac Ablation, Ear Surgery Additional Past Surgical History / Comment(s): exp. laparoscopy; groin cyst removed, wisdom teeth removed; colonoscopy 10/2020, myringotomy & tubes, pain procedures. Upper GI endoscopy 2020,LEFT BREAST BIOPSY,I&D cyst removed from inguinal area. Past Anesthesia/Blood Transfusion Reactions: Family History of Problems w/ Anesthesia, Postoperative Nausea & Vomiting (PONV) Additional Past Anesthesia/Blood Transfusion Reaction / Comment(s): mother has a hard time waking up from anesthesia. no hx blood transfusion Past Psychological History: Anxiety, Depression Additional Psychological History / Comment(s): Brief depression around 2007 treated with Prozac. Smoking Status: Former smoker Past Alcohol Use History: None Reported Additional Past Alcohol Use History / Comment(s): started smoking around the age of 17 on and off until the age of 45 SMOKED 8 CIG A DAY Past Drug Use History: None Reported Additional History: She is single and is not sexually active at this time. 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 She is planning to move to [place] in the future. - Past Family History Mother Family Medical History: AFIB, COPD Father Family Medical History: Cancer Additional Family Medical History / Comment(s): Melanoma skin cancer. Aunts Family Medical History: Cancer Additional Family Medical History / Comment(s): A paternal aunt had ovarian cancer, a maternal aunt had uterine cancer and another maternal aunt had bladder cancer. Medications and Allergies Home Medications Medication Instructions Recorded Confirmed Type Gabapentin [Neurontin] 200 mg PO TID 05/20/18 09/23/22 History Ascorbic Acid [Vitamin C] 1,000 mg PO DAILY 07/19/22 09/23/22 History Aspirin EC [Ecotrin Low Dose] 81 mg PO DAILY 07/19/22 09/23/22 History Biotin 5 mg PO DAILY 07/19/22 09/23/22 History Cholecalciferol [Vitamin D3 (25 25 mcg PO DAILY 07/19/22 09/23/22 History Mcg = 1000 Iu)] Ondansetron Odt [Zofran Odt] 4 mg TRANSLINGU BID PRN 07/19/22 09/23/22 History Zinc Gluconate [Zinc] 50 mg PO DAILY 07/19/22 09/23/22 History Allergies Allergy/AdvReac Type Severity Reaction Status Date / Time flecainide Allergy SEVERE Verified 08/07/22 10:34 HEADACHE Penicillins Allergy Anaphylaxis Verified 08/07/22 10:34 adhesive tape AdvReac Rash/Hives Verified 08/07/22 10:34 azithromycin AdvReac Abdominal Verified 08/07/22 10:34 [From Zithromax Z-[place]] Pain codeine AdvReac Nausea & Verified 08/07/22 10:34 Vomiting Exam Vital Signs Temp Pulse Resp BP Pulse Ox 09/23/22 14:20 97.9 F 84 17 119/84 100 Intake and Output 09/23/22 09/23/22 09/23/22 06:59 14:59 22:59 Other: Weight 51.71 kg Height 5 feet 4 inches, weight 114 pounds, BMI 19.6. This is a well-developed well-nourished white female who is alert and oriented times 3 in no acute distress. HEENT: Within normal limits. NECK: Supple without mass or thyromegaly. CHEST AND LUNGS: Clear to auscultation. HEART: Regular rate and rhythm. BREASTS: Are without mass or discharge. AXILLARY EXAM: Negative for adenopathy. BACK: Negative for CVA tenderness. ABDOMEN: Soft, nontender, without palpable masses. The abdomen is non- distended. PELVIC EXAM: Normal external genitalia with mild atrophy. Cervix and vagina appear normal is mild atrophy. There is no cervical motion tenderness. There is no unusual discharge. There is no evidence of prolapse. Bimanual examination: The uterus is midposition with a firm irregularity in the left fundal region measuring approximately 3 x 4 cm. This is mildly tender. There are no palpable adnexal masses or tenderness. RECTAL EXAM: Rectovaginal exam is negative for mass or tenderness and is negative for occult blood. EXTREMITIES: Nontender. IMPRESSION: 1. 52-year-old menopausal female with pelvic mass in the left fundal region of the uterus. She does have a history of a right fundal uterine fibroid that previously measured 4.7 cm by ultrasound in the past. Differential diagnosis will include a left fundal uterine fibroid, small uterine corpus which is deviated to the left from a right fundal fibroid, and less likely, ovarian mass. PLAN: 1. Pap smear was deferred since she had a negative Pap smear cotest on 07/03/2020. 2. Self breast awareness was discussed with the patient. We have also discussed symptoms associated with inflammatory breast cancer. 3. Screening mammogram was done today. 4. Pelvic ultrasound was recommended to further evaluate the pelvic mass to determine if this is a uterine fibroid or ovarian in nature. The order slip was given to the patient for this. 5. Osteoporosis prevention was discussed. I have stressed the importance of adequate calcium, vitamin D and regular exercise. Recommended amounts of calcium and vitamin D were also discussed. We will plan on doing a bone density test next year since she is menopausal, thin and has a strong family history of osteoporosis in her mother and grandmother. 6. She was advised to return in one year for her annual well woman exam and as needed.
--- NOTE | 2022-09-24 07:29 | MM ---
Reason for Exam: Screening (asymptomatic). Last mammogram was performed 1 year(s) and 1 month(s) ago. Patient History: Menarche at age 11. First Full-Term at age 17. Postmenopausal. 09/13/2019, Benign Core Biopsy on the left side. Maternal grandmother had breast cancer, age 60. Maternal cousin had breast cancer, age 55. Risk Values: Ayana 5 year model risk: 0.9%. NCI Lifetime model risk: 7.3%. Prior Study Comparison: 03/14/2020 Left Diagnostic Mammogram, [facility]. 09/10/2020 Bilateral Screening Mammogram, [facility]. 09/17/2021 Bilateral MG 3D screening mammo w/cad, [facility]. Tissue Density: The breast tissue is heterogeneously dense. This may lower the sensitivity of mammography. Findings: Analyzed By CAD. There is no suspicious group of microcalcifications or new suspicious mass in either breast. Benign-appearing bilateral calcifications. Overall Assessment: Benign, BI-RAD 2 Management: Screening Mammogram of both breasts in 1 year. A clinical breast exam by your physician is recommended on an annual basis and results should be correlated with mammographic findings. Electronically signed and approved by: Stephan Lorenzo D.O.
== END ==
LOC: WWCWWP 13:59
PROVIDERS: ATTEND Obstetrics & Gynecology
DX: Z12.31 Encounter for screening mammogram for malignant neoplasm of breast (principal); E07.9 Disorder of thyroid, unspecified; K21.9 Gastro-esophageal reflux disease without esophagitis; Z78.0 Asymptomatic menopausal state; Z80.8 Family history of malignant neoplasm of other organs or systems; Z80.41 Family history of malignant neoplasm of ovary; Z80.59 Family history of malignant neoplasm of other urinary tract organ; Z88.0 Allergy status to penicillin; Z91.048 Other nonmedicinal substance allergy status; Z88.1 Allergy status to other antibiotic agents; Z88.5 Allergy status to narcotic agent; Z88.8 Allergy status to other drugs, medicaments and biological substances; Z87.891 Personal history of nicotine dependence; R19.09 Other intra-abdominal and pelvic swelling, mass and lump; Z01.411 Encounter for gynecological examination (general) (routine) with abnormal findings; R92.1 Mammographic calcification found on diagnostic imaging of breast; Z80.3 Family history of malignant neoplasm of breast
CPT/HCPCS: 77063; 77067

== ENCOUNTER → 2022-10-22 | Outpatient (CLI) | payer BC ==
--- NOTE | 2022-10-22 14:37 | US ---
EXAMINATION TYPE: US pelvis complete transvag DATE OF EXAM: 10/22/2022 COMPARISON: CT 2022, US 2019 CLINICAL INDICATION: Female, 52 years old with history of R68.89 FIBROIDS, D25.9LEIOMYOMA OF UTERUS, UNSPECI; *known uterine leiomyoma. . Hx ectopic. TECHNIQUE: Transvaginal (TV) and Transabdominal (TA) . Transabdominal sonographic images of the pel vis were acquired. Transvaginal sonographic images were medically necessary to better assess the fol lowing anatomy: Ovaries Date of LMP: In 2018 EXAM MEASUREMENTS: Uterus: 5.8 x 4.1 x 2.9 cm Endometrial Stripe: Unable to visualize. Right Ovary: 2.6 x 1.3 x 1.0 cm Left Ovary: 2.3 x 1.3 x 0.9 cm 1. Uterus: Anteverted Appears very heterogeneous, difficult to define any possible fibroids. *Hypoechoic area seen in cervix: 0.7 x 0.8 x 0.7 cm. Subcentimeter anechoic area seen in cervix. 2. Endometrium: Unable to visualize 3. Right Ovary: Appears wnl 4. Left Ovary: Appears wnl 5. Bilateral Adnexa: Prominent blood vessels seen left adnexa. 6. Posterior cul-de-sac: Some fluid seen: 1.1 x 1.9 x 0.3 cm. IMPRESSION: 1. Heterogeneity of the uterine myometrium could reflect small leiomyomatous change. 2. Cervical nabothian cyst.
== END | disposition home or self-care (01) ==
LOC: RADUSWWP 13:33
PROVIDERS: ATTEND Obstetrics & Gynecology
DX: D25.9 Leiomyoma of uterus, unspecified (principal); N88.8 Other specified noninflammatory disorders of cervix uteri; R68.89 Other general symptoms and signs
CPT/HCPCS: 76830; 76856

== ENCOUNTER 2022-11-15 14:05 | Emergency (ER) | payer BC ==
[2022-11-15 14:26] VITALS: TEMP 98.2
[2022-11-15] MEDS ORDERED: SODIUM CHLORIDE 0.9% 1,000 ML IV STA (15:10)
[2022-11-15] MEDS ORDERED: ONDANSETRON 4 MG/2 ML VIAL IVP STA (15:10)
[2022-11-15] MEDS ORDERED: KETOROLAC 15 MG/ML 1 ML VIAL IVP STA (15:10)
[2022-11-15 15:38] LABS: Basophils # (A) 0.1 k/uL (0-0.2); Basophils % (A) 1 %; Eosinophils # (A) 0.1 k/uL (0-0.7); Eosinophils % (A) 1 %; HCT 49.1 % (34.0-46.0); Lymphocytes # (A) 2.3 k/uL (1.0-4.8); Lymphocytes % (A) 29 %; MCH 32.9 pg (25.0-35.0); MCHC 34.5 g/dL (31.0-37.0); MCV 95.5 fL (80.0-100.0); Mean Platelet Volume 8.9; Monocytes # (A) 0.4 k/uL (0-1.0); Monocytes % (A) 5 %; Neutrophils # (A) 4.9 k/uL (1.3-7.7); Neutrophils % (A) 62 %; Platelet Count 244 k/uL (150-450); RBC 5.15 m/uL (3.80-5.40); RDW 12.1 % (11.5-15.5); WBC 7.9 k/uL (3.8-10.6)
[2022-11-15] MEDS ORDERED: MORPHINE SULFATE 4 MG/ML SYRINGE IVP STA ×2 (15:42→17:35)
[2022-11-15 15:52] LABS: ALT 23 U/L (4-34); AST 31 U/L (14-36); African American GFR (CKD) >90 (>60 ml/min/1.73 sqM); Albumin 4.6 g/dL (3.5-5.0); Alkaline Phosphatase 81 U/L (38-126); Amylase 65 U/L (30-110); Anion Gap 8 mmol/L; Blood Urea Nitrogen 21 mg/dL (7-17); Calcium 9.9 mg/dL (8.4-10.2); Carbon Dioxide 26 mmol/L (22-30); Chloride 107 mmol/L (98-107); Glucose 106 mg/dL (74-99); Lipase 67 U/L (23-300); Non-African American GFR(CKD) >90 (>60 ml/min/1.73 sqM); Potassium 4.2 mmol/L (3.5-5.1); Sodium 141 mmol/L (137-145); Total Bilirubin 0.6 mg/dL (0.2-1.3); Total Protein 7.3 g/dL (6.3-8.2)
--- NOTE | 2022-11-15 15:58 | CT ---
EXAMINATION TYPE: CT abdomen pelvis wo con CT DLP: 332.1 mGycm, Automated exposure control for dose reduction was used. DATE OF EXAM: 11/15/2022 3:48 PM COMPARISON: MR pancreas 05/18/2022, MR pancreas 07/14/2022 CLINICAL INDICATION:Female, 52 years old with history of abdominal pain, left flank, eval for stone; Left side flank pain. TECHNIQUE: Renal stone protocol CT of the abdomen and pelvis without IV or oral contrast. Lack of IV or oral contrast limits evaluation of solid and hollow organ viscera. Coronal and sagittal reformats were performed. FINDINGS: LOWER CHEST: Patchy tree-in-bud nodular opacities within the right middle lobe and lingula. ABDOMEN LIVER: Unremarkable noncontrast appearance GALLBLADDER AND BILE DUCTS: Unremarkable noncontrast appearance PANCREAS: Unremarkable noncontrast appearance SPLEEN: Unremarkable noncontrast appearance ADRENAL GLANDS: Unremarkable noncontrast appearance. KIDNEYS AND URETERS: No evidence of hydronephrosis or renal calculus involving the right kidney. Mild left hydroureteronephrosis with obstructing 3.4 mm calculus at the ureterovesical junction. PELVIS BLADDER: Under distended, limiting evaluation. REPRODUCTIVE: Unremarkable noncontrast appearance ABDOMEN & PELVIS STOMACH AND BOWEL: Stomach and duodenum are unremarkable. No focal bowel wall thickening or stranding . Few scattered colonic diverticula without evidence for acute diverticulitis. No evidence of bowel obstruction. PERITONEUM: No evidence of pneumoperitoneum or free fluid. VASCULATURE: No evidence of aortic aneurysm. MUSCULOSKELETAL: No acute osseous abnormalities. Mild degenerative disc is L5-S1 with disc space narr owing, endplate sclerosis, vacuum disc disease, and anterior osteophytosis. LYMPH NODES: No gross evidence for lymphadenopathy. SOFT TISSUE/ABDOMINAL WALL: Unremarkable IMPRESSION: 1. Mild left hydroureteronephrosis with an obstructing 3.4 mm calculus at the uterovesical junction. 2. Few patchy tree-in-bud nodular opacities within the right middle lobe and lingula suggestive of an infectious/pulmonary process.
[2022-11-15 16:11] LABS: Appearance,Urine Bloody (Clear); Bilirubin,Urine Negative (Negative); Color,Urine Red; Glucose,Urine (UA) Negative (Negative); Ketones,Urine Negative (Negative); PH, Urine 5.5 (5.0-8.0); Protein,Urine 1+ (Negative); Specific Gravity,Urine >1.030 (1.001-1.035)
[2022-11-15 16:12] LABS: Blood,Urine Large (Negative); Leukocyte Esterase,Urine Negative (Negative); Nitrite,Urine Negative (Negative); RBC,Urine 75 /hpf (0-5); Squamous Epithelial Cell,Urine 2 /hpf (0-4); Urobilinogen,Urine <2.0 mg/dL (<2.0); WBC,Urine 1 /hpf (0-5)
[2022-11-15 16:13] LABS: Bacteria,Urine Few /hpf; Mucus,Urine Few /hpf
[2022-11-15 16:32] VITALS: RESP 18
[2022-11-15 16:36] LABS: INR 1.1 (<1.2); Partial Thromboplastin Time 25.9 sec (22.0-30.0)
--- NOTE | 2022-11-15 17:11 | ED ---
General Adult HPI - General Chief complaint: Abdominal Pain Stated complaint: Left flank pain Time Seen by Provider: 11/15/22 14:47 Source: patient, RN notes reviewed, old records reviewed Mode of arrival: wheelchair Limitations: no limitations - History of Present Illness Initial comments: Patient is a 52-year-old female who presents emergency department for left-sided abdominal pain. His history of kidney stones and states this feels like previous kidney stones. Endorses some decreased urination. Denies any fevers. Endorses nausea but no emesis. Denies diarrhea. States pain started suddenly 3 hours ago. Denies any chest pain or shortness of breath. Has no other acute complaints at this time. Presents for further evaluation at this time. Believe she has a kidney stone. - Related Data Home Medications Medication Instructions Recorded Confirmed Gabapentin [Neurontin] 200 mg PO TID 05/20/18 09/23/22 Ascorbic Acid [Vitamin C] 1,000 mg PO DAILY 07/19/22 09/23/22 Aspirin EC [Ecotrin Low Dose] 81 mg PO DAILY 07/19/22 09/23/22 Biotin 5 mg PO DAILY 07/19/22 09/23/22 Cholecalciferol [Vitamin D3 (25 25 mcg PO DAILY 07/19/22 09/23/22 Mcg = 1000 Iu)] Ondansetron Odt [Zofran Odt] 4 mg TRANSLINGU BID PRN 07/19/22 09/23/22 Zinc Gluconate [Zinc] 50 mg PO DAILY 07/19/22 09/23/22 Previous Rx's Medication Instructions Recorded Ondansetron Odt [Zofran Odt] 4 mg PO Q8HR PRN 3 Days #9 tab 11/15/22 Tamsulosin [Flomax] 0.4 mg PO DAILY 14 Days #14 cap 11/15/22 Allergies Allergy/AdvReac Type Severity Reaction Status Date / Time flecainide Allergy SEVERE Verified 11/15/22 14:25 HEADACHE Penicillins Allergy Anaphylaxis Verified 11/15/22 14:25 adhesive tape AdvReac Rash/Hives Verified 11/15/22 14:25 azithromycin AdvReac Abdominal Verified 11/15/22 14:25 [From Zithromax Z-[place]] Pain codeine AdvReac Nausea & Verified 11/15/22 14:25 Vomiting Review of Systems ROS Statement: Those systems with pertinent positive or pertinent negative responses have been documented in the HPI. Review of Systems: CONST: Denies fever EYES: Denies blurry vision ENT: Denies nasal congestion C/V: Denies Chest pain RESP: Denies shortness of breath GI: Endorses abdominal pain : Denies dysuria SKIN: Denies rash. MSK: Denies joint pain. NEURO: Denies headache ROS Other: All systems not noted in ROS Statement are negative. Past Medical History Past Medical History: GERD/Reflux, Osteoarthritis (OA), Supraventricular Tachycardia (SVT), Thyroid Disorder Additional Past Medical History / Comment(s): lung nodules, approx 16lb wt loss in 6 mos,Covid infection Nov 2020-since has had mult episodes of bronchitis and that is when pt experienced bloody sputum-not currently happening,hx WPW syndrome improved following cardiac ablation, SVT, hiatal hernia, gastritis, palpitations; Cervical spinal stenosis. Thyroid nodule. MIGRAINE HEADACHES, CHRONIC BACK PAIN. 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 Right Uterine fundal fibroid measuring 4.7 cm (2019 U/S). History of Any Multi-Drug Resistant Organisms: None Reported Past Surgical History: Breast Surgery, Cardiac Ablation, Ear Surgery Additional Past Surgical History / Comment(s): exp. laparoscopy; groin cyst removed, wisdom teeth removed; colonoscopy 10/2020, myringotomy & tubes, pain procedures. Upper GI endoscopy 2020,LEFT BREAST BIOPSY,I&D cyst removed from inguinal area. Past Anesthesia/Blood Transfusion Reactions: Family History of Problems w/ Anesthesia, Postoperative Nausea & Vomiting (PONV) Additional Past Anesthesia/Blood Transfusion Reaction / Comment(s): mother has a hard time waking up from anesthesia. no hx blood transfusion Past Psychological History: Anxiety, Depression Smoking Status: Former smoker Past Alcohol Use History: None Reported Past Drug Use History: None Reported - Past Family History Mother Family Medical History: AFIB, COPD Father Family Medical History: Cancer Additional Family Medical History / Comment(s): Melanoma skin cancer. Aunts Family Medical History: Cancer Additional Family Medical History / Comment(s): A paternal aunt had ovarian cancer, a maternal aunt had uterine cancer and another maternal aunt had bladder cancer. General Exam - General Exam Comments Initial Comments: General: Appears in moderate distress secondary to pain HEAD: Normal with no signs of head trauma. EYES: PERRLA, EOMI, conjunctiva normal, no discharge. ENT: Hearing grossly intact, normal oropharynx. RESPIRATORY: Clear breath sounds bilaterally. No wheezes, rales, or rhonchi. C/V: Regular rate and rhythm. S1 and S2 auscultated, no edema, peripheral pulses 2+ and intact throughout ABD: Soft, nondistended. Left-sided flank pain with left-sided CVA tenderness as well as left lower quadrant pain. Radiation from left CVA to groin. No guarding. No rebound tenderness. No peritoneal signs. EXT: Normal range of motion, no obvious deformity SKIN: No rashes or lesions observed on exposed skin. NEURO: Alert and oriented 4. Limitations: no limitations Course Vital Signs 11/15/22 11/15/22 14:22 16:30 Temperature 98.2 F Pulse Rate 114 H 76 Respiratory 26 H 18 Rate Blood Pressure 129/58 119/73 O2 Sat by Pulse 100 100 Oximetry Medical Decision Making - Medical Decision Making Was pt. sent in by a medical professional or institution (Dr. PA, SORTING SUPERVISOR, urgent care, hospital, or long term...) When possible be specific @ -No Did you speak to anyone other than the patient for history (EMS, parent, family, police, friend...)? What history was obtained from this source @ -No Did you review nursing and triage notes (agree or disagree)? Why? @ -I reviewed and agree with nursing and triage notes Were old charts reviewed (outside hosp., previous admission, EMS record, old EKG, old radiological studies, urgent care reports/EKG's, long term records)? Report findings @ -No old charts were reviewed Differential Diagnosis (chest pain, altered mental status, abdominal pain women, abdominal pain men, vaginal bleeding, weakness, fever, dyspnea, syncope, headache, dizziness, GI bleed, back pain, seizure, CVA, palpatations, mental health, musculoskeletal)? @ -Differential Abdominal Pain Women: Appendicitis, Cholecystitis, diverticulosis, ischemic bowel, pancreatitis, hepatitis, UTI, gastroenteritis, AAA, incarcerated hernia, bowel obstruction, constipation, inflammatory bowel, hepatitis, peptic ulcer disease, splenic infarction, perforated viscus, vulvitis, ovarian torsion, PID, kidney stone, placenta abruption, this is not meant to be an all-inclusive list EKG interpreted by me (3pts min.). @ -None done X-rays interpreted by me (1pt min.). @ -None done CT interpreted by me (1pt min.). @ -CT imaging reveals a left-sided ureterolithiasis sized approximately 3.4 mm at the UVJ with mild hydronephrosis radiology also states patient has some nodular opacity suggestive of possible pulmonary process. U/S interpreted by me (1pt. min.). @ -None done What testing was considered but not performed or refused? (CT, X-rays, U/S, labs)? Why? @ -None What meds were considered but not given or refused? Why? @ -None Did you discuss the management of the patient with other professionals (professionals i.e. , PA, SORTING SUPERVISOR, lab, RT, psych nurse, rn social work, hotel controller, teacher, service officer, registered nurse hh case manager)? Give summary @ -No Was smoking cessation discussed for >3mins.? @ -No Was critical care preformed (if so, how long)? @ -No Were there social determinants of health that impacted care today? How? (Homelessness, low income, unemployed, alcoholism, drug addiction, tr ansportation, low edu. Level, literacy, decrease access to med. care, fpc, rehab)? @ -No Was there de-escalation of care discussed even if they declined (Discuss DNR or withdrawal of care, Hospice)? DNR status @ -No What co-morbidities impacted this encounter? (DM, HTN, Smoking, COPD, CAD, Cancer, CVA, ARF, Chemo, Hep., AIDS, mental health diagnosis, sleep apnea, morbid obesity)? @ -None Was patient admitted / discharged? Hospital course, mention meds given and route, prescriptions, significant lab abnormalities, going to OR and other pertinent info. @ -Based on the patient's presentation and physical exam, presents complaining of abdominal pain. I strongly suspect patient is a kidney stone at this time. She is a known history and on prior CT has had nephrolithiasis that of an uncomplicated on the left. We will obtain CT imaging of the abdomen and pelvis as well as abdominal labs. She'll be symptomatically treated with IV fluids, analgesia, Zofran. She was in agreement this plan. Imaging reveals a 3.5 mm ureteral lithiasis with mild hydronephrosis. Patient's labs are unremarkable. She has hematuria but no signs of acute infection. On reevaluation, after the patient. We discussed results. She'll be discharged home with follow-up with urology. She will be given analgesia medications for home as well as Flomax and ODT Zofran. She was in agreement with this plan. Tylenol 3 starter pack will be provided.Patient was given follow-up with Dr. Dukes who patient has seen previously for kidney stones. I will provide the patient with a prescription for ODT Zofran, Flomax. I instructed the patient to follow up with their PCP in the next 1-3 days. I provided contact information for follow up with urology. I explained that the patient should return to the emergency department if they experience any worsening symptoms. Strict return precautions were discussed with the patient. The patient expressed understanding of these instructions. I answered all questions that the patient had. The patient was discharged home in good condition with their prescriptions and follow up information. Undiagnosed new problem with uncertain prognosis? @ -No Drug Therapy requiring intensive monitoring for toxicity (Heparin, Nitro, Insulin, Cardizem)? @ -No Were any procedures done? @ -No Diagnosis/symptom? @ -Left-sided ureteral lithiasis with mild hydronephrosis Acute, or Chronic, or Acute on Chronic? @ -Acute Uncomplicated (without systemic symptoms) or Complicated (systemic symptoms)? @ -Complicated Side effects of treatment? @ -No Exacerbation, Progression, or Severe Exacerbation? @ -No Poses a threat to life or bodily function? How? (Chest pain, [place], [place], pneumonia, PE, COPD, DKA, ARF, appy, cholecystitis, CVA, Diverticulitis, Homicidal, Suicidal, threat to staff... and all critical care pts) @ -No - Lab Data Result diagrams: 11/15/22 15:25 11/15/22 15:25 Lab Results 11/15/22 11/15/22 11/15/22 Range/Units 15:25 15:25 15:25 WBC 7.9 (3.8-10.6) k/uL RBC 5.15 (3.80-5.40) m/uL Hgb 17.0 H (11.4-16.0) gm/dL Hct 49.1 H (34.0-46.0) % MCV 95.5 (80.0-100.0) fL MCH 32.9 (25.0-35.0) pg MCHC 34.5 (31.0-37.0) g/dL RDW 12.1 (11.5-15.5) % Plt Count 244 (150-450) k/uL MPV 8.9 Neutrophils % 62 % Lymphocytes % 29 % Monocytes % 5 % Eosinophils % 1 % Basophils % 1 % Neutrophils # 4.9 (1.3-7.7) k/uL Lymphocytes # 2.3 (1.0-4.8) k/uL Monocytes # 0.4 (0-1.0) k/uL Eosinophils # 0.1 (0-0.7) k/uL Basophils # 0.1 (0-0.2) k/uL PT 11.0 (9.0-12.0) sec INR 1.1 (<1.2) APTT 25.9 (22.0-30.0) sec Sodium (137-145) mmol/L Potassium (3.5-5.1) mmol/L Chloride (98-107) mmol/L Carbon Dioxide (22-30) mmol/L Anion Gap mmol/L BUN (7-17) mg/dL Creatinine (0.52-1.04) mg/dL Est GFR (CKD-EPI)AfAm (>60 ml/min/1.73 sqM) Est GFR (CKD-EPI)NonAf (>60 ml/min/1.73 sqM) Glucose (74-99) mg/dL Plasma Lactic Acid Edd (0.7-2.0) mmol/L Calcium (8.4-10.2) mg/dL Total Bilirubin (0.2-1.3) mg/dL AST (14-36) U/L ALT (4-34) U/L Alkaline Phosphatase (38-126) U/L Total Protein (6.3-8.2) g/dL Albumin (3.5-5.0) g/dL Amylase (30-110) U/L Lipase (23-300) U/L Urine Color Red Urine Appearance Bloody H (Clear) Urine pH 5.5 (5.0-8.0) Ur Specific [place] >1.030 (1.001-1.035) Urine Protein 1+ (Negative) Urine Glucose (UA) Negative (Negative) Urine Ketones Negative (Negative) Urine Blood Large (Negative) Urine Nitrite Negative (Negative) Urine Bilirubin Negative (Negative) Urine Urobilinogen <2.0 (<2.0) mg/dL Ur Leukocyte Esterase Negative (Negative) Urine RBC 75 H (0-5) /hpf Urine WBC 1 (0-5) /hpf Ur Squamous Epith Cells 2 (0-4) /hpf Urine Bacteria Few H (None) /hpf Urine Mucus Few H (None) /hpf 11/15/22 11/15/22 Range/Units 15:25 15:25 WBC (3.8-10.6) k/uL RBC (3.80-5.40) m/uL Hgb (11.4-16.0) gm/dL Hct (34.0-46.0) % MCV (80.0-100.0) fL MCH (25.0-35.0) pg MCHC (31.0-37.0) g/dL RDW (11.5-15.5) % Plt Count (150-450) k/uL MPV Neutrophils % % Lymphocytes % % Monocytes % % Eosinophils % % Basophils % % Neutrophils # (1.3-7.7) k/uL Lymphocytes # (1.0-4.8) k/uL Monocytes # (0-1.0) k/uL Eosinophils # (0-0.7) k/uL Basophils # (0-0.2) k/uL PT (9.0-12.0) sec INR (<1.2) APTT (22.0-30.0) sec Sodium 141 (137-145) mmol/L Potassium 4.2 (3.5-5.1) mmol/L Chloride 107 (98-107) mmol/L Carbon Dioxide 26 (22-30) mmol/L Anion Gap 8 mmol/L BUN 21 H (7-17) mg/dL Creatinine 0.74 (0.52-1.04) mg/dL Est GFR (CKD-EPI)AfAm >90 (>60 ml/min/1.73 sqM) Est GFR (CKD-EPI)NonAf >90 (>60 ml/min/1.73 sqM) Glucose 106 H (74-99) mg/dL Plasma Lactic Acid Edd 1.6 (0.7-2.0) mmol/L Calcium 9.9 (8.4-10.2) mg/dL Total Bilirubin 0.6 (0.2-1.3) mg/dL AST 31 (14-36) U/L ALT 23 (4-34) U/L Alkaline Phosphatase 81 (38-126) U/L Total Protein 7.3 (6.3-8.2) g/dL Albumin 4.6 (3.5-5.0) g/dL Amylase 65 (30-110) U/L Lipase 67 (23-300) U/L Urine Color Urine Appearance (Clear) Urine pH (5.0-8.0) Ur Specific [place] (1.001-1.035) Urine Protein (Negative) Urine Glucose (UA) (Negative) Urine Ketones (Negative) Urine Blood (Negative) Urine Nitrite (Negative) Urine Bilirubin (Negative) Urine Urobilinogen (<2.0) mg/dL Ur Leukocyte Esterase (Negative) Urine RBC (0-5) /hpf Urine WBC (0-5) /hpf Ur Squamous Epith Cells (0-4) /hpf Urine Bacteria (None) /hpf Urine Mucus (None) /hpf Disposition Clinical Impression: Ureterolithiasis Disposition: HOME SELF-CARE Condition: Good Instructions (If sedation given, give patient instructions): Kidney Stones (ED) Prescriptions: Tamsulosin [Flomax] 0.4 mg PO DAILY 14 Days #14 cap Ondansetron Odt [Zofran Odt] 4 mg PO Q8HR PRN 3 Days #9 tab PRN Reason: Nausea Is patient prescribed a controlled substance at d/c from ED?: No Referrals: Cortez Paulino DO [Primary Care Provider] - 1-2 days Ulises Dukes MD [STAFF PHYSICIAN] - 1-2 days Time of Disposition: 17:02
[2022-11-15] MEDS ORDERED: TAMSULOSIN 0.4 MG CAP.ER.24H PO STA (17:35)
[2022-11-15] MEDS ORDERED: ACET/COD 300 MG/30 MG STARTER PACK 6 TAB BTL PO STA (17:36)
[2022-11-15] MEDS ORDERED: ONDANSETRON 4 MG ODT STARTER PACK 2 TAB BTL PO STA (17:36)
[2022-11-15 17:54] VITALS: BP 121/87; PULSE 88
== END 2022-11-15 17:54 | disposition home or self-care (01) ==
LOC: EC 14:05
DX: N13.2 Hydronephrosis with renal and ureteral calculous obstruction (principal); Z88.0 Allergy status to penicillin; Z88.1 Allergy status to other antibiotic agents; Z88.5 Allergy status to narcotic agent; Z91.09 Other allergy status, other than to drugs and biological substances; Z88.8 Allergy status to other drugs, medicaments and biological substances; Z86.16 Personal history of COVID-19; Z87.891 Personal history of nicotine dependence
CPT/HCPCS: 36415; 80053; 82150; 83605; 83690; 85025; 85610; 85730; 81001; 74176; 99284; 96374; 96375 ×2; 96376; 96361; J2270; J2405; J1885; S0119

== ENCOUNTER → 2023-03-09 | Outpatient (CLI) | payer BC ==
--- NOTE | 2023-03-09 20:06 | MR ---
EXAMINATION TYPE: MR pancreas wo/w con DATE OF EXAM: 03/09/2023 7:40 PM CLINICAL INDICATION:Female, 53 years old with history of R10.13 EPIGASTRIC PAIN; PHH, Abdominal pain and back pain with eating, weight loss. COMPARISON: MR pancreas 07/14/2022 TECHNIQUE: Multiplanar multi-sequence imaging was performed without contrast. Post contrast imaging was performed. Post IV contrast subtraction images were also submitted for review. IV Contrast: 5 cc Gadavist FINDINGS: LOWER CHEST: No gross irregularity. ABDOMEN Liver: No evidence for hepatic steatosis or cirrhosis. High DWI /T2/low T1 signal with postcontrast i maging enhancement on delayed imaging lesion measures 7 mm. Gallbladder and Bile ducts: No evidence for ductal dilation, or biliary stricture or evidence of chol edocholithiasis. The gallbladder is within normal limits. The common bile duct measures up to 7 mm th e common hepatic duct measures up to 8 mm. Pancreas: No ductal dilation. No evidence for solid mass. Spleen: Normal for size. Adrenal glands: Unremarkable. Kidneys: No evidence for obstructive uropathy. No suspicious renal masses. Stomach and Bowel: No evidence for bowel wall thickening or evidence for obstruction.. Peritoneum: No evidence of pneumoperitoneum or free fluid. Vasculature: No aortic aneurysm. Musculoskeletal: The osseous structures appear intact. Lymph Nodes: No gross evidence for lymphadenopathy. Abdominal wall: Unremarkable. IMPRESSION: 1. No evidence for acute abdominal process to explain the patient's symptoms. 2. Dilation of the extrahepatic system not significantly changed from 07/14/2022. 3. Right hepatic lobe hepatic lesion with benign enhancement characteristics. Finding likely represe nts flash filling hemangioma versus focal nodular hyperplasia.
== END | disposition home or self-care (01) ==
LOC: RADMRIMAIN 18:15
PROVIDERS: ATTEND Internal Medicine Gastroenterology
DX: K76.9 Liver disease, unspecified (principal); R10.13 Epigastric pain; R63.4 Abnormal weight loss; M54.9 Dorsalgia, unspecified
CPT/HCPCS: 74183; A9585

== ENCOUNTER → 2023-03-24 | Outpatient (CLI) | payer BC ==
--- NOTE | 2023-03-24 14:38 | CT ---
EXAMINATION TYPE: CT chest w con DATE OF EXAM: 03/24/2023 COMPARISON: 12/01/2020 HISTORY: hemoptysis CT DLP: 348 mGycm Automated exposure control for dose reduction was used. CONTRAST: CT scan of the chest is performed with IV Contrast, patient injected with 80 mL of Isovue 300. FINDINGS: LUNGS: Stable postinflammatory scarring in the region of the lingula. The lungs are grossly clear, th ere is no concerning parenchymal mass or nodule identified. There is no pleural effusion or pneumot horax seen. The tracheobronchial tree is patent. MEDIASTINUM: There are no greater than 1 cm hilar or mediastinal lymph nodes. No pericardial effusi on is seen. Thoracic aorta is of normal caliber. The heart is not enlarged. UPPER ABDOMEN: Hepatic steatosis. OTHER: No additional significant abnormality is seen. IMPRESSION: No significant abnormality to account for the patient's symptoms.
== END | disposition home or self-care (01) ==
LOC: RADCTMAIN 13:23
PROVIDERS: ATTEND Internal Medicine Critical Care Medicine
DX: R04.2 Hemoptysis (principal)
CPT/HCPCS: 71260; Q9967

== ENCOUNTER → 2023-09-29 | Outpatient (CLI) | payer BC ==
[2023-09-29 12:55] VITALS: BP 129/84; PULSE 101; RESP 17; TEMP 97.9
--- NOTE | 2023-09-29 13:31 | P.HPOB ---
History of Present Illness H&P Date: 09/29/23 Chief Complaint: The patient is here for her routine gynecologic exam and ma mmogram. This is a 53-year-old G1, P1 with an LMP of 2018. The patient is without gynecologic complaints and denies any postmenopausal bleeding. Review of Systems She has lost about 3 pounds over the past year. She denies respiratory or cardiac problems. GI: She does have a history of internal hemorrhoids and has infrequently had small amount of blood with bowel movements, but not recently Past Medical History Past Medical History: GERD/Reflux, Osteoarthritis (OA), Supraventricular Tachycardia (SVT), Thyroid Disorder Additional Past Medical History / Comment(s): lung nodules,hx WPW syndrome improved following cardiac ablation, SVT, hiatal hernia, gastritis, palpitations; Cervical spinal stenosis. Thyroid nodule. MIGRAINE HEADACHES, CHRONIC BACK PAIN. 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 Right Uterine fundal fibroid measuring 4.7 cm (2019 U/S). History of Any Multi-Drug Resistant Organisms: None Reported Past Surgical History: Breast Surgery, Cardiac Ablation, Ear Surgery Additional Past Surgical History / Comment(s): exp. laparoscopy; groin cyst removed, wisdom teeth removed; colonoscopy 10/2020, myringotomy & tubes, pain procedures. Upper GI endoscopy 2022,LEFT BREAST BIOPSY,I&D cyst removed from inguinal area. Past Anesthesia/Blood Transfusion Reactions: Family History of Problems w/ Anesthesia, Postoperative Nausea & Vomiting (PONV) Additional Past Anesthesia/Blood Transfusion Reaction / Comment(s): mother has a hard time waking up from anesthesia. no hx blood transfusion Past Psychological History: Anxiety, Depression Additional Psychological History / Comment(s): Brief depression around 2007 treated with Prozac. Smoking Status: Former smoker Past Alcohol Use History: None Reported Additional Past Alcohol Use History / Comment(s): started smoking around the age of 17 on and off until the age of 45 SMOKED 8 CIG A DAY Past Drug Use History: None Reported Additional History: She is single and is not sexually active at this time. 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 She is planning to move to [place] in the future. - Past Family History Mother Family Medical History: AFIB, COPD Father Family Medical History: Cancer Additional Family Medical History / Comment(s): Melanoma skin cancer. Aunts Family Medical History: Cancer Additional Family Medical History / Comment(s): A paternal aunt had ovarian cancer, a maternal aunt had uterine cancer and another maternal aunt had bladder cancer. Medications and Allergies Home Medications Medication Instructions Recorded Confirmed Type Gabapentin [Neurontin] 200 mg PO TID 05/20/18 09/29/23 History Ascorbic Acid [Vitamin C] 1,000 mg PO DAILY 07/19/22 09/29/23 History Aspirin EC [Ecotrin Low Dose] 81 mg PO DAILY 07/19/22 09/29/23 History Biotin 5 mg PO DAILY 07/19/22 09/29/23 History Cholecalciferol [Vitamin D3 (25 25 mcg PO DAILY 07/19/22 09/29/23 History Mcg = 1000 Iu)] Ondansetron Odt [Zofran Odt] 4 mg TRANSLINGU BID PRN 07/19/22 09/29/23 History Zinc Gluconate [Zinc] 50 mg PO DAILY 07/19/22 09/29/23 History Allergies Allergy/AdvReac Type Severity Reaction Status Date / Time flecainide Allergy SEVERE Verified 01/13/23 09:15 HEADACHE Penicillins Allergy Anaphylaxis Verified 01/13/23 09:15 adhesive tape AdvReac Rash/Hives Verified 01/13/23 09:15 azithromycin AdvReac Abdominal Verified 01/13/23 09:15 [From Zithromax Z-[place]] Pain codeine AdvReac Nausea & Verified 01/13/23 09:15 Vomiting Exam Vital Signs Temp Pulse Resp BP Pulse Ox 09/29/23 12:51 97.9 F 101 H 17 129/84 97 Intake and Output 09/28/23 09/29/23 09/29/23 22:59 06:59 14:59 Other: Weight 50.349 kg Height 5 feet 3 inches, weight 111 pounds, BMI 19.7. This is a well-developed well-nourished white female who is alert and oriented times 3 in no acute distress. HEENT: Within normal limits. NECK: Supple without mass or thyromegaly. CHEST AND LUNGS: Clear to auscultation. HEART: Regular rate and rhythm. BREASTS: Are without mass or discharge. There is moderate fibrous tissue throughout the breasts. There is mild left breast tenderness in the lower breast without discrete palpable mass. AXILLARY EXAM: Negative for adenopathy. BACK: Negative for CVA tenderness. ABDOMEN: Soft, nontender, without palpable masses. PELVIC EXAM: Normal external genitalia with mild atrophy. Cervix and vagina appear normal with mild atrophy. There is no unusual discharge. There is no evidence of prolapse. The uterus is midposition, nongravid size and there is mild generalized tenderness. She is similar to previous exams. There are no palpable adnexal masses or tenderness. RECTAL EXAM: Rectovaginal exam is negative for mass or tenderness and is positive for occult blood. EXTREMITIES: Nontender. IMPRESSION: 1. 53-year-old menopausal female with unremarkable gynecologic exam. 2. Hemoccult positive stool on rectal exam. PLAN: 1. Pap smear was deferred since she had a negative Pap smear cotest on 07/03/2020. 2. Self breast awareness was discussed with the patient. We have also discussed symptoms associated with inflammatory breast cancer. 3. Screening mammogram will be done today. 4. Osteoporosis prevention was discussed. I have stressed the importance of adequate calcium, vitamin D and regular exercise. Recommended amounts of calcium and vitamin D were also discussed. We will plan on having her do a baseline bone density study because of her mom's history of osteoporosis. The order slip was given to the patient for this. 5. She is aware of the Hemoccult positive stool from the rectal exam today. She will discuss this with her sales and service associate, Dr. Hsieh, to determine if further testing is needed at this time. Her last colonoscopy was about 3 years ago and she did have an upper scope last year by Dr. Hsieh. 6. She was advised to return in one year for her annual well woman exam.
--- NOTE | 2023-09-30 10:50 | MM ---
Reason for Exam: Screening (asymptomatic). Last screening mammogram was performed 12 month(s) ago. Patient History: Menarche at age 11. First Full-Term at age 17. Postmenopausal. 09/13/2019, Benign Core Biopsy on the left side. Maternal grandmother had breast cancer, age 60. Maternal cousin had breast cancer, age 55. Risk Values: Ayana 5 year model risk: 1.0%. NCI Lifetime model risk: 7.2%. Prior Study Comparison: 09/10/2020 Bilateral Screening Mammogram, [facility]. 09/17/2021 Bilateral MG 3D screening mammo w/cad, [facility]. 09/23/2022 Bilateral MG 3D screening mammo w/cad, [facility]. Tissue Density: The breasts are heterogeneously dense, which may obscure small masses. Findings: Analyzed By CAD. There is no suspicious group of microcalcifications or new suspicious mass in either breast. Benign calcifications. Surgical clips in the right breast. Chronic appearing nodularity in her breast right breast is stable dating back to numerous prior exams. Overall Assessment: Benign, BI-RAD 2 Management: Screening Mammogram of both breasts in 1 year. . Patient should continue monthly self-breast exams. A clinical breast exam by your physician is recommended on an annual basis. This exam should not preclude additional follow-up of suspicious palpable abnormalities. Note on Ayana scores and lifetime risk: 1. A Ayana score greater than 3% is considered moderate risk. If this is the case, consider specialist referral to assess eligibility for a risk reducing agent. 2. If overall lifetime risk for the development of breast cancer is 20% or higher, the patient may qualify for future screening with alternating mammogram and breast MRI. Electronically signed and approved by: Obinna Stereter M.D. Radiologis
== END ==
LOC: WWCWWP 12:34
PROVIDERS: ATTEND Obstetrics & Gynecology
DX: Z12.31 Encounter for screening mammogram for malignant neoplasm of breast (principal); R19.5 Other fecal abnormalities; R92.333 Mammographic heterogeneous density, bilateral breasts; R92.1 Mammographic calcification found on diagnostic imaging of breast; N63.10 Unspecified lump in the right breast, unspecified quadrant; Z78.0 Asymptomatic menopausal state; Z87.891 Personal history of nicotine dependence; Z88.0 Allergy status to penicillin; Z88.8 Allergy status to other drugs, medicaments and biological substances; Z91.048 Other nonmedicinal substance allergy status; Z88.5 Allergy status to narcotic agent; Z88.1 Allergy status to other antibiotic agents; Z80.3 Family history of malignant neoplasm of breast
CPT/HCPCS: 77063; 77067

== ENCOUNTER → 2023-10-01 | Outpatient (CLI) | payer BC ==
--- NOTE | 2023-10-07 09:04 | BD ---
EXAMINATION TYPE: Axial Bone Density DATE OF EXAM: 10/01/2023 CLINICAL HISTORY: 53 years old Female. ICD-10 CODE: Z78.0 ASYMPTOMATIC MENOPAUSAL Height: 63 Weight: 107 FRAX RISK QUESTIONS: Family History (Parent hip fracture): no History of Fracture in Adulthood: no Secondary Osteoporosis: no RISK FACTORS HISTORY OF: Surgery to Spine/Hip(right/left)/Wrist (right/left): no MEDICATIONS: Thyroid Medications: no Osteoporosis Medications: no EXAM MEASUREMENTS: Bone mineral densitometry was performed using the [employer] System. Bone mineral density as measured about the Lumbar spine is: ----- L1-L4(G/cm2): 0.983 T Score Values are as follows: ----- L1: -1.6 ----- L2: -1.6 ----- L3: -1.4 ----- L4: -2.1 ----- L1-L4: -1.6 Z Score Values are as follows: ----- L1: -0.3 ----- L2: -0.2 ----- L3: -0.1 ----- L4: -0.8 ----- L1-L4: -0.3 Bone mineral density baseline Bone mineral density about the R hip (g/cm2): 0.796 Bone mineral density about the L hip (g/cm2): 0.847 T Score values are as follows: -----R Neck: -1.6 -----L Neck: -1.6 -----R Total: -1.7 -----L Total: -1.3 Z Score values are as follows: -----R Neck: -0.3 -----L Neck: -0.3 -----R Total: -0.7 -----L Total: -0.3 Bone mineral density baseline FRAX%s: The graph provided illustrates a 5.8% chance for a major osteoporotic fx and a 0.6% chance fo r the hips probability for fx in 10 years time. IMPRESSION: Osteopenia (T Score between -2.5 and -1). There is slightly increased risk of fracture and the patient may be considered for treatment. Re-Screen 2-5 years. NOTE: T-SCORE=SD OF THE YOUNG ADULT MEAN.
== END | disposition home or self-care (01) ==
LOC: RADBDWWP 15:55
PROVIDERS: ATTEND Obstetrics & Gynecology
DX: M85.89 Other specified disorders of bone density and structure, multiple sites (principal); Z78.0 Asymptomatic menopausal state
CPT/HCPCS: 77080

== ENCOUNTER → 2023-10-09 | Outpatient (CLI) | payer BC ==
--- NOTE | 2023-10-09 15:20 | US ---
EXAMINATION TYPE: US thyroid st tissue head/neck DATE OF EXAM: 10/09/2023 COMPARISON: 08/12/22 CLINICAL INDICATION: Female, 53 years old with history of E04.1 NONTOXIC SINGLE THYROID NODULE; f/u n odules GLAND SIZE: Right Lobe: 4.9x1.2x1.5 cm Overall Parenchyma: homogeneous Left Lobe: 4.7x1.1x1.4 cm Overall Parenchyma: homogeneous Isthmus Thickness: 0.2 cm NODULES RIGHT: # of nodules measured on right: 1 1. 0.6 X 0.5 x 0.6 cm, mid mid, solid or almost completely solid, hyperechoic nodule, which is wide r than tall, with ill-defined margins, without echogenic foci. Prior size: 0.7 x 0.6 x 0.5 cm LEFT: # of nodules measured on left: 2 1. 0.5 X 0.4 x 0.4 cm, lower medial, solid or almost completely solid, hypoechoic nodule, which is wider than tall, with ill-defined margins, without echogenic foci. Prior size: 0.6 x 0.3 x 0.6 cm 2. 0.9 X 0.4 x 0.6 cm, upper lateral, solid or almost completely solid, hypoechoic nodule, which i s wider than tall, with smooth margins, without echogenic foci. Prior size: 0.8 x 0.4 x 0.6 cm ISTHMUS: # of nodules measured in the isthmus: 0 Bilateral neck scanned, no evidence of lymphadenopathy. lt lymph node: 0.7x0.3x0.5cm IMPRESSION: 1. Stable subcentimeter nodules bilateral thyroid lobes.
== END | disposition home or self-care (01) ==
LOC: RADUSWWP 14:39
PROVIDERS: ATTEND Otolaryngology
DX: E04.1 Nontoxic single thyroid nodule (principal); E04.2 Nontoxic multinodular goiter; R22.0 Localized swelling, mass and lump, head
CPT/HCPCS: 76536

== ENCOUNTER 2023-10-11 13:47 | Emergency (ER) | payer BC ==
[2023-10-11 14:04] VITALS: TEMP 98.1
--- NOTE | 2023-10-11 14:12 | ED ---
ENT HPI - General Chief complaint: ENT Stated complaint: Coughing up blood, back pain, SOB Time Seen by Provider: 10/11/23 14:00 Source: patient, RN notes reviewed Mode of arrival: ambulatory Limitations: no limitations - History of Present Illness Initial comments: This is a 53-year-old female presents emergency department chief complaint of thoracic back pain, mild chest pain, and hemoptysis. Patient states that this morning she had an episode of coughing up a clot of blood and additionally had another opening of blood later today which prompted her to present to the emergency department. Patient is also experiencing thoracic back pain that is worse with palpation and movement. She denies history of TN, CVA, PE, DVT. currently denying chest pain, chest pressure, dizziness, lightheadedness. She denies epistaxis, nausea/vomiting, abdominal pain. She does have seasonal allergies and has been taking mucinex D at home. She denies lower extremity erythema or pain, recent prolonged travel, recent surgery. Patient does have a smoking history, quit in 2010. Denies use of blood thinners. - Related Data Home Medications Medication Instructions Recorded Confirmed Gabapentin [Neurontin] 200 mg PO TID 05/20/18 09/29/23 Ascorbic Acid [Vitamin C] 1,000 mg PO DAILY 07/19/22 09/29/23 Aspirin EC [Ecotrin Low Dose] 81 mg PO DAILY 07/19/22 09/29/23 Biotin 5 mg PO DAILY 07/19/22 09/29/23 Cholecalciferol [Vitamin D3 (25 25 mcg PO DAILY 07/19/22 09/29/23 Mcg = 1000 Iu)] Ondansetron Odt [Zofran Odt] 4 mg TRANSLINGU BID PRN 07/19/22 09/29/23 Zinc Gluconate [Zinc] 50 mg PO DAILY 07/19/22 09/29/23 Allergies Allergy/AdvReac Type Severity Reaction Status Date / Time flecainide Allergy SEVERE Verified 10/11/23 14:04 HEADACHE Penicillins Allergy Anaphylaxis Verified 10/11/23 14:04 adhesive tape AdvReac Rash/Hives Verified 10/11/23 14:04 azithromycin AdvReac Abdominal Verified 10/11/23 14:04 [From Zithromax Z-Salinas] Pain codeine AdvReac Nausea & Verified 10/11/23 14:04 Vomiting Review of Systems ROS Statement: Those systems with pertinent positive or pertinent negative responses have been documented in the HPI. ROS Other: All systems not noted in ROS Statement are negative. Past Medical History Past Medical History: GERD/Reflux, Osteoarthritis (OA), Supraventricular Tachycardia (SVT), Thyroid Disorder Additional Past Medical History / Comment(s): lung nodules,hx WPW syndrome improved following cardiac ablation, SVT, hiatal hernia, gastritis, palpitations; Cervical spinal stenosis. Thyroid nodule. MIGRAINE HEADACHES, CHRONIC BACK PAIN. 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 Right Uterine fundal fibroid measuring 4.7 cm (2019 U/S). History of Any Multi-Drug Resistant Organisms: None Reported Past Surgical History: Breast Surgery, Cardiac Ablation, Ear Surgery Additional Past Surgical History / Comment(s): exp. laparoscopy; groin cyst removed, wisdom teeth removed; colonoscopy 10/2020, myringotomy & tubes, pain procedures. Upper GI endoscopy 2022,LEFT BREAST BIOPSY,I&D cyst removed from inguinal area. Past Anesthesia/Blood Transfusion Reactions: Family History of Problems w/ Anesthesia, Postoperative Nausea & Vomiting (PONV) Additional Past Anesthesia/Blood Transfusion Reaction / Comment(s): mother has a hard time waking up from anesthesia. no hx blood transfusion Past Psychological History: Anxiety, Depression Smoking Status: Former smoker Past Alcohol Use History: None Reported Past Drug Use History: None Reported - Past Family History Mother Family Medical History: AFIB, COPD Father Family Medical History: Cancer Additional Family Medical History / Comment(s): Melanoma skin cancer. Aunts Family Medical History: Cancer Additional Family Medical History / Comment(s): A paternal aunt had ovarian cancer, a maternal aunt had uterine cancer and another maternal aunt had bladder cancer. General Exam Limitations: no limitations Course Vital Signs 10/11/23 10/11/23 10/11/23 14:00 14:48 15:54 Temperature 98.1 F Pulse Rate 105 H 72 Respiratory 18 16 20 Rate Blood Pressure 111/77 113/81 O2 Sat by Pulse 98 97 Oximetry Medical Decision Making - Medical Decision Making Was pt. sent in by a medical professional or institution (, PA, BROKE BEATER OPERATOR, urgent care, hospital, or fci...) When possible be specific @ -No Did you speak to anyone other than the patient for history (EMS, parent, family, police, friend...)? What history was obtained from this source @ -No Did you review nursing and triage notes (agree or disagree)? Why? @ -I reviewed and agree with nursing and triage notes Were old charts reviewed (outside hosp., previous admission, EMS record, old EKG, old radiological studies, urgent care reports/EKG's, fci records)? Report findings @ -No old charts were reviewed Differential Diagnosis (chest pain, altered mental status, abdominal pain women, abdominal pain men, vaginal bleeding, weakness, fever, dyspnea, syncope, headache, dizziness, GI bleed, back pain, seizure, CVA, palpatations, mental health, musculoskeletal)? @ -pulmonary embolism, pneumonia, bronchitis, alveolar damage, allergies, this list is not all inclusive. EKG interpreted by me (3pts min.). @ -completed at 1428, sinus rhythm with short WV interval, ventricular rate 87, WV interval 107, QTc 424. No acute signs of ischemia. X-rays interpreted by me (1pt min.). @ -None done CT interpreted by me (1pt min.). @ -None done U/S interpreted by me (1pt. min.). @ -None done What testing was considered but not performed or refused? (CT, X-rays, U/S, labs)? Why? @ -CT of the chest was considered but deferred. Initial examination the patient she will be evaluated via laboratory studies including coagulation profile and D-dimer in addition to chest x-ray. Patient's labs being within normal limits and chest x-ray negative minimal clinical concern for further acute pulmonary process. What meds were considered but not given or refused? Why? @ -None Did you discuss the management of the patient with other professionals (professionals i.e. , PA, BROKE BEATER OPERATOR, lab, RT, psych nurse, healthcare social worker, airport tower controller, teacher, chief revenue officer, case making machine operator)? Give summary @ -No Was smoking cessation discussed for >3mins.? @ -No Was critical care preformed (if so, how long)? @ -No Were there social determinants of health that impacted care today? How? (Homelessness, low income, unemployed, alcoholism, drug addiction, transportation, low edu. Level, literacy, decrease access to med. care, detention, rehab)? @ -No Was there de-escalation of care discussed even if they declined (Discuss DNR or withdrawal of care, Hospice)? DNR status @ -No What co-morbidities impacted this encounter? (DM, HTN, Smoking, COPD, CAD, Cancer, CVA, ARF, Chemo, Hep., AIDS, mental health diagnosis, sleep apnea, mor bid obesity)? @ -None Was patient admitted / discharged? Hospital course, mention meds given and rou te, prescriptions, significant lab abnormalities, going to OR and other pertinent info. @ -Discharged. 53-year-old female with hemoptysis. Complete physical examination, patient with no acute findings. There is no blood in the posterior oropharynx, bilateral nares no signs of episaxis history. At this time patient will be evaluated. Laboratory studies and chest x-ray, she is in agreement with this plan. CBC, CMP unremarkable. Coagulation profile within normal limits, D- dimer nonelevated at less than 0.17, chest xray no acute process. Due to patient's laboratory results being unremarkable and D-dimer nonelevated addition to unremarkable EKG today further imaging will not be required at this time. Patient's symptoms likely secondary to mild alveolar damage from coughing and/or postnasal drip after usage of Claritin-D. Recommend that patient uses a humidifier at night to increase oral rehydration. Strict return parameters are discussed with the patient and she verbalized understanding. Patient states that she has an appointment scheduled with her primary care provider this upcoming Thursday. Case discussed with Dr. Hodge. Undiagnosed new problem with uncertain prognosis? @ -No Drug Therapy requiring intensive monitoring for toxicity (Heparin, Nitro, Insulin, Cardizem)? @ -No Were any procedures done? @ -No Diagnosis/symptom? @ -hemoptysis. Acute, or Chronic, or Acute on Chronic? @ -acute Uncomplicated (without systemic symptoms) or Complicated (systemic symptoms)? @ -uncomplicated Side effects of treatment? @ -No Exacerbation, Progression, or Severe Exacerbation? @ -No Poses a threat to life or bodily function? How? (Chest pain, USA, TN, pneumonia, PE, COPD, DKA, ARF, appy, cholecystitis, CVA, Diverticulitis, Homicidal, Suicidal, threat to staff... and all critical care pts) @ -No - Lab Data Result diagrams: 10/11/23 14:41 10/11/23 14:41 Lab Results 10/11/23 10/11/23 10/11/23 Range/Units 14:41 14:41 14:41 WBC 6.4 (3.8-10.6) k/uL RBC 5.06 (3.80-5.40) m/uL Hgb 16.0 (11.4-16.0) gm/dL Hct 49.5 H (34.0-46.0) % MCV 97.9 (80.0-100.0) fL MCH 31.6 (25.0-35.0) pg MCHC 32.3 (31.0-37.0) g/dL RDW 11.8 (11.5-15.5) % Plt Count 202 (150-450) k/uL MPV 8.2 Neutrophils % 60 % Lymphocytes % 31 % Monocytes % 6 % Eosinophils % 1 % Basophils % 1 % Neutrophils # 3.8 (1.3-7.7) k/uL Lymphocytes # 2.0 (1.0-4.8) k/uL Monocytes # 0.4 (0-1.0) k/uL Eosinophils # 0.1 (0-0.7) k/uL Basophils # 0.1 (0-0.2) k/uL PT 11.3 (10.0-12.5) sec INR 1.0 (<1.2) APTT 27.8 (22.0-30.0) sec D-Dimer <0.17 (<0.60) mg/L FEU Sodium 140 (137-145) mmol/L Potassium 4.6 (3.5-5.1) mmol/L Chloride 105 (98-107) mmol/L Carbon Dioxide 28 (22-30) mmol/L Anion Gap 7 mmol/L BUN 18 H (7-17) mg/dL Creatinine 0.73 (0.52-1.04) mg/dL Est GFR (CKD-EPI)AfAm >90 (>60 ml/min/1.73 sqM) Est GFR (CKD-EPI)NonAf >90 (>60 ml/min/1.73 sqM) Glucose 100 H (74-99) mg/dL Calcium 10.0 (8.4-10.2) mg/dL Magnesium 2.2 (1.6-2.3) mg/dL Total Bilirubin 0.5 (0.2-1.3) mg/dL AST 25 (14-36) U/L ALT 16 (4-34) U/L Alkaline Phosphatase 66 (38-126) U/L Total Protein 6.9 (6.3-8.2) g/dL Albumin 4.8 (3.5-5.0) g/dL Disposition Clinical Impression: Hemoptysis, Seasonal allergic rhinitis Disposition: HOME SELF-CARE Condition: Good Instructions (If sedation given, give patient instructions): Coughing Up Blood (Hemoptysis) (ED) Additional Instructions: Return to the emergency department if her symptoms worsen or improve. Is patient prescribed a controlled substance at d/c from ED?: No Referrals: Cortez Paulino DO [Primary Care Provider] - 1-2 days Time of Disposition: 15:43
[2023-10-11 14:54] LABS: Basophils # (A) 0.1 k/uL (0-0.2); Basophils % (A) 1 %; Eosinophils # (A) 0.1 k/uL (0-0.7); Eosinophils % (A) 1 %; HCT 49.5 % (34.0-46.0); Lymphocytes % (A) 31 %; MCH 31.6 pg (25.0-35.0); MCHC 32.3 g/dL (31.0-37.0); MCV 97.9 fL (80.0-100.0); Mean Platelet Volume 8.2; Monocytes # (A) 0.4 k/uL (0-1.0); Monocytes % (A) 6 %; Neutrophils # (A) 3.8 k/uL (1.3-7.7); Neutrophils % (A) 60 %; Platelet Count 202 k/uL (150-450); RBC 5.06 m/uL (3.80-5.40); RDW 11.8 % (11.5-15.5); WBC 6.4 k/uL (3.8-10.6)
--- NOTE | 2023-10-11 15:01 | XR ---
EXAMINATION TYPE: XR chest 2V DATE OF EXAM: 10/11/2023 COMPARISON: 07/19/2022 HISTORY: Shortness of breath TECHNIQUE: Frontal and lateral views of the chest are obtained. FINDINGS: Scattered senescent parenchymal changes noted. Hyperinflation compatible with COPD. No evidence for infiltrate. No evidence for atelectasis. Heart size is stable. Mediastinal structures are stable and grossly unremarkable. No evidence for hilar prominence. Degenerative changes dorsal spine. IMPRESSION: 1. No evidence for acute pulmonary disease.
[2023-10-11 15:11] LABS: Partial Thromboplastin Time 27.8 sec (22.0-30.0); Prothrombin Time 11.3 sec (10.0-12.5)
[2023-10-11 15:17] LABS: ALT 16 U/L (4-34); AST 25 U/L (14-36); African American GFR (CKD) >90 (>60 ml/min/1.73 sqM); Albumin 4.8 g/dL (3.5-5.0); Alkaline Phosphatase 66 U/L (38-126); Anion Gap 7 mmol/L; Blood Urea Nitrogen 18 mg/dL (7-17); Carbon Dioxide 28 mmol/L (22-30); Chloride 105 mmol/L (98-107); Glucose 100 mg/dL (74-99); Magnesium 2.2 mg/dL (1.6-2.3); Non-African American GFR(CKD) >90 (>60 ml/min/1.73 sqM); Potassium 4.6 mmol/L (3.5-5.1); Sodium 140 mmol/L (137-145); Total Bilirubin 0.5 mg/dL (0.2-1.3); Total Protein 6.9 g/dL (6.3-8.2)
[2023-10-11 15:55] VITALS: BP 113/81; PULSE 72; RESP 20
== END 2023-10-11 15:57 | disposition home or self-care (01) ==
LOC: EC 13:47
DX: J30.2 Other seasonal allergic rhinitis (principal); R04.2 Hemoptysis; Z88.1 Allergy status to other antibiotic agents; Z88.5 Allergy status to narcotic agent; Z91.09 Other allergy status, other than to drugs and biological substances; Z88.8 Allergy status to other drugs, medicaments and biological substances; Z87.891 Personal history of nicotine dependence
CPT/HCPCS: 36415; 71046; 80053; 83735; 85025; 85379; 85610; 85730; 93005; 99285

== ENCOUNTER → 2023-11-11 | Outpatient (CLI) | payer BC | END | disposition home or self-care (01) | LOC: LABWHC1 15:51 | PROVIDERS: ATTEND Internal Medicine Critical Care Medicine | DX: R04.2 Hemoptysis (principal) | CPT/HCPCS: 36415; 82784 ==

== ENCOUNTER → 2024-02-16 | Outpatient (CLI) | payer BC ==
--- NOTE | 2024-02-16 15:35 | US ---
EXAMINATION TYPE: US transvaginal DATE OF EXAM: 02/16/2024 COMPARISON: Pelvic ultrasound 10/22/2022, transvaginal ultrasound 09/07/2019 CLINICAL INDICATION: Female, 54 years old with history of R10.2 FEMALE PELVIC PAIN N95 POST MEN BLEED ING; LMP 2017, has had multiple episodes of PMB since 2019, lost 20lbs recently - unplanned, no pelvi c pain, h/o fibroid TECHNIQUE: TV. Transvaginal sonographic images FINDINGS: Date of LMP: 2018 EXAM MEASUREMENTS: Uterus: 5.4 x 3.3 x 3.2 cm Endometrial Stripe: 1.1 cm Right Ovary: 1.6 x 1.6 x 1.3 cm Left Ovary: 1.4 x 1.4 x 0.8 cm 1. Uterus: Retroverted heterogeneous, nabothian cyst seen, possible fibroid fundal myometrium = 1.2 x 0.9 x 1.1cm - seen on US 01-09-2020 2. Endometrium: thickened 3. Right Ovary: wnl 4. Left Ovary: wnl 5. Bilateral Adnexa: varicosities adjacent to left ovary 6. Posterior cul-de-sac: wnl Retroverted heterogenous uterus with fundal intramural fibroid measuring up to 1.2 cm. Nabothian cyst s identified. Endometrium appears thickened measuring up to 11 mm. Both ovaries appear unremarkable. No free fluid. Prominent vessels adjacent to the left ovary. IMPRESSION: 1. Endometrial thickening suggested. Etiologies include endometrial hyperplasia versus endometrial ca rcinoma versus polyp versus other. Direct visualization is recommended. 2. Fibroid changes of the uterus. [facility], , 02/16/2024 3:33 PM
== END | disposition home or self-care (01) ==
LOC: RADUSWWP 14:45
PROVIDERS: ATTEND Family Medicine
CPT/HCPCS: 76830

== ENCOUNTER → 2024-02-24 | Day surgery (SDC) | payer BC ==
[2024-02-24 12:45] VITALS: TEMP 98.1
[2024-02-24 13:35] VITALS: BP 120/85; PULSE 86; RESP 18
--- NOTE | 2024-02-24 13:46 | P.PCN ---
Date of Procedure: 02/24/24 Preoperative Diagnosis: Postmenopausal bleeding with thickened endometrium. Postoperative Diagnosis: Same. Procedure(s) Performed: Endometrial biopsy attempt. Anesthesia: none Surgeon: León Butler Estimated Blood Loss (ml): 0 Pathology: none sent Condition: stable Disposition: same day Indications for Procedure: This was a 54-year-old G1, P1 with an L and MP of 2018. States that she started having a small amount of vaginal bleeding starting in mid December 2023. This was not as heavy as a period and would be dark blood. From that time, she has had intermittent spotting about 1 time per week and seems to be random not associated with any particular activity. She has also been having some intermittent pelvic pains which she describes as crampy or sharp. The sharp pains can be in her back and the cramping seems to be in the pelvis or lower abdomen area. It is not on any 1 particular side. These pains can last for hours. At the time of the worsening pain, she rates it at a 5 or 6 out of 10. At other times it is 1 out of 10. The discomfort is currently 1 out of 10. Pelvic ultrasound was done on 02/16/2024 and showed an endometrial thickness of 1.1 cm and a suspected fundal fibroid measuring approximately 1.2 cm. The ovaries appeared within normal limits. Because of the small postmenopausal bleeding small postmenopausal bleeding, and the thickened endometrium, she was scheduled for an endometrial biopsy. Operative Findings: The cervix and vagina reveal mild to moderate atrophy with a stenotic cervix. The uterus is slightly irregular possibly consistent with the uterine fibroid. This is nongravid size and nontender. There are no palpable adnexal masses or tenderness. Description of Procedure: The endometrial biopsy procedure was described and we also discussed possible risks and complications associated with this procedure. We discussed the possibility of bleeding, infection as well as uterine perforation. All of her questions were answered. Preprocedure vitals: Blood pressure 136/91, height 5 feet 4 inches, weight 106 pounds, BMI 18.2, temperature 98.1, pulse 84, pulse oximeter 99%. The patient was placed in the lithotomy position. Bimanual examination revealed a slightly irregular uterus which was nongravid size. There were no palpable adnexal masses or tenderness. A speculum was inserted into the vagina. The vagina and cervix were prepped with Betadine solution. A single-tooth tenaculum was used to grasp the anterior lip of the cervix. The 3 mm endometrial biopsy instrument was unable to pass through the cervix because of stenosis. A small dilator was used to probe the cervix, but was unable to pass because of stenosis. Patient was uncomfortable with the cervical manipulation and the procedure was aborted. The estimated blood loss from the procedure was less than 1 cc. There were no complications. The post procedure blood pressure was 120/85, pulse 86, pulse oximeter 99%. The patient was instructed to call if she has heavy bleeding, unusual pain, high fever, or problems. She can take naproxen 1 every 6 hours as needed for cramps. She states she does have this at home. Because of the failed endometrial biopsy, she will be referred for a hy steroscopy and D&C for further evaluation of her postmenopausal bleeding and thickened endometrium. She will be referred to Dr. Lainez who she has seen in the past.
== END ==
LOC: WWCWWP 12:31
PROVIDERS: ATTEND Obstetrics & Gynecology
DX: N95.0 Postmenopausal bleeding (principal); R10.2 Pelvic and perineal pain; N88.2 Stricture and stenosis of cervix uteri; Z53.8 Procedure and treatment not carried out for other reasons

== ENCOUNTER 2024-03-08 14:51 | Emergency (ER) | payer BC ==
--- NOTE | 2024-03-08 15:30 | ED ---
Female Urogenital HPI - General Source: patient, RN notes reviewed Mode of arrival: ambulatory Limitations: no limitations <Mari Angeles - Last Filed: 03/08/24 15:29> - General Source: patient, RN notes reviewed Mode of arrival: ambulatory Limitations: no limitations - History of Present Illness MD Complaint: pelvic pain Onset/Timin -: days(s) Location: labia, suprapubic Severity scale (1-10): 6 Quality: burning Consistency: constant Patient : No Associated Symptoms: abdominal pain, nausea/vomiting <Vasile Catalan - Last Filed: 03/08/24 20:36> - General Chief complaint: Urogenital Stated complaint: ABD/BACK PAIN Time Seen by Provider: 03/08/24 15:02 - History of Present Illness Initial comments: Quick note- 54-year-old female presenting to the emergency department chief complaint of vulvar irritation and dysuria over the past few weeks. Patient states that she is scheduled to see OB next week to have an endometrial biopsy completed. (Mari Agneles) This is a 54-year-old female presenting with urogenital issues. Patient endorses constant burning and itching vulva with associated tenderness x 2 weeks. Endorses pelvic pain (6 out of 10) x 3 days followed by back pain and fever x 1 day. Patient endorses some nausea with subsequent relief following Zofran use at 1200 today, stating nausea starting to return. Patient denies vulvar erythema or discharge. States pain/tenderness makes wiping nearly impo ssible. Patient endorses attempted endometrial biopsy that was unsuccessful due to cervical stenosis and will be repeated next week. Endorses greater than 20 pound unintended weight loss in the past year. Patient Dors is history of kidney stones. Endorses use of Tylenol for fever. Denies chills, chest pain, dyspnea, obvious dysuria, polyuria, vomiting, constipation, diarrhea. (Vasile Ambrose) - Related Data Home Medications Medication Instructions Recorded Confirmed Gabapentin [Neurontin] 200 mg PO TID 05/20/18 02/24/24 Ascorbic Acid [Vitamin C] 1,000 mg PO DAILY 07/19/22 02/24/24 Aspirin EC [Ecotrin Low Dose] 81 mg PO DAILY 07/19/22 02/24/24 Biotin 5 mg PO DAILY 07/19/22 02/24/24 Cholecalciferol [Vitamin D3 (25 25 mcg PO DAILY 07/19/22 02/24/24 Mcg = 1000 Iu)] Ondansetron Odt [Zofran Odt] 4 mg TRANSLINGU BID PRN 07/19/22 02/24/24 Zinc Gluconate [Zinc] 50 mg PO DAILY 07/19/22 02/24/24 Allergies Allergy/AdvReac Type Severity Reaction Status Date / Time flecainide Allergy SEVERE Verified 03/08/24 15:03 HEADACHE Penicillins Allergy Anaphylaxis Verified 03/08/24 15:03 adhesive tape AdvReac Rash/Hives Verified 03/08/24 15:03 azithromycin AdvReac Abdominal Verified 03/08/24 15:03 [From Zithromax Z-[place]] Pain codeine AdvReac Nausea & Verified 03/08/24 15:03 Vomiting Review of Systems ROS Other: All systems not noted in ROS Statement are negative. <Mari Angeles - Last Filed: 03/08/24 15:29> ROS Other: All systems not noted in ROS Statement are negative. <Vasile Catalan - Last Filed: 03/08/24 20:36> ROS Statement: Those systems with pertinent positive or pertinent negative responses have been documented in the HPI. Past Medical History Past Medical History: GERD/Reflux, Osteoarthritis (OA), Supraventricular Tachycardia (SVT), Thyroid Disorder Additional Past Medical History / Comment(s): lung nodules,hx WPW syndrome improved following cardiac ablation, SVT, hiatal hernia, gastritis, palpitations; Cervical spinal stenosis. Thyroid nodule. MIGRAINE HEADACHES, CHRONIC BACK PAIN. 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 Right Uterine fundal fibroid measuring 4.7 cm (2019 U/S). History of Any Multi-Drug Resistant Organisms: None Reported Past Surgical History: Breast Surgery, Cardiac Ablation, Ear Surgery Additional Past Surgical History / Comment(s): exp. laparoscopy; groin cyst removed, wisdom teeth removed; colonoscopy 10/2020, myringotomy & tubes, pain procedures. Upper GI endoscopy 2022,LEFT BREAST BIOPSY,I&D cyst removed from inguinal area. Past Anesthesia/Blood Transfusion Reactions: Family History of Problems w/ Anesthesia, Postoperative Nausea & Vomiting (PONV) Additional Past Anesthesia/Blood Transfusion Reaction / Comment(s): mother has a hard time waking up from anesthesia. no hx blood transfusion Past Psychological History: Anxiety, Depression Smoking Status: Former smoker Past Alcohol Use History: None Reported Past Drug Use History: None Reported - Past Family History Mother Family Medical History: AFIB, COPD Father Family Medical History: Cancer Additional Family Medical History / Comment(s): Melanoma skin cancer. Aunts Family Medical History: Cancer Additional Family Medical History / Comment(s): A paternal aunt had ovarian cancer, a maternal aunt had uterine cancer and another maternal aunt had bladder cancer. <Joey Angelesoe - Last Filed: 03/08/24 15:29> General Exam Limitations: no limitations <StielerMari - Last Filed: 03/08/24 15:29> Limitations: no limitations General appearance: alert, in no apparent distress Head exam: Present: atraumatic, normocephalic, normal inspection Eye exam: Present: normal appearance, PERRL, EOMI. Absent: scleral icterus, conjunctival injection, periorbital swelling ENT exam: Present: normal exam, mucous membranes moist Neck exam: Present: normal inspection. Absent: tenderness, meningismus, lymphadenopathy Respiratory exam: Present: normal lung sounds bilaterally. Absent: respiratory distress, wheezes, rales, rhonchi, stridor Cardiovascular Exam: Present: regular rate, normal rhythm, normal heart sounds. Absent: systolic murmur, diastolic murmur, rubs, gallop, clicks GI/Abdominal exam: Present: soft, tenderness (Diffuse abdominal tenderness, especially in suprapubic and umbilical regions. Negative tympanic tenderness), rebound, normal bowel sounds. Absent: distended, guarding, rigid Extremities exam: Present: normal inspection, full ROM, normal capillary refill. Absent: tenderness, pedal edema, joint swelling, calf tenderness Back exam: Present: normal inspection, CVA tenderness (L). Absent: CVA tenderness (R) Neurological exam: Present: alert, oriented X3, CN II-XII intact Psychiatric exam: Present: normal affect, normal mood Skin exam: Present: warm, dry, intact, normal color. Absent: rash <Alayna,Vasile - Last Filed: 03/08/24 20:36> - General Exam Comments Initial Comments: Visual Physical Exam Vital signs reviewed General: Well-appearing, nontoxic, no acute distress. Head: Normocephalic, atraumatic Eyes: PERRLA, EOMI ENT: Airway patent Chest: Nonlabored breathing Skin: No visual rash, normal skin tone Neuro: Alert and oriented 3 Musculoskeletal: No gross abnormalities (Mari Angeles) Course Vital Signs 03/08/24 03/08/24 03/08/24 15:03 18:08 20:27 Temperature 97.6 F 97.9 F 98.2 F Pulse Rate 100 98 72 Respiratory 18 18 19 Rate Blood Pressure 113/75 115/82 117/85 O2 Sat by Pulse 100 100 98 Oximetry Medical Decision Making <Mari Angeles - Last Filed: 03/08/24 15:29> - Lab Data Result diagrams: 03/08/24 18:27 03/08/24 18:27 <Vasile Catalan - Last Filed: 03/08/24 20:36> - Medical Decision Making I completed the quick note portion of this chart signed Mari Angeles PA-C (Mari Angeles) Was pt. sent in by a medical professional or institution ([facility]la, [employer], urgent care, hospital, or correction...) When possible be specific @ -[No] Did you speak to anyone other than the patient for history (EMS, parent, family, police, friend...)? What history was obtained from this source @ -[No] Did you review nursing and triage notes (agree or disagree)? Why? @ -[I reviewed and agree with nursing and triage notes] Were old charts reviewed (outside hosp., previous admission, EMS record, old EKG, old radiological studies, urgent care reports/EKG's, correction records)? Report findings @ -[No old charts were reviewed] Differential Diagnosis (chest pain, altered mental status, abdominal pain women, abdominal pain men, vaginal bleeding, weakness, fever, dyspnea, syncope, headache, dizziness, GI bleed, back pain, seizure, CVA, palpatations, mental health, musculoskeletal)? @ -Differential Abdominal Pain Women: Appendicitis, Cholecystitis, diverticulosis, ischemic bowel, pancreatitis, hepatitis, UTI, gastroenteritis, AAA, incarcerated hernia, bowel obstruction, constipation, inflammatory bowel, hepatitis, peptic ulcer disease, splenic i nfarction, perforated viscus, vulvitis, ovarian torsion, PID, kidney stone, placenta abruption, this is not meant to be an all-inclusive list EKG interpreted by me (3pts min.). @ -Not done X-rays interpreted by me (1pt min.). @ -[None done] CT interpreted by me (1pt min.). @ -[None done] U/S interpreted by me (1pt. min.). @ -[None done] What testing was considered but not performed or refused? (CT, X-rays, U/S, labs)? Why? @ -[None] What meds were considered but not given or refused? Why? @ -[None] Did you discuss the management of the patient with other professionals (professionals i.e. DrRadha, PA, [employer], lab, RT, psych nurse, renal social worker, tariff compiling clerk, teacher, disability liaison officer, case repairer)? Give summary @ -[No] Was smoking cessation discussed for >3mins.? @ -[No] Was critical care preformed (if so, how long)? @ -[No] Were there social determinants of health that impacted care today? How? (Home lessness, low income, unemployed, alcoholism, drug addiction, transportation, low edu. Level, literacy, decrease access to med. care, long-term, rehab)? @ -[No] Was there de-escalation of care discussed even if they declined (Discuss DNR or withdrawal of care, Hospice)? DNR status @ -[No] What co-morbidities impacted this encounter? (DM, HTN, Smoking, COPD, CAD, Cancer, CVA, ARF, Chemo, Hep., AIDS, mental health diagnosis, sleep apnea, morbid obesity)? @ -[None] Was patient admitted / discharged? Hospital course, mention meds given and route, prescriptions, significant lab abnormalities, going to OR and other pertinent info. @ -[hospital course] Undiagnosed new problem with uncertain prognosis? @ -[No] Drug Therapy requiring intensive monitoring for toxicity (Heparin, Nitro, Insulin, Cardizem)? @ -[No] Were any procedures done? @ -[No] Diagnosis/symptom? @ -[default] Acute, or Chronic, or Acute on Chronic? @ -Acute Uncomplicated (without systemic symptoms) or Complicated (systemic symptoms)? @ -Complicated Side effects of treatment? @ -[No] Exacerbation, Progression, or Severe Exacerbation? @ -[No] Poses a threat to life or bodily function? How? (Chest pain, USA, NC, pneumonia, PE, COPD, DKA, ARF, appy, cholecystitis, CVA, Diverticulitis, Homicidal, Suicidal, threat to staff... and all critical care pts) @ -[No] (AlaynaVasile) - Lab Data Lab Results 03/08/24 03/08/24 03/08/24 Range/Units 18:27 18:27 18:27 WBC 8.0 (3.8-10.6) k/uL RBC 5.11 (3.80-5.40) m/uL Hgb 16.1 H (11.4-16.0) gm/dL Hct 49.0 H (34.0-46.0) % MCV 95.8 (80.0-100.0) fL MCH 31.6 (25.0-35.0) pg MCHC 32.9 (31.0-37.0) g/dL RDW 12.1 (11.5-15.5) % Plt Count 255 (150-450) k/uL MPV 8.1 Neutrophils % 58 % Lymphocytes % 34 % Monocytes % 5 % Eosinophils % 1 % Basophils % 1 % Neutrophils # 4.6 (1.3-7.7) k/uL Lymphocytes # 2.7 (1.0-4.8) k/uL Monocytes # 0.4 (0-1.0) k/uL Eosinophils # 0.1 (0-0.7) k/uL Basophils # 0.1 (0-0.2) k/uL Sodium 140 (137-145) mmol/L Potassium 4.2 (3.5-5.1) mmol/L Chloride 103 (98-107) mmol/L Carbon Dioxide 34 H (22-30) mmol/L Anion Gap 3 mmol/L BUN 17 (7-17) mg/dL Creatinine 0.71 (0.52-1.04) mg/dL Est GFR (CKD-EPI)AfAm >90 (>60 ml/min/1.73 sqM) Est GFR (CKD-EPI)NonAf >90 (>60 ml/min/1.73 sqM) Glucose 80 (74-99) mg/dL Calcium 9.7 (8.4-10.2) mg/dL Total Bilirubin 0.6 (0.2-1.3) mg/dL AST 25 (14-36) U/L ALT 20 (4-34) U/L Alkaline Phosphatase 74 (38-126) U/L Total Protein 7.1 (6.3-8.2) g/dL Albumin 4.7 (3.5-5.0) g/dL Urine Color Light Yellow Urine Appearance Clear (Clear) Urine pH 5.0 (5.0-8.0) Ur Specific [place] 1.021 (1.001-1.035) Urine Protein Negative (Negative) Urine Glucose (UA) Negative (Negative) Urine Ketones Negative (Negative) Urine Blood Negative (Negative) Urine Nitrite Negative (Negative) Urine Bilirubin Negative (Negative) Urine Urobilinogen <2.0 (<2.0) mg/dL Ur Leukocyte Esterase Negative (Negative) Disposition <Mari Angeles - Last Filed: 03/08/24 15:29> Is patient prescribed a controlled substance at d/c from ED?: No Time of Disposition: 20:35 <Vasile Catalan - Last Filed: 03/08/24 20:36> Clinical Impression: Vulvovaginal candidiasis, Abdominal pain Disposition: HOME SELF-CARE Condition: Good Instructions (If sedation given, give patient instructions): Abdominal Pain (ED) Additional Instructions: Follow-up with [facility] for symptoms and vascular/surgery for nutcracker syndrome. Referrals: Cortez Paulino DO [Primary Care Provider] - 1-2 days Myrna Pan DO [STAFF PHYSICIAN] - 1-2 days
[2024-03-08 18:41] LABS: Basophils # (A) 0.1 k/uL (0-0.2); Basophils % (A) 1 %; Eosinophils # (A) 0.1 k/uL (0-0.7); Eosinophils % (A) 1 %; HGB 16.1 gm/dL (11.4-16.0); Lymphocytes # (A) 2.7 k/uL (1.0-4.8); Lymphocytes % (A) 34 %; MCH 31.6 pg (25.0-35.0); MCHC 32.9 g/dL (31.0-37.0); MCV 95.8 fL (80.0-100.0); Mean Platelet Volume 8.1; Monocytes # (A) 0.4 k/uL (0-1.0); Monocytes % (A) 5 %; Neutrophils # (A) 4.6 k/uL (1.3-7.7); Neutrophils % (A) 58 %; Platelet Count 255 k/uL (150-450); RBC 5.11 m/uL (3.80-5.40); RDW 12.1 % (11.5-15.5)
[2024-03-08 18:44] LABS: Appearance,Urine Clear (Clear); Bilirubin,Urine Negative (Negative); Blood,Urine Negative (Negative); Color,Urine Light Yellow; Glucose,Urine (UA) Negative (Negative); Ketones,Urine Negative (Negative); Leukocyte Esterase,Urine Negative (Negative); Nitrite,Urine Negative (Negative); Protein,Urine Negative (Negative); Specific Gravity,Urine 1.021 (1.001-1.035); Urobilinogen,Urine <2.0 mg/dL (<2.0)
[2024-03-08 18:52] LABS: ALT 20 U/L (4-34); AST 25 U/L (14-36); African American GFR (CKD) >90 (>60 ml/min/1.73 sqM); Albumin 4.7 g/dL (3.5-5.0); Alkaline Phosphatase 74 U/L (38-126); Anion Gap 3 mmol/L; Blood Urea Nitrogen 17 mg/dL (7-17); Calcium 9.7 mg/dL (8.4-10.2); Carbon Dioxide 34 mmol/L (22-30); Chloride 103 mmol/L (98-107); Glucose 80 mg/dL (74-99); Non-African American GFR(CKD) >90 (>60 ml/min/1.73 sqM); Potassium 4.2 mmol/L (3.5-5.1); Sodium 140 mmol/L (137-145); Total Bilirubin 0.6 mg/dL (0.2-1.3); Total Protein 7.1 g/dL (6.3-8.2)
[2024-03-08] MEDS: FLUCONAZOLE 150 MG TAB PO STA (19:28)
[2024-03-08] MEDS: ONDANSETRON 4 MG/2 ML VIAL IVP STA (19:29)
[2024-03-08] MEDS: KETOROLAC 15 MG/ML 1 ML VIAL IVP STA (19:29)
--- NOTE | 2024-03-08 20:00 | CT ---
EXAMINATION TYPE: CT abdomen pelvis w con DATE OF EXAM: 03/08/2024 7:06 PM COMPARISON: Ultrasound 02/07/2024, abdomen 11/06/2022 CLINICAL INDICATION: Female, 54 years old with history of pelvic pain, dysuria; pelvic pain TECHNIQUE: Axial CT abdomen pelvis w con;Sagittal and coronal reformats were created on a separate w orkstation. Contrast used:100 mL of Isovue 370 with IV Contrast, (none if empty) Oral contrast used: without Oral Contrast (none if empty) CT DLP: 413.1 mGycm, Automated exposure control for dose reduction was used. FINDINGS: LOWER CHEST: Unremarkable ABDOMEN LIVER: Unremarkable GALLBLADDER AND BILE DUCTS: Unremarkable. PANCREAS: Unremarkable. SPLEEN: Unremarkable. ADRENAL GLANDS: Unremarkable. KIDNEYS AND URETERS: No evidence of hydronephrosis or renal calculus. The ureters are unremarkable. PELVIS BLADDER: No evidence for wall thickening or mass given limitations of exam. REPRODUCTIVE: Unremarkable. ABDOMEN & PELVIS STOMACH AND BOWEL: Moderate amount stool throughout the colon. No evidence of bowel obstruction. Scat tered colonic diverticula. The appendix is normal. PERITONEUM/RETROPERITONEUM: No evidence of pneumoperitoneum or free fluid. VASCULATURE: No evidence of aortic aneurysm. Prominent vessels are seen in the pelvis bilaterally lef t greater than right. Narrowing of thee left renal vein as it crosses the aorta. The left gonadal vei n is dilated. The right gonadal vein is somewhat dilated. MUSCULOSKELETAL: No acute osseous abnormalities LYMPH NODES: No gross evidence for lymphadenopathy. SOFT TISSUE/ABDOMINAL WALL: Unremarkable IMPRESSION: 1. 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 No ot her acute intra-abdominal process is definitively visualized. 2. Moderate amount stool throughout colon. 3. Colonic diverticulosis. [facility], , 03/08/2024 7:58 PM
[2024-03-08 20:28] VITALS: BP 117/85; PULSE 72; RESP 19; TEMP 98.2
[2024-03-09 12:12] LABS: C. trachomatis,PCR Negative (Negative)
[2024-03-09 12:16] LABS: N. gonorrhoeae,PCR Negative (Negative)
== END 2024-03-08 20:41 | disposition home or self-care (01) ==
LOC: EC 14:51
DX: K57.30 Diverticulosis of large intestine without perforation or abscess without bleeding (principal); B37.31 Acute candidiasis of vulva and vagina; Z87.891 Personal history of nicotine dependence; Z88.0 Allergy status to penicillin; Z88.1 Allergy status to other antibiotic agents; Z88.5 Allergy status to narcotic agent; Z88.8 Allergy status to other drugs, medicaments and biological substances
CPT/HCPCS: 36415; 80053; 85025; 81003; 87491; 87591; 74177; 99284; 96374; 96375; J2405; J1885; Q9967

== ENCOUNTER → 2024-03-15 | Outpatient (CLI) | payer BC | END | disposition home or self-care (01) | LOC: LABPAT 14:55 | PROVIDERS: ATTEND Obstetrics & Gynecology Obstetrics | DX: Z53.9 Procedure and treatment not carried out, unspecified reason (principal) ==

== ENCOUNTER 2024-03-25 09:54 | Day surgery (SDC) | payer BC ==
[~2024-03-25 09:54] MED LIST changes: -LACTATED RINGERS 1,000 ML IV SCH; -LIDOCAINE 1% (10MG/ML) FOR IV START INTRADERMA PRN; +Pre Op ABX Message 1 EACH MISC MISCELLANE ONE; +SCOPOLAMINE 1 MG/72 HR PATCH TRANSDERM ONE; +fentaNYL (PF) 50 MCG/ML 2 ML AMP IV PRN
[2024-03-25] MEDS: IV FLUID CONTINUATION 1,000 ML IV ONE (10:21)
[2024-03-25] MEDS: ONDANSETRON 4 MG/2 ML VIAL IVP ONE (10:39)
[2024-03-25] MEDS: LACTATED RINGERS 1,000 ML IV SCH (10:39)
[2024-03-25] MEDS: DEXAMETHASONE SOD PHOSPHATE 4 MG/ML 1 ML VIAL IV ONE (10:49)
[2024-03-25] MEDS: FAMOTIDINE 20 MG/2 ML VIAL IV STA (10:51)
[2024-03-25] MEDS: MIDAZOLAM 2 MG/2 ML VIAL IV PRN (10:54)
[2024-03-25] MEDS ORDERED: SUCCINYLCHOLINE CHLORIDE 200 MG/10 ML VIAL IV ONE (11:05)
[2024-03-25] MEDS ORDERED: PROPOFOL 10 MG/ML 20 ML VIAL IV ONE (11:05)
[2024-03-25] MEDS ORDERED: LIDOCAINE 1% INJ 10MG/ML (20 ML MDV) ONE (11:05)
[2024-03-25] MEDS ORDERED: fentaNYL (PF) 50 MCG/ML 2 ML AMP ONE (11:05)
--- NOTE | 2024-03-25 11:43 | P.OP ---
Date of Procedure: 03/25/24 Preoperative Diagnosis: Postmenopausal bleeding, thickened endometrium on ultrasound, cervical stenosis Postoperative Diagnosis: Same Procedure(s) Performed: Hysteroscopy, dilation and curettage Anesthesia: ANALY Surgeon: Jeannine Rashid Estimated Blood Loss (ml): 2 IV fluids (ml): 500 Urine output (ml): 25 Pathology: other (Scant endometrial curettings) Condition: stable Disposition: PACU Indications for Procedure: Postmenopausal bleeding Operative Findings: Atrophic endometrial cavity, atrophic vaginal vault Description of Procedure: Patient was taken back to the operating suite where general anesthesia was obtained without difficulty by the anesthesia department. She was prepped and draped in the normal sterile fashion in the dorsolithotomy position. Cuban was used to retract the posterior vaginal wall away from the cervix. The anterior lip of the cervix was visualized and grasped with a single-tooth tenaculum. Atrophic tissue was appreciated. The endocervical canal was then serially dilated. Hysteroscope was placed through the cervix and toward the endometrial cavity and intact cavity was appreciated atrophic in nature no polyps no thickening no proliferation. Hysteroscope was removed sharp curettage was performed with scant tissue obtained. Single-tooth tenaculum was taken off of the anterior lip of the cervix. All counts noted be correct x 2. Tenaculum sites were noted to be hemostatic after removal of the single-tooth tenaculum. Patient tolerated procedure well and is taken the recovery room awake in stable condition.
[2024-03-25 11:58] VITALS: TEMP 96.8
[2024-03-25] MEDS: KETOROLAC 15 MG/ML 1 ML VIAL IVP STA (12:07)
[2024-03-25] MEDS: BENZOCAINE/MENTHOL LOZENG 1 EACH LOZENGE MUCOUS MEM STA (13:18)
[2024-03-25] MEDS: LIDOCAINE 2% (PF) 20 MG/ML 10 ML AMP IV ONE (13:27)
[2024-03-25 13:32] VITALS: BP 126/72; PULSE 71; RESP 16
== END 2024-03-25 14:12 | disposition home or self-care (01) ==
LOC: OR 09:54
PROVIDERS: ATTEND Obstetrics & Gynecology Obstetrics
DX: N95.0 Postmenopausal bleeding (principal); M48.02 Spinal stenosis, cervical region; I47.10 Supraventricular tachycardia, unspecified; E07.9 Disorder of thyroid, unspecified; F41.9 Anxiety disorder, unspecified; K21.9 Gastro-esophageal reflux disease without esophagitis; M54.2 Cervicalgia; M19.90 Unspecified osteoarthritis, unspecified site; G43.909 Migraine, unspecified, not intractable, without status migrainosus; L23.1 Allergic contact dermatitis due to adhesives; Z78.0 Asymptomatic menopausal state; Z88.0 Allergy status to penicillin; Z88.5 Allergy status to narcotic agent; Z88.8 Allergy status to other drugs, medicaments and biological substances; Z79.1 Long term (current) use of non-steroidal anti-inflammatories (NSAID); Z79.899 Other long term (current) drug therapy
CPT/HCPCS: 58563; J2250; J0330; J1100; J2003 ×2; J2405; J3010; J3490; J1885; J2704; 88305

== ENCOUNTER 2024-03-26 16:15 | Emergency (ER) | payer BC ==
[2024-03-26 16:28] VITALS: BP 125/72; PULSE 71; RESP 18; TEMP 98.2
--- NOTE | 2024-03-26 17:00 | ED ---
ENT HPI - General Chief complaint: ENT Stated complaint: post op issue, throat pain Time Seen by Provider: 03/26/24 16:37 Source: patient Mode of arrival: ambulatory Limitations: no limitations - History of Present Illness Initial comments: 54-year-old female presenting with chief complaint of throat pain. Patient had a hysteroscopy with D&C for biopsy yesterday with Dr. Rashid. Patient was intubated and states that when she woke up from the procedure she had throat pain and persistent coughing. Today she is having continued throat pain. She still able to breathe and swallow fluids. States that she cannot swallow food. She has a raspy voice. No drooling. She contacted her surgeon today who told her to come in to the ER. States that when she coughs she feels a lot of soreness in her neck. No shortness of breath. No "hot potato" voice. - Related Data Home Medications Medication Instructions Recorded Confirmed Gabapentin [Neurontin] 100 mg PO TID 05/20/18 03/25/24 Ascorbic Acid [Vitamin C] 1,000 mg PO DAILY 07/19/22 03/25/24 Aspirin EC [Ecotrin Low Dose] 81 mg PO DAILY 07/19/22 03/25/24 Biotin 5 mg PO DAILY 07/19/22 03/25/24 Cholecalciferol [Vitamin D3 (25 25 mcg PO DAILY 07/19/22 03/25/24 Mcg = 1000 Iu)] Ondansetron Odt [Zofran Odt] 4 mg TRANSLINGU BID PRN 07/19/22 03/25/24 Zinc Gluconate [Zinc] 50 mg PO DAILY 07/19/22 03/25/24 Omeprazole 40 mg PO DIRECTED PRN 03/21/24 03/25/24 Unk Collagen 1 tab PO DAILY 03/21/24 03/25/24 miSOPROStoL [Cytotec] 200 mcg VAGINAL DIRECTED 03/21/24 03/25/24 Previous Rx's Medication Instructions Recorded Lidocaine Viscous 2% [Xylocaine 5 ml MUCOUS MEM BID PRN #40 ml 03/26/24 Viscous] Allergies Allergy/AdvReac Type Severity Reaction Status Date / Time adhesive tape Allergy Rash/Hives Verified 03/26/24 16:22 flecainide Allergy SEVERE Verified 03/26/24 16:22 HEADACHE Penicillins Allergy Anaphylaxis Verified 03/26/24 16:22 azithromycin AdvReac Abdominal Verified 03/26/24 16:22 [From Zithromax Z-[place]] Pain codeine AdvReac Nausea & Verified 03/26/24 16:22 Vomiting Review of Systems ROS Statement: Those systems with pertinent positive or pertinent negative responses have been documented in the HPI. ROS Other: All systems not noted in ROS Statement are negative. Past Medical History Past Medical History: GERD/Reflux, Osteoarthritis (OA), Supraventricular Tachycardia (SVT), Thyroid Disorder Additional Past Medical History / Comment(s): lung nodules,hx WPW syndrome improved following cardiac ablation, SVT, hiatal hernia, gastritis, palpitations; Cervical spinal stenosis. Thyroid nodule. MIGRAINE HEADACHES, CHRONIC BACK PAIN. 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 Right Uterine fundal fibroid measuring 4.7 cm (2019 [place]). History of Any Multi-Drug Resistant Organisms: None Reported Past Surgical History: Breast Surgery, Cardiac Ablation, Ear Surgery Additional Past Surgical History / Comment(s): exp. laparoscopy; groin cyst removed, wisdom teeth removed; colonoscopy 10/2020, myringotomy & tubes, pain procedures. Upper GI endoscopy 2022,LEFT BREAST BIOPSY,I&D cyst removed from inguinal area. Past Anesthesia/Blood Transfusion Reactions: Family History of Problems w/ Anesthesia, Postoperative Nausea & Vomiting (PONV) Additional Past Anesthesia/Blood Transfusion Reaction / Comment(s): mother has a hard time waking up from anesthesia. no hx blood transfusion Past Psychological History: Anxiety, Depression Smoking Status: Former smoker Past Alcohol Use History: None Reported Past Drug Use History: None Reported - Past Family History Mother Family Medical History: AFIB, Congestive Heart Failure (CHF), COPD Father Family Medical History: Cancer Additional Family Medical History / Comment(s): Melanoma skin cancer. Aunts Family Medical History: Cancer Additional Family Medical History / Comment(s): A paternal aunt had ovarian cancer, a maternal aunt had uterine cancer and another maternal aunt had bladder cancer. General Exam Limitations: no limitations General appearance: alert, in no apparent distress Head exam: Present: atraumatic, normocephalic, normal inspection Eye exam: Present: normal appearance, EOMI Expanded Throat exam: tonsillar erythema Neck exam: Present: normal inspection, tenderness Respiratory exam: Present: normal lung sounds bilaterally. Absent: respiratory distress, wheezes, rales, rhonchi, stridor Cardiovascular Exam: Present: regular rate, normal rhythm, normal heart sounds. Absent: systolic murmur, diastolic murmur, rubs, gallop, clicks Neurological exam: Present: alert, oriented X3 Psychiatric exam: Present: normal affect, normal mood Skin exam: Present: warm, dry Course Vital Signs 03/26/24 16:23 Temperature 98.2 F Pulse Rate 71 Respiratory 18 Rate Blood Pressure 125/72 O2 Sat by Pulse 100 Oximetry Medical Decision Making - Medical Decision Making Was pt. sent in by a medical professional or institution (YESSI Chawla, [employer], urgent care, hospital, or [facility]...) When possible be specific @ -No Did you speak to anyone other than the patient for history (EMS, parent, family, police, friend...)? What history was obtained from this source @ -No Did you review nursing and triage notes (agree or disagree)? Why? @ -I reviewed and agree with nursing and triage notes Were old charts reviewed (outside hosp., previous admission, EMS record, old EKG, old radiological studies, urgent care reports/EKG's, [facility] records)? Report findings @ -No old charts were reviewed Differential Diagnosis (chest pain, altered mental status, abdominal pain women, abdominal pain men, vaginal bleeding, weakness, fever, dyspnea, syncope, headache, dizziness, GI bleed, back pain, seizure, CVA, palpatations, mental health, musculoskeletal)? @ -Differential includes perforation, irritation, strep throat, this is not an all-inclusive list EKG interpreted by me (3pts min.). @ -As above X-rays interpreted by me (1pt min.). @ -None done CT interpreted by me (1pt min.). @ -CT shows no acute process U/S interpreted by me (1pt. min.). @ -None done What testing was considered but not performed or refused? (CT, X-rays, U/S, labs)? Why? @ -None What meds were considered but not given or refused? Why? @ -None Did you discuss the management of the patient with other professionals (professionals i.e. YESSI Chawla, [employer], lab, RT, psych nurse, social work lecturer, technical support internship, teacher, emergency response officer, complex case manager)? Give summary @ -No Was smoking cessation discussed for >3mins.? @ -No Was critical care preformed (if so, how long)? @ -No Were there social determinants of health that impacted care today? How? (Homelessness, low income, unemployed, alcoholism, drug addiction, transportation, low edu. Level, literacy, decrease access to med. care, detention, rehab)? @ -No Was there de-escalation of care discussed even if they declined (Discuss DNR or withdrawal of care, Hospice)? DNR status @ -No What co-morbidities impacted this encounter? (DM, HTN, Smoking, COPD, CAD, Cancer, CVA, ARF, Chemo, Hep., AIDS, mental health diagnosis, sleep apnea, morbid obesity)? @ -None Was patient admitted / discharged? Hospital course, mention meds given and route, prescriptions, significant lab abnormalities, going to OR and other pertinent info. @ -54-year-old female complaining of intense burning pain in the throat. This has been ongoing since yesterday. She was intubated for a procedure yesterday and when she woke up she had a dry cough and has had worsening throat pain. Was advised to come here by her surgeon today when she called the office because of her pain. She is having pain with breathing and swallowing, but no true difficulty. Soft tissue neck CT is obtained which shows no acute process. Aisha topete is given a GI cocktail with lidocaine and some pain medication. She does report some improvement after GI cocktail. Provided with viscous lidocaine for home. Discharged. Follow-up with PCP. Report back to ER with any new or worsening symptoms. Discussed return parameters and answered all questions. Patient conveyed verbal understanding and agreed to the plan. I discussed this case in detail with my attending Dr. Kam Undiagnosed new problem with uncertain prognosis? @ -No Drug Therapy requiring intensive monitoring for toxicity (Heparin, Nitro, Insulin, Cardizem)? @ -No Were any procedures done? @ -No Diagnosis/symptom? @ -Throat pain Acute, or Chronic, or Acute on Chronic? @ -Acute Uncomplicated (without systemic symptoms) or Complicated (systemic symptoms)? @ -Uncomplicated Side effects of treatment? @ -No Exacerbation, Progression, or Severe Exacerbation? @ -No Poses a threat to life or bodily function? How? (Chest pain, [place], [place], pneumonia, PE, COPD, DKA, ARF, appy, cholecystitis, CVA, Diverticulitis, Homicidal, Suicidal, threat to staff... and all critical care pts) @ -Low likelihood Disposition Clinical Impression: Throat irritation Disposition: HOME SELF-CARE Condition: Good Instructions (If sedation given, give patient instructions): Insertion of an Endotracheal Tube (ED) Additional Instructions: Follow-up with PCP and surgeon. Report back to ER with any new or worsening symptoms. Prescriptions: Lidocaine Viscous 2% [Xylocaine Viscous] 5 ml MUCOUS MEM BID PRN #40 ml PRN Reason: Pain Is patient prescribed a controlled substance at d/c from ED?: No Referrals: Cortez Paulino DO [Primary Care Provider] - 1-2 days Time of Disposition: 18:52
[2024-03-26] MEDS: KETOROLAC 15 MG/ML 1 ML VIAL IM STA (17:08)
[2024-03-26] MEDS: MAG HYDROX/AL HYDROX/SIMETH 30 ML, HYOSCYAMINE ELIXIR 10 ML, LIDOCAINE VISCOUS 2% 10 ML PO STA (17:08)
--- NOTE | 2024-03-26 17:39 | CT ---
EXAMINATION TYPE: CT soft tissue neck wo con DATE OF EXAM: 03/26/2024 5:26 PM COMPARISON: CT neck study dated 12/04/2020.. CLINICAL INDICATION: Female, 54 years old with history of Throat pain after intubation yesterday; [facility] , Throat pain after intubation yesterday. TECHNIQUE: Standard enhanced CT of the neck. Axial sections with coronal and sagittal reformats were obtained. CT DLP: 184.6 mGycm, Automated exposure control for dose reduction was used. FINDINGS: Brain: Visualized portions are grossly unremarkable. Orbits: Unremarkable Sinuses: Grossly unremarkable. Spaces of the neck: Clear and symmetric. Musculoskeletal: No acute osseous pathology. Lymph nodes: Multiple nonenlarged lymph nodes are seen along both anterior chains of the neck. Vascular structures: Visualized major arteries are patent without evidence of aneurysm. Thoracic Inlet/airway: Airway is patent. The lung apices are clear. Soft tissues/Thyroid: Redemonstration small calcified nodule in the right thyroid lobe. Other: none. IMPRESSION Unremarkable CT neck exam without IV contrast. [facility], , 03/26/2024 5:36 PM
[2024-03-26] MEDS: HYDROmorphone 0.5 MG/0.5 ML SYRINGE IVP STA (18:25)
[2024-03-26] MEDS: LORazepam 2 MG/ML INJ IV STA (18:28)
== END 2024-03-26 19:25 | disposition home or self-care (01) ==
LOC: EC 16:15
DX: R07.0 Pain in throat (principal); Z87.891 Personal history of nicotine dependence; Z88.8 Allergy status to other drugs, medicaments and biological substances; Z88.1 Allergy status to other antibiotic agents; Z88.0 Allergy status to penicillin; Z91.048 Other nonmedicinal substance allergy status; Z88.5 Allergy status to narcotic agent
CPT/HCPCS: 70490; 99283; 96372; 96374; 96375; J2060; J1885; J1171

== ENCOUNTER → 2024-03-30 | Outpatient (CLI) | payer BC ==
--- NOTE | 2024-04-01 20:55 | CTL ---
EXAMINATION TYPE: CT Low Dose Lung DATE OF EXAM: 03/30/2024 5:02 PM COMPARISON: CT chest 03/24/2023 CLINICAL INDICATION: Female, 54 years old with history of Z87.891 HX TOBACCO USE, F/u lung screening for nicotine dependence of 1ppd x35 yrs. Quit smoking in 2010., Lung cancer screening, History of tob acco use. TECHNIQUE: Low dose computed tomography scan was performed through the chest at 1 mm thick sections a nd reconstructed images in the coronal plane at 1 mm thick sections. Contrast used: mL of , (none if empty) Oral contrast used: (none if empty) CT DLP: 46.5 mGycm, Automated exposure control for dose reduction was used. CT CTDI: 1.1 mGy, Automated exposure control for dose reduction was used. SCREENING VISIT: Initial CT DIAGNOSTIC QUALITY: Satisfactory FINDINGS: LUNG NODULES: Present, detailed below: 1. There is a 0.3 cm nodule in the anterolateral right upper lobe. Series 4 image 48. Previously. LUNGS: COPD: Severity: None Fibrosis: Severity: Mild within the lingula is sherrell Lymph nodes: None Other findings: None RIGHT PLEURAL SPACE: Effusion: None Calcification: None Thickening: None Pneumothorax: None LEFT PLEURAL SPACE: Effusion: None Calcification: None Thickening: None Pneumothorax: None HEART: Other: Ascending thoracic aorta at the level the main pulmonary artery measures 2.6 cm. The main pul monary artery at the bifurcation measures1.9 cm. Heart Size: Normal Coronary calcification: Pericardial effusion: None OTHER FINDINGS: Upper abdomen: Normal Bony thorax: Normal Supraclavicular region: Normal IMPRESSION: No suspicious changes for primary or metastatic neoplasm. FOLLOW UP CT CHEST RECOMMENDATION: Follow-up low-dose CT chest one year CT LUNG RAD: Lung-Rad 2 Benign Appearance or Behavior [facility], , 04/01/2024 8:53 PM
== END | disposition home or self-care (01) ==
LOC: RADCTMAIN 14:58
PROVIDERS: ATTEND Family Medicine
DX: Z12.2 Encounter for screening for malignant neoplasm of respiratory organs (principal); Z87.891 Personal history of nicotine dependence
CPT/HCPCS: 71271

== ENCOUNTER → 2024-08-19 | Outpatient (CLI) | payer BC | END | disposition home or self-care (01) | LOC: LABWHC1 15:04 | PROVIDERS: ATTEND Internal Medicine Critical Care Medicine | DX: D80.9 Immunodeficiency with predominantly antibody defects, unspecified (principal) | CPT/HCPCS: 36415; 82784 ==

== ENCOUNTER 2024-09-09 20:08 | Emergency (ER) | payer BC ==
[2024-09-09 20:12] VITALS: RESP 18; TEMP 98
--- NOTE | 2024-09-09 21:11 | XR ---
EXAMINATION TYPE: XR KUB DATE OF EXAM: 09/09/2024 9:01 PM CLINICAL INDICATION: Female, 54 years old with history of constipation, pain TECHNIQUE: 1 upRight view of the abdomen. COMPARISON: CT abdomen and pelvis March 08, 2024. FINDINGS: Gas seen in nondistended stomach. Scattered gas is seen in non-distended small bowel loops. Gas and fecal material is seen in non-distended colon. Levoconvex scoliotic curvature is present. No free air. No suspicious calcifications. Lung bases are clear. Mild to moderate fecal prominence in t he right pelvis. IMPRESSION: Overall nonobstructive bowel gas pattern. [facility], , 09/09/2024 9:08 PM
--- NOTE | 2024-09-09 22:02 | ED ---
Abdominal Pain HPI - General Chief Complaint: Abdominal Pain Stated Complaint: Constipation,Nausea Time Seen by Provider: 09/09/24 21:59 Source: patient, RN notes reviewed Mode of arrival: ambulatory Limitations: no limitations - History of Present Illness Initial Comments: 54-year-old female presenting for epigastric pain x 2 days. Endorses a intermit tent, dull pain in the epigastric region described as a "band around the abdomen" that radiates to the back. Also endorses bloating, belching, and nausea. Reports she has not had a bowel movement in 3 days. Denies fever, vomiting. States she was able to tolerate a small amount of soup yesterday however reports food exacerbated the pain. She has never had this pain before. Denies history of abdominal surgeries. - Related Data Home Medications Medication Instructions Recorded Confirmed Gabapentin [Neurontin] 100 mg PO TID 05/20/18 03/25/24 Ascorbic Acid [Vitamin C] 1,000 mg PO DAILY 07/19/22 03/25/24 Aspirin EC [Ecotrin Low Dose] 81 mg PO DAILY 07/19/22 03/25/24 Biotin 5 mg PO DAILY 07/19/22 03/25/24 Cholecalciferol [Vitamin D3 (25 25 mcg PO DAILY 07/19/22 03/25/24 Mcg = 1000 Iu)] Ondansetron Odt [Zofran Odt] 4 mg TRANSLINGU BID PRN 07/19/22 03/25/24 Zinc Gluconate [Zinc] 50 mg PO DAILY 07/19/22 03/25/24 Omeprazole 40 mg PO DIRECTED PRN 03/21/24 03/25/24 Unk Collagen 1 tab PO DAILY 03/21/24 03/25/24 miSOPROStoL [Cytotec] 200 mcg VAGINAL DIRECTED 03/21/24 03/25/24 Previous Rx's Medication Instructions Recorded Lidocaine Viscous 2% [Xylocaine 5 ml MUCOUS MEM BID PRN #40 ml 03/26/24 Viscous] Allergies Allergy/AdvReac Type Severity Reaction Status Date / Time adhesive tape Allergy Rash/Hives Verified 09/09/24 20:12 flecainide Allergy SEVERE Verified 09/09/24 20:12 HEADACHE Penicillins Allergy Anaphylaxis Verified 09/09/24 20:12 azithromycin AdvReac Abdominal Verified 09/09/24 20:12 [From Zithromax Z-Salinas] Pain codeine AdvReac Nausea & Verified 09/09/24 20:12 Vomiting Review of Systems ROS Statement: Those systems with pertinent positive or pertinent negative responses have been documented in the HPI. ROS Other: All systems not noted in ROS Statement are negative. Past Medical History Past Medical History: GERD/Reflux, Osteoarthritis (OA), Supraventricular Tachycardia (SVT), Thyroid Disorder Additional Past Medical History / Comment(s): lung nodules,hx WPW syndrome improved following cardiac ablation, SVT, hiatal hernia, gastritis, palpitations; Cervical spinal stenosis. Thyroid nodule. MIGRAINE HEADACHES, CHRONIC BACK PAIN. 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 Right Uterine fundal fibroid measuring 4.7 cm (2019 U/S). History of Any Multi-Drug Resistant Organisms: None Reported Past Surgical History: Breast Surgery, Cardiac Ablation, Ear Surgery Additional Past Surgical History / Comment(s): exp. laparoscopy; groin cyst removed, wisdom teeth removed; colonoscopy 10/2020, myringotomy & tubes, pain procedures. Upper GI endoscopy 2022,LEFT BREAST BIOPSY,I&D cyst removed from inguinal area. Past Anesthesia/Blood Transfusion Reactions: Family History of Problems w/ Anesthesia, Postoperative Nausea & Vomiting (PONV) Additional Past Anesthesia/Blood Transfusion Reaction / Comment(s): mother has a hard time waking up from anesthesia. no hx blood transfusion Past Psychological History: Anxiety, Depression Smoking Status: Former smoker Past Alcohol Use History: None Reported Past Drug Use History: None Reported - Past Family History Mother Family Medical History: AFIB, Congestive Heart Failure (CHF), COPD Father Family Medical History: Cancer Additional Family Medical History / Comment(s): Melanoma skin cancer. Aunts Family Medical History: Cancer Additional Family Medical History / Comment(s): A paternal aunt had ovarian cancer, a maternal aunt had uterine cancer and another maternal aunt had bladder cancer. General Exam Limitations: no limitations General appearance: alert, in no apparent distress Head exam: Present: atraumatic, normocephalic, normal inspection GI/Abdominal exam: Present: soft, normal bowel sounds. Absent: distended, tenderness, guarding, rebound, rigid Back exam: Absent: CVA tenderness (R), CVA tenderness (L) Neurological exam: Present: alert, oriented X3 Psychiatric exam: Present: normal affect, normal mood Skin exam: Present: warm, dry, intact, normal color. Absent: rash Course Vital Signs 09/09/24 09/09/24 20:09 23:13 Temperature 98 F Pulse Rate 100 69 Respiratory 18 18 Rate Blood Pressure 154/81 134/80 O2 Sat by Pulse 98 95 Oximetry Medical Decision Making - Medical Decision Making Was pt. sent in by a medical professional or institution (YESSI Chawla, [employer]AD[employer] SOLUTION ARCHITECT, urgent ca re, hospital, or snf...) When possible be specific @ -No Did you speak to anyone other than the patient for history (EMS, parent, family, police, friend...)? What history was obtained from this source @ -No Did you review nursing and triage notes (agree or disagree)? Why? @ -I reviewed and agree with nursing and triage notes Were old charts reviewed (outside hosp., previous admission, EMS record, old EKG, old radiological studies, urgent care reports/EKG's, snf records)? Report findings @ -No old charts were reviewed Differential Diagnosis (chest pain, altered mental status, abdominal pain women, abdominal pain men, vaginal bleeding, weakness, fever, dyspnea, syncope, he adache, dizziness, GI bleed, back pain, seizure, CVA, palpatations, mental health, musculoskeletal)? @ -Differential Abdominal Pain Women: Appendicitis, Cholecystitis, diverticulosis, ischemic bowel, pancreatitis, hepatitis, UTI, gastroenteritis, AAA, incarcerated hernia, bowel obstruction, constipation, inflammatory bowel, hepatitis, peptic ulcer disease, splenic infarction, perforated viscus, vulvitis, ovarian torsion, PID, kidney stone, placenta abruption, this is not meant to be an all-inclusive list EKG interpreted by me (3pts min.). @ -None X-rays interpreted by me (1pt min.). @ -KUB reveals nonobstructive pattern with moderate stool burden in right pelvis CT interpreted by me (1pt min.). @ -None done U/S interpreted by me (1pt. min.). @ -Ultrasound gallbladder reveals no acute process What testing was considered but not performed or refused? (CT, X-rays, U/S, labs)? Why? @ -None What meds were considered but not given or refused? Why? @ -None Did you discuss the management of the patient with other professionals (professionals i.e. YESSI Chawla, [employer]UTION ARCHITECT, lab, RT, psych nurse, social science professor, interpreter, teacher, public safety officer, skilled nursing case manager)? Give summary @ -No Was smoking cessation discussed for >3mins.? @ -No Was critical care preformed (if so, how long)? @ -No Were there social determinants of health that impacted care today? How? (Homelessness, low income, unemployed, alcoholism, drug addiction, transportation, low edu. Level, literacy, decrease access to med. care, [place] [facility], rehab)? @ -No Was there de-escalation of care discussed even if they declined (Discuss DNR or withdrawal of care, Hospice)? DNR status @ -No What co-morbidities impacted this encounter? (DM, HTN, Smoking, COPD, CAD, Cancer, CVA, ARF, Chemo, Hep., AIDS, mental health diagnosis, sleep apnea, morbid obesity)? @ -None Was patient admitted / discharged? Hospital course, mention meds given and route, prescriptions, significant lab abnormalities, going to OR and other pertinent info. @ - discharge. 54-year-old female presenting for epigastric pain x 2 days. Has not had a bowel movement in 3 days. Patient is provided with GI cocktail and IV fluids. Lab work including CBC, CMP, lactic acid, lipase largely unremarkable. Ultrasound gallbladder reveals no acute process. KUB reveals nonobstructive pat tern with moderate stool burden in the right pelvic area. Upon reevaluation, patient reports improvement of symptoms and also states she needs to leave to take care of her elderly mother. Discussed I do not identify emergent etiology causing symptoms, and I highly suspect symptoms are due to constipation. I recommended patient use MiraLAX and stool softeners as well as drink plenty of fluids and eat high-fiber foods. Appropriate return precautions discussed. Case was discussed with my ED attending Dr. Weiss Undiagnosed new problem with uncertain prognosis? @ -No Drug Therapy requiring intensive monitoring for toxicity (Heparin, Nitro, Insulin, Cardizem)? @ -No Were any procedures done? @ -No Diagnosis/symptom? @ -Constipation Acute, or Chronic, or Acute on Chronic? @ -Acute Uncomplicated (without systemic symptoms) or Complicated (systemic symptoms)? @ -Uncomplicated Side effects of treatment? @ -No Exacerbation, Progression, or Severe Exacerbation? @ -No Poses a threat to life or bodily function? How? (Chest pain, USA, GA, pneumonia, PE, COPD, DKA, ARF, appy, cholecystitis, CVA, Diverticulitis, Homicidal, Suicidal, threat to staff... and all critical care pts) @ -No - Lab Data Result diagrams: 09/09/24 22:53 09/09/24 22:53 Lab Results 09/09/24 09/09/24 09/09/24 Range/Units 22:53 22:53 22:53 WBC 8.79 (4.50-10.00) 10*3/uL RBC 4.74 (4.10-5.20) 10*6/uL Hgb 15.3 H (12.0-15.0) g/dL Hct 44.3 (37.2-46.3) % MCV 93.5 (80.0-97.0) fL MCH 32.3 H (27.0-32.0) pg MCHC 34.5 (32.0-37.0) g/dL Plt Count 232 (140-440) 10*3/uL MPV 10.1 (9.5-12.2) fL Immature Gran % (Auto) 0.3 % Neutrophils % 80.0 % Lymphocytes % 14.1 % Monocytes % 4.8 % Eosinophils % 0.3 % Basophils % 0.5 % Immature Gran # 0.03 (0.00-0.04) 10*3/uL Neutrophils # 7.03 (1.80-7.70) 10*3/uL Lymphocytes # 1.24 (0.90-5.00) 10*3/uL Monocytes # 0.42 (0.20-1.00) 10*3/uL Eosinophils # 0.03 L (0.04-0.35) 10*3/uL Basophils # 0.04 (0.00-0.10) 10*3/uL Sodium 138 (137-145) mmol/L Potassium 4.1 (3.5-5.1) mmol/L Chloride 102 (98-107) mmol/L Carbon Dioxide 30 (22-30) mmol/L Anion Gap 6 mmol/L BUN 20 H (7-17) mg/dL Creatinine 0.55 (0.52-1.04) mg/dL Est GFR (CKD-EPI)AfAm >90 (>60 ml/min/1.73 sqM) Est GFR (CKD-EPI)NonAf >90 (>60 ml/min/1.73 sqM) Glucose 91 (74-99) mg/dL Plasma Lactic Acid Edd 0.7 (0.7-2.0) mmol/L Calcium 9.8 (8.4-10.2) mg/dL Total Bilirubin 0.5 (0.2-1.3) mg/dL AST 25 (14-36) U/L ALT 18 (4-34) U/L Alkaline Phosphatase 67 (38-126) U/L Total Protein 6.9 (6.3-8.2) g/dL Albumin 4.4 (3.5-5.0) g/dL Lipase 85 (23-300) U/L Urine Color Urine Appearance (Clear) Urine pH (5.0-8.0) Ur Specific [place] (1.001-1.035) Urine Protein (Negative) Urine Glucose (UA) (Negative) Urine Ketones (Negative) Urine Blood (Negative) Urine Nitrite (Negative) Urine Bilirubin (Negative) Urine Urobilinogen (<2.0) mg/dL Ur Leukocyte Esterase (Negative) Urine RBC (0-5) /hpf Urine WBC (0-5) /hpf Ur Squamous Epith Cells (0-4) /hpf Urine Bacteria (None) /hpf Urine Mucus (None) /hpf 09/09/24 Range/Units 23:07 WBC (4.50-10.00) 10*3/uL RBC (4.10-5.20) 10*6/uL Hgb (12.0-15.0) g/dL Hct (37.2-46.3) % MCV (80.0-97.0) fL MCH (27.0-32.0) pg MCHC (32.0-37.0) g/dL Plt Count (140-440) 10*3/uL MPV (9.5-12.2) fL Immature Gran % (Auto) % Neutrophils % % Lymphocytes % % Monocytes % % Eosinophils % % Basophils % % Immature Gran # (0.00-0.04) 10*3/uL Neutrophils # (1.80-7.70) 10*3/uL Lymphocytes # (0.90-5.00) 10*3/uL Monocytes # (0.20-1.00) 10*3/uL Eosinophils # (0.04-0.35) 10*3/uL Basophils # (0.00-0.10) 10*3/uL Sodium (137-145) mmol/L Potassium (3.5-5.1) mmol/L Chloride (98-107) mmol/L Carbon Dioxide (22-30) mmol/L Anion Gap mmol/L BUN (7-17) mg/dL Creatinine (0.52-1.04) mg/dL Est GFR (CKD-EPI)AfAm (>60 ml/min/1.73 sqM) Est GFR (CKD-EPI)NonAf (>60 ml/min/1.73 sqM) Glucose (74-99) mg/dL Plasma Lactic Acid Edd (0.7-2.0) mmol/L Calcium (8.4-10.2) mg/dL Total Bilirubin (0.2-1.3) mg/dL AST (14-36) U/L ALT (4-34) U/L Alkaline Phosphatase (38-126) U/L Total Protein (6.3-8.2) g/dL Albumin (3.5-5.0) g/dL Lipase (23-300) U/L Urine Color Colorless Urine Appearance Cloudy H (Clear) Urine pH 7.0 (5.0-8.0) Ur Specific [place] 1.017 (1.001-1.035) Urine Protein Negative (Negative) Urine Glucose (UA) Negative (Negative) Urine Ketones 1+ H (Negative) Urine Blood Negative (Negative) Urine Nitrite Negative (Negative) Urine Bilirubin Negative (Negative) Urine Urobilinogen <2.0 (<2.0) mg/dL Ur Leukocyte Esterase Small H (Negative) Urine RBC 2 (0-5) /hpf Urine WBC 2 (0-5) /hpf Ur Squamous Epith Cells 2 (0-4) /hpf Urine Bacteria Rare H (None) /hpf Urine Mucus Rare H (None) /hpf Disposition Clinical Impression: Constipation Disposition: HOME SELF-CARE Condition: Stable Instructions (If sedation given, give patient instructions): Constipation (ED) Additional Instructions: Use MiraLAX and stool softener such as Dulcolax for constipation. Drink plenty of fluids and eat foods high in fiber. Please return to the Emergency Department if symptoms worsen or any other concerns. Is patient prescribed a controlled substance at d/c from ED?: No Referrals: Cortez Paulino DO [Primary Care Provider] - 1-2 days Time of Disposition: 23:52
[2024-09-09] MEDS: FAMOTIDINE 20 MG/2 ML VIAL IV STA (22:42)
[2024-09-09] MEDS: SODIUM CHLORIDE 0.9% 1,000 ML IV STA (22:42)
[2024-09-09] MEDS: MAG HYDROX/AL HYDROX/SIMETH 30 ML CUP PO STA (22:43)
[2024-09-09] MEDS: METOCLOPRAMIDE 5 MG/ML 2 ML VIAL IVP STA (22:43)
--- NOTE | 2024-09-09 22:50 | US ---
EXAMINATION TYPE: US gallbladder DATE OF EXAM: 09/09/2024 COMPARISON: CT abdomen and pelvis March 08, 2024 CLINICAL INDICATION: Female, 54 years old with history of epigastric pain; pain TECHNIQUE: Grayscale and color Doppler imaging of the right upper quadrant was performed. FINDINGS: EXAM MEASUREMENTS: Liver Length: 13.9 cm Gallbladder Wall: .2 cm CBD: .5 cm Right Kidney: 9.6 x 3.2 x 3.8 cm SHIP KEEPER NOTES: Pancreas: wnl Liver: wnl Gallbladder: No stones seen Evidence for sonographic Petty's sign: No CBD: wnl Right Kidney: No hydronephrosis or masses seen IMPRESSION: No gallstones or sonographic evidence for acute cholecystitis. [facility], , 09/09/2024 10:48 PM
[2024-09-09 23:03] LABS: Basophils # (A) 0.04 10*3/uL (0.00-0.10); Basophils % (A) 0.5 %; Eosinophils # (A) 0.03 10*3/uL (0.04-0.35); Eosinophils % (A) 0.3 %; HCT 44.3 % (37.2-46.3); HGB 15.3 g/dL (12.0-15.0); Lymphocytes # (A) 1.24 10*3/uL (0.90-5.00); Lymphocytes % (A) 14.1 %; MCH 32.3 pg (27.0-32.0); MCHC 34.5 g/dL (32.0-37.0); MCV 93.5 fL (80.0-97.0); Mean Platelet Volume 10.1 fL (9.5-12.2); Monocytes # (A) 0.42 10*3/uL (0.20-1.00); Monocytes % (A) 4.8 %; Neutrophils # (A) 7.03 10*3/uL (1.80-7.70); Platelet Count 232 10*3/uL (140-440); RBC 4.74 10*6/uL (4.10-5.20); WBC 8.79 10*3/uL (4.50-10.00)
[2024-09-09 23:14] VITALS: BP 134/80; PULSE 69
[2024-09-09 23:19] LABS: ALT 18 U/L (4-34); AST 25 U/L (14-36); African American GFR (CKD) >90 (>60 ml/min/1.73 sqM); Albumin 4.4 g/dL (3.5-5.0); Alkaline Phosphatase 67 U/L (38-126); Anion Gap 6 mmol/L; Blood Urea Nitrogen 20 mg/dL (7-17); Calcium 9.8 mg/dL (8.4-10.2); Carbon Dioxide 30 mmol/L (22-30); Chloride 102 mmol/L (98-107); Glucose 91 mg/dL (74-99); Lipase 85 U/L (23-300); Non-African American GFR(CKD) >90 (>60 ml/min/1.73 sqM); Potassium 4.1 mmol/L (3.5-5.1); Sodium 138 mmol/L (137-145); Total Bilirubin 0.5 mg/dL (0.2-1.3); Total Protein 6.9 g/dL (6.3-8.2)
[2024-09-09 23:31] LABS: Appearance,Urine Cloudy (Clear); Bacteria,Urine Rare /hpf; Bilirubin,Urine Negative (Negative); Blood,Urine Negative (Negative); Color,Urine Colorless; Glucose,Urine (UA) Negative (Negative); Ketones,Urine 1+ (Negative); Leukocyte Esterase,Urine Small (Negative); Mucus,Urine Rare /hpf; Nitrite,Urine Negative (Negative); Protein,Urine Negative (Negative); RBC,Urine 2 /hpf (0-5); Specific Gravity,Urine 1.017 (1.001-1.035); Squamous Epithelial Cell,Urine 2 /hpf (0-4); Urobilinogen,Urine <2.0 mg/dL (<2.0); WBC,Urine 2 /hpf (0-5)
== END 2024-09-10 00:10 | disposition home or self-care (01) ==
LOC: EC 20:08
DX: K59.00 Constipation, unspecified (principal); Z87.891 Personal history of nicotine dependence; Z91.048 Other nonmedicinal substance allergy status; Z88.1 Allergy status to other antibiotic agents; Z88.0 Allergy status to penicillin; Z88.5 Allergy status to narcotic agent; Z88.8 Allergy status to other drugs, medicaments and biological substances
CPT/HCPCS: 36415; 80053; 83605; 83690; 85025; 81001; 74018; 76705; 99284; 96374; 96375; 96361; J2765; J1308

== ENCOUNTER → 2024-10-04 | Outpatient (CLI) | payer BC ==
[2024-10-04 13:07] VITALS: BP 123/84; PULSE 95; RESP 16; TEMP 97.8
--- NOTE | 2024-10-04 13:50 | P.HPOB ---
History of Present Illness H&P Date: 10/04/24 Chief Complaint: The patient is here for her routine gynecologic exam and ma mmogram. This is a 54-year-old G1, P1 with an LMP of 2018. The patient was diagnosed with lichen sclerosis of the vulva during this past year. She was having some vulvar itching. When she saw Dr. Rashid for small amount of postmenopausal bleeding, a hysteroscopy with D&C was performed and at that time she was diagnosed with lichen sclerosus of the vulva. She was prescribed clobetasol cream and estradiol cream. She states her vulvar symptoms are somewhat improved and he is planning to go to a [facility] vulvar clinic this year for further evaluation. She states she was given the diagnosis without a tissue biopsy. She denies any more postmenopausal bleeding. Review of Systems The patient has gained 3 pounds over the last year. She denies respiratory, cardiac, or G.I. problems. About 1 month ago she was seen in the emergency room for abdominal pain and constipation. She states she had IV Reglan, IV Pepcid and Mylanta constipation has improved since then. Past Medical History Past Medical History: GERD/Reflux, Osteoarthritis (OA), Supraventricular Tachycardia (SVT), Thyroid Disorder Additional Past Medical History / Comment(s): lung nodules,hx WPW syndrome improved following cardiac ablation, SVT, hiatal hernia, gastritis, palpitations; Cervical spinal stenosis. Thyroid nodule. MIGRAINE HEADACHES, CHRONIC BACK PAIN. Osteopenia. 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 Right Uterine fundal fibroid measuring 4.7 cm (2019 U/S). History of Any Multi-Drug Resistant Organisms: None Reported Past Surgical History: Breast Surgery, Cardiac Ablation, Ear Surgery Additional Past Surgical History / Comment(s): exp. laparoscopy; groin cyst removed, wisdom teeth removed; colonoscopy 10/2020, myringotomy & tubes, pain procedures. Upper GI endoscopy 2022,LEFT BREAST BIOPSY,I&D cyst removed from inguinal area. Hysteroscopy with D&C on 03/25/2024. Past Anesthesia/Blood Transfusion Reactions: Family History of Problems w/ Anesthesia, Postoperative Nausea & Vomiting (PONV) Additional Past Anesthesia/Blood Transfusion Reaction / Comment(s): mother has a hard time waking up from anesthesia. no hx blood transfusion Past Psychological History: Anxiety, Depression Additional Psychological History / Comment(s): Brief depression around 2007 treated with Prozac. Smoking Status: Former smoker Past Alcohol Use History: None Reported Additional Past Alcohol Use History / Comment(s): started smoking around the age of 17 on and off until the age of 45 SMOKED 8 CIG A DAY Past Drug Use History: None Reported Additional History: She is single and is not sexually active at this time. 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 She plans to move to [place] or [place] in the future. - Past Family History Mother Family Medical History: AFIB, Congestive Heart Failure (CHF), COPD Father Family Medical History: Cancer Additional Family Medical History / Comment(s): Melanoma skin cancer. Aunts Family Medical History: Cancer Additional Family Medical History / Comment(s): A paternal aunt had ovarian cancer, a maternal aunt had uterine cancer and another maternal aunt had bladder cancer. Medications and Allergies Home Medications Medication Instructions Recorded Confirmed Type Gabapentin [Neurontin] 100 mg PO TID 05/20/18 03/25/24 History Ascorbic Acid [Vitamin C] 1,000 mg PO DAILY 07/19/22 03/25/24 History Aspirin EC [Ecotrin Low Dose] 81 mg PO DAILY 07/19/22 03/25/24 History Biotin 5 mg PO DAILY 07/19/22 03/25/24 History Cholecalciferol [Vitamin D3 (25 25 mcg PO DAILY 07/19/22 03/25/24 History Mcg = 1000 Iu)] Ondansetron Odt [Zofran Odt] 4 mg TRANSLINGU BID PRN 07/19/22 03/25/24 History Zinc Gluconate [Zinc] 50 mg PO DAILY 07/19/22 03/25/24 History Omeprazole 40 mg PO DIRECTED PRN 03/21/24 03/25/24 History Unk Collagen 1 tab PO DAILY 03/21/24 03/25/24 History Clobetasol Propionate [Temovate 1 applic VAGINAL WEEKLY 10/04/24 10/04/24 History 0.05% Cream] Estradiol Cream [Estrace Cream 1 applicator VAGINAL WEEKLY 10/04/24 10/04/24 History 0.01%] Allergies Allergy/AdvReac Type Severity Reaction Status Date / Time adhesive tape Allergy Rash/Hives Verified 09/09/24 20:12 flecainide Allergy SEVERE Verified 09/09/24 20:12 HEADACHE Penicillins Allergy Anaphylaxis Verified 09/09/24 20:12 azithromycin AdvReac Abdominal Verified 09/09/24 20:12 [From Zithromax Z-Salinas] Pain codeine AdvReac Nausea & Verified 09/09/24 20:12 Vomiting Exam Vital Signs Temp Pulse Resp BP Pulse Ox 10/04/24 13:01 97.8 F 95 16 123/84 98 Intake and Output 10/03/24 10/04/24 10/04/24 22:59 06:59 14:59 Other: Weight 51.71 kg Height 5 feet 4 inches, weight 114 pounds, BMI 19.6. This is a well-developed well-nourished white female who is alert and oriented times 3 in no acute distress. HEENT: Within normal limits. NECK: Supple without mass or thyromegaly. CHEST AND LUNGS: Clear to auscultation. HEART: Regular rate and rhythm. BREASTS: Are without mass or discharge. AXILLARY EXAM: Negative for adenopathy. BACK: Negative for CVA tenderness. ABDOMEN: Soft, nontender, without palpable masses. PELVIC EXAM: External genitalia reveals a generalized pallor extending to the perineum with moderate atrophy. Pallor is consistent with lichen sclerosis of the vulva. There is no ulceration or excoriation noted. Cervix and vagina appear normal with mild to moderate atrophy. There is no unusual discharge. There is no evidence of prolapse. The uterus is midposition, nongravid size and nontender. There are no palpable adnexal masses or tenderness. RECTAL EXAM: Rectovaginal exam is negative for mass or tenderness and is negativ e for occult blood. EXTREMITIES: Nontender. IMPRESSION: 1. 54-year-old menopausal female with vulvar lichen sclerosis symptomatically improved with clobetasol cream and estradiol cream. 2. History of small uterine fibroids 3. Osteopenia. PLAN: 1. Pap smear cotest was performed. 2. Self breast awareness was discussed with the patient. We have also discussed symptoms associated with inflammatory breast cancer. 3. Screening mammogram will be done today. 4. Osteoporosis prevention was discussed. I have stressed the importance of adequate calcium, vitamin D and regular exercise. Recommended amounts of calcium and vitamin D were also discussed. Plan on repeating the bone density test in 1 to 2 years. 5. Kenalog 0.1% ointment twice daily as needed for vulvar pruritus. The electronic prescription will be sent to [facility] pharmacy. She can also use the Temovate cream up to 2 times a day as needed, but she understands she should not use this for more than 2 weeks. She states she would prefer the triamcinolone ointment since the clobetasol cream tends to irritate her skin. She will continue to use the estradiol cream as directed. She was instructed to call if she needs a new prescription for this. She was also instructed to avoid over washing with soap and also avoid rubbing and scratching. She was also advised to use [id number] petroleum jelly daily when she is not using the ointment. This will be used as a protective layer. 6. We have had a long discussion regarding vulvar lichen sclerosus. She was instructed to call if she has having worsening symptoms or if she is having focal symptoms. She states she has an appointment in the upcoming months at the [facility]'s vulvar clinic. 7. She was advised to return in one year for her annual well woman exam and as needed.
--- NOTE | 2024-10-04 16:48 | MM ---
Reason for Exam: Screening (asymptomatic). Last screening mammogram was performed 12 month(s) ago. Patient History: Menarche at age 11. First Full-Term at age 17. Postmenopausal. 09/13/2019, Benign Core Biopsy on the left side. Maternal grandmother had breast cancer, age 60. Maternal cousin had breast cancer, age 55. Paternal aunt had ovarian cancer at or over age 50. Risk Values: Ayana 5 year model risk: 1.0%. NCI Lifetime model risk: 7.0%. Prior Study Comparison: 06/09/2018 Bilateral Diagnostic Mammogram, [facility]. 08/31/2019 Bilateral Diagnostic Mammogram, [facility]. 03/14/2020 Left Diagnostic Mammogram, [facility]. 09/10/2020 Bilateral Screening Mammogram, [facility]. 09/17/2021 Bilateral MG 3D screening mammo w/cad, [facility]. 09/23/2022 Bilateral MG 3D screening mammo w/cad, [facility]. 09/29/2023 Bilateral MG 3D screening mammo w/cad, [facility]. Tissue Density: The breasts are heterogeneously dense, which may obscure small masses. Findings: Analyzed By CAD. There is no suspicious group of microcalcifications or new suspicious mass in either breast. Overall Assessment: Negative, BI-RAD 1 Management: Screening Mammogram of both breasts in 1 year. Patient should continue monthly self-breast exams. A clinical breast exam by your physician is recommended on an annual basis. This exam should not preclude additional follow-up of suspicious palpable abnormalities. Note on Ayana scores and lifetime risk: 1. A Ayana score greater than 3% is considered moderate risk. If this is the case, consider specialist referral to assess eligibility for a risk reducing agent. 2. If overall lifetime risk for the development of breast cancer is 20% or higher, the patient may qualify for future screening with alternating mammogram and breast MRI. [facility], , 10/04/2024 4:45 PM. Electronically signed and approved by: Estefania Pinedo M.D. Radiologist
== END ==
LOC: WWCWWP 12:40
PROVIDERS: ATTEND Obstetrics & Gynecology
DX: Z01.419 Encounter for gynecological examination (general) (routine) without abnormal findings (principal); Z12.31 Encounter for screening mammogram for malignant neoplasm of breast; L28.0 Lichen simplex chronicus; M19.90 Unspecified osteoarthritis, unspecified site; M85.80 Other specified disorders of bone density and structure, unspecified site; N95.0 Postmenopausal bleeding; Z78.0 Asymptomatic menopausal state; Z87.891 Personal history of nicotine dependence; Z88.0 Allergy status to penicillin; Z88.1 Allergy status to other antibiotic agents; Z88.5 Allergy status to narcotic agent; Z86.018 Personal history of other benign neoplasm
CPT/HCPCS: 77063; 77067

== ENCOUNTER → 2024-10-12 | Outpatient (CLI) | payer BC ==
--- NOTE | 2024-10-12 14:54 | US ---
EXAMINATION TYPE: US thyroid st tissue head/neck DATE OF EXAM: 10/12/2024 COMPARISON: NONE CLINICAL INDICATION: Female, 54 years old with history of E04.1 SINGLE THYROID NODULE; Thyroid nodule s TECHNIQUE: Grayscale and color Doppler imaging of the thyroid gland. FINDINGS: GLAND SIZE: Right Lobe: 5.2 1.2 x 1.6 cm Overall Parenchyma: homogeneous Left Lobe: 4.8 x 1.1 x 1.5 cm Overall Parenchyma: homogeneous Isthmus Thickness: .2 cm NODULES RIGHT: # of nodules measured on right: 1 1. .6 X .5 x .5 cm, mid , solid or almost completely solid, hyperechoic nodule, which is wider than tall, with smooth margins, with echogenic foci. Prior size: .6 x .5 x .6 cm LEFT: # of nodules measured on left: 2 1. .8 X .5 x .5 cm, upper lateral, solid or almost completely solid, hypoechoic nodule, which is wi jonah than tall, with smooth margins, without echogenic foci. TR 4 Prior size: .9 x .4 x .6 cm 2. .6 X .4 x .5 cm, lower , solid or almost completely solid, hypoechoic nodule, which is wider th an tall, with smooth margins, without echogenic foci. TR 4 Prior size: .5 x .3 x .4 cm 2017 ACR TI-RADS LEVEL: ISTHMUS: # of nodules measured in the isthmus: 0 Hypoechoic area seen left lateral neck seen .6 x .2 cm. IMPRESSION: Moderately suspicious subcentimeter nodules. Highest TI-RADS level nodule reported: 2017 ACR TI-RADS LEVEL: TI-RADS 4 - Moderately Suspicious: Follow if > 1 cm, FNA if > 1.5 cm TI-RADS assessment score and recommendation for follow-up based on appropriate scoring and treatment protocols. TR1 Benign No FNA TR2 Not suspicious No FNA TR3: If nodule size is ? 2.5 cm, FNA is recommended. If nodule size is ? 1.5 cm, follow-up imaging at 1, 3, and 5 years is recommended. TR4: If nodule size is ? 1.5 cm, FNA is recommended. If nodule size is ? 1.0 cm, follow-up imaging at 1, 2, 3, and 5 years is recommended. TR5: If nodule size is ? 1.0 cm, FNA is recommended. If nodule size is ? 0.5 cm, annual follow-up for up to 5 years is recommended. TR 1 thyroid nodules have a 0.3 % risk of malignancy. TR 2 thyroid nodules have a 1.5 % risk of malignancy. TR 3 thyroid nodules have a 4.8 % risk of malignancy. TR 4 thyroid nodules have a 9.1 % risk of malignancy. TR 5 thyroid nodules have a 35 % risk of malignancy. [email or web address] [facility], , 10/12/2024 2:52 PM
== END | disposition home or self-care (01) ==
LOC: RADUSWWP 13:57
PROVIDERS: ATTEND Family Medicine
DX: E04.2 Nontoxic multinodular goiter (principal)
CPT/HCPCS: 76536

== ENCOUNTER 2024-11-10 18:02 | Emergency (ER) | payer BC ==
[2024-11-10 18:07] VITALS: RESP 18; TEMP 97.8
--- NOTE | 2024-11-10 19:16 | ED ---
Abdominal Pain HPI - General Chief Complaint: Abdominal Pain Stated Complaint: abd pain, back pain, nausea Time Seen by Provider: 11/10/24 19:13 Source: patient, RN notes reviewed Mode of arrival: ambulatory Limitations: no limitations - History of Present Illness Initial Comments: 54-year-old female presenting for constipation x 4 days. States she has not had a bowel movement in 4 days and is having intermittent generalized abdominal pain. States she attempted to give herself a suppository today and it only got 2 small norah of stool and small amount of blood. States she struggles with chronic constipation for the past 5 years and has intermittent blood in her stool. States she saw Dr. Hsieh for this 2 weeks ago who told her she had inter nal hemorrhoids and fissures for which she has been using hydrocortisone suppositories which has improved symptoms. She is going to schedule a colonoscopy soon with Dr. Hsieh due to the chronic constipation. Denies fevers, vomiting. Denies history of abdominal surgeries. - Related Data Home Medications Medication Instructions Recorded Confirmed Gabapentin [Neurontin] 100 mg PO TID 05/20/18 10/04/24 Ascorbic Acid [Vitamin C] 1,000 mg PO DAILY 07/19/22 10/04/24 Aspirin EC [Ecotrin Low Dose] 81 mg PO DAILY 07/19/22 10/04/24 Biotin 5 mg PO DAILY 07/19/22 10/04/24 Cholecalciferol [Vitamin D3 (25 25 mcg PO DAILY 07/19/22 10/04/24 Mcg = 1000 Iu)] Ondansetron Odt [Zofran Odt] 4 mg TRANSLINGU BID PRN 07/19/22 10/04/24 Zinc Gluconate [Zinc] 50 mg PO DAILY 07/19/22 10/04/24 Omeprazole 40 mg PO DIRECTED PRN 03/21/24 10/04/24 Unk Collagen 1 tab PO DAILY 03/21/24 10/04/24 Clobetasol Propionate [Temovate 1 applic VAGINAL WEEKLY 10/04/24 10/04/24 0.05% Cream] Estradiol Cream [Estrace Cream 1 applicator VAGINAL WEEKLY 10/04/24 10/04/24 0.01%] Previous Rx's Medication Instructions Recorded Triamcinolone 0.1% Ointment 1 applic TOPICAL BID PRN #30 gm 10/04/24 [Kenalog 0.1% Ointment] Allergies Allergy/AdvReac Type Severity Reaction Status Date / Time adhesive tape Allergy Rash/Hives Verified 11/10/24 18:07 flecainide Allergy SEVERE Verified 11/10/24 18:07 HEADACHE Penicillins Allergy Anaphylaxis Verified 11/10/24 18:07 azithromycin AdvReac Abdominal Verified 11/10/24 18:07 [From Zithromax Z-Salinas] Pain codeine AdvReac Nausea & Verified 11/10/24 18:07 Vomiting Review of Systems ROS Statement: Those systems with pertinent positive or pertinent negative responses have been documented in the HPI. ROS Other: All systems not noted in ROS Statement are negative. Past Medical History Past Medical History: GERD/Reflux, Osteoarthritis (OA), Supraventricular Tachycardia (SVT), Thyroid Disorder Additional Past Medical History / Comment(s): lung nodules,hx WPW syndrome improved following cardiac ablation, SVT, hiatal hernia, gastritis, palpitations; Cervical spinal stenosis. Thyroid nodule. MIGRAINE HEADACHES, CHRONIC BACK PAIN. Osteopenia. 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 Right Uterine fundal fibroid measuring 4.7 cm (2019 U/S). History of Any Multi-Drug Resistant Organisms: None Reported Past Surgical History: Breast Surgery, Cardiac Ablation, Ear Surgery Additional Past Surgical History / Comment(s): exp. laparoscopy; groin cyst removed, wisdom teeth removed; colonoscopy 10/2020, myringotomy & tubes, pain procedures. Upper GI endoscopy 2022,LEFT BREAST BIOPSY,I&D cyst removed from inguinal area. Hysteroscopy with D&C on 03/25/2024. Past Anesthesia/Blood Transfusion Reactions: Family History of Problems w/ Anesthesia, Postoperative Nausea & Vomiting (PONV) Additional Past Anesthesia/Blood Transfusion Reaction / Comment(s): mother has a hard time waking up from anesthesia. no hx blood transfusion Past Psychological History: Anxiety, Depression Smoking Status: Former smoker Past Alcohol Use History: None Reported Past Drug Use History: None Reported - Past Family History Mother Family Medical History: AFIB, Congestive Heart Failure (CHF), COPD Father Family Medical History: Cancer Additional Family Medical History / Comment(s): Melanoma skin cancer. Aunts Family Medical History: Cancer Additional Family Medical History / Comment(s): A paternal aunt had ovarian cancer, a maternal aunt had uterine cancer and another maternal aunt had bladder cancer. General Exam Limitations: no limitations General appearance: alert, in no apparent distress Head exam: Present: atraumatic, normocephalic, normal inspection Eye exam: Present: normal appearance, PERRL, EOMI. Absent: scleral icterus, conjunctival injection, periorbital swelling ENT exam: Present: normal exam, mucous membranes moist GI/Abdominal exam: Present: soft, normal bowel sounds. Absent: distended, tenderness, guarding, rebound, rigid Rectal exam: Present: normal inspection (Chaperoned by [employer] [facility], no visible bleeding, hemorrhoids, or fissures). Absent: hemorrhoids, mass, tenderness Neurological exam: Present: alert, oriented X3 Psychiatric exam: Present: normal affect, normal mood Skin exam: Present: warm, dry, intact, normal color. Absent: rash Course Vital Signs 11/10/24 11/10/24 11/10/24 18:04 21:00 21:47 Temperature 97.8 F Pulse Rate 94 94 91 Respiratory 18 18 18 Rate Blood Pressure 105/71 119/83 120/81 O2 Sat by Pulse 98 98 99 Oximetry Medical Decision Making - Medical Decision Making Was pt. sent in by a medical professional or institution (, PA, VETERINARY X RAY OPERATOR, urgent care, hospital, or chcf...) When possible be specific @ -No Did you speak to anyone other than the patient for history (EMS, parent, family, police, friend...)? What history was obtained from this source @ -No Did you review nursing and triage notes (agree or disagree)? Why? @ -I reviewed and agree with nursing and triage notes Were old charts reviewed (outside hosp., previous admission, EMS record, old EKG, old radiological studies, urgent care reports/EKG's, chcf records)? Report findings @ -No old charts were reviewed Differential Diagnosis (chest pain, altered mental status, abdominal pain women, abdominal pain men, vaginal bleeding, weakness, fever, dyspnea, syncope, headache, dizziness, GI bleed, back pain, seizure, CVA, palpatations, mental health, musculoskeletal)? @ -Differential Abdominal Pain Women: Appendicitis, Cholecystitis, diverticulosis, ischemic bowel, pancreatitis, hepatitis, UTI, gastroenteritis, AAA, incarcerated hernia, bowel obstruction, constipation, inflammatory bowel, hepatitis, peptic ulcer disease, splenic infarction, perforated viscus, vulvitis, ovarian torsion, PID, kidney stone, placenta abruption, this is not meant to be an all-inclusive list EKG interpreted by me (3pts min.). @ -None X-rays interpreted by me (1pt min.). @ -KUB unremarkable abdomen, fecal matter demonstrated throughout the colon CT interpreted by me (1pt min.). @ -None done U/S interpreted by me (1pt. min.). @ -None done What testing was considered but not performed or refused? (CT, X-rays, U/S, labs)? Why? @ -None What meds were considered but not given or refused? Why? @ -None Did you discuss the management of the patient with other professionals (professionals i.e. , PA, VETERINARY X RAY OPERATOR, lab, RT, psych nurse, social service agency director, space studies faculty member, teacher, airconditioning drafting officer, child welfare caseworker)? Give summary @ -No Was smoking cessation discussed for >3mins.? @ -No Was critical care preformed (if so, how long)? @ -No Were there social determinants of health that impacted care today? How? (Homele ssness, low income, unemployed, alcoholism, drug addiction, transportation, low edu. Level, literacy, decrease access to med. care, residential, rehab)? @ -No Was there de-escalation of care discussed even if they declined (Discuss DNR or withdrawal of care, Hospice)? DNR status @ -No What co-morbidities impacted this encounter? (DM, HTN, Smoking, COPD, CAD, Cancer, CVA, ARF, Chemo, Hep., AIDS, mental health diagnosis, sleep apnea, morbid obesity)? @ -None Was patient admitted / discharged? Hospital course, mention meds given and route, prescriptions, significant lab abnormalities, going to OR and other pertinent info. @ -Discharge. 54-year-old female presenting for constipation x 4 days. Abdomen soft and nontender. Rectal examination unremarkable. Provided with IV fluids, Zofran, and Bentyl. Lab work unremarkable. Hemoglobin normal. KUB reveals unremarkable abdomen with fecal matter demonstrated throughout the colon. Upon reevaluation, patient reports improvement of symptoms and reports she had a small bowel movement. Patient was discharged with magnesium citrate. Appropriate return parameters and follow-up care discussed. Case was discussed with my ED attending Dr. Marinelli Undiagnosed new problem with uncertain prognosis? @ -No Drug Therapy requiring intensive monitoring for toxicity (Heparin, Nitro, Insulin, Cardizem)? @ -No Were any procedures done? @ -No Diagnosis/symptom? @ -Constipation Acute, or Chronic, or Acute on Chronic? @ -Acute Uncomplicated (without systemic symptoms) or Complicated (systemic symptoms)? @ -Uncomplicated Side effects of treatment? @ -No Exacerbation, Progression, or Severe Exacerbation? @ -No Poses a threat to life or bodily function? How? (Chest pain, USA, OR, pneumonia, PE, COPD, DKA, ARF, appy, cholecystitis, CVA, Diverticulitis, Homicidal, Suicidal, threat to staff... and all critical care pts) @ -No - Lab Data Result diagrams: 11/10/24 19:20 11/10/24 19:20 Lab Results 11/10/24 11/10/24 11/10/24 Range/Units 19:20 19:20 19:20 WBC 6.85 (4.50-10.00) 10*3/uL RBC 4.81 (4.10-5.20) 10*6/uL Hgb 15.8 H (12.0-15.0) g/dL Hct 44.3 (37.2-46.3) % MCV 92.1 (80.0-97.0) fL MCH 32.8 H (27.0-32.0) pg MCHC 35.7 (32.0-37.0) g/dL Plt Count 236 (140-440) 10*3/uL MPV 10.0 (9.5-12.2) fL Immature Gran % (Auto) 0.1 % Neutrophils % 57.0 % Lymphocytes % 33.7 % Monocytes % 7.0 % Eosinophils % 1.0 % Basophils % 1.2 % Immature Gran # 0.01 (0.00-0.04) 10*3/uL Neutrophils # 3.90 (1.80-7.70) 10*3/uL Lymphocytes # 2.31 (0.90-5.00) 10*3/uL Monocytes # 0.48 (0.20-1.00) 10*3/uL Eosinophils # 0.07 (0.04-0.35) 10*3/uL Basophils # 0.08 (0.00-0.10) 10*3/uL PT 11.3 (10.0-12.5) sec INR 1.0 (<1.2) APTT 26.8 (22.0-30.0) sec Sodium 140 (137-145) mmol/L Potassium 5.2 H (3.5-5.1) mmol/L Chloride 105 (98-107) mmol/L Carbon Dioxide 26 (22-30) mmol/L Anion Gap 9 mmol/L BUN 23 H (7-17) mg/dL Creatinine 0.58 (0.52-1.04) mg/dL Est GFR (CKD-EPI)AfAm >90 (>60 ml/min/1.73 sqM) Est GFR (CKD-EPI)NonAf >90 (>60 ml/min/1.73 sqM) Glucose 98 (74-99) mg/dL Calcium 9.7 (8.4-10.2) mg/dL Total Bilirubin 1.3 (0.2-1.3) mg/dL AST 53 H (14-36) U/L ALT 20 (4-34) U/L Alkaline Phosphatase 60 (38-126) U/L Total Protein 7.1 (6.3-8.2) g/dL Albumin 4.5 (3.5-5.0) g/dL Disposition Clinical Impression: Constipation Disposition: HOME SELF-CARE Condition: Stable Instructions (If sedation given, give patient instructions): Constipation (ED) Additional Instructions: Drink half of the magnesium citrate bottle when you get home. If no bowel movement by tomorrow morning, drink the other half. Schedule colonoscopy with Dr. Hsieh as discussed. Please return to the Emergency Department if symptoms worsen or any other concerns. Is patient prescribed a controlled substance at d/c from ED?: No Referrals: Cortez Paulino DO [Primary Care Provider] - 1-2 days Time of Disposition: 21:19
[2024-11-10] MEDS: METOCLOPRAMIDE 5 MG/ML 2 ML VIAL IVP STA (19:17)
[2024-11-10] MEDS: FAMOTIDINE 20 MG/2 ML VIAL IV STA (19:19)
[2024-11-10] MEDS: SODIUM CHLORIDE 0.9% 1,000 ML IV STA (19:22)
[2024-11-10 19:31] LABS: Basophils # (A) 0.08 10*3/uL (0.00-0.10); Basophils % (A) 1.2 %; Eosinophils # (A) 0.07 10*3/uL (0.04-0.35); Eosinophils % (A) 1.0 %; HCT 44.3 % (37.2-46.3); HGB 15.8 g/dL (12.0-15.0); Lymphocytes # (A) 2.31 10*3/uL (0.90-5.00); Lymphocytes % (A) 33.7 %; MCH 32.8 pg (27.0-32.0); MCHC 35.7 g/dL (32.0-37.0); MCV 92.1 fL (80.0-97.0); Monocytes # (A) 0.48 10*3/uL (0.20-1.00); Monocytes % (A) 7.0 %; Neutrophils # (A) 3.90 10*3/uL (1.80-7.70); Neutrophils % (A) 57.0 %; Platelet Count 236 10*3/uL (140-440); RBC 4.81 10*6/uL (4.10-5.20); RDW 11.4 % (11.5-14.5); WBC 6.85 10*3/uL (4.50-10.00)
--- NOTE | 2024-11-10 19:40 | XR ---
EXAMINATION TYPE: XR KUB DATE OF EXAM: 11/10/2024 7:26 PM COMPARISON: Multiple prior radiographs, most recently dated 09/09/2024. CLINICAL INDICATION: Female, 54 years old with history of constipation x 4 days; PHH, pain TECHNIQUE: One radiographic view of the abdomen was obtained. FINDINGS: The bowel gas pattern is nonspecific without dilated loops of small or large bowel. . Fecal material and gas are demonstrated throughout the colon and rectum. There is no evidence for organomegaly or pneumoperitoneum. The osseous structures are intact. No ab normal calcifications are present. IMPRESSION: Nonspecific bowel gas pattern without radiographic evidence for acute process. [facility], , 11/10/2024 7:38 PM
[2024-11-10 19:46] LABS: INR 1.0 (<1.2); Partial Thromboplastin Time 26.8 sec (22.0-30.0); Prothrombin Time 11.3 sec (10.0-12.5)
[2024-11-10 19:47] LABS: African American GFR (CKD) >90 (>60 ml/min/1.73 sqM); Albumin 4.5 g/dL (3.5-5.0); Anion Gap 9 mmol/L; Blood Urea Nitrogen 23 mg/dL (7-17); Calcium 9.7 mg/dL (8.4-10.2); Carbon Dioxide 26 mmol/L (22-30); Chloride 105 mmol/L (98-107); Glucose 98 mg/dL (74-99); Non-African American GFR(CKD) >90 (>60 ml/min/1.73 sqM); Sodium 140 mmol/L (137-145); Total Protein 7.1 g/dL (6.3-8.2)
[2024-11-10 19:50] LABS: ALT 20 U/L (4-34); AST 53 U/L (14-36); Alkaline Phosphatase 60 U/L (38-126); Potassium 5.2 mmol/L (3.5-5.1)
[2024-11-10 21:47] VITALS: BP 120/81; PULSE 91
[2024-11-10] MEDS: MAGNESIUM CITRATE 296 ML BOTTLE PO ONE (21:53)
== END 2024-11-10 21:55 | disposition home or self-care (01) ==
LOC: EC 18:02
DX: K59.09 Other constipation (principal); Z87.891 Personal history of nicotine dependence; Z88.0 Allergy status to penicillin; Z88.1 Allergy status to other antibiotic agents; Z88.5 Allergy status to narcotic agent; Z91.09 Other allergy status, other than to drugs and biological substances; Z88.8 Allergy status to other drugs, medicaments and biological substances
CPT/HCPCS: 80053; 85025; 85610; 85730; 74018; 99284; 96374; 96375; 96361; J2765; J1308; 36415